=== PATIENT | male | born 1945 | race Caucasian/White ===

== ENCOUNTER → 2016-05-24 | Outpatient (CLI) | payer OTHER ==
[~2016-05-24] MED LIST: AMOX500C3 PO; APIX1TAB3 PO; CEPH500C2 PO; CHOL1CAP57 PO; CIPR-255 PO; CYAN500S5 PO; EPP3/2 IM; GLC500 PO; HYDC25 PO; INSDGI SC; LISI-725 PO; NXM/40 PO; PENI500T2 PO; SIMV20TA2 PO
[2016-05-24 12:58] LABS: BASO % 0.4 %; BASO ABS # 0.02 K/uL (0-0.2); COMPLETE YES; EOS % 6.1 %; HEMATOCRIT 43.8 % (42-52); IG% 0.2 %; LYMPH % 24.5 %; LYMPH ABS # 1.13 K/uL (1.2-3.4); MEAN CELL VOLUME 95.4 fL (80-100); MEAN CORPUSCULAR HEMOGLOBIN 32.5 pg (25-34); MEAN PLATELET VOLUME 11.2 fL (7.4-10.4); MONO % 11.7 %; NEUT % 57.1 %; PLATELET COUNT 153 K/uL (130-400); RED BLOOD COUNT 4.59 M/uL (4.7-6.1); WHITE BLOOD COUNT 4.61 K/uL (4.8-10.8)
[2016-05-24 13:02] LABS: URINE APPEARANCE CLEAR (CLEAR); URINE BILIRUBIN NEG (NEG); URINE COLOR YELLOW; URINE NITRITE NEG (NEG); URINE SPECIFIC GRAVITY 1.036 (1.000-1.030); UROBILINOGEN NEG (NEG); ZZUR CULT IF INDIC CLEAN CATCH NO
[2016-05-24 13:08] LABS: ALT/SGPT 23 U/L (12-78); BLOOD UREA NITROGEN 25 mg/dl (7-18); BUN/CREATININE RATIO 22.3 (10-20); CALCIUM 9.1 mg/dl (8.5-10.1); CARBON DIOXIDE 30 mmol/L (21-32); CHLORIDE 101 mmol/L (98-107); GLUCOSE 145 mg/dl (70-99); POTASSIUM 4.5 mmol/L (3.5-5.1); SODIUM 140 mmol/L (136-145)
[2016-05-24 13:09] LABS: MANUAL MICROSCOPIC REQUIRED? NO; REVIEW REQ? NO
[2016-05-24 13:18] LABS: ALKALINE PHOSPHATASE 95 U/L (45-117); AST/SGOT 15 U/L (15-37)
[2016-05-24 13:21] LABS: ESTIMATED AVERAGE GLUCOSE 212 mg/dl; HA1C FLAG Normal (Normal)
[2016-05-24 13:37] LABS: RATIO 10.8 mcg/mg (0-30.0)
== END | disposition home or self-care (01) ==
LOC: C.LABBFT 09:34
PROVIDERS: ATTEND Internal Medicine
DX: E11.9 Type 2 diabetes mellitus without complications (principal); I48.91 Unspecified atrial fibrillation

== ENCOUNTER → 2016-10-04 | Outpatient (CLI) | payer OTHER ==
[~2016-10-04] MED LIST changes: -AMOX500C3 PO; -CEPH500C2 PO; -CIPR-255 PO; -PENI500T2 PO
[2016-10-04 17:43] LABS: BASO % 0.3 %; BASO ABS # 0.02 K/uL (0-0.2); COMPLETE YES; EOS % 2.4 %; HEMATOCRIT 41.3 % (42-52); IG% 0.3 %; LYMPH % 13.5 %; LYMPH ABS # 0.96 K/uL (1.2-3.4); MEAN CELL VOLUME 93.7 fL (80-100); MEAN CORPUSCULAR HEMOGLOBIN 30.4 pg (25-34); MEAN CORPUSCULAR HGB CONC 32.4 g/dl (32-36); MEAN PLATELET VOLUME 10.3 fL (7.4-10.4); MONO % 12.6 %; NEUT % 70.9 %; PLATELET COUNT 199 K/uL (130-400); RED BLOOD COUNT 4.41 M/uL (4.7-6.1); WHITE BLOOD COUNT 7.09 K/uL (4.8-10.8)
[2016-10-04 18:30] LABS: ALB/GLOB RATIO 0.8 (0.9-2); ALKALINE PHOSPHATASE 83 U/L (45-117); ALT/SGPT 14 U/L (12-78); AST/SGOT 7 U/L (15-37); BLOOD UREA NITROGEN 22 mg/dl (7-18); BUN/CREATININE RATIO 21.6 (10-20); CALCIUM 9.6 mg/dl (8.5-10.1); CARBON DIOXIDE 28 mmol/L (21-32); CHLORIDE 96 mmol/L (98-107); CHOLESTEROL 111 mg/dl (0-200); GLUCOSE 162 mg/dl (70-99); HDL CHOLESTEROL 28 mg/dl; LDL CHOLESTEROL CALCULATED 58 mg/dl; SODIUM 134 mmol/L (136-145); TRIGLYCERIDES 124 mg/dl (0-150); VERY LOW DENSITY LIPOPROT CALC 25 mg/dl
[2016-10-05 06:17] LABS: ESTIMATED AVERAGE GLUCOSE 206 mg/dl; HA1C FLAG Normal (Normal)
== END | disposition home or self-care (01) ==
LOC: C.LABBFT 11:24
PROVIDERS: ATTEND Internal Medicine
DX: E78.5 Hyperlipidemia, unspecified (principal); E11.9 Type 2 diabetes mellitus without complications; I48.91 Unspecified atrial fibrillation

== ENCOUNTER → 2016-11-08 | Outpatient (CLI) | payer OTHER ==
[~2016-11-08] VITALS: Ht 185.4 cm; Wt 164.1 kg
[2016-11-08 11:05] VITALS: BP 122/59; PULSE 78; Ht 185.4 cm; Wt 164.1 kg
== END | disposition home or self-care (01) ==
LOC: C.NEUR 09:16
PROVIDERS: ATTEND Internal Medicine Pulmonary Disease
DX: G47.33 Obstructive sleep apnea (adult) (pediatric) (principal); E66.01 Morbid (severe) obesity due to excess calories; Z68.42 Body mass index [BMI] 45.0-49.9, adult

== ENCOUNTER → 2017-05-10 | Outpatient (CLI) | payer OTHER ==
[2017-05-10 12:36] LABS: BASO % 0.2 %; BASO ABS # 0.01 K/uL (0-0.2); EOS % 3.4 %; EOS ABS # 0.16 K/uL (0-0.5); HEMATOCRIT 41.7 % (42-52); HEMOGLOBIN 14.2 g/dL (14.0-18.0); IG# 0.01 K/uL (0.00-0.02); LYMPH % 28.3 %; LYMPH ABS # 1.35 K/uL (1.2-3.4); MEAN CELL VOLUME 98.3 fL (80-100); MEAN CORPUSCULAR HEMOGLOBIN 33.5 pg (25-34); MEAN CORPUSCULAR HGB CONC 34.1 g/dl (32-36); MEAN PLATELET VOLUME 10.3 fL (7.4-10.4); MONO % 11.7 %; MONO ABS # 0.56 K/uL (0.11-0.59); NEUT % 56.2 %; NEUT ABS # 2.68 K/uL (1.4-6.5); PLATELET COUNT 161 K/uL (130-400); RED CELL DISTRIBUTION WIDTH CV 13.8 % (11.5-14.5); WHITE BLOOD COUNT 4.77 K/uL (4.8-10.8)
[2017-05-10 12:57] LABS: HEMOGLOBIN A1C 8.9 % (4.5-5.6)
== END | disposition home or self-care (01) ==
LOC: C.LABBFT 09:35
PROVIDERS: ATTEND Podiatrist Foot & Ankle Surgery
DX: L03.032 Cellulitis of left toe (principal)

== ENCOUNTER → 2017-05-28 | Outpatient (CLI) | payer OTHER | END | disposition home or self-care (01) | LOC: C.LABSPEC 12:36 | PROVIDERS: ATTEND Physician Assistant Medical | DX: L03.119 Cellulitis of unspecified part of limb (principal) ==

== ENCOUNTER → 2017-06-19 | Day surgery (SDC) | payer OTHER ==
[2017-06-06 10:30] VITALS: Ht 185.4 cm; Wt 113.6 kg
[~2017-06-19] VITALS: Ht 185.4 cm; Wt 113.6 kg
[~2017-06-19] MED LIST changes: -CHOL1CAP57 PO; +CYAN10005 PO; -CYAN500S5 PO; +ERGO500011 PO; -GLC500 PO; -HYDC25 PO; +HYDR25TA4 PO; +INSU100I SC; +LIDOCAINE HCL 2% 2 ML VIAL (20MG/ML) ONE; +METF-384 PO; -NXM/40 PO; +PANT40TA PO; +PROPOFOL IV EMULSION 10 MG/ML 20 ML VIAL IV ONE; +SODIUM CHLORIDE 0.9% 500ML 500 ML IV ONE
--- NOTE | 2017-06-19 10:56 | Endo History and Physical ---
History & Physical Date of Service: Jun 19, 2017. Chief Complaint: SCREENING Referring Physician: DR CUAUHTEMOC ALLISON History of Present Illness 71 yo CM who presents for screening colonoscopy. Past Medical History Atrial Fibrillation, Diabetes, Arthritis, Reflux, High Cholesterol, Sleep Apnea , Heart Disease, Hypertension Past Surgical History Hx Cardiac Surgery: No Hx Internal Defibrillator: No Hx Pacemaker: No Hx Abdominal Surgery: Yes (COLON BIOPSY (BENIGN)) Hx of Implantable Prosthesis: No Hx Post-Op Nausea and Vomiting: No Hx Cancer Surgery: No Hx Thoracic Surgery: No Hx Orthopedic: Yes (LT/RT TKA, LT/RT CTR) Hx Urinary Tract Surgery: No Family History None Social History Smoking Status: Never Smoker Hx Substance Use: No Hx Alcohol Use: Yes (OCCASIONAL) Allergies Coded Allergies: BEE STING (Verified Allergy, Severe, ANAPHYLAXIS, 06/19/17) Sulfamethoxazole w/Trimethoprim (Verified Allergy, Unknown, HIVES, 06/19/17) Current Medications Reported Home Medications Medications Dose Route/Sig Max Daily Dose Days Date Category Dose Instructions Vitamin B-12 (Cyanocobalamin) 1,000 Mcg Tab 1,000 Mcg PO DAILY 06/06/17 Reported Protonix (Pantoprazole Sodium) 40 Mg Tab 40 Mg PO QAM 06/06/17 Reported Vitamin D 70616 Unit (Ergocalciferol) 50,000 Unit Cap 1 Tab PO WK 06/06/17 Reported Hctz (Hydrochlorothiazide) 25 Mg Tab 1 Tab PO QAM 06/06/17 Reported Hctz (Hydrochlorothiazide) 25 Mg Tab 0.5 Tab PO QPM 06/06/17 Reported Humalog (Insulin Lispro (Human)) 100 Unit/Ml Inj 1 Dose SC UD 06/06/17 Reported PER SLIDING SCALE Lantus (Insulin Glargine) 100 Unit/Ml Inj 50 Units SC HS 06/06/17 Reported Glucophage (Metformin Hcl) 1,000 Mg Tab 1,000 Mg PO BID 06/06/17 Reported Zestril (Lisinopril) 20 Mg Tab 20 Mg PO QAM 08/08/15 Reported Eliquis (Apixaban) 5 Mg Tab 5 Mg PO BID 09/20/14 Reported Zocor (Simvastatin) 20 Mg Tab 20 Mg PO QPM 06/26/14 Reported Epipen (Epinephrine) 0.3 Mg/0.3 Ml Inj 0.3 Mg IM UD 06/26/14 Reported Vital Signs Weight (Kilograms): 113.64 Height (Feet): 6 Height (Inches): 1 Date Time Temp Pulse Resp B/P (MAP) Pulse Ox O2 Delivery O2 Flow Rate FiO2 06/19/17 10:36 36.6 73 16 149/78 (101) 96 Room Air Physical Exam General Appearance: WD/WN, no apparent distress Respiratory/Chest: Auscultation: breath sounds normal Cardiovascular: Heart Auscultation: RRR Abdomen: Bowel Sounds: normal Inspection & Palpation: soft, non-distended, no tenderness, guarding & rebound Assessment and Plan Assessment: 71 yo CM who presents for screening colonoscopy. Plan: Proceed with colonoscopy.
--- NOTE | 2017-06-19 11:38 | Discharge Instructions ---
Endoscopy Patient Instructions Date / Procedure(s) Performed Jun 19, 2017. Colonoscopy Allergy Information Coded Allergies: BEE STING (Verified Allergy, Severe, ANAPHYLAXIS, 06/19/17) Sulfamethoxazole w/Trimethoprim (Verified Allergy, Unknown, HIVES, 06/19/17) Discharge Date / Findings Jun 19, 2017. Diverticulosis Internal hemorrhoids Medication Instructions Stopped Medication(s): METFORMIN, ELIQUIS LAST DOSE- 06-26-17 OK to resume all medications today as prescribed Reported Home Medications Medications Dose Route/Sig Max Daily Dose Days Date Category Dose Instructions Vitamin B-12 (Cyanocobalamin) 1,000 Mcg Tab 1,000 Mcg PO DAILY 06/06/17 Reported Protonix (Pantoprazole Sodium) 40 Mg Tab 40 Mg PO QAM 06/06/17 Reported Vitamin D 26051 Unit (Ergocalciferol) 50,000 Unit Cap 1 Tab PO WK 06/06/17 Reported Hctz (Hydrochlorothiazide) 25 Mg Tab 1 Tab PO QAM 06/06/17 Reported Hctz (Hydrochlorothiazide) 25 Mg Tab 0.5 Tab PO QPM 06/06/17 Reported Humalog (Insulin Lispro (Human)) 100 Unit/Ml Inj 1 Dose SC UD 06/06/17 Reported PER SLIDING SCALE Lantus (Insulin Glargine) 100 Unit/Ml Inj 50 Units SC HS 06/06/17 Reported Glucophage (Metformin Hcl) 1,000 Mg Tab 1,000 Mg PO BID 06/06/17 Reported Zestril (Lisinopril) 20 Mg Tab 20 Mg PO QAM 08/08/15 Reported Eliquis (Apixaban) 5 Mg Tab 5 Mg PO BID 09/20/14 Reported Zocor (Simvastatin) 20 Mg Tab 20 Mg PO QPM 06/26/14 Reported Epipen (Epinephrine) 0.3 Mg/0.3 Ml Inj 0.3 Mg IM UD 06/26/14 Reported Provider Instructions Activity Restrictions - No exercising or heavy lifting for 24 hours. - Do not drink alcohol the day of the procedure. - Do not drive a car or operate machinery until the day after the procedure. - Do not make any important decisions or sign important papers in 24 hours after the procedure. Following Day: - Return to full activity which may include returning to work/school. Diet Start your diet with liquids and light foods (jello, soup, juice, toast). Then eat your usual diet if not nauseated. Treatment For Common After Affects For mild abdominal pain, bloating, or excessive gas: - Rest - Eat lightly - Lie on right side Follow-Up Information Follow-up with DR JAIME, DR POSADAS as scheduled Anesthesia Information What You Should Know You have had a procedure that required some medicine to reduce anxiety and discomfort. This treatment is called moderate sedation. After receiving the treatment, you may be sleepy, but you will be able to breathe on your own. The effects of the treatment may last for several hours. Follow these instructions along with Activity/Diet recommendations noted above: * Do NOT do anything where dizziness or clumsiness would be dangerous. * Rest quietly at home today, then you can be up and about tomorrow. * Have a responsible person stay with you the rest of today. * You may have had an I.V. today. If so, you may take the dressing off later today. Recommendations Call your doctor if: * Trouble breathing * Continuous vomiting for more than 24 hours * Temperature above 101 degrees * Severe abdominal pain or bloating * Pain not relieved by pain medicine ordered * There is increased drainage or redness from any incision * A large amount of rectal bleeding greater than 2-3 tablespoons. (If you had a polyp/s removed or have hemorrhoids, a small amount of blood - from the rectum is to be expected.) * You have any unanswered questions or concerns. IN THE EVENT OF A SERIOUS EMERGENCY, GO TO THE NEAREST EMERGENCY ROOM Your discharge instructions were prepared by provider Javier Barber. Patient Instructions Signature Page Greg Lawler Patient (or Guardian) Signature/Date: I have read and understand the instructions given to me by my caregivers. Caregiver/RN/Doctor Signature/Date: The above-named patient and/or guardian has received patient instructions on this date. + Original Patient Signature Page (only) stays with chart. Please make copy for patient.
--- NOTE | 2017-06-19 11:49 | Anesthesiology Progress Note ---
Anesthesia Post Op Note Date & Time Jun 19, 2017 at 11:49 Vital Signs Pain Intensity: 0 Vital Signs Past 12 Hours Date Time Temp Pulse Resp B/P (MAP) Pulse Ox O2 Delivery O2 Flow Rate FiO2 06/19/17 11:40 64 18 126/75 (92) 98 Room Air 06/19/17 11:29 64 16 101/48 (65) 94 Room Air 06/19/17 10:36 36.6 73 16 149/78 (101) 96 Room Air Notes Mental Status: alert / awake / arousable, participated in evaluation Pt Amnestic to Procedure: Yes Nausea / Vomiting: adequately controlled Pain: adequately controlled Airway Patency, RR, SpO2: stable & adequate BP & HR: stable & adequate Hydration State: stable & adequate Anesthetic Complications: no major complications apparent
--- NOTE | 2017-06-19 11:49 | GI REPORT ---
Procedure Date: 06/19/2017 11:00 AM THIS REPORT HAS BEEN AMENDED Addendum Number: 1 Addendum Date: 06/19/2017 11:51:13 AM No specimens were collected during this procedure, and therefore, no pathology is pending. No repeat colonoscopy secondary to patient's age and lack of adenomas, as per current guidelines. Procedure: Colonoscopy Indications: Screening for colorectal malignant neoplasm Medicines: Monitored Anesthesia Care Complications: No immediate complications. Estimated Blood Loss: Estimated blood loss: none. Procedure: Pre-Anesthesia Assessment: - Prior to the procedure, a History and Physical was performed, and patient medications and allergies were reviewed. The patient's tolerance of previous anesthesia was also reviewed. The risks and benefits of the procedure and the sedation options and risks were discussed with the patient. All questions were answered, and informed consent was obtained. Prior Anticoagulants: The patient has taken Eliquis (apixaban), last dose was 3 days prior to procedure. ASA Grade Assessment: III - A patient with severe systemic disease. After reviewing the risks and benefits, the patient was deemed in satisfactory condition to undergo the procedure. After I obtained informed consent, the scope was passed under direct vision. Throughout the procedure, the patient's blood pressure, pulse, and oxygen saturations were monitored continuously. The scope was introduced through the anus and advanced to the cecum, identified by appendiceal orifice and ileocecal valve. The colonoscopy was performed without difficulty. The patient tolerated the procedure well. The quality of the bowel preparation was good. The ileocecal valve, appendiceal orifice, and rectum were photographed. Findings: The perianal and digital rectal examinations were normal. Multiple small-mouthed diverticula were found in the sigmoid colon. Non-bleeding internal hemorrhoids were found during retroflexion. The hemorrhoids were small. Impression: - Diverticulosis in the sigmoid colon. - Non-bleeding internal hemorrhoids. - No specimens collected. Recommendation: - Resume previous diet. - Continue present medications. - Repeat colonoscopy for surveillance based on pathology results. - Return to primary care physician as previously scheduled. Javier Barber DO 06/19/2017 11:49:24 AM This report has been signed electronically. Note Initiated On: 06/19/2017 11:00 AM I attest to the content of the Intraoperative Record and orders documented therein, exceptions below Javier Barber DO 06/19/2017 11:51:58 AM This report has been signed electronically.
[2017-06-19 11:55] VITALS: BP 142/74; PULSE 68; O2SAT 97
== END | disposition home or self-care (01) ==
LOC: C.GI 09:59
PROVIDERS: ATTEND Internal Medicine
DX: Z12.11 Encounter for screening for malignant neoplasm of colon (principal); K57.30 Diverticulosis of large intestine without perforation or abscess without bleeding; K64.8 Other hemorrhoids; I48.91 Unspecified atrial fibrillation; E11.9 Type 2 diabetes mellitus without complications; M19.90 Unspecified osteoarthritis, unspecified site; K21.9 Gastro-esophageal reflux disease without esophagitis; E78.5 Hyperlipidemia, unspecified; E78.00 Pure hypercholesterolemia, unspecified; G47.33 Obstructive sleep apnea (adult) (pediatric); I10 Essential (primary) hypertension; Z96.653 Presence of artificial knee joint, bilateral; Z98.41 Cataract extraction status, right eye; Z98.42 Cataract extraction status, left eye; Z88.2 Allergy status to sulfonamides; Z79.84 Long term (current) use of oral hypoglycemic drugs; Z79.4 Long term (current) use of insulin

== ENCOUNTER → 2017-07-08 | Outpatient (CLI) | payer OTHER ==
[~2017-07-08] MED LIST changes: +AMOX500C3 PO; -LIDOCAINE HCL 2% 2 ML VIAL (20MG/ML) ONE; -PROPOFOL IV EMULSION 10 MG/ML 20 ML VIAL IV ONE; -SODIUM CHLORIDE 0.9% 500ML 500 ML IV ONE
[2017-07-08 17:33] LABS: BASO % 0.5 %; BASO ABS # 0.04 K/uL (0-0.2); EOS % 3.8 %; EOS ABS # 0.33 K/uL (0-0.5); HEMATOCRIT 44.2 % (42-52); IG# 0.02 K/uL (0.00-0.02); LYMPH % 15.8 %; LYMPH ABS # 1.37 K/uL (1.2-3.4); MEAN CELL VOLUME 95.5 fL (80-100); MEAN CORPUSCULAR HEMOGLOBIN 32.4 pg (25-34); MEAN CORPUSCULAR HGB CONC 33.9 g/dl (32-36); MEAN PLATELET VOLUME 10.7 fL (7.4-10.4); MONO % 9.1 %; MONO ABS # 0.79 K/uL (0.11-0.59); NEUT % 70.6 %; PLATELET COUNT 180 K/uL (130-400); RED CELL DISTRIBUTION WIDTH CV 13.7 % (11.5-14.5); RED CELL DISTRIBUTION WIDTH SD 47.1 fL (36.4-46.3); WHITE BLOOD COUNT 8.65 K/uL (4.8-10.8)
[2017-07-08 17:57] LABS: ALBUMIN 4.2 gm/dl (3.4-5.0); ALT/SGPT 26 U/L (12-78); AST/SGOT 23 U/L (15-37); BLOOD UREA NITROGEN 28 mg/dl (7-18); CALCIUM 9.6 mg/dl (8.5-10.1); CARBON DIOXIDE 26 mmol/L (21-32); CREATININE 1.07 mg/dl (0.60-1.40); GLUCOSE 114 mg/dl (70-99); POTASSIUM 4.2 mmol/L (3.5-5.1); SODIUM 136 mmol/L (136-145)
[2017-07-08 17:59] LABS: ALKALINE PHOSPHATASE 88 U/L (45-117); TOTAL PROTEIN 8.2 gm/dl (6.4-8.2)
== END | disposition home or self-care (01) ==
LOC: C.LAB1850 16:53
PROVIDERS: ATTEND Internal Medicine
DX: L29.9 Pruritus, unspecified (principal)

== ENCOUNTER → 2017-11-01 | Outpatient (CLI) | payer OTHER ==
[~2017-11-01] MED LIST changes: -AMOX500C3 PO
[2017-11-01 12:38] LABS: HEMOGLOBIN A1C 9.3 % (4.5-5.6)
[2017-11-01 12:58] LABS: ALBUMIN 3.5 gm/dl (3.4-5.0); ALKALINE PHOSPHATASE 87 U/L (45-117); ALT/SGPT 22 U/L (12-78); AST/SGOT 14 U/L (15-37); BLOOD UREA NITROGEN 28 mg/dl (7-18); CALCIUM 9.4 mg/dl (8.5-10.1); CARBON DIOXIDE 28 mmol/L (21-32); CHOLESTEROL 94 mg/dl (0-200); CREATININE 0.94 mg/dl (0.60-1.40); GLUCOSE 130 mg/dl (70-99); LDL CHOLESTEROL CALCULATED 48 mg/dl; SODIUM 139 mmol/L (136-145); TOTAL PROTEIN 6.8 gm/dl (6.4-8.2)
== END | disposition home or self-care (01) ==
LOC: C.LABBFT 09:24
PROVIDERS: ATTEND Internal Medicine Endocrinology, Diabetes & Metabolism
DX: E55.9 Vitamin D deficiency, unspecified (principal); E11.65 Type 2 diabetes mellitus with hyperglycemia

== ENCOUNTER 2023-10-19 12:28 | Inpatient (IN) ==
[2023-10-19 14:17] LABS: Basophils # (auto) 0.03 K/uL (0.00-0.20); Basophils % (auto) 0.3 %; Eosinophils # (auto) 0.06 K/uL (0.00-0.50); Eosinophils % (auto) 0.6 %; Hematocrit (blood only) 38.3 % (42.0-52.0); Hemoglobin 12.4 g/dl (14.0-18.0); Immature Granulocytes # (auto) 0.03 K/uL (0.01-0.20); Immature Granulocytes % (auto) 0.3 %; Lymphocytes % (auto) 11.8 %; Mean Corpuscular Hemoglobin 31.1 pg (25.0-34.0); Mean Corpuscular Hgb Conc 32.4 g/dL (32.0-36.0); Mean Platelet Volume 10.7 fL (9.4-12.4); Monocytes # (auto) 0.76 K/uL (0.11-0.59); Monocytes % (auto) 8.2 %; Neutrophils # (auto) 7.34 K/uL (1.40-6.50); Neutrophils % (auto) 78.8 %; Platelet Count 187 K/uL (130-400); RDW Coefficient of Variation 14.6 % (11.5-14.5); RDW Standard Deviation 51.8 fL (36.4-46.3); Red Blood Count 3.99 M/uL (4.70-6.10); White Blood Count 9.32 K/ul (4.8-10.8)
[2023-10-19 14:31] LABS: Alanine Aminotransferase 14 U/L (7-52); Albumin Level 3.6 gm/dl (3.4-5.0); Alkaline Phosphatase 87 U/L (34-104); Anion Gap 8 (3-11); Aspartate Aminotransferase 16 U/L (13-39); Bilirubin Direct 0.2 mg/dl (0-0.2); Bilirubin,Total 0.7 mg/dl (0.2-1.0); Blood Urea Nitrogen 63 mg/dl (6-23); Calcium 8.5 mg/dl (8.6-10.3); Carbon Dioxide 27 mmol/L (21-32); Chloride 97 mmol/L (98-107); Est GFR (African American) 42.9 ml/min; Glucose 192 mg/dl (70-99(Fasting)); Lipase 18 U/L (11-82); Potassium 4.2 mmol/L (3.5-5.1); Sodium 132 mmol/L (136-145); Total Protein 7.4 gm/dl (6.0-8.3)
--- NOTE | 2023-10-19 14:54 | Emergency Department Note ---
Impression & Plan Acute osteomyelitis of toe, NED (acute kidney injury) ED Provider Note NAME: BERHANE KHALIL AGE: 78 SEX: M : 1945 ARRIVES VIA: Walk-In INFORMANT: Patient, ED PROVIDER(S): Scooby Bacon MD CHIEF COMPLAINT: Toe infection HPI: This is a 78-year-old male with history of diabetes, hypertension, neuropathy presenting for foot infection. Patient with his 2 daughters states that his third toes turning black. He has noted wounds to his feet previously however this new third toe became more painful and black. They were dressing his wounds and noticed this happened. Worsening swelling over the past 5 days. He reports chills and possible fevers at home. He does see wound care but has not had any recent debridement. He notes a foul odor to his foot as well. Currently not in antibiotics. ROS: See above HPI for pertinent positives & negatives. A total of 10 systems reviewed and were otherwise negative. PHYSICAL EXAMINATION: General: Chronically ill-appearing Head: Normocephalic and atraumatic Eyes: Normal inspection, extraocular muscles intact Ear, nose, throat: Normal external exam Neck: Normal range of motion Respiratory: lungs clear to auscultation bilaterally Cardiovascular: Regular rate/rhythm, no murmur GI: soft, nontender, no guarding or rebound Extremities: Chronic venous skin changes, left third toe shows swelling, purple discoloration, black eschar, other toes reveal chronic appearing wounds Neuro: The patient awake and alert, appropriately conversive, no focal deficits, symmetric faces Skin: Warm, dry, and intact MEDICAL DECISION MAKING: This is a 78-year-old male with history of diabetes, hypertension and neuropathy presenting for foot infection. Concern for third toe infection, osteomyelitis, low concern for gangrene. -X-ray as independently interpreted by me reveals reduced lucency of third great toe, concerning for osteomyelitis -Blood was reviewed showing no leukocytosis. Hemoglobin 12.4. Electrolytes show slight hyponatremia and hyperchloremia. Creatinine elevated 1.75. -Will start patient on Zosyn at this time for suspected osteomyelitis -Patient required mission at this time for further wound care osteomyelitis management -Discussed with VIANEY Moreno for hospitalist service for admission Differential diagnosis: See above ER treatment provided: See below Diagnostics interpreted by me: ECG: ECG independently interpreted by me with normal sinus rhythm, rate of 83, right bundle branch block, normal VT, normal QTc, no ST segment elevations consistent with STEMI criteria, occasional PVC Cardiac Monitoring: An order was placed for continuous cardiac monitoring. The monitor shows a rate of 76 with sinus rhythm. Laboratory studies: As stated above and show below. Imaging studies: See below. Past Med/Surg History Problem List (Updated 10/19/23 @ 19:28 by Scooby Bacon MD) NED (acute kidney injury) (Acute) Acute osteomyelitis of toe (Acute) Diabetic infection of left foot Encounter for pre-operative examination Fracture of proximal end of fibula Acute UTI (Acute) Fracture of left fibula (Acute) Fall (Acute) Foot ulcer, left Lower extremity edema Diabetes type 2, controlled Anemia Atrial flutter BMI 45.0-49.9, adult Loss of protective sensation of skin of foot Obstructive sleep apnea, adult Venous stasis Vitamin D deficiency BPH with obstruction/lower urinary tract symptoms Dyslipidemia GERD without esophagitis Diabetic peripheral neuropathy associated with type 2 diabetes mellitus Medical History On anticoagulant therapy History of COVID-19 2020- no hosp; resolved Lymphedema Arthritis Diabetes diabetic sensor Sleep apnea CPAP Afib asymptomatic; eliquis daily Personal history of diabetic foot ulcer NO CURRENT BPH with obstruction/lower urinary tract symptoms Dyslipidemia GERD without esophagitis Hypertension Osteoarthritis Diabetic peripheral neuropathy associated with type 2 diabetes mellitus Surgical History History of right cataract surgery History of colonoscopy H/O umbilical hernia repair (~10/2006) Hx of total knee arthroplasty right TKA 11/2001 Dr. Garcia, left TKA 2006; revision July, H/O carpal tunnel repair Family History Brother Prostate cancer Diabetes Coronary heart disease Abdominal aortic aneurysm Alzheimer disease Stroke Family history of colonic polyps Father Heart disease Myocardial infarction Family/Other Hypertension Denies family history of Rheumatoid arthritis Sudden SIDS (sudden syndrome) Ovarian cancer Deep vein thrombosis Osteoporosis Dyslipidemia Cerebral aneurysm Bipolar disorder Clotting disorder Crohn's disease Dementia Depression Kidney disease Osteoarthritis Breast cancer Schizophrenia Congenital kidney disease Gestational diabetes Lung cancer COPD (chronic obstructive pulmonary disease) Colorectal cancer Pulmonary embolism Lung disease Ulcerative colitis Colonic polyp Asthma Cystic kidney disease Social History (Updated 03/08/24 @ 13:32 by LENI Geller) Smoking Status: Never smoker Second Hand Exposure: No; Do You Dip or Chew Tobacco: No; Hx Alcohol Use: Yes Alcohol type: beer and hard liquor Alcohol Intake Frequency: 2-3 x/Week Hx Substance Use: No Preferred Language: Belarusian Communication Ability: Effective Visual Impairment: No Limitations Hearing Ability: Normal Project Structural Engineer Required: No Beliefs That Will Affect Care: None marital status: / Current Living Situation: Alone Current Living Situation Comment: DOG current occupational status: retired current occupation: he used to work at [employer] How many Children do You have: 2 Feels Safe at Home: Yes Childhood Exposure to Second-Hand Smoke: No Diet: regular caffeine: Yes during the past year weight has: remained stable Dental Care, Regularly: Yes Physical Activity Frequency: 3-4 Times per Week Seatbelt Use: sometimes Sunscreen Use: No Assistive Devices: Cane, CPAP and Glasses Allergies Allergies Allergy/AdvReac Type Severity Reaction Status Date / Time Sulfa (Sulfonamide Allergy Severe Hives Unverified 08/19/23 11:05 Antibiotics) Bactrim Allergy Unknown HIVES Verified 06/19/17 10:28 bee venom protein (honey bee) Allergy Unknown ANAPHYLAXIS Verified 08/19/23 11:05 fluconazole Allergy Unknown rash with Verified 08/19/23 11:05 itching sulfamethoxazole Allergy Unknown HIVES Verified 08/19/23 11:05 trimethoprim Allergy Unknown HIVES Verified 08/19/23 11:05 Home Meds Home Medications Medication Instructions Recorded Confirmed insulin syringe-needle U-100 1 mL #10 ea 09/16/18 08/19/23 31 gauge x 5/16" (BD Insulin Syringe Ultra-Fine) lancets (OneTouch UltraSoft #50 ea 09/16/18 08/19/23 Lancets) cholecalciferol (vitamin D3) 25 25 mcg PO QAM 10/21/20 10/19/23 mcg (1,000 unit) capsule epinephrine 0.3 mg/0.3 mL 0.3 mg IM UD PRN anaphylaxis 05/28/22 10/19/23 injection, auto-injector (EpiPen 2-Golden) metformin 1,000 mg tablet 500 mg PO BID 01/28/23 10/19/23 Balance Of Nature 1 tab PO QAM 04/11/23 10/19/23 tramadol 50 mg tablet 50 mg PO Q8 PRN Pain 10/19/23 10/19/23 Previous Rx's Medication Instructions Recorded CPAP Machine #1 ea 01/06/19 Contour Test Strips (blood sugar #400 ea 01/21/19 diagnostic) CPAP Supplies #1 ea 11/02/19 Walking Cane #1 ea 11/15/20 mecobalamin (vitamin B12) 5,000 5,000 mcg PO DAILY #30 tabs 05/07/22 mcg chewable tablet lisinopril 20 mg tablet 20 mg PO BID #180 tabs 12/04/22 sildenafil 100 mg tablet 100 mg PO DAILY #6 tabs 12/04/22 apixaban 5 mg tablet 5 mg PO BID #180 tabs 01/02/23 tamsulosin 0.4 mg capsule (Flomax) 0.4 mg PO DAILY #90 caps 02/05/23 insulin lispro 100 unit/mL See Rx Instructions subcut TIDM 03/20/23 subcutaneous pen (Humalog KwikPen #30 mL (U-100) Insulin) flash glucose sensor (FreeStyle #6 ea 05/20/23 Tamika 2 Sensor kit) hydrochlorothiazide 25 mg tablet 12.5 mg (1/2 x 25 mg) PO BID #60 07/12/23 tabs pantoprazole 40 mg tablet,delayed 40 mg PO QAM #90 tabs 07/12/23 release albuterol sulfate 90 mcg/actuation 1 inh inhalation Q6H PRN shortness 07/15/23 aerosol inhaler of breath or wheezing #8.5 grams simvastatin 20 mg tablet 20 mg PO QAM #90 tabs 08/06/23 furosemide 20 mg tablet 20 mg PO BID #180 tabs 09/20/23 insulin glargine 100 unit/mL (3 40 unit (0.4 mL) subcut .QHS #45 mL 10/03/23 mL) subcutaneous pen (Lantus Solostar U-100 Insulin) Results & Data (ED) Vital Signs Vital Signs - 24 hr 10/19/23 12:53 10/19/23 13:13 10/19/23 13:18 Temperature 36.5 C Temperature Source Temporal Artery Scan Pulse Rate 89 83 96 H Pulse Rate [Apical] Pulse Rate from SpO2 Sensor 90 Pulse Rhythm [Apical] Respiratory Rate 18 22 Respiratory Effort / Characteristics Non-Labored Respiratory Depth Normal Respiratory Pattern Regular Blood Pressure 111/69 Blood Pressure [Left Arm] Blood Pressure Mean 83 Blood Pressure Mean [Left Arm] Pulse Oximetry 95 97 Oxygen Delivery Method Room Air Sepsis Recent Fever Within 48 Hours No Sepsis New/Unexplained Change in Mental Status N/A Sepsis Action Taken by Nursing No Action Required 10/19/23 13:24 10/19/23 13:30 10/19/23 13:45 Temperature Temperature Source Pulse Rate 74 75 81 Pulse Rate [Apical] Pulse Rate from SpO2 Sensor 76 80 81 Pulse Rhythm [Apical] Respiratory Rate 26 H 17 22 Respiratory Effort / Characteristics Respiratory Depth Respiratory Pattern Blood Pressure Blood Pressure [Left Arm] Blood Pressure Mean Blood Pressure Mean [Left Arm] Pulse Oximetry 99 97 96 Oxygen Delivery Method Sepsis Recent Fever Within 48 Hours Sepsis New/Unexplained Change in Mental Status Sepsis Action Taken by Nursing 10/19/23 13:54 10/19/23 16:07 10/19/23 16:09 Temperature Temperature Source Pulse Rate Pulse Rate [Apical] 83 Pulse Rate from SpO2 Sensor 84 Pulse Rhythm [Apical] Respiratory Rate 19 20 Respiratory Effort / Characteristics Respiratory Depth Respiratory Pattern Blood Pressure 129/79 Blood Pressure [Left Arm] 130/87 129/79 Blood Pressure Mean 95 Blood Pressure Mean [Left Arm] 101 95 Pulse Oximetry 93 98 Oxygen Delivery Method Room Air Room Air Sepsis Recent Fever Within 48 Hours Sepsis New/Unexplained Change in Mental Status Sepsis Action Taken by Nursing 10/19/23 17:12 10/19/23 19:00 10/19/23 19:06 Temperature Temperature Source Pulse Rate 82 76 Pulse Rate [Apical] 76 Pulse Rate from SpO2 Sensor 79 Pulse Rhythm [Apical] Regular Respiratory Rate 18 20 Respiratory Effort / Characteristics Non-Labored Spontaneous Respiratory Depth Normal Respiratory Pattern Regular Blood Pressure 127/65 Blood Pressure [Left Arm] 107/77 Blood Pressure Mean 85 Blood Pressure Mean [Left Arm] 87 Pulse Oximetry 95 96 Oxygen Delivery Method Room Air Room Air Sepsis Recent Fever Within 48 Hours Sepsis New/Unexplained Change in Mental Status Sepsis Action Taken by Nursing Laboratory Data 10/19/23 13:11 10/19/23 13:11 Lab Results 10/19/23 10/19/23 Range/Units 13:11 14:14 WBC 9.32 (4.8-10.8) K/ul RBC 3.99 L (4.70-6.10) M/uL Hgb 12.4 L (14.0-18.0) g/dl Hct 38.3 L (42.0-52.0) % MCV 96.0 (80.0-100.0) fL MCH 31.1 (25.0-34.0) pg MCHC 32.4 (32.0-36.0) g/dL RDW Std Deviation 51.8 H (36.4-46.3) fL RDW Coeff of David 14.6 H (11.5-14.5) % Plt Count 187 (130-400) K/uL MPV 10.7 (9.4-12.4) fL Immature Gran % (Auto) 0.3 % Neut % (Auto) 78.8 % Lymph % (Auto) 11.8 % Robertson % (Auto) 8.2 % Eos % (Auto) 0.6 % Baso % (Auto) 0.3 % Neut # (Auto) 7.34 H (1.40-6.50) K/uL Lymph # (Auto) 1.10 L (1.20-3.40) K/uL Robertson # (Auto) 0.76 H (0.11-0.59) K/uL Eos # (Auto) 0.06 (0.00-0.50) K/uL Baso # (Auto) 0.03 (0.00-0.20) K/uL Immature Gran # (Auto) 0.03 (0.01-0.20) K/uL Sodium 132 L (136-145) mmol/L Potassium 4.2 (3.5-5.1) mmol/L Chloride 97 L (98-107) mmol/L Carbon Dioxide 27 (21-32) mmol/L Anion Gap 8 (3-11) BUN 63 H (6-23) mg/dl Creatinine 1.75 H (0.6-1.4) mg/dl Est Cr Clr Drug Dosing Not Reportable Est GFR ( Amer) 42.9 ml/min Est GFR (Non-Af Amer) 37.0 ml/min BUN/Creatinine Ratio 36.0 H (10-20) Glucose 192 H (70-99(Fasting)) mg/dl Lactate 1.0 (0.4-2.0) mmol/L Calcium 8.5 L (8.6-10.3) mg/dl Magnesium 1.7 (1.7-2.4) mg/dl Total Bilirubin 0.7 (0.2-1.0) mg/dl Direct Bilirubin 0.2 (0-0.2) mg/dl AST 16 (13-39) U/L ALT 14 (7-52) U/L Alkaline Phosphatase 87 (34-104) U/L Total Protein 7.4 (6.0-8.3) gm/dl Albumin 3.6 (3.4-5.0) gm/dl Lipase 18 (11-82) U/L Administered Medications Discontinued Medications Piperacillin Sod/Tazobactam Sod (Zosyn) 4.5 gm in 100 mls @ 200 mls/hr IV NOW ONE Stop: 10/19/23 16:25 Last Infusion: 10/19/23 18:40 Dose: Infused Documented By: Admin: 10/19/23 16:07 Dose: 200 mls/hr Documented By: FRANCISCO Daptomycin 575 mg/ Syringe 11.5 mls @ 5.75 mls/min IV ONE ONE; Protocol Stop: 10/19/23 18:25 Last Admin: 10/19/23 19:07 Dose: 5.75 mls/min Documented By: TEDDY Metoprolol Tartrate (Metoprolol Tartrate 25 Mg Tab) 12.5 mg PO NOW ONE Stop: 10/19/23 19:01 Last Admin: 10/19/23 19:03 Dose: 12.5 mg Documented By: TEDDY Miscellaneous (Patient's Height &/Or Weight Needed) 1 each N/A NOW STA Stop: 10/19/23 15:57 Last Admin: 10/19/23 16:07 Dose: 1 each Documented By: FRANCISCO Imaging Data Radiologist's Impression: Foot X-Ray 10/19/23 13:58 XR foot LT min 3V routine CLINICAL HISTORY: osteo, 3rd toe TECHNIQUE: 3 views of the left foot were obtained. Comparison: Comparison is made to MRI left foot 05/10/2020 FINDINGS: Prominent osteopenia is seen in the distal phalanx of the third digit. The joint spaces are well preserved. Soft tissue swelling is seen about the third digit. IMPRESSION: Soft tissue swelling about the third digit with underlying osteopenia compatible with osteomyelitis. ACT 112: Negative or not required by law. Electronically signed by: Glenn Rosenthal M.D. 10/19/2023 4:16 PM Discharge Plan Visit Data Chief Complaint: Wound Stated Complaint: WOUND LEFT TOE ED Provider: Scooby Bacon Discharge Problem: Acute osteomyelitis of toe, NED (acute kidney injury) Forms Stand Alone Forms: My [facility] Prescriptions Prescriptions: No Action (DME) CPAP Machine Misc See Dose Instructions .ROUTE .MEDSUPPLY Qty: 1 0RF Dose Instruction: As directed Rx Instructions: ADJUST BIPAP TO IPAP 16 EPAP 11-JACY'S (DME) Contour Test Strips strip See Dose Instructions .ROUTE .MEDSUPPLY Qty: 400 3RF Dose Instruction: As directed Rx Instructions: Test 4 times daily (DME) CPAP Supplies Misc See Rx Instructions .ROUTE .MEDSUPPLY Qty: 1 0RF Rx Instructions: CPAP MASK OF CHOICE. CPAP SUPPLIES. CARE PLUS O2 (DME) Walking Cane Misc See Rx Instructions .Route Qty: 1 0RF Rx Instructions: As directed mecobalamin (vitamin B12) 5,000 mcg tablet,chewable 5,000 mcg PO DAILY Qty: 30 5RF Patient Comments: 2 IN THE MORNING AND 2 AT NIGHT/5000 DAILY/PILLS TO SWALLOW apixaban 5 mg tablet 5 mg PO BID Qty: 180 3RF insulin lispro [Humalog KwikPen Insulin] 100 unit/mL insulin pen See Rx Instructions subcut TIDM MDD 30 uinits Qty: 30 3RF Rx Instructions: Inject subcutaneously three times daily with meal, according to sliding scale; (DME) FreeStyle Tamika 2 Sensor Kit See Rx Instructions .Route Qty: 6 3RF Rx Instructions: change Q14D hydrochlorothiazide 25 mg tablet 12.5 mg PO BID Qty: 60 2RF pantoprazole 40 mg tablet,delayed release (DR/EC) 40 mg PO QAM Qty: 90 3RF albuterol sulfate 90 mcg/actuation HFA aerosol inhaler 1 inh inhalation Q6H PRN (Reason: shortness of breath or wheezing) Qty: 8.5 3RF Patient Comments: HARDLY EVERY USE IT simvastatin 20 mg tablet 20 mg PO QAM Qty: 90 3RF furosemide 20 mg tablet 20 mg PO BID Qty: 180 1RF Rx Instructions: Take 20 mg by mouth twice daily. insulin glargine [Lantus Solostar U-100 Insulin] 100 unit/mL (3 mL) insulin pen 40 unit subcut .QHS Qty: 45 3RF (DME) insulin syringe-needle U-100 [BD Insulin Syringe Ultra-Fine] 1 mL 31 gauge x 5/16 syringe See Dose Instructions .ROUTE .MEDSUPPLY Qty: 10 Rx Instructions: USE FOR LANTUS AND HUMALOG UP TO 4 TIMES DAILY (DME) lancets [OneTouch UltraSoft Lancets] [facility] [place] See Dose Instructions .ROUTE .MEDSUPPLY Qty: 50 Rx Instructions: TEST 4 TIMES DAILY AND PRN lisinopril 20 mg tablet 20 mg PO BID Qty: 180 3RF sildenafil 100 mg tablet 100 mg PO DAILY Qty: 6 6RF tamsulosin [Flomax] 0.4 mg capsule 0.4 mg PO DAILY Qty: 90 3RF metformin 1,000 mg tablet 500 mg PO BID cholecalciferol (vitamin D3) 25 mcg (1,000 unit) capsule 25 mcg PO QAM epinephrine [EpiPen 2-Golden] 0.3 mg/0.3 mL auto-injector 0.3 mg IM UD PRN (Reason: anaphylaxis) Rx Instructions: 0.3 mg IM as directed PRN Balance Of Nature 1 tab PO QAM tramadol 50 mg tablet 50 mg PO Q8 PRN (Reason: Pain) Referrals Referrals: Tank Munoz MD [Primary Care Provider] -
[2023-10-19] MEDS: Patient's HEIGHT &/or WEIGHT Needed STA (16:07)
[2023-10-19] MEDS: PIPERACILLIN/TAZOBACTAM 4.5 GM/100 ML BAG IV ONE (16:07)
--- NOTE | 2023-10-19 16:18 | History & Physical Report ---
Date of Service October 19, 2023 Assessment & Plan (1) Lower extremity edema: (2) Diabetic infection of left foot: (3) Vitamin D deficiency: (4) Dyslipidemia: (5) BPH with obstruction/lower urinary tract symptoms: (6) GERD without esophagitis: (7) Diabetic peripheral neuropathy associated with type 2 diabetes mellitus: (8) Atrial flutter: (9) Diabetes type 2, controlled: Plan 78 yo M with PMHx of DM II c/b diabetic neuropathy, HTN, AFlutter, HLD, EVON, GERD, BPH, presents to the hospital for the evaluation of left foot infection. #Left diabetic foot ulcer - pt followed by [facility] - admit to inpt - left foot XR: soft tissue swelling about hte 3rd digit with underlying osteopenia compatible with OM - Lower arterial study (07/16/23): no evidence of significant lower extremity arterial occlusive disease b/l - s/p 1 dose of zosyn in the ED, cont Zosyn and add Vanc - check ESR / CRP - ID consult - Ortho consult - will likely need MRI, but will await ID / Ortho eval #DM II - HA1c: 7.9 (08/15/23) - hold Metformin - cont lantus - ordered correctional scale - diabetic diet #NED - baseline Cr: 1.1, on admission 1.75 - hold HCTZ, lasix, lisinopril - gentle hydration , monitor for volume overload #AFib - CHADS2 Vasc: 4 - on eliquis #HTN - hold lisinopril, HCTZ, Lasix #HLD - statin on hold given pt started on dapto #GERD - cont PPI #BPH - cont tamsulosin #Obesity #EVON - BMI: 35 - cont CPAP History of Present Illness Chief Complaint: Left toe wound Primary Care Provider: Tank Munoz MD 78 yo M with PMHx of DM II c/b diabetic neuropathy, HTN, AFlutter, HLD, EVON, GERD, BPH, presents to the hospital for the evaluation of left foot infection. Pt has been following with [facility] for his left heel wound. Per daughter, he was last seen by them about 2 weeks ago. He has weekly home health RN visits and last visit was on 10/15/23. Per pt, his legs were wrapped at that time with nylon socks over his foot covering his toes fully. At this time of evaluation, pt reports no wound was present. Yesterday, pt started complaining of toe pain prompting his daughters to remove the nylon stocking. At this time they noted foul odor, drainage, and foul appearing wound. This was cleansed by the daughter and this morning, the wound is not improving. Thus with persistence, they brought pt to the hospital. Daughter also noted that pt was complaining of chills and stiffness that improved with tylenol. Pt's daughter did note that pt is supposed to off-load but he is not fully complaint. Furthermore, he has not seen a jewelry bench worker for quite some time. He has no other complaints at this time. Allergies Allergy/AdvReac Type Severity Reaction Status Date / Time Sulfa (Sulfonamide Allergy Severe Hives Unverified 08/19/23 11:05 Antibiotics) Bactrim Allergy Unknown HIVES Verified 06/19/17 10:28 bee venom protein (honey bee) Allergy Unknown ANAPHYLAXIS Verified 08/19/23 11:05 fluconazole Allergy Unknown rash with Verified 08/19/23 11:05 itching sulfamethoxazole Allergy Unknown HIVES Verified 08/19/23 11:05 trimethoprim Allergy Unknown HIVES Verified 08/19/23 11:05 Home Medications Medication Instructions Recorded Confirmed Type insulin syringe-needle U-100 1 mL #10 ea 09/16/18 08/19/23 History 31 gauge x 5/16" (BD Insulin Syringe Ultra-Fine) lancets (OneTouch UltraSoft #50 ea 09/16/18 08/19/23 History Lancets) CPAP Machine #1 ea 01/06/19 10/19/23 Rx Contour Test Strips (blood sugar #400 ea 01/21/19 10/19/23 Rx diagnostic) CPAP Supplies #1 ea 11/02/19 10/19/23 Rx cholecalciferol (vitamin D3) 25 25 mcg PO QAM 10/21/20 10/19/23 History mcg (1,000 unit) capsule Walking Cane #1 ea 11/15/20 08/19/23 Rx mecobalamin (vitamin B12) 5,000 5,000 mcg PO DAILY #30 tabs 05/07/22 10/19/23 Rx mcg chewable tablet epinephrine 0.3 mg/0.3 mL 0.3 mg IM UD PRN anaphylaxis 05/28/22 10/19/23 History injection, auto-injector (EpiPen 2-Golden) lisinopril 20 mg tablet 20 mg PO BID #180 tabs 12/04/22 10/19/23 Rx sildenafil 100 mg tablet 100 mg PO DAILY #6 tabs 12/04/22 10/19/23 Rx apixaban 5 mg tablet 5 mg PO BID #180 tabs 01/02/23 10/19/23 Rx metformin 1,000 mg tablet 500 mg PO BID 01/28/23 10/19/23 History tamsulosin 0.4 mg capsule (Flomax) 0.4 mg PO DAILY #90 caps 02/05/23 10/19/23 Rx insulin lispro 100 unit/mL See Rx Instructions subcut TIDM 03/20/23 10/19/23 Rx subcutaneous pen (Humalog KwikPen #30 mL (U-100) Insulin) Balance Of Nature 1 tab PO QAM 04/11/23 10/19/23 History flash glucose sensor (FreeStyle #6 ea 05/20/23 10/19/23 Rx Tamika 2 Sensor kit) hydrochlorothiazide 25 mg tablet 12.5 mg (1/2 x 25 mg) PO BID #60 07/12/23 10/19/23 Rx tabs pantoprazole 40 mg tablet,delayed 40 mg PO QAM #90 tabs 07/12/23 10/19/23 Rx release albuterol sulfate 90 mcg/actuation 1 inh inhalation Q6H PRN shortness 07/15/23 10/19/23 Rx aerosol inhaler of breath or wheezing #8.5 grams simvastatin 20 mg tablet 20 mg PO QAM #90 tabs 08/06/23 10/19/23 Rx furosemide 20 mg tablet 20 mg PO BID #180 tabs 09/20/23 10/19/23 Rx insulin glargine 100 unit/mL (3 40 unit (0.4 mL) subcut .QHS #45 mL 10/03/23 10/19/23 Rx mL) subcutaneous pen (Lantus Solostar U-100 Insulin) tramadol 50 mg tablet 50 mg PO Q8 PRN Pain 10/19/23 10/19/23 History Past Med/Surg History Problem List (Updated 10/19/23 @ 18:42 by Chen Hoyos MD) Diabetic infection of left foot Encounter for pre-operative examination Fracture of proximal end of fibula Acute UTI (Acute) Fracture of left fibula (Acute) Fall (Acute) Foot ulcer, left Lower extremity edema Diabetes type 2, controlled Anemia Atrial flutter BMI 45.0-49.9, adult Loss of protective sensation of skin of foot Obstructive sleep apnea, adult Venous stasis Vitamin D deficiency BPH with obstruction/lower urinary tract symptoms Dyslipidemia GERD without esophagitis Diabetic peripheral neuropathy associated with type 2 diabetes mellitus Medical History On anticoagulant therapy History of COVID-19 2020- no hosp; resolved Lymphedema Arthritis Diabetes diabetic sensor Sleep apnea CPAP Afib asymptomatic; eliquis daily Personal history of diabetic foot ulcer NO CURRENT BPH with obstruction/lower urinary tract symptoms Dyslipidemia GERD without esophagitis Hypertension Osteoarthritis Diabetic peripheral neuropathy associated with type 2 diabetes mellitus Surgical History History of right cataract surgery History of colonoscopy H/O umbilical hernia repair (~10/2006) Hx of total knee arthroplasty right TKA 11/2001 Dr. Garcia, left TKA 2006; revision July, H/O carpal tunnel repair Family History Brother Prostate cancer Diabetes Coronary heart disease Abdominal aortic aneurysm Alzheimer disease Stroke Family history of colonic polyps Father Heart disease Myocardial infarction Family/Other Hypertension Denies family history of Rheumatoid arthritis Sudden SIDS (sudden infant syndrome) Ovarian cancer Deep vein thrombosis Osteoporosis Dyslipidemia Cerebral aneurysm Bipolar disorder Clotting disorder Crohn's disease Dementia Depression Kidney disease Osteoarthritis Breast cancer Schizophrenia Congenital kidney disease Gestational diabetes Lung cancer COPD (chronic obstructive pulmonary disease) Colorectal cancer Pulmonary embolism Lung disease Ulcerative colitis Colonic polyp Asthma Cystic kidney disease Social History (Updated 06/21/23 @ 13:32 by LENI Geller) Smoking Status: Never smoker Second Hand Exposure: No; Do You Dip or Chew Tobacco: No; Hx Alcohol Use: Yes Alcohol type: beer and hard liquor Alcohol Intake Frequency: 2-3 x/Week Hx Substance Use: No Preferred Language: [place] Communication Ability: Effective Visual Impairment: No Limitations Hearing Ability: Normal Vp Design Required: No Beliefs That Will Affect Care: None marital status: / Current Living Situation: Alone Current Living Situation Comment: DOG current occupational status: retired current occupation: he used to work at [employer] How many Children do You have: 2 Feels Safe at Home: Yes Childhood Exposure to Second-Hand Smoke: No Diet: regular caffeine: Yes during the past year weight has: remained stable Dental Care, Regularly: Yes Physical Activity Frequency: 3-4 Times per Week Seatbelt Use: sometimes Sunscreen Use: No Assistive Devices: Cane, CPAP and Glasses Review of Systems Review of Systems: comprehensive ROS completed Physical Exam Physical Exam: Gen: no acute distress, lying in bed comfortably, speaking in full sentences HEENT: normocephalic / atraumatic, anicteric, moist mucous membranes CVS: s1s2 nl, RRR, no M/R/G Lungs: CTAB Abd: + bowel sounds, soft, nontender, nondistended, no rigidity / guarding / rebound Ext: L > R edema, b/l (L>R) pretibial stasis discoloration, left heel wound without erythema / drainage, left 3rd digit edematous with drainage, degraded toenails, overgrown toenails Neuro: awake, alert, communicating appropriately Psych: non anxious Results & Data Results & Data Vital Signs (Past 12 Hours) Vital Signs Temp Pulse Pulse Resp BP BP Pulse Ox 10/19/23 16:07 83 19 129/79 93 10/19/23 13:54 130/87 10/19/23 13:45 81 22 96 10/19/23 13:30 75 17 97 10/19/23 13:24 74 26 H 99 10/19/23 13:18 96 H 22 97 10/19/23 13:13 83 10/19/23 12:53 36.5 C 89 18 111/69 95 O2 Del Method 10/19/23 16:07 Room Air 10/19/23 13:54 10/19/23 13:45 10/19/23 13:30 10/19/23 13:24 10/19/23 13:18 10/19/23 13:13 10/19/23 12:53 Room Air Laboratory Results Abnormal lab results 10/19/23 Range/Units 13:11 RBC 3.99 L (4.70-6.10) M/uL Hgb 12.4 L (14.0-18.0) g/dl Hct 38.3 L (42.0-52.0) % RDW Std Deviation 51.8 H (36.4-46.3) fL RDW Coeff of David 14.6 H (11.5-14.5) % Neut # (Auto) 7.34 H (1.40-6.50) K/uL Lymph # (Auto) 1.10 L (1.20-3.40) K/uL Dent # (Auto) 0.76 H (0.11-0.59) K/uL Sodium 132 L (136-145) mmol/L Chloride 97 L (98-107) mmol/L BUN 63 H (6-23) mg/dl Creatinine 1.75 H (0.6-1.4) mg/dl BUN/Creatinine Ratio 36.0 H (10-20) Glucose 192 H (70-99(Fasting)) mg/dl Calcium 8.5 L (8.6-10.3) mg/dl Diagnostic Findings Foot X-Ray 10/19/23 13:58 XR foot LT min 3V routine CLINICAL HISTORY: osteo, 3rd toe TECHNIQUE: 3 views of the left foot were obtained. Comparison: Comparison is made to MRI left foot 05/10/2020 FINDINGS: Prominent osteopenia is seen in the distal phalanx of the third digit. The joint spaces are well preserved. Soft tissue swelling is seen about the third digit. IMPRESSION: Soft tissue swelling about the third digit with underlying osteopenia compatible with osteomyelitis. ACT 112: Negative or not required by law. Electronically signed by: Glenn Rosenthal M.D. 10/19/2023 4:16 PM Code Status & VTE Plan Code Status Full code VTE Prophylaxis Plan VTE Prophylaxis will be ordered: Yes PG Care Time/CCT Total # of Minutes Spent Total Time Spent with Patient: Total time spent is greater than 50% in coordination of care (as documented) at patient's floor/unit and/or counseling patient: Coding Level of Care Code 64983 INT INP/OBS CARE 3/75MIN Diagnoses Lower extremity edema R60.0 Diabetic infection of left foot E11.628; L08.9 Vitamin D deficiency E55.9 Dyslipidemia E78.5 BPH with obstruction/lower urinary tract symptoms N40.1; N13.8 GERD without esophagitis K21.9 Diabetic peripheral neuropathy associated with type 2 diabetes mellitus E11.42 Typical atrial flutter I48.3 Atrial flutter type: typical Controlled type 2 diabetes mellitus with diabetic neuropathy, with long-term current use of insulin E11.40; Z79.4 Diabetes mellitus terminal block assembler insulin use: with terminal block assembler use Diabetes mellitus complication status: with neurologic complications Diabetes mellitus complication detail: with unspecified neuropathy (8) Atrial flutter Atrial flutter type: typical Qualified Code(s): I48.3 - Typical atrial flutter (9) Diabetes type 2, controlled Diabetes mellitus terminal block assembler insulin use: with mcfp use Diabetes mellitus complication status: with neurologic complications Diabetes mellitus complication detail: with unspecified neuropathy Qualified Code(s): E11.40 - Type 2 diabetes mellitus with diabetic neuropathy, unspecified; Z79.4 - jail (current) use of insulin
--- NOTE | 2023-10-19 16:26 | Electrocardiogram Report ---
Test Reason : Blood Pressure : / mmHG Vent. Rate : 083 BPM Atrial Rate : 083 BPM P-R Int : 186 ms QRS Dur : 128 ms QT Int : 394 ms P-R-T Axes : 000 031 -05 degrees QTc Int : 462 ms Sinus rhythm with occasional Premature ventricular complexes Right bundle branch block Possible Old Inferior infarct Abnormal ECG When compared with ECG of 19-MAY-2019 22:58, Premature ventricular complexes are now Present Right bundle branch block is now Present Confirmed by Jareth Zhao ([id number]) on 10/19/2023 4:26:16 PM Referred By: REFERRED SELF Confirmed By:Jareth Zhao
[2023-10-19] MEDS: METOPROLOL TARTRATE 25 MG TAB PO ONE (19:03)
[2023-10-19 19:06] LABS: Magnesium 1.7 mg/dl (1.7-2.4)
[2023-10-19] MEDS: DAPTOmycin 575 MG in SYRINGE 0 ML IV ONE (19:07)
[2023-10-19] MEDS: PLASMA-LYTE A 1,000 ML IV SCH (19:31)
--- NOTE | 2023-10-19 20:14 | Orthopedic Consultation ---
Date of Consultation October 19, 2023 Assessment & Plan (1) Acute osteomyelitis of toe: Radiographs of the foot are reviewed showing degenerative change and ossicles of the ankle. There is no fracture or dislocation. There are findings consistent with osteomyelitis of the distal phalanx of the left third toe. This is apparent clinically. He has good circulation. ARIK on the left was 0.86 earlier this year addressed by Dr. Cortez. Options are discussed including antibiotics wound care and surgery. His best option is surgery we discussed the risks benefits pros and cons. They agree to proceed. The plan would be for a third toe amputation possibly a ray resection and remotely a transmetatarsal re section. There is a possibility for things like wound vacs or antibiotic beads. His last dose of Eliquis was last evening. There would be a bleeding risk associated with this procedure. He is afebrile his white blood cell count is normal. I would recommend that we wait until Saturday morning to perform the surgical procedure if time is available. If not we may need to do on Saturday. Informed consent was obtained. Elevate the leg and diurese if necessary to minimize swelling. Hold Eliquis. (2) Diabetic infection of left foot: History of Present Illness Attending Physician: Chen Hoyos MD History of Present Illness Greg is 78. He reports about 2 days ago his left third toe began to swell turn red and get infected. He does note that about 2 weeks ago there was a dark spot on the toe when he was seen in the wound clinic in [place]. He has not had any fevers chills or sweats. There is been minimal pain. He doctors at the [place] wound clinic for his heel. He sees Dr. Cortez locally for cardiology. He has had a revision left total knee replacement done at [facility]. He reports redness swelling and drainage from the left third toe. His daughter is with him here today. Allergies Allergy/AdvReac Type Severity Reaction Status Date / Time Sulfa (Sulfonamide Allergy Severe Hives Unverified 08/19/23 11:05 Antibiotics) Bactrim Allergy Unknown HIVES Verified 06/19/17 10:28 bee venom protein (honey bee) Allergy Unknown ANAPHYLAXIS Verified 08/19/23 11:05 fluconazole Allergy Unknown rash with Verified 08/19/23 11:05 itching sulfamethoxazole Allergy Unknown HIVES Verified 08/19/23 11:05 trimethoprim Allergy Unknown HIVES Verified 08/19/23 11:05 Home Medications Medication Instructions Recorded Confirmed Type insulin syringe-needle U-100 1 mL #10 ea 09/16/18 08/19/23 History 31 gauge x 5/16" (BD Insulin Syringe Ultra-Fine) lancets (OneTouch UltraSoft #50 ea 09/16/18 08/19/23 History Lancets) CPAP Machine #1 ea 01/06/19 10/19/23 Rx Contour Test Strips (blood sugar #400 ea 01/21/19 10/19/23 Rx diagnostic) CPAP Supplies #1 ea 11/02/19 10/19/23 Rx cholecalciferol (vitamin D3) 25 25 mcg PO QAM 10/21/20 10/19/23 History mcg (1,000 unit) capsule Walking Cane #1 ea 11/15/20 08/19/23 Rx mecobalamin (vitamin B12) 5,000 5,000 mcg PO DAILY #30 tabs 05/07/22 10/19/23 Rx mcg chewable tablet epinephrine 0.3 mg/0.3 mL 0.3 mg IM UD PRN anaphylaxis 05/28/22 10/19/23 History injection, auto-injector (EpiPen 2-Golden) lisinopril 20 mg tablet 20 mg PO BID #180 tabs 12/04/22 10/19/23 Rx sildenafil 100 mg tablet 100 mg PO DAILY #6 tabs 12/04/22 10/19/23 Rx apixaban 5 mg tablet 5 mg PO BID #180 tabs 01/02/23 10/19/23 Rx metformin 1,000 mg tablet 500 mg PO BID 01/28/23 10/19/23 History tamsulosin 0.4 mg capsule (Flomax) 0.4 mg PO DAILY #90 caps 02/05/23 10/19/23 Rx insulin lispro 100 unit/mL See Rx Instructions subcut TIDM 03/20/23 10/19/23 Rx subcutaneous pen (Humalog KwikPen #30 mL (U-100) Insulin) Balance Of Nature 1 tab PO QAM 04/11/23 10/19/23 History flash glucose sensor (FreeStyle #6 ea 05/20/23 10/19/23 Rx Tamika 2 Sensor kit) hydrochlorothiazide 25 mg tablet 12.5 mg (1/2 x 25 mg) PO BID #60 07/12/23 10/19/23 Rx tabs pantoprazole 40 mg tablet,delayed 40 mg PO QAM #90 tabs 07/12/23 10/19/23 Rx release albuterol sulfate 90 mcg/actuation 1 inh inhalation Q6H PRN shortness 07/15/23 10/19/23 Rx aerosol inhaler of breath or wheezing #8.5 grams simvastatin 20 mg tablet 20 mg PO QAM #90 tabs 08/06/23 10/19/23 Rx furosemide 20 mg tablet 20 mg PO BID #180 tabs 09/20/23 10/19/23 Rx insulin glargine 100 unit/mL (3 40 unit (0.4 mL) subcut .QHS #45 mL 10/03/23 10/19/23 Rx mL) subcutaneous pen (Lantus Solostar U-100 Insulin) tramadol 50 mg tablet 50 mg PO Q8 PRN Pain 10/19/23 10/19/23 History Patient History Medical History On anticoagulant therapy History of COVID-19 2020- no hosp; resolved Lymphedema Arthritis Diabetes diabetic sensor Sleep apnea CPAP Afib asymptomatic; eliquis daily Personal history of diabetic foot ulcer NO CURRENT BPH with obstruction/lower urinary tract symptoms Dyslipidemia GERD without esophagitis Hypertension Osteoarthritis Diabetic peripheral neuropathy associated with type 2 diabetes mellitus Surgical History History of right cataract surgery History of colonoscopy H/O umbilical hernia repair (~10/2006) Hx of total knee arthroplasty right TKA 11/2001 Dr. Garcia, left TKA 2006; revision July, H/O carpal tunnel repair Family History Brother Prostate cancer Diabetes Coronary heart disease Abdominal aortic aneurysm Alzheimer disease Stroke Family history of colonic polyps Father Heart disease Myocardial infarction Family/Other Hypertension Denies family history of Rheumatoid arthritis Sudden SIDS (sudden infant syndrome) Ovarian cancer Deep vein thrombosis Osteoporosis Dyslipidemia Cerebral aneurysm Bipolar disorder Clotting disorder Crohn's disease Dementia Depression Kidney disease Osteoarthritis Breast cancer Schizophrenia Congenital kidney disease Gestational diabetes Lung cancer COPD (chronic obstructive pulmonary disease) Colorectal cancer Pulmonary embolism Lung disease Ulcerative colitis Colonic polyp Asthma Cystic kidney disease Social History (Updated 06/21/23 @ 13:32 by LENI Geller) Smoking Status: Never smoker Second Hand Exposure: No; Do You Dip or Chew Tobacco: No; Hx Alcohol Use: Yes Alcohol type: beer and hard liquor Alcohol Intake Frequency: 2-3 x/Week Hx Substance Use: No Preferred Language: Turkish Communication Ability: Effective Visual Impairment: No Limitations Hearing Ability: Normal 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 Beliefs That Will Affect Care: None marital status: / Current Living Situation: Alone Current Living Situation Comment: DOG current occupational status: retired current occupation: he used to work at [employer] How many Children do You have: 2 Feels Safe at Home: Yes Childhood Exposure to Second-Hand Smoke: No Diet: regular caffeine: Yes during the past year weight has: remained stable Dental Care, Regularly: Yes Physical Activity Frequency: 3-4 Times per Week Seatbelt Use: sometimes Sunscreen Use: No Assistive Devices: Cane, CPAP and Glasses Review of Systems Review of Systems: No diagnosed bleeding disorder or history of blood clots. He is not allergic to metals or nickel. He has not had staph or MRSA in the past. Physical Exam Physical Exam: There is 2-3+ edema of the left lower leg. He has a well-healed benign- appearing left total knee incision. There is a shallow 0.5 x 1.5 cm heel wound. He has been doctoring for this in [place]. It is benign in appearance without evidence of infection and has good granulating base. I do not palpate any abscess or fluid collection within the foot or toes. PT pulses not palpable. His DP pulses 1+. Multiple nail deformities. There is an open wound with draining purulence of the third toe. The skin is macerated and disrupted all the way back to the base of the toe. The toe is enlarged and red with purulent drainage. He can flex and extend the ankle and wiggle his toes. He reports that sensation is intact. There is erythema throughout the forefoot with 1+ edema. His capillary refill in the other toes is less than 2 seconds but the third toe is somewhat dusky with poor capillary refill and has venous engorgement. Results & Data Vital Signs (Past 12 Hours) Vital Signs Temp Pulse Pulse Resp BP BP Pulse Ox 10/19/23 20:00 72 20 150/76 H 96 10/19/23 19:30 82 20 144/84 H 95 10/19/23 19:06 76 20 127/65 96 10/19/23 19:00 76 18 107/77 95 10/19/23 18:50 36 L 10/19/23 17:12 82 10/19/23 16:09 20 129/79 98 10/19/23 16:07 83 19 129/79 93 10/19/23 13:54 130/87 10/19/23 13:45 81 22 96 10/19/23 13:30 75 17 97 10/19/23 13:24 74 26 H 99 10/19/23 13:18 96 H 22 97 10/19/23 13:13 83 10/19/23 12:53 36.5 C 89 18 111/69 95 O2 Del Method 10/19/23 20:00 Room Air 10/19/23 19:30 Room Air 10/19/23 19:06 Room Air 10/19/23 19:00 Room Air 10/19/23 18:50 10/19/23 17:12 10/19/23 16:09 Room Air 10/19/23 16:07 Room Air 10/19/23 13:54 10/19/23 13:45 10/19/23 13:30 10/19/23 13:24 10/19/23 13:18 10/19/23 13:13 10/19/23 12:53 Room Air Laboratory Results Laboratory Results WBC 9.32 K/ul (4.8-10.8) 10/19/23 13:11 RBC 3.99 M/uL (4.70-6.10) L 10/19/23 13:11 Hgb 12.4 g/dl (14.0-18.0) L 10/19/23 13:11 Hct 38.3 % (42.0-52.0) L 10/19/23 13:11 MCV 96.0 fL (80.0-100.0) 10/19/23 13:11 MCH 31.1 pg (25.0-34.0) 10/19/23 13:11 MCHC 32.4 g/dL (32.0-36.0) 10/19/23 13:11 RDW Std Deviation 51.8 fL (36.4-46.3) H 10/19/23 13:11 RDW Coeff of David 14.6 % (11.5-14.5) H 10/19/23 13:11 Plt Count 187 K/uL (130-400) 10/19/23 13:11 MPV 10.7 fL (9.4-12.4) 10/19/23 13:11 Immature Gran % (Auto) 0.3 % 10/19/23 13:11 Neut % (Auto) 78.8 % 10/19/23 13:11 Lymph % (Auto) 11.8 % 10/19/23 13:11 [place] % (Auto) 8.2 % 10/19/23 13:11 Eos % (Auto) 0.6 % 10/19/23 13:11 Baso % (Auto) 0.3 % 10/19/23 13:11 Neut # (Auto) 7.34 K/uL (1.40-6.50) H 10/19/23 13:11 Lymph # (Auto) 1.10 K/uL (1.20-3.40) L 10/19/23 13:11 [place] # (Auto) 0.76 K/uL (0.11-0.59) H 10/19/23 13:11 Eos # (Auto) 0.06 K/uL (0.00-0.50) 10/19/23 13:11 Baso # (Auto) 0.03 K/uL (0.00-0.20) 10/19/23 13:11 Immature Gran # (Auto) 0.03 K/uL (0.01-0.20) 10/19/23 13:11 Sodium 132 mmol/L (136-145) L 10/19/23 13:11 Potassium 4.2 mmol/L (3.5-5.1) 10/19/23 13:11 Chloride 97 mmol/L (98-107) L 10/19/23 13:11 Carbon Dioxide 27 mmol/L (21-32) 10/19/23 13:11 Anion Gap 8 (3-11) 10/19/23 13:11 BUN 63 mg/dl (6-23) H 10/19/23 13:11 Creatinine 1.75 mg/dl (0.6-1.4) H 10/19/23 13:11 Est Cr Clr Drug Dosing Not Reportable 10/19/23 13:11 Est GFR ( Amer) 42.9 ml/min 10/19/23 13:11 Est GFR (Non-Af Amer) 37.0 ml/min 10/19/23 13:11 BUN/Creatinine Ratio 36.0 (10-20) H 10/19/23 13:11 Glucose 192 mg/dl (70-99(Fasting)) H 10/19/23 13:11 Lactate 1.0 mmol/L (0.4-2.0) 10/19/23 14:14 Calcium 8.5 mg/dl (8.6-10.3) L 10/19/23 13:11 Magnesium 1.7 mg/dl (1.7-2.4) 10/19/23 13:11 Total Bilirubin 0.7 mg/dl (0.2-1.0) 10/19/23 13:11 Direct Bilirubin 0.2 mg/dl (0-0.2) 10/19/23 13:11 AST 16 U/L (13-39) 10/19/23 13:11 ALT 14 U/L (7-52) 10/19/23 13:11 Alkaline Phosphatase 87 U/L (34-104) 10/19/23 13:11 Total Protein 7.4 gm/dl (6.0-8.3) 10/19/23 13:11 Albumin 3.6 gm/dl (3.4-5.0) 10/19/23 13:11 Lipase 18 U/L (11-82) 10/19/23 13:11 Impressions Foot X-Ray 10/19/23 13:58 XR foot LT min 3V routine CLINICAL HISTORY: osteo, 3rd toe TECHNIQUE: 3 views of the left foot were obtained. Comparison: Comparison is made to MRI left foot 05/10/2020 FINDINGS: Prominent osteopenia is seen in the distal phalanx of the third digit. The joint spaces are well preserved. Soft tissue swelling is seen about the third digit. IMPRESSION: Soft tissue swelling about the third digit with underlying osteopenia compatible with osteomyelitis. ACT 112: Negative or not required by law. Electronically signed by: Glenn Rosenthal M.D. 10/19/2023 4:16 PM
[2023-10-19] MEDS ORDERED: ONDANSETRON INJ 2 MG/ML 2 ML VIAL IV PRN (21:08)
[2023-10-19] MEDS ORDERED: NON-FORMULARY MEDICATION (Cpap Supplies misc) SCH (21:08)
[2023-10-19] MEDS ORDERED: DEXTROSE 50% 50 ML SYRINGE IV PRN (21:08)
[2023-10-19] MEDS ORDERED: GLUCAGON FOR INJ 1 MG VIAL SQ PRN (21:08)
[2023-10-19] MEDS ORDERED: ACETAMINOPHEN 325 MG TAB PO PRN (21:08)
[2023-10-19] MEDS ORDERED: GLUCOSE 10 TAB/TUBE PO PRN (21:08)
[2023-10-19] MEDS ORDERED: CARBOHYDRATES FOR HYPOGLYCEMIA PO PRN (21:08)
[2023-10-19] MEDS ORDERED: traMADol HCL 50 MG TABLET PO PRN (21:08)
[2023-10-19] MEDS ORDERED: GLUCOSE 40% GEL 15 GM TUBE PO PRN (21:08)
[2023-10-19] MEDS ORDERED: ALBUTEROL HFA 8 GM INHALER INH PRN (21:08)
[2023-10-19] MEDS ORDERED: NON-FORMULARY MEDICATION (Cpap Machine misc) SCH (21:08)
[2023-10-19] MEDS: APIXABAN 5 MG TABLET PO SCH (21:21)
[2023-10-19] MEDS: LANTUS PER UNIT CHARGE SQ SCH (22:56)
[2023-10-19] MEDS: INSULIN ASPART PER UNIT CHARGE SC SCH (22:57)
[2023-10-19] MEDS: PIPERACILLIN/TAZOBACTAM 4.5 GM in DEXTROSE 5% MINI-B 100 ML IV SCH (23:13)
--- NOTE | 2023-10-20 07:02 | History & Physical Report ---
Date of Service October 19, 2023 History of Present Illness Primary Care Provider: Tank Munoz MD Allergies Allergy/AdvReac Type Severity Reaction Status Date / Time Sulfa (Sulfonamide Allergy Severe Hives Unverified 08/19/23 11:05 Antibiotics) Bactrim Allergy Unknown HIVES Verified 06/19/17 10:28 bee venom protein (honey bee) Allergy Unknown ANAPHYLAXIS Verified 08/19/23 11:05 fluconazole Allergy Unknown rash with Verified 08/19/23 11:05 itching sulfamethoxazole Allergy Unknown HIVES Verified 08/19/23 11:05 trimethoprim Allergy Unknown HIVES Verified 08/19/23 11:05 Home Medications Medication Instructions Recorded Confirmed Type insulin syringe-needle U-100 1 mL #10 ea 09/16/18 08/19/23 History 31 gauge x 5/16" (BD Insulin Syringe Ultra-Fine) lancets (OneTouch UltraSoft #50 ea 09/16/18 08/19/23 History Lancets) CPAP Machine #1 ea 01/06/19 10/19/23 Rx Contour Test Strips (blood sugar #400 ea 01/21/19 10/19/23 Rx diagnostic) CPAP Supplies #1 ea 11/02/19 10/19/23 Rx cholecalciferol (vitamin D3) 25 25 mcg PO QAM 10/21/20 10/19/23 History mcg (1,000 unit) capsule Walking Cane #1 ea 11/15/20 08/19/23 Rx mecobalamin (vitamin B12) 5,000 5,000 mcg PO DAILY #30 tabs 05/07/22 10/19/23 Rx mcg chewable tablet epinephrine 0.3 mg/0.3 mL 0.3 mg IM UD PRN anaphylaxis 05/28/22 10/19/23 History injection, auto-injector (EpiPen 2-Golden) lisinopril 20 mg tablet 20 mg PO BID #180 tabs 12/04/22 10/19/23 Rx sildenafil 100 mg tablet 100 mg PO DAILY #6 tabs 12/04/22 10/19/23 Rx apixaban 5 mg tablet 5 mg PO BID #180 tabs 01/02/23 10/19/23 Rx metformin 1,000 mg tablet 500 mg PO BID 01/28/23 10/19/23 History tamsulosin 0.4 mg capsule (Flomax) 0.4 mg PO DAILY #90 caps 02/05/23 10/19/23 Rx insulin lispro 100 unit/mL See Rx Instructions subcut TIDM 03/20/23 10/19/23 Rx subcutaneous pen (Humalog KwikPen #30 mL (U-100) Insulin) Balance Of Nature 1 tab PO QAM 04/11/23 10/19/23 History flash glucose sensor (FreeStyle #6 ea 05/20/23 10/19/23 Rx Tamika 2 Sensor kit) hydrochlorothiazide 25 mg tablet 12.5 mg (1/2 x 25 mg) PO BID #60 07/12/23 10/19/23 Rx tabs pantoprazole 40 mg tablet,delayed 40 mg PO QAM #90 tabs 07/12/23 10/19/23 Rx release albuterol sulfate 90 mcg/actuation 1 inh inhalation Q6H PRN shortness 07/15/23 10/19/23 Rx aerosol inhaler of breath or wheezing #8.5 grams simvastatin 20 mg tablet 20 mg PO QAM #90 tabs 08/06/23 10/19/23 Rx furosemide 20 mg tablet 20 mg PO BID #180 tabs 09/20/23 10/19/23 Rx insulin glargine 100 unit/mL (3 40 unit (0.4 mL) subcut .QHS #45 mL 10/03/23 10/19/23 Rx mL) subcutaneous pen (Lantus Solostar U-100 Insulin) tramadol 50 mg tablet 50 mg PO Q8 PRN Pain 10/19/23 10/19/23 History Past Med/Surg History Problem List (Updated 10/19/23 @ 19:28 by Scooby Bacon MD) NED (acute kidney injury) (Acute) Acute osteomyelitis of toe (Acute) Diabetic infection of left foot Encounter for pre-operative examination Fracture of proximal end of fibula Acute UTI (Acute) Fracture of left fibula (Acute) Fall (Acute) Foot ulcer, left Lower extremity edema Diabetes type 2, controlled Anemia Atrial flutter BMI 45.0-49.9, adult Loss of protective sensation of skin of foot Obstructive sleep apnea, adult Venous stasis Vitamin D deficiency BPH with obstruction/lower urinary tract symptoms Dyslipidemia GERD without esophagitis Diabetic peripheral neuropathy associated with type 2 diabetes mellitus Medical History On anticoagulant therapy History of COVID-19 2020- no hosp; resolved Lymphedema Arthritis Diabetes diabetic sensor Sleep apnea CPAP Afib asymptomatic; eliquis daily Personal history of diabetic foot ulcer NO CURRENT BPH with obstruction/lower urinary tract symptoms Dyslipidemia GERD without esophagitis Hypertension Osteoarthritis Diabetic peripheral neuropathy associated with type 2 diabetes mellitus Surgical History History of right cataract surgery History of colonoscopy H/O umbilical hernia repair (~10/2006) Hx of total knee arthroplasty right TKA 11/2001 Dr. Garcia, left TKA 2006; revision July, H/O carpal tunnel repair Family History Brother Prostate cancer Diabetes Coronary heart disease Abdominal aortic aneurysm Alzheimer disease Stroke Family history of colonic polyps Father Heart disease Myocardial infarction Family/Other Hypertension Denies family history of Rheumatoid arthritis Sudden SIDS (sudden infant syndrome) Ovarian cancer Deep vein thrombosis Osteoporosis Dyslipidemia Cerebral aneurysm Bipolar disorder Clotting disorder Crohn's disease Dementia Depression Kidney disease Osteoarthritis Breast cancer Schizophrenia Congenital kidney disease Gestational diabetes Lung cancer COPD (chronic obstructive pulmonary disease) Colorectal cancer Pulmonary embolism Lung disease Ulcerative colitis Colonic polyp Asthma Cystic kidney disease Social History (Updated 06/21/23 @ 13:32 by LENI Geller) Smoking Status: Never smoker Second Hand Exposure: No; Do You Dip or Chew Tobacco: No; Tobacco Cessation Education Requested by Patient: No Hx Alcohol Use: No Hx Substance Use: No Preferred Language: Serbian Communication Ability: Effective Visual Impairment: No Limitations Hearing Ability: Normal 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 And Heater Required: No Beliefs That Will Affect Care: None marital status: / Current Living Situation: Alone Current Living Situation Comment: DOG current occupational status: retired current occupation: he used to work at [employer] How many Children do You have: 2 Other Information That Helps Us Care for You: No Feels Safe at Home: Yes Safety Concerns: Feels Safe At This Time Childhood Exposure to Second-Hand Smoke: No Diet: regular caffeine: Yes during the past year weight has: remained stable Dental Care, Regularly: Yes Physical Activity Frequency: 3-4 Times per Week Seatbelt Use: sometimes Sunscreen Use: No Assistive Devices: Cane, Denture - Upper, Denture - Lower, Glasses and Walker Results & Data Results & Data Vital Signs (Past 12 Hours) Vital Signs Temp Pulse Resp BP BP Pulse Ox O2 Del Method 10/19/23 13:54 130/87 10/19/23 13:45 81 22 96 10/19/23 13:30 75 17 97 10/19/23 13:24 74 26 H 99 10/19/23 13:18 96 H 22 97 10/19/23 13:13 83 10/19/23 12:53 36.5 C 89 18 111/69 95 Room Air PG Care Time/CCT Total # of Minutes Spent Total Time Spent with Patient: Total time spent is greater than 50% in coordination of care (as documented) at patient's floor/unit and/or counseling patient: Coding
--- NOTE | 2023-10-20 07:41 | Hospitalist Progress Note ---
Date of Service October 20, 2023 Assessment & Plan (1) Lower extremity edema: (2) Diabetic infection of left foot: (3) Vitamin D deficiency: (4) Dyslipidemia: (5) BPH with obstruction/lower urinary tract symptoms: (6) GERD without esophagitis: (7) Diabetic peripheral neuropathy associated with type 2 diabetes mellitus: (8) Atrial flutter: (9) Diabetes type 2, controlled: Plan 78 yo M with PMHx of DM II c/b diabetic neuropathy, HTN, AFlutter, HLD, EVON, GERD, BPH, presents to the hospital for the evaluation of left foot infection. #Left diabetic foot ulcer - pt followed by [place] wound clinic - admit to inpt - left foot XR: soft tissue swelling about the 3rd digit with underlying osteopenia compatible with OM - Lower arterial study (07/16/23): no evidence of significant lower extremity arterial occlusive disease b/l - s/p 1 dose of zosyn in the ED, cont Zosyn and Dapto - ESR / CRP elevated - discussed with Ortho, plan for surgical resection on Saturday (last Eliquis dose was on evening of 10/17) - ID consulted #DM II - HA1c: 7.9 (08/15/23) - hold Metformin - cont lantus - ordered correctional scale - diabetic diet #pos blood culture - suspect contaminant - cont current abx #NED - baseline Cr: 1.1, on admission 1.75 - hold HCTZ, lasix, lisinopril - gentle hydration , monitor for volume overload #AFib - CHADS2 Vasc: 4 - on eliquis (currently on hold) #HTN - hold lisinopril, HCTZ, Lasix #HLD - statin on hold given pt started on dapto #GERD - cont PPI #BPH - cont tamsulosin #Obesity #EVON - BMI: 35 - cont CPAP Admission and Anticipated Discharge Date Admission Date: October 19, 2023 Review of Systems Review of Systems: comprehensive ROS completed Physical Exam Physical Exam: Gen: no acute distress, lying in bed comfortably, speaking in full sentences HEENT: normocephalic / atraumatic, anicteric, moist mucous membranes CVS: s1s2 nl, RRR, no M/R/G Lungs: CTAB Abd: + bowel sounds, soft, nontender, nondistended, no rigidity / guarding / rebound Ext: L > R edema, b/l (L>R) pretibial stasis discoloration, left heel wound without erythema / drainage, left 3rd digit edematous with drainage, degraded toenails, overgrown toenails Neuro: awake, alert, communicating appropriately Psych: non anxious Results & Data Results & Data Vital Signs (Past 12 Hours) Vital Signs Temp Pulse Pulse Pulse Resp BP BP 10/20/23 07:01 36.9 C 78 20 121/71 10/20/23 02:44 37.0 C 71 16 107/64 10/20/23 00:14 75 17 10/19/23 22:37 93 H 10/19/23 22:30 10/19/23 22:17 36.8 C 92 H 19 135/60 10/19/23 21:31 76 22 162/99 H 10/19/23 21:00 75 17 170/119 H 10/19/23 20:30 66 20 137/96 10/19/23 20:00 72 20 150/76 H Pulse Ox O2 Del Method FiO2 10/20/23 07:01 96 Room Air 10/20/23 02:44 95 Room Air 10/20/23 00:14 96 21 10/19/23 22:37 10/19/23 22:30 Room Air, CPAP 10/19/23 22:17 97 Room Air 10/19/23 21:31 98 Room Air 10/19/23 21:00 97 Room Air 10/19/23 20:30 99 Room Air 10/19/23 20:00 96 Room Air Laboratory Results Abnormal lab results 10/19/23 10/19/23 10/20/23 Range/Units 15:06 21:24 06:58 RBC (4.70-6.10) M/uL Hgb (14.0-18.0) g/dl Hct (42.0-52.0) % RDW Std Deviation (36.4-46.3) fL RDW Coeff of David (11.5-14.5) % Lymph # (Auto) (1.20-3.40) K/uL [place] # (Auto) (0.11-0.59) K/uL ESR (0-20) mm/hr Sodium (136-145) mmol/L BUN (6-23) mg/dl BUN/Creatinine Ratio (10-20) Glucose (70-99(Fasting)) mg/dl POC Glucose 175 H 186 H (70-99) mg/dl Calcium (8.6-10.3) mg/dl C-Reactive Protein (0-0.5) mg/dl Staphylococcus sp PCR DETECTED A (NotDetected) Staph aureus (PCR) DETECTED A (NotDetected) 10/20/23 10/20/23 10/20/23 Range/Units 07:02 11:19 16:21 RBC 3.56 L (4.70-6.10) M/uL Hgb 11.1 L (14.0-18.0) g/dl Hct 34.3 L (42.0-52.0) % RDW Std Deviation 51.9 H (36.4-46.3) fL RDW Coeff of David 14.6 H (11.5-14.5) % Lymph # (Auto) 0.78 L (1.20-3.40) K/uL [place] # (Auto) 0.61 H (0.11-0.59) K/uL ESR 67 H (0-20) mm/hr Sodium 134 L (136-145) mmol/L BUN 47 H (6-23) mg/dl BUN/Creatinine Ratio 36.7 H (10-20) Glucose 185 H (70-99(Fasting)) mg/dl POC Glucose 252 H 259 H (70-99) mg/dl Calcium 8.2 L (8.6-10.3) mg/dl C-Reactive Protein 24.40 H (0-0.5) mg/dl Staphylococcus sp PCR (NotDetected) Staph aureus (PCR) (NotDetected) PG Care Time/CCT Total # of Minutes Spent Total Time Spent with Patient: Total time spent is greater than 50% in coordination of care (as documented) at patient's floor/unit and/or counseling patient: Coding Level of Care Code 24965 SUB INP/OBS CARE 3/50MIN Diagnoses Lower extremity edema R60.0 Diabetic infection of left foot E11.628; L08.9 Vitamin D deficiency E55.9 Dyslipidemia E78.5 BPH with obstruction/lower urinary tract symptoms N40.1; N13.8 GERD without esophagitis K21.9 Diabetic peripheral neuropathy associated with type 2 diabetes mellitus E11.42 Typical atrial flutter I48.3 Atrial flutter type: typical Controlled type 2 diabetes mellitus with diabetic neuropathy, with long-term current use of insulin E11.40; Z79.4 Diabetes mellitus complication detail: with unspecified neuropathy Diabetes mellitus complication status: with neurologic complications Diabetes mellitus terminal gauger insulin use: with terminal gauger use (8) Atrial flutter Atrial flutter type: typical Qualified Code(s): I48.3 - Typical atrial flutter (9) Diabetes type 2, controlled Diabetes mellitus complication detail: with unspecified neuropathy Diabetes mellitus complication status: with neurologic complications Diabetes mellitus terminal gauger insulin use: with mcc use Qualified Code(s): E11.40 - Type 2 diabetes mellitus with diabetic neuropathy, unspecified; Z79.4 - prison (current) use of insulin
[2023-10-20] MEDS: CHOLECALCIFEROL 25 MCG (1000 UNITS) TAB PO SCH (07:46)
[2023-10-20] MEDS: TAMSULOSIN HCL 0.4 MG CAP PO SCH (07:47)
[2023-10-20] MEDS: PANTOprazole 40 MG TAB PO SCH (07:47)
[2023-10-20 07:56] LABS: Basophils # (auto) 0.03 K/uL (0.00-0.20); Basophils % (auto) 0.4 %; Eosinophils # (auto) 0.18 K/uL (0.00-0.50); Eosinophils % (auto) 2.5 %; Hematocrit (blood only) 34.3 % (42.0-52.0); Hemoglobin 11.1 g/dl (14.0-18.0); Immature Granulocytes # (auto) 0.03 K/uL (0.01-0.20); Immature Granulocytes % (auto) 0.4 %; Lymphocytes # (auto) 0.78 K/uL (1.20-3.40); Lymphocytes % (auto) 10.7 %; Mean Corpuscular Hemoglobin 31.2 pg (25.0-34.0); Mean Corpuscular Hgb Conc 32.4 g/dL (32.0-36.0); Mean Corpuscular Volume 96.3 fL (80.0-100.0); Monocytes # (auto) 0.61 K/uL (0.11-0.59); Monocytes % (auto) 8.4 %; Neutrophils # (auto) 5.64 K/uL (1.40-6.50); Neutrophils % (auto) 77.6 %; Platelet Count 170 K/uL (130-400); RDW Coefficient of Variation 14.6 % (11.5-14.5); RDW Standard Deviation 51.9 fL (36.4-46.3); Red Blood Count 3.56 M/uL (4.70-6.10); White Blood Count 7.27 K/ul (4.8-10.8)
[2023-10-20 08:12] LABS: BUN Creatinine Ratio 36.7 (10-20); C Reactive Protein 24.4 mg/dl (0-0.5); Calcium 8.2 mg/dl (8.6-10.3); Creatinine Clr Calc Pharmacy 67.7 ml/min; Est GFR (African American) 62.6 ml/min; Magnesium 1.8 mg/dl (1.7-2.4); Phosphorus 2.8 mg/dl (2.5-4.9); Potassium 4.1 mmol/L (3.5-5.1)
[2023-10-20 08:36] LABS: A calco-baum cmplx NotReported Not Detected (NotDetected); Bact fragilis Not Reported Not Detected (NotDetected); Blood Culture Id Panel See PCR Comment (NotDetected); C auris Not Reported Not Detected (NotDetected); Calbicans Not Reported Not Detected (NotDetected); Candida glabrata Not Reported Not Detected (NotDetected); Candida krusei Not Reported Not Detected (NotDetected); Cneoformans/gatti Not Reported Not Detected (NotDetected); Cparapsilosis Not Reported Not Detected (NotDetected); E cloacae compx Not Reported Not Detected (NotDetected); Efaecalis Not Reported Not Detected (NotDetected); Efaecium Not Reported Not Detected (NotDetected); Enterobacterales Not Reported Not Detected (NotDetected); Escherichia coli Not Reported Not Detected (NotDetected); H influenzae Not Reported Not Detected (NotDetected); K aerogenes Not Reported Not Detected (NotDetected); Koxytoca Not Reported Not Detected (NotDetected); Kpneumoniae grp Not Reported Not Detected (NotDetected); Lmonocyt Not Reported Not Detected (NotDetected); N meningitidis Not Reported Not Detected (NotDetected); P aeruginosa Not Reported Not Detected (NotDetected); Proteus spp Not Reported Not Detected (NotDetected); Salmonella spp Not Reported Not Detected (NotDetected); Staph lugdunensis Not Reported Not Detected (NotDetected); Staph spp. Not Reported DETECTED (NotDetected); Staphaureus Not Reported DETECTED (NotDetected); Staphepi Not Reported Not Detected (NotDetected); Staphylococcus spp. DETECTED (NotDetected); Stenmaltophilia Not Reported Not Detected (NotDetected); Strep agal(GrpB) Not Reported Not Detected (NotDetected); Strep pneum Not Reported Not Detected (NotDetected); Strep pyog (GrpA) Not Reported Not Detected (NotDetected); Strep spp Not Reported Not Detected (NotDetected); mecAC+MREJ Resistant Gene MRSA Not Detected (NotDetected)
[2023-10-20] MEDS: METOPROLOL TARTRATE 25 MG TAB PO SCH (09:44)
[2023-10-20] MEDS: MAGNESIUM OXIDE 400 MG TAB PO ONE (11:43)
--- NOTE | 2023-10-20 17:12 | Orthopedic Progress Note ---
Date of Service October 20, 2023 Assessment & Plan (1) Acute osteomyelitis of toe: Plan: White count normal. Gram-positive cocci in the blood. Plan for surgical intervention tomorrow depending on the OR availability. He is feeling well. There is less swelling in his leg. He still has erythema in the forefoot but no palpable abscess. There is purulent drainage from the proximal medial third toe. There is viable plantar skin. Continue IV antibiotics. (2) Diabetic infection of left foot: Admission and Anticipated Discharge Date Admission Date: October 19, 2023
[2023-10-20] MEDS: DAPTOmycin 575 MG in SYRINGE 0 ML IV SCH (18:00)
--- NOTE | 2023-10-21 08:53 | Anesthesiology Consultation ---
Date of Service October 21, 2023 Assessment & Plan Chart Review Chart Review: Acceptable Risk for Surgery and Patient NOT seen in Pre Admission Testing Consults Requested none ASA ASA4 Proposed Anesthesia Anesthesia Type: MAC History Surgery Operation Date: 10/21/23 07:05 Proposed Procedures p Left Foot 3rd Toe Amputation - Noah Merchant MD Height/Weight Height: 6 ft 1 in Weight: 125.2 kg Allergies Allergy/AdvReac Type Severity Reaction Status Date / Time Sulfa (Sulfonamide Allergy Severe Hives Unverified 08/19/23 11:05 Antibiotics) Bactrim Allergy Unknown HIVES Verified 06/19/17 10:28 bee venom protein (honey bee) Allergy Unknown ANAPHYLAXIS Verified 08/19/23 11:05 fluconazole Allergy Unknown rash with Verified 08/19/23 11:05 itching sulfamethoxazole Allergy Unknown HIVES Verified 08/19/23 11:05 trimethoprim Allergy Unknown HIVES Verified 08/19/23 11:05 Medications Home Medications Medication Instructions Recorded Confirmed Last Taken insulin syringe-needle U-100 1 mL #10 ea 09/16/18 08/19/23 Unknown 31 gauge x 5/16" (BD Insulin Syringe Ultra-Fine) lancets (OneTouch UltraSoft #50 ea 09/16/18 08/19/23 Unknown Lancets) CPAP Machine #1 ea 01/06/19 10/19/23 Unknown Contour Test Strips (blood sugar #400 ea 01/21/19 10/19/23 Unknown diagnostic) CPAP Supplies #1 ea 11/02/19 10/19/23 Unknown cholecalciferol (vitamin D3) 25 25 mcg PO QAM 10/21/20 10/19/23 04/21/23 mcg (1,000 unit) capsule Walking Cane #1 ea 11/15/20 08/19/23 05/29/22 mecobalamin (vitamin B12) 5,000 5,000 mcg PO DAILY #30 tabs 05/07/22 10/19/23 04/21/23 mcg chewable tablet epinephrine 0.3 mg/0.3 mL 0.3 mg IM UD PRN anaphylaxis 05/28/22 10/19/23 05/29/22 injection, auto-injector (EpiPen 2-Golden) lisinopril 20 mg tablet 20 mg PO BID #180 tabs 12/04/22 10/19/23 04/21/23 sildenafil 100 mg tablet 100 mg PO DAILY #6 tabs 12/04/22 10/19/23 04/21/23 apixaban 5 mg tablet 5 mg PO BID #180 tabs 01/02/23 10/19/23 04/19/23 metformin 1,000 mg tablet 500 mg PO BID 01/28/23 10/19/23 04/20/23 tamsulosin 0.4 mg capsule (Flomax) 0.4 mg PO DAILY #90 caps 02/05/23 10/19/23 04/21/23 insulin lispro 100 unit/mL See Rx Instructions subcut TIDM 03/20/23 10/19/23 04/21/23 subcutaneous pen (Humalog KwikPen #30 mL (U-100) Insulin) Balance Of Nature 1 tab PO QAM 04/11/23 10/19/23 04/21/23 flash glucose sensor (FreeStyle #6 ea 05/20/23 10/19/23 Unknown Tamika 2 Sensor kit) hydrochlorothiazide 25 mg tablet 12.5 mg (1/2 x 25 mg) PO BID #60 07/12/23 10/19/23 Unknown tabs pantoprazole 40 mg tablet,delayed 40 mg PO QAM #90 tabs 07/12/23 10/19/23 Unknown release albuterol sulfate 90 mcg/actuation 1 inh inhalation Q6H PRN shortness 07/15/23 10/19/23 Unknown aerosol inhaler of breath or wheezing #8.5 grams simvastatin 20 mg tablet 20 mg PO QAM #90 tabs 08/06/23 10/19/23 Unknown furosemide 20 mg tablet 20 mg PO BID #180 tabs 09/20/23 10/19/23 Unknown insulin glargine 100 unit/mL (3 40 unit (0.4 mL) subcut .QHS #45 mL 10/03/23 10/19/23 Unknown mL) subcutaneous pen (Lantus Solostar U-100 Insulin) tramadol 50 mg tablet 50 mg PO Q8 PRN Pain 10/19/23 10/19/23 Unknown Active Medications Generic Name Dose Route Start Last Admin Trade Name Freq PRN Reason Stop Dose Admin Apixaban 5 mg 10/19/23 21:08 10/19/23 21:21 Apixaban 5 Mg Tablet PO 11/18/23 21:07 Not Given BID MIRIAM Piperacillin Sod/Tazobactam 100 mls @ 25 mls/hr 10/19/23 22:00 10/21/23 05:33 Sod 4.5 gm/ Dextrose IV 11/30/23 21:59 25 mls/hr Q8H MIRIAM Administration Protocol Daptomycin 575 mg/ Syringe 11.5 mls @ 5.75 mls/min 10/20/23 19:00 10/20/23 18:00 IV 12/01/23 18:59 5.75 mls/min Q24H MIRIAM Administration Protocol Insulin Aspart 0 units 10/19/23 21:08 10/20/23 20:23 Insulin Aspart Per Unit Charge SC 11/18/23 21:07 4 units ACHS MIRIAM Administration Insulin Glargine 40 units 10/19/23 21:30 10/20/23 20:24 Lantus Per Unit Charge SQ 11/18/23 21:29 40 units HS MIRIAM Administration Metoprolol Tartrate 12.5 mg 10/20/23 09:00 10/20/23 20:23 Metoprolol Tartrate 25 Mg Tab PO 11/19/23 08:59 12.5 mg BID MIRIAM Administration Pantoprazole Sodium 40 mg 10/20/23 09:00 10/20/23 07:47 Pantoprazole 40 Mg Tab PO 11/19/23 08:59 40 mg QAM MIRIAM Administration Tamsulosin HCl 0.4 mg 10/20/23 09:00 10/20/23 07:47 Tamsulosin Hcl 0.4 Mg Cap PO 11/19/23 08:59 0.4 mg DAILY MIRIAM Administration Vitamin D 25 mcg 10/20/23 09:00 10/20/23 07:46 Cholecalciferol 25 Mcg (1000 Units) Tab PO 11/19/23 08:59 25 mcg QAM MIRIAM Administration Past Medical History Medical History On anticoagulant therapy History of COVID-19 2020- no hosp; resolved Lymphedema Arthritis Diabetes diabetic sensor Sleep apnea CPAP Afib asymptomatic; eliquis daily Personal history of diabetic foot ulcer NO CURRENT Hypertension Osteoarthritis obese Hx/o CHF HLD Diabetic PN PVD Borderline pulmonary HTN Exercise / Class Metabolic Activity III < 4 Walking/Shop/Light housework Past Family History Family History Brother Prostate cancer Diabetes Coronary heart disease Abdominal aortic aneurysm Alzheimer disease Stroke Family history of colonic polyps Father Heart disease Myocardial infarction Family/Other Hypertension Denies family history of Rheumatoid arthritis Sudden SIDS (sudden infant syndrome) Ovarian cancer Deep vein thrombosis Osteoporosis Dyslipidemia Cerebral aneurysm Bipolar disorder Clotting disorder Crohn's disease Dementia Depression Kidney disease Osteoarthritis Breast cancer Schizophrenia Congenital kidney disease Gestational diabetes Lung cancer COPD (chronic obstructive pulmonary disease) Colorectal cancer Pulmonary embolism Lung disease Ulcerative colitis Colonic polyp Asthma Cystic kidney disease Past Surgical History Surgical History History of right cataract surgery History of colonoscopy H/O umbilical hernia repair (~10/2006) Hx of total knee arthroplasty right TKA 11/2001 Dr. Garcia, left TKA 2006; revision July, H/O carpal tunnel repair Past Anesthesia History No Hx of Anesthesia Complications and No Family Hx of Anesthesia Complications History of PONV No Hx of PONV and No Hx of Motion Sickness Social History Smoking Status: Never smoker Do You Dip or Chew Tobacco: No Hx Alcohol Use: No Alcohol type: beer and hard liquor alcohol intake frequency: a few times a month Hx Substance Use: No substance use type: does not use Physical Exam Vital Signs Last Vital Signs Temp 36.7 C 10/21/23 08:07 Pulse 67 10/21/23 08:07 Resp 16 10/21/23 08:07 BP 131/70 10/21/23 08:07 Pulse Ox 96 10/21/23 08:07 O2 Del Method Room Air 10/21/23 08:07 FiO2 21 10/20/23 00:14 Testing Laboratory Results 10/20/23 07:02 10/20/23 07:02 10/19/23 15:06 Aerobic Blood Culture - Preliminary Blood No growth in Aerobic bottle after 24 hours. Anaerobic Blood Culture - Preliminary Gram positive cocci 10/19/23 14:14 Aerobic Blood Culture - Preliminary Blood No growth in Aerobic bottle after 24 hours. Anaerobic Blood Culture - Preliminary No growth in Anaerobic bottle after 24 hours. 10/21/23 08:14 POC Glucose 162 H Electrocardiogram Date: 10/19/23 Findings: + NSR @ (SR @ 85 w/ occasional PVC's;Poss. old infer. infarct,age ?) Echocardiogram Date: 07/31/23 EF: 50% LV Function: normal RWMA: + none Other Findings: + LVH (mild) Valvular Disease: + no significant valvular disease TR-mild PA sys [id number] Torr
[2023-10-21 09:02] LABS: Hematocrit (blood only) 33.2 % (42.0-52.0); Hemoglobin 10.9 g/dl (14.0-18.0); Mean Corpuscular Hemoglobin 31.6 pg (25.0-34.0); Mean Corpuscular Hgb Conc 32.8 g/dL (32.0-36.0); Mean Corpuscular Volume 96.2 fL (80.0-100.0); Mean Platelet Volume 10.1 fL (9.4-12.4); Platelet Count 165 K/uL (130-400); RDW Coefficient of Variation 14.6 % (11.5-14.5); RDW Standard Deviation 51.9 fL (36.4-46.3); Red Blood Count 3.45 M/uL (4.70-6.10); White Blood Count 5.88 K/ul (4.8-10.8)
[2023-10-21] MEDS ORDERED: ePHEDrine sulfate 50 MG/ML AMP IV PRN (09:06)
[2023-10-21] MEDS ORDERED: ATROPINE SULFATE 0.1 MG/ML 10ML SYR IV PRN (09:06)
[2023-10-21] MEDS ORDERED: ONDANSETRON INJ 2 MG/ML 2 ML VIAL IV PRN ×2 (09:06→11:55)
[2023-10-21] MEDS ORDERED: fentaNYL citrate PF 100 MCG/2 ML VIAL IV PRN (09:06)
[2023-10-21 09:21] LABS: BUN Creatinine Ratio 32.4 (10-20); C Reactive Protein 20.69 mg/dl (0-0.5); Calcium 8.1 mg/dl (8.6-10.3); Creatinine Clr Calc Pharmacy 78.5 ml/min; Est GFR (African American) 74.4 ml/min; Est GFR (Non-African American) 64.2 ml/min; Magnesium 1.8 mg/dl (1.7-2.4); Phosphorus 3.1 mg/dl (2.5-4.9)
--- NOTE | 2023-10-21 09:50 | History & Physical Bridge Note ---
Date of Service October 21, 2023 History & Physical Bridge Note I have examined the patient, reviewed the History & Physical and in the interval since the performance of the History & Physical I have noted the following changes of clinical significance: no changes noted
[2023-10-21] MEDS: LACTATED RINGER'S 1,000 ML IV SCH (10:00)
[2023-10-21] MEDS ORDERED: fentaNYL citrate PF 100 MCG/2 ML VIAL ONE (10:01)
[2023-10-21] MEDS ORDERED: ceFAZolin 330 MG/ML 1 GM VIAL ONE (10:22)
[2023-10-21] MEDS: ceFAZolin 3000MG 3,000 MG/72.5 ML BAG IV ONE (10:25)
--- NOTE | 2023-10-21 10:51 | Infectious Disease Consult ---
Date of Consultation October 21, 2023 Assessment & Plan (1) NED (acute kidney injury): (2) Acute osteomyelitis of toe: (3) Diabetic infection of left foot: (4) Foot ulcer, left: Plan This is a 78 yo male with PM of Dm2, diabetic neuropathy, a flutter, bph present for left foot infection . He developed increasing left foot pain in the last 5 days, with foul smelling drainage from a foot wound. His daughter noted that the 3rd toe was turning black. About 2 weeks ago , he noted a dark spot on the toe. He follows at wound care in [place] for left heel wound and has weekly RN visits. He endoresed associated chills. He had not received antibiotics prior to admission.. In the ED, he is afebrile and HDS. Labs with WBC 9.32, plts 187, BUN 63, cr 1.75, lactate 1.0, CRP 24.40? 20, Esr 67?85. Foot xray demonstrated soft tissue swelling about the 3rd digit with underlying osteomyelitis. Blood culture with Staph species ( BCID staph aureus )in bottles, He was started on Daptomycin and Zosyn. He was evaluated by orthopedics and taken to OR 10/20 for Left 3rd toe toe amputation and debridement of left heel. Per op report, no infection noted of left heel. Necrotic tissue noted in 3rd toe which was amputated through the level of the MTP joint. There was a pocket of purulence noted dorsal and slightly medial to the metatarsophalangeal joint. This was walled off. Debridement was performed throughout the wound bed to remove necrotic and mucinous tissue. The wound margins were cut back to healthy tissue. A wound vac was placed. ID consulted for foot infection/osteomyelitis. Micro: BC 10/18 -04/18 staph sp ( BCID staph aureus/MSSA) OR culture 10/20 pending Abx Zosyn 10/18-ongoing Dapto 10/18-ongoing #Left 3rd toe diabetic foot infection with osteomyelitis #Staph aureus bacteremia #B/L TKA #DM2 #NED Bacteremia is likely 2/2 Left foot infection with osteomyelitis. He is s/p BL TKA. . He is s/p Left 3rd digit 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/20. Intraop cx and path pending. Recommendations Continue Daptomycin and zosyn pending Intraoperative cultures and finalization of BC Follow up intraoperative cultures Follow up Staph aureus sensi in BC ( MSSA per BCID) Follow up repeat BC to ensure clearance ( ordered) Check TTE in setting of staph aureus bacteremia Follow up pathology/margins Check cpk on dapto He will need a minimum of 2 weeks of IV antibiotics in setting of staph aureus bacteremia. A longer course of antibiotics ( 6 weeks) will depend on if surgical cure was obtained with amputuation or if residual bone infection remains. Thank you for this consult. ID will continue to follow. Leo Bautista MD, MPH Infectious Disease [facility], [facility] Call [phone] with questions. Consultation Information This patient recommendation is based on a telemedicine consult request which was completed asynchronously through chart review and information provided by the primary physician. The patient was not seen or examined today. The evaluation is consultative in nature and all patient care and treatment decisions can either be accepted or rejected by the patient's primary hospital-based treating physician using their own independent medical judgment for their patient. [facility] Special[facility] contact information: Please call [facility] Call Center . (Phone Number For Physician Use Only) Time Spent Reviewing Chart: 31+ minutes History of Present Illness Reason for Consultation: Foot infection and osteomyelitis Requesting Physician: Chen Hoyos MD Attending Physician: Saad Gill MD History of Present Illness Patient in OR and not available when attempted to see him. An Econsult was completed This is a 78 yo male with PM of Dm2, diabetic neuropathy, a flutter, bph present for left foot infection . He developed increasing left foot pain in the last 5 days, with foul smelling drainage from a foot wound. His daughter noted that the 3rd toe was turning black. About 2 weeks ago , he noted a dark spot on the toe. He follows at wound care in [place] for left heel wound and has weekly RN visits. He endoresed associated chills. He had not received antibiotics prior to admission.. In the ED, he is afebrile and HDS. Labs with WBC 9.32, plts 187, BUN 63, cr 1.75, lactate 1.0, CRP 24.40? 20, Esr 67?85. Foot xray demonstrated soft tissue swelling about the 3rd digit with underlying osteomyelitis. Blood culture with Staph species ( BCID staph aureus )in bottles, He was started on Daptomycin and Zosyn. He was evaluated by orthopedics and taken to OR 10/20 for Left 3rd toe toe amputation and debridement of left heel. Per op report, no infection noted of left heel. Necrotic tissue noted in 3rd toe which was amputated through the level of the MTP joint. There was a pocket of purulence noted dorsal and slightly medial to the metatarsophalangeal joint. This was walled off. Debridement was performed throughout the wound bed to remove necrotic and mucinous tissue. The wound margins were cut back to healthy tissue. A wound vac was placed. ID consulted for foot infection/osteomyelitis. Allergies Allergy/AdvReac Type Severity Reaction Status Date / Time Sulfa (Sulfonamide Allergy Severe Hives Unverified 08/19/23 11:05 Antibiotics) Bactrim Allergy Unknown HIVES Verified 06/19/17 10:28 bee venom protein (honey bee) Allergy Unknown ANAPHYLAXIS Verified 08/19/23 11:05 fluconazole Allergy Unknown rash with Verified 08/19/23 11:05 itching sulfamethoxazole Allergy Unknown HIVES Verified 08/19/23 11:05 trimethoprim Allergy Unknown HIVES Verified 08/19/23 11:05 Home Medications Medication Instructions Recorded Confirmed Type insulin syringe-needle U-100 1 mL #10 ea 09/16/18 08/19/23 History 31 gauge x 5/16" (BD Insulin Syringe Ultra-Fine) lancets (OneTouch UltraSoft #50 ea 09/16/18 08/19/23 History Lancets) CPAP Machine #1 ea 01/06/19 10/19/23 Rx Contour Test Strips (blood sugar #400 ea 01/21/19 10/19/23 Rx diagnostic) CPAP Supplies #1 ea 11/02/19 10/19/23 Rx cholecalciferol (vitamin D3) 25 25 mcg PO QAM 10/21/20 10/19/23 History mcg (1,000 unit) capsule Walking Cane #1 ea 11/15/20 08/19/23 Rx mecobalamin (vitamin B12) 5,000 5,000 mcg PO DAILY #30 tabs 05/07/22 10/19/23 Rx mcg chewable tablet epinephrine 0.3 mg/0.3 mL 0.3 mg IM UD PRN anaphylaxis 05/28/22 10/19/23 History injection, auto-injector (EpiPen 2-Golden) lisinopril 20 mg tablet 20 mg PO BID #180 tabs 12/04/22 10/19/23 Rx sildenafil 100 mg tablet 100 mg PO DAILY #6 tabs 12/04/22 10/19/23 Rx apixaban 5 mg tablet 5 mg PO BID #180 tabs 01/02/23 10/19/23 Rx metformin 1,000 mg tablet 500 mg PO BID 01/28/23 10/19/23 History tamsulosin 0.4 mg capsule (Flomax) 0.4 mg PO DAILY #90 caps 02/05/23 10/19/23 Rx insulin lispro 100 unit/mL See Rx Instructions subcut TIDM 03/20/23 10/19/23 Rx subcutaneous pen (Humalog KwikPen #30 mL (U-100) Insulin) Balance Of Nature 1 tab PO QAM 04/11/23 10/19/23 History flash glucose sensor (FreeStyle #6 ea 05/20/23 10/19/23 Rx Tamika 2 Sensor kit) hydrochlorothiazide 25 mg tablet 12.5 mg (1/2 x 25 mg) PO BID #60 07/12/23 10/19/23 Rx tabs pantoprazole 40 mg tablet,delayed 40 mg PO QAM #90 tabs 07/12/23 10/19/23 Rx release albuterol sulfate 90 mcg/actuation 1 inh inhalation Q6H PRN shortness 07/15/23 10/19/23 Rx aerosol inhaler of breath or wheezing #8.5 grams simvastatin 20 mg tablet 20 mg PO QAM #90 tabs 08/06/23 10/19/23 Rx furosemide 20 mg tablet 20 mg PO BID #180 tabs 09/20/23 10/19/23 Rx insulin glargine 100 unit/mL (3 40 unit (0.4 mL) subcut .QHS #45 mL 10/03/23 10/19/23 Rx mL) subcutaneous pen (Lantus Solostar U-100 Insulin) tramadol 50 mg tablet 50 mg PO Q8 PRN Pain 10/19/23 10/19/23 History Patient History Medical History On anticoagulant therapy History of COVID-19 2020- no hosp; resolved Lymphedema Arthritis Diabetes diabetic sensor Sleep apnea CPAP Afib asymptomatic; eliquis daily Personal history of diabetic foot ulcer NO CURRENT Hypertension Osteoarthritis Surgical History History of right cataract surgery History of colonoscopy H/O umbilical hernia repair (~10/2006) Hx of total knee arthroplasty right TKA 11/2001 Dr. Garcia, left TKA 2006; revision July, H/O carpal tunnel repair Family History Brother Prostate cancer Diabetes Coronary heart disease Abdominal aortic aneurysm Alzheimer disease Stroke Family history of colonic polyps Father Heart disease Myocardial infarction Family/Other Hypertension Denies family history of Rheumatoid arthritis Sudden SIDS (sudden infant syndrome) Ovarian cancer Deep vein thrombosis Osteoporosis Dyslipidemia Cerebral aneurysm Bipolar disorder Clotting disorder Crohn's disease Dementia Depression Kidney disease Osteoarthritis Breast cancer Schizophrenia Congenital kidney disease Gestational diabetes Lung cancer COPD (chronic obstructive pulmonary disease) Colorectal cancer Pulmonary embolism Lung disease Ulcerative colitis Colonic polyp Asthma Cystic kidney disease Social History (Updated 06/21/23 @ 13:32 by LENI Geller) Smoking Status: Never smoker Second Hand Exposure: No; Do You Dip or Chew Tobacco: No; Tobacco Cessation Education Requested by Patient: No Hx Alcohol Use: No Hx Substance Use: No Preferred Language: Niuean Communication Ability: Effective Visual Impairment: No Limitations Hearing Ability: Normal Stocking Inspector Required: No Beliefs That Will Affect Care: None marital status: / Current Living Situation: Alone Current Living Situation Comment: LONG current occupational status: retired current occupation: he used to work at [employer] How many Children do You have: 2 Other Information That Helps Us Care for You: No Feels Safe at Home: Yes Safety Concerns: Feels Safe At This Time Childhood Exposure to Second-Hand Smoke: No Diet: regular caffeine: Yes during the past year weight has: remained stable Dental Care, Regularly: Yes Physical Activity Frequency: 3-4 Times per Week Seatbelt Use: sometimes Sunscreen Use: No Assistive Devices: Cane, CPAP and Walker Results & Data Vital Signs (Past 12 Hours) Vital Signs Temp Pulse Pulse Resp BP BP Pulse Ox 10/21/23 09:40 36.9 C 79 18 155/84 H 95 10/21/23 08:07 36.7 C 67 16 131/70 96 07/08/24 07:27 69 10/21/23 04:00 37.0 C 76 18 131/68 94 10/20/23 23:41 81 O2 Del Method 10/21/23 09:40 Room Air 10/21/23 08:07 Room Air 10/21/23 07:27 10/21/23 04:00 Room Air 10/20/23 23:41 Laboratory Results Laboratory Results - last 48 hr 10/19/23 10/19/23 10/19/23 13:11 14:14 15:06 WBC 9.32 RBC 3.99 L Hgb 12.4 L Hct 38.3 L MCV 96.0 MCH 31.1 MCHC 32.4 RDW Std Deviation 51.8 H RDW Coeff of David 14.6 H Plt Count 187 MPV 10.7 Immature Gran % (Auto) 0.3 Neut % (Auto) 78.8 Lymph % (Auto) 11.8 [place] % (Auto) 8.2 Eos % (Auto) 0.6 Baso % (Auto) 0.3 Neut # (Auto) 7.34 H Lymph # (Auto) 1.10 L [place] # (Auto) 0.76 H Eos # (Auto) 0.06 Baso # (Auto) 0.03 Immature Gran # (Auto) 0.03 ESR Sodium 132 L Potassium 4.2 Chloride 97 L Carbon Dioxide 27 Anion Gap 8 BUN 63 H Creatinine 1.75 H Est Cr Clr Drug Dosing Not Reportable Est GFR ( Amer) 42.9 Est GFR (Non-Af Amer) 37.0 BUN/Creatinine Ratio 36.0 H Glucose 192 H POC Glucose Lactate 1.0 Calcium 8.5 L Phosphorus Magnesium 1.7 Total Bilirubin 0.7 Direct Bilirubin 0.2 AST 16 ALT 14 Alkaline Phosphatase 87 C-Reactive Protein Total Protein 7.4 Albumin 3.6 Lipase 18 Nasal Screen MRSA (PCR) Staphylococcus sp PCR DETECTED A Staph aureus (PCR) DETECTED A mecA/C & MREJ Resist Gene MRSA Not Detected Bld Cult ID Panel PCR See PCR Comment 10/19/23 10/19/23 10/20/23 21:24 23:53 06:58 WBC RBC Hgb Hct MCV MCH MCHC RDW Std Deviation RDW Coeff of David Plt Count MPV Immature Gran % (Auto) Neut % (Auto) Lymph % (Auto) [place] % (Auto) Eos % (Auto) Baso % (Auto) Neut # (Auto) Lymph # (Auto) [place] # (Auto) Eos # (Auto) Baso # (Auto) Immature Gran # (Auto) ESR Sodium Potassium Chloride Carbon Dioxide Anion Gap BUN Creatinine Est Cr Clr Drug Dosing Est GFR ( Amer) Est GFR (Non-Af Amer) BUN/Creatinine Ratio Glucose POC Glucose 175 H 186 H Lactate Calcium Phosphorus Magnesium Total Bilirubin Direct Bilirubin AST ALT Alkaline Phosphatase C-Reactive Protein Total Protein Albumin Lipase Nasal Screen MRSA (PCR) Negative Staphylococcus sp PCR Staph aureus (PCR) mecA/C & MREJ Resist Gene Bld Cult ID Panel PCR 10/20/23 10/20/23 10/20/23 07:02 11:19 16:21 WBC 7.27 RBC 3.56 L Hgb 11.1 L Hct 34.3 L MCV 96.3 MCH 31.2 MCHC 32.4 RDW Std Deviation 51.9 H RDW Coeff of David 14.6 H Plt Count 170 MPV 10.0 Immature Gran % (Auto) 0.4 Neut % (Auto) 77.6 Lymph % (Auto) 10.7 [place] % (Auto) 8.4 Eos % (Auto) 2.5 Baso % (Auto) 0.4 Neut # (Auto) 5.64 Lymph # (Auto) 0.78 L [place] # (Auto) 0.61 H Eos # (Auto) 0.18 Baso # (Auto) 0.03 Immature Gran # (Auto) 0.03 ESR 67 H Sodium 134 L Potassium 4.1 Chloride 100 Carbon Dioxide 28 Anion Gap 6 BUN 47 H Creatinine 1.28 D Est Cr Clr Drug Dosing 67.7 Est GFR ( Amer) 62.6 Est GFR (Non-Af Amer) 54.0 BUN/Creatinine Ratio 36.7 H Glucose 185 H POC Glucose 252 H 259 H Lactate Calcium 8.2 L Phosphorus 2.8 Magnesium 1.8 Total Bilirubin Direct Bilirubin AST ALT Alkaline Phosphatase C-Reactive Protein 24.40 H Total Protein Albumin Lipase Nasal Screen MRSA (PCR) Staphylococcus sp PCR Staph aureus (PCR) mecA/C & MREJ Resist Gene Bld Cult ID Panel PCR 10/20/23 10/21/23 10/21/23 20:08 08:14 08:25 WBC 5.88 RBC 3.45 L Hgb 10.9 L Hct 33.2 L MCV 96.2 MCH 31.6 MCHC 32.8 RDW Std Deviation 51.9 H RDW Coeff of David 14.6 H Plt Count 165 MPV 10.1 Immature Gran % (Auto) Neut % (Auto) Lymph % (Auto) [place] % (Auto) Eos % (Auto) Baso % (Auto) Neut # (Auto) Lymph # (Auto) [place] # (Auto) Eos # (Auto) Baso # (Auto) Immature Gran # (Auto) ESR 85 H Sodium 136 Potassium 4.0 Chloride 103 Carbon Dioxide 28 Anion Gap 5 BUN 36 H Creatinine 1.11 Est Cr Clr Drug Dosing 78.5 Est GFR ( Amer) 74.4 Est GFR (Non-Af Amer) 64.2 BUN/Creatinine Ratio 32.4 H Glucose 159 H POC Glucose 227 H 162 H Lactate Calcium 8.1 L Phosphorus 3.1 Magnesium 1.8 Total Bilirubin Direct Bilirubin AST ALT Alkaline Phosphatase C-Reactive Protein 20.69 H Total Protein Albumin Lipase Nasal Screen MRSA (PCR) Staphylococcus sp PCR Staph aureus (PCR) mecA/C & MREJ Resist Gene Bld Cult ID Panel PCR 10/21/23 09:38 WBC RBC Hgb Hct MCV MCH MCHC RDW Std Deviation RDW Coeff of David Plt Count MPV Immature Gran % (Auto) Neut % (Auto) Lymph % (Auto) [place] % (Auto) Eos % (Auto) Baso % (Auto) Neut # (Auto) Lymph # (Auto) [place] # (Auto) Eos # (Auto) Baso # (Auto) Immature Gran # (Auto) ESR Sodium Potassium Chloride Carbon Dioxide Anion Gap BUN Creatinine Est Cr Clr Drug Dosing Est GFR ( Amer) Est GFR (Non-Af Amer) BUN/Creatinine Ratio Glucose POC Glucose 189 H Lactate Calcium Phosphorus Magnesium Total Bilirubin Direct Bilirubin AST ALT Alkaline Phosphatase C-Reactive Protein Total Protein Albumin Lipase Nasal Screen MRSA (PCR) Staphylococcus sp PCR Staph aureus (PCR) mecA/C & MREJ Resist Gene Bld Cult ID Panel PCR Diagnostic Findings Microbiology 10/19/23 15:06 Blood Aerobic Blood Culture - Preliminary No growth in Aerobic bottle after 24 hours. 10/19/23 15:06 Blood Anaerobic Blood Culture - Preliminary Staphylococcus species 10/19/23 14:14 Blood Aerobic Blood Culture - Preliminary No growth in Aerobic bottle after 24 hours. 10/19/23 14:14 Blood Anaerobic Blood Culture - Preliminary No growth in Anaerobic bottle after 24 hours. Foot X-Ray 10/19/23 13:58 XR foot LT min 3V routine CLINICAL HISTORY: osteo, 3rd toe TECHNIQUE: 3 views of the left foot were obtained. Comparison: Comparison is made to MRI left foot 05/10/2020 FINDINGS: Prominent osteopenia is seen in the distal phalanx of the third digit. The joint spaces are well preserved. Soft tissue swelling is seen about the third digit. IMPRESSION: Soft tissue swelling about the third digit with underlying osteopenia compatible with osteomyelitis. ACT 112: Negative or not required by law. Electronically signed by: Glenn Rosenthal M.D. 10/19/2023 4:16 PM Medications Administered Home Medications Medication Instructions Recorded Confirmed Last Taken insulin syringe-needle U-100 1 mL #10 ea 09/16/18 08/19/23 Unknown 31 gauge x 5/16" (BD Insulin Syringe Ultra-Fine) lancets (OneTouch UltraSoft #50 ea 09/16/18 08/19/23 Unknown Lancets) CPAP Machine #1 ea 01/06/19 10/19/23 Unknown Contour Test Strips (blood sugar #400 ea 01/21/19 10/19/23 Unknown diagnostic) CPAP Supplies #1 ea 11/02/19 10/19/23 Unknown cholecalciferol (vitamin D3) 25 25 mcg PO QAM 10/21/20 10/19/23 04/21/23 mcg (1,000 unit) capsule Walking Cane #1 ea 11/15/20 08/19/23 05/29/22 mecobalamin (vitamin B12) 5,000 5,000 mcg PO DAILY #30 tabs 05/07/22 10/19/23 04/21/23 mcg chewable tablet epinephrine 0.3 mg/0.3 mL 0.3 mg IM UD PRN anaphylaxis 05/28/22 10/19/23 05/29/22 injection, auto-injector (EpiPen 2-Golden) lisinopril 20 mg tablet 20 mg PO BID #180 tabs 12/04/22 10/19/23 04/21/23 sildenafil 100 mg tablet 100 mg PO DAILY #6 tabs 12/04/22 10/19/23 04/21/23 apixaban 5 mg tablet 5 mg PO BID #180 tabs 01/02/23 10/19/23 04/19/23 metformin 1,000 mg tablet 500 mg PO BID 01/28/23 10/19/23 04/20/23 tamsulosin 0.4 mg capsule (Flomax) 0.4 mg PO DAILY #90 caps 02/05/23 10/19/23 04/21/23 insulin lispro 100 unit/mL See Rx Instructions subcut TIDM 03/20/23 10/19/23 04/21/23 subcutaneous pen (Humalog KwikPen #30 mL (U-100) Insulin) Balance Of Nature 1 tab PO QAM 04/11/23 10/19/23 04/21/23 flash glucose sensor (FreeStyle #6 ea 05/20/23 10/19/23 Unknown Tamika 2 Sensor kit) hydrochlorothiazide 25 mg tablet 12.5 mg (1/2 x 25 mg) PO BID #60 07/12/23 10/19/23 Unknown tabs pantoprazole 40 mg tablet,delayed 40 mg PO QAM #90 tabs 07/12/23 10/19/23 Unknown release albuterol sulfate 90 mcg/actuation 1 inh inhalation Q6H PRN shortness 07/15/23 10/19/23 Unknown aerosol inhaler of breath or wheezing #8.5 grams simvastatin 20 mg tablet 20 mg PO QAM #90 tabs 08/06/23 10/19/23 Unknown furosemide 20 mg tablet 20 mg PO BID #180 tabs 09/20/23 10/19/23 Unknown insulin glargine 100 unit/mL (3 40 unit (0.4 mL) subcut .QHS #45 mL 10/03/23 10/19/23 Unknown mL) subcutaneous pen (Lantus Solostar U-100 Insulin) tramadol 50 mg tablet 50 mg PO Q8 PRN Pain 10/19/23 10/19/23 Unknown Active Medications Generic Name Dose Route Start Last Admin Trade Name Freq PRN Reason Stop Dose Admin Apixaban 5 mg 10/19/23 21:08 10/19/23 21:21 Apixaban 5 Mg Tablet PO 11/18/23 21:07 Not Given BID MIRIAM Piperacillin Sod/Tazobactam 100 mls @ 25 mls/hr 10/19/23 22:00 10/21/23 09:36 Sod 4.5 gm/ Dextrose IV 11/30/23 21:59 Infused Q8H MIRIAM Infusion Protocol Daptomycin 575 mg/ Syringe 11.5 mls @ 5.75 mls/min 10/20/23 19:00 10/20/23 18:00 IV 12/01/23 18:59 5.75 mls/min Q24H MIRIAM Administration Protocol Lactated Ringer's 1,000 mls @ 15 mls/hr 10/21/23 10:00 10/21/23 10:05 Lr IV 11/20/23 09:59 15 mls/hr .Q24H MIRIAM Infusion Insulin Aspart 0 units 10/19/23 21:08 10/21/23 08:55 Insulin Aspart Per Unit Charge SC 11/18/23 21:07 1 units ACHS MIRIAM Administration Insulin Glargine 40 units 10/19/23 21:30 10/20/23 20:24 Lantus Per Unit Charge SQ 11/18/23 21:29 40 units HS MIRIAM Administration Metoprolol Tartrate 12.5 mg 10/20/23 09:00 10/21/23 08:56 Metoprolol Tartrate 25 Mg Tab PO 11/19/23 08:59 12.5 mg BID MIRIAM Administration Pantoprazole Sodium 40 mg 10/20/23 09:00 10/21/23 08:58 Pantoprazole 40 Mg Tab PO 11/19/23 08:59 40 mg QAM MIRIAM Administration Tamsulosin HCl 0.4 mg 10/20/23 09:00 10/21/23 08:57 Tamsulosin Hcl 0.4 Mg Cap PO 11/19/23 08:59 0.4 mg DAILY MIRIAM Administration Vitamin D 25 mcg 10/20/23 09:00 10/21/23 08:57 Cholecalciferol 25 Mcg (1000 Units) Tab PO 11/19/23 08:59 25 mcg QAM MIRIAM Administration (4) Foot ulcer, left Non-pressure ulcer stage: with fat layer exposed Qualified Code(s): L97.522 - Non-pressure chronic ulcer of other part of left foot with fat layer exposed
[2023-10-21] MEDS ORDERED: PROPOFOL IV EMULSION 10 MG/ML 20 ML VIAL IV ONE (11:34)
[2023-10-21] MEDS ORDERED: METOCLOPRAMIDE HCL INJ 5 MG/ML 2 ML VIAL ONE (11:34)
[2023-10-21] MEDS ORDERED: ONDANSETRON INJ 2 MG/ML 2 ML VIAL ONE (11:34)
[2023-10-21] MEDS ORDERED: LIDOCAINE 2% 2 ML VIAL/AMP(20MG/ML) INFIL ONE (11:34)
[2023-10-21] MEDS: BUPIVACAINE 0.5 % 5 MG/1 ML MPF 30ML VIAL ONE (11:46)
--- NOTE | 2023-10-21 11:46 | Fluoroscopy Report ---
INTRAOPERATIVE RADIOGRAPH CLINICAL HISTORY: Third toe amputation. Fluoro time: 2 seconds Ka,r: 0.05 mGy FINDINGS: A single spot fluoroscopic view of the left forefoot is correlated with radiographs dated . There has been amputation of the third toe through the distal shaft of the metatarsal. Overl jodie soft tissue edema is observed with foci of soft tissue gas. IMPRESSION: Intraoperative image from a left third toe amputation procedure as above. Electronically signed by: Erick Tenorio M.D. 10/21/2023 11:45 AM
[2023-10-21] MEDS: LIDOCAINE 1% LOCAL 20 ML VIAL ONE (11:47)
[2023-10-21] MEDS: VANCOMYCIN HCL 1000MG/20ML VIAL ONE (11:47)
[2023-10-21] MEDS: GENTAMICIN SULFATE 40 MG/ML 2 ML VIAL ONE (11:47)
[2023-10-21] MEDS ORDERED: NALOXONE HCL 0.4 MG/1 ML VIAL/CARP IV PRN (11:55)
[2023-10-21] MEDS ORDERED: diphenhydrAMINE 50 MG/ML VIAL IV PRN (11:55)
[2023-10-21] MEDS ORDERED: traMADol HCL 50 MG TABLET PO PRN (11:55)
[2023-10-21] MEDS ORDERED: bisacodyL 10 MG SUPP PR PRN (11:55)
[2023-10-21] MEDS ORDERED: oxyCODONE HCL IR 5 MG TAB (IMMEDIATE RELEASE) PO PRN (11:55)
[2023-10-21] MEDS ORDERED: METOCLOPRAMIDE HCL INJ 5 MG/ML 2 ML VIAL IV PRN (11:55)
[2023-10-21] MEDS ORDERED: HYDROmorphone INJ 0.5 MG/0.5 ML SYR IV PRN (11:55)
[2023-10-21] MEDS ORDERED: MAGNESIUM HYDROXIDE SUSP 30 ML UDC PO PRN (11:55)
--- NOTE | 2023-10-21 11:55 | Operative Report ---
Post Operative Report Pre & Post Diagnosis Operation Date: 10/21/23 07:05 Pre-Op Diagnosis: Left foot 3rd toe osteomyelitis Post-Op Diagnosis: Left foot 3rd toe osteomyelitis I identified the patient and participated in the time-out.: Yes Procedure Operation Date: 10/21/23 07:05 Actual Procedures p Left Foot 3rd Toe Amputation, Debridement of Left Great Toe nail, Debridement of Left Heel(Left) - Noah Merchant MD Surgeon Noah Merchant MD Brush Head Maker Aracelis Prakash PATalya Estimated Blood Loss 5 Findings Consistent with Post-Op Diagnosis Specimens left 3rd toe soft tissue and bone Description of Procedure I was present during the entire case assisting with positioning, prepping, draping, wound retraction, wound closure and dressing application. No fellow present. Please see Dr. Merchant procedure note for specifics of the case. I attest to the content of the Intraoperative Record and any orders documented therein. Any exceptions are noted below.
--- NOTE | 2023-10-21 11:55 | Operative Report ---
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 I identified the patient and participated in the time-out.: Yes Procedure Operation Date: 10/21/23 07:05 Actual Procedures p Left Foot 3rd Toe Amputation, Debridement of Left Great Toe nail, Debridement of Left Heel(Left) - Noah Merchant MD Surgeon Noah Merchant MD [facility] Technician MARTA Prakash. No resident or fellow available. Estimated Blood Loss 5 Findings Consistent with Post-Op Diagnosis Specimens Culture of the left foot third toe for routine analysis, specimen 1 is the left foot third toe for gross pathology and the third specimen is the left foot third metatarsal head for gross pathology. Anesthesia Type General Regional Complications none Disposition Accompanied Patient To Recovery: No Disposition: Recovery Room Indications Greg is 78. He has diabetes and developed a left foot third toe infection with osteomyelitis of the distal phalanx. He is on Eliquis. We held his Eliquis for 48 hours. Also did diurese this elevation and IV antibiotics to reduce infection, inflammation and severe limb swelling. He is taken to the OR for debridement and amputation as indicated. Description of Procedure Patient identified. He identified the operative site. I marked my initials. Preop surgical timeout performed. Informed consent obtained. Preop dose of IV antibiotics given. Taken to the OR positioned supine. Tourniquet on the left calf below the peroneal nerve. Bump under the left hip. The leg was scrubbed with Betadine and painted with Betadine paint in the usual sterile fashion. Routine drape. Bony prominences were inspected and padded. DVT prophylaxis with mechanical devices intraoperatively. There was an overgrown first toenail. This was pared off of the tip of the toe and then elevated and cut transversely at the distal end of the lateral eponychial folds with a biting rongeur. The patient had a chronic heel wound. It was 1 cm wide by 2 cm long. Some hyperkeratotic tissue around the margin was debrided. I debrided the wound itself by scraping it with curette. Superficial debridement. Healthy appearing tissue without evidence of infection. It was 2 to 3 mm deep. Attention was turned to the third toe. The limb was exsanguinated with the Esmarch and tourniquet inflated 275 mmHg. The exsanguination began at the midfoot and Progress proximally. There was a open wound at the medial base of the third toe with necrotic tissue. This was about 1-1/2 cm in diameter. Culture was obtained here. Dried skin was removed from the remainder of the toe and the nail came off. I fashioned a flap which would be based plantar and lateral. I made a longitudinal incision down the shaft of the third metatarsal ellipsed out all of the unhealthy tissue and preserved a lateral and plantar flap out to the tip of the toe. I then shelled out the entire toe including the distal middle and proximal phalanx and amputated through the level of the MTP joint. There was a pocket of purulence noted dorsal and slightly medial to the metatarsophalangeal joint. This was walled off it did not extend further proximally distally or medially or laterally or plantarly. Milking plantarly dorsally etc. because no further further purulence to be encountered. The flexor and extensor tendons were pulled into the wound as far as possible and cut and allowed to retract. Debridement with a rongeur was performed throughout the wound bed to remove necrotic and mucinous tissue. The wound margins were cut back to healthy tissue. At this point, the wound could not be closed primarily due to the abscess infection. Essentially we were operating in the abscess cavity. I thought the best course of action was to prepare for application of a wound VAC. To that end I trimmed back the redundant lateral and plantar tissue. I then resected the metatarsal with a cutting rongeur. A business center representative image was obtained. This was done at the junction of the middle and distal third of the shaft. The distal metatarsal was then removed and sent for specimen. This appeared normal. Irrigation was performed with 3 L of sterile saline bulb syringe. The tourniquet was let down and meticulous hemostasis was performed.There was some bleeding but not robust. His pedal pulses were palpable. I then placed several stitches proximally over the proximal portion of the incision. The distal portion was left open. There was no exposed bone. I then packed with iodoform quarter-inch packing. Fluffs were placed between the toes. Local anesthetic was administered around the wound margins. Nonadherent dressings were placed on the heel and on the big toe. Some of the debridement of the big toe went down to the level of the dermis. There was no wound underneath the curled over nail. A saw sterile dressing was then applied with soft wrap and Jose wrap. Patient wake from anesthesia without difficulty taken to recovery in stable condition. Specimens mentioned above. No complications. Counts correct. Blood loss 5 cc. Will hold on restarting his Eliquis. Perhaps Lovenox or heparin. Will coordinate care with the wound care nurse to get a wound VAC applied. He should be nonweightbearing on the affected limb. I attest to the content of the Intraoperative Record and any orders documented therein. Any exceptions are noted below.
[2023-10-21] MEDS ORDERED: NON-FORMULARY MEDICATION (Insulin Lispro [Humalog Kwikpen Insulin] 100 unit/mL insulin pen SQ SCH (12:00)
[2023-10-21] MEDS ORDERED: NON-FORMULARY MEDICATION (Flash Glucose Sensor [Freestyle Libre 2 Sensor] kit) ONE (12:02)
[2023-10-21] MEDS ORDERED: EPINEPHrine INJ 1 MG/ML AMP IM PRN (12:10)
[2023-10-21] MEDS ORDERED: Continuous Glucose Monitor SCH (12:15)
--- NOTE | 2023-10-21 12:38 | Anesthesiology Progress Note ---
Date of Service October 21, 2023 Anesthesia Post Procedure Vital Signs Vital Signs: Temp Pulse Pulse Pulse Resp BP BP 10/21/23 12:25 69 17 162/80 H 10/21/23 12:15 71 19 153/90 H 10/21/23 12:05 78 15 130/95 10/21/23 11:56 96.8 F L 76 18 136/88 10/21/23 09:40 98.4 F 79 18 155/84 H 10/21/23 08:07 98.1 F 67 16 131/70 10/21/23 07:27 69 10/21/23 04:00 98.6 F 76 18 131/68 10/20/23 23:41 81 10/20/23 22:42 75 10/20/23 22:41 98.8 F 70 18 123/74 10/20/23 21:00 98.4 F 74 18 118/69 10/20/23 19:28 98.2 F 75 18 117/71 10/20/23 15:22 98.8 F 73 20 120/71 Pulse Ox O2 Del Method O2 Flow Rate 10/21/23 12:25 94 Room Air 10/21/23 12:15 93 Room Air 10/21/23 12:05 96 Oxymask 10 10/21/23 11:56 96 Oxymask 10 10/21/23 09:40 95 Room Air 10/21/23 08:07 96 Room Air 10/21/23 07:27 10/21/23 04:00 94 Room Air 10/20/23 23:41 10/20/23 22:42 10/20/23 22:41 94 CPAP 10/20/23 21:00 94 Room Air 10/20/23 19:28 97 Room Air 10/20/23 15:22 95 Room Air Transfer of Care Handoff Completed per policy Notes Mental Status: alert / awake / arousable and participated in evaluation Patient Amnestic to Procedure: Yes Nausea / Vomiting: adequately controlled Pain: adequately controlled Airway Patency, RR, SpO2: stable & adequate BP & HR: stable & adequate Hydration State: stable & adequate Anesthetic Complications: no major complications apparent and Pt Satisfied with anesthetic care
[2023-10-21] MEDS: ACETAMINOPHEN 500 MG TAB PO SCH (13:18)
[2023-10-21] MEDS: SODIUM CHLORIDE 0.9% 1,000 ML IV SCH (13:19)
--- NOTE | 2023-10-21 15:35 | Hospitalist Progress Note ---
Date of Service October 21, 2023 Assessment & Plan (1) Lower extremity edema: (2) Diabetic infection of left foot: (3) Vitamin D deficiency: (4) Dyslipidemia: (5) BPH with obstruction/lower urinary tract symptoms: (6) GERD without esophagitis: (7) Diabetic peripheral neuropathy associated with type 2 diabetes mellitus: (8) Atrial flutter: (9) Diabetes type 2, controlled: Plan 78 yo M with PMHx of DM II c/b diabetic neuropathy, HTN, AFlutter, HLD, EVON, GERD, BPH, presents to the hospital for the evaluation of left foot infection. #Left diabetic foot ulcer - pt followed by [facility] - left foot XR: soft tissue swelling about the 3rd digit with underlying osteop enia compatible with OM - Lower arterial study (07/16/23): no evidence of significant lower extremity arterial occlusive disease b/l -He is now status post left foot third toe amputation and debridement of left great toe nail and also debridement of left heel. -Plan is for wound VAC. -Per orthopedics, will use Lovenox for DVT prophylaxis. -Hold home Eliquis - ID consulted #DM II - HA1c: 7.9 (08/15/23) - hold Metformin - cont lantus - ordered correctional scale - diabetic diet #pos blood culture - suspect contaminant - cont current abx #NED - baseline Cr: 1.1, on admission 1.75 - hold HCTZ, lasix, lisinopril - gentle hydration , monitor for volume overload #AFib - CHADS2 Vasc: 4 - on eliquis (currently on hold) #HTN - hold lisinopril, HCTZ, Lasix #HLD - statin on hold given pt started on dapto #GERD - cont PPI #BPH - cont tamsulosin #Obesity #EVON - BMI: 35 - cont CPAP Admission and Anticipated Discharge Date Admission Date: October 19, 2023 Subjective Patient seen and examined, he is stable postsurgery, a little bit drowsy but states pain is under good control. Review of Systems Review of Systems: All systems reviewed are negative, apart from the ones contained in the history. Physical Exam Physical Exam: The patient is awake, alert and oriented 3, well developed and well nourished, normocephalic and atraumatic, lying in bed and in no acute distress. HEENT--PERRL, EOMI, mucous membranes and oropharynx mildly dry Neck--supple. No JVD. No bruits. Thyroid normal, trachea midline, no adenopathy. Heart--normal S1 and S2. No murmurs, rubs or gallops. Lungs--clear bilaterally, no respiratory distress, no accessory muscle use. Abdomen--normal bowel sounds and soft. Extremities--Left foot in bandage Dermatologic--normal skin turgor, normal color, no abnormal lymph nodes, no rash. Neurologic--cranial nerves II through XII grossly intact. Rheumatologic--normal range of motion. Psychiatric--normal affect. Results & Data Results & Data Vital Signs (Past 12 Hours) Vital Signs Temp Pulse Pulse Pulse Resp BP BP 10/21/23 15:22 97.5 F L 65 15 108/66 10/21/23 15:22 72 10/21/23 13:25 97.5 F L 78 16 136/72 10/21/23 12:45 97.3 F L 72 22 143/80 H 10/21/23 12:35 78 19 146/71 H 10/21/23 12:25 97.5 F L 77 16 137/77 10/21/23 12:25 69 17 162/80 H 10/21/23 12:15 71 19 153/90 H 10/21/23 12:05 78 15 130/95 10/21/23 11:56 96.8 F L 76 18 136/88 10/21/23 09:40 98.4 F 79 18 155/84 H 10/21/23 08:07 98.1 F 67 16 131/70 10/21/23 07:27 69 10/21/23 04:00 98.6 F 76 18 131/68 Pulse Ox O2 Del Method O2 Flow Rate 10/21/23 15:22 93 Room Air 10/21/23 15:22 10/21/23 13:25 96 Room Air 10/21/23 12:45 96 Room Air 10/21/23 12:35 94 Room Air 10/21/23 12:25 94 Room Air 10/21/23 12:25 94 Room Air 10/21/23 12:15 93 Room Air 10/21/23 12:05 96 Oxymask 10 10/21/23 11:56 96 Oxymask 10 10/21/23 09:40 95 Room Air 10/21/23 08:07 96 Room Air 10/21/23 07:27 10/21/23 04:00 94 Room Air PG Care Time/CCT Total # of Minutes Spent Total Time Spent with Patient: Total time spent is greater than 50% in coordination of care (as documented) at patient's floor/unit and/or counseling patient: Coding Level of Care Code 04205 SUB INP/OBS CARE 2/35MIN Diagnoses Lower extremity edema R60.0 Diabetic infection of left foot E11.628; L08.9 Vitamin D deficiency E55.9 Dyslipidemia E78.5 BPH with obstruction/lower urinary tract symptoms N40.1; N13.8 GERD without esophagitis K21.9 Diabetic peripheral neuropathy associated with type 2 diabetes mellitus E11.42 Typical atrial flutter I48.3 Atrial flutter type: typical Controlled type 2 diabetes mellitus with diabetic neuropathy, with long-term current use of insulin E11.40; Z79.4 Diabetes mellitus tank terminal gauger insulin use: with long-term use Diabetes mellitus complication status: with neurologic complications Diabetes mellitus complication detail: with unspecified neuropathy Time Spent (min) 35 (8) Atrial flutter Atrial flutter type: typical Qualified Code(s): I48.3 - Typical atrial flutter (9) Diabetes type 2, controlled Diabetes mellitus long-term insulin use: with tank terminal gauger use Diabetes mellitus complication status: with neurologic complications Diabetes mellitus complication detail: with unspecified neuropathy Qualified Code(s): E11.40 - Type 2 diabetes mellitus with diabetic neuropathy, unspecified; Z79.4 - MCFP (current) use of insulin
[2023-10-21] MEDS ORDERED: ceFAZolin 2000MG 2,000 MG/15 ML SYR IV SCH (18:00)
[2023-10-21] MEDS: FUROSEMIDE 20 MG TAB PO SCH (18:04)
[2023-10-21] MEDS: metFORMIN HCL 500 MG TAB PO SCH (20:05)
[2023-10-21] MEDS: SENNA 8.6 MG TAB PO SCH (20:05)
[2023-10-21] MEDS: lisinopril 20 MG TAB PO SCH (20:05)
[2023-10-21] MEDS: DOCUSATE SODIUM 100 MG CAP PO SCH (20:06)
[2023-10-21] MEDS: hydroCHLOROthiazide 25 MG TAB PO SCH (20:06)
[2023-10-21] MEDS: ENOXAPARIN INJ 40 MG/0.4 ML SYR SQ SCH (20:10)
[2023-10-21] MEDS ORDERED: Nursing to Pharmacy Communication SCH (22:00)
[2023-10-22 07:54] LABS: Hematocrit (blood only) 32.1 % (42.0-52.0); Hemoglobin 10.3 g/dl (14.0-18.0); Mean Corpuscular Hemoglobin 31.3 pg (25.0-34.0); Mean Corpuscular Hgb Conc 32.1 g/dL (32.0-36.0); Mean Corpuscular Volume 97.6 fL (80.0-100.0); Mean Platelet Volume 10.1 fL (9.4-12.4); Platelet Count 179 K/uL (130-400); RDW Coefficient of Variation 14.8 % (11.5-14.5); Red Blood Count 3.29 M/uL (4.70-6.10); White Blood Count 6.25 K/ul (4.8-10.8)
[2023-10-22 08:08] LABS: BUN Creatinine Ratio 31.7 (10-20); Calcium 7.8 mg/dl (8.6-10.3); Creatinine Clr Calc Pharmacy 71.6 ml/min; Est GFR (African American) 65.7 ml/min; Est GFR (Non-African American) 56.7 ml/min; Magnesium 1.8 mg/dl (1.7-2.4)
[2023-10-22] MEDS ORDERED: BALANCE OF NATURE PO SCH (09:00)
[2023-10-22] MEDS: SIMVASTATIN 20 MG TAB PO SCH (09:11)
[2023-10-22] MEDS: CYANOCOBALAMIN (B-12) 2,500 MCG TABLET PO SCH (09:12)
[2023-10-22] MEDS: MULTIVITAMIN TAB PO SCH (09:12)
[2023-10-22] MEDS: POLYETHYLENE (MIRALAX) 17 GM PACK PO SCH (10:04)
--- NOTE | 2023-10-22 10:43 | Electrocardiogram Report ---
Test Reason : Blood Pressure : / mmHG Vent. Rate : 071 BPM Atrial Rate : 071 BPM P-R Int : 212 ms QRS Dur : 134 ms QT Int : 448 ms P-R-T Axes : 066 011 -13 degrees QTc Int : 486 ms Sinus rhythm with marked sinus arrhythmia with 1st degree A-V block with occasional Premature ventric ular complexes Right bundle branch block T wave abnormality, consider inferior ischemia Abnormal ECG When compared with ECG of 19-OCT-2023 14:12, No significant change was found Confirmed by Tank [place] ([id number]) on 10/22/2023 10:43:03 AM Referred By: REFERRED SELF Confirmed By:Ramses Canada
--- NOTE | 2023-10-22 14:42 | Hospitalist Progress Note ---
Date of Service October 22, 2023 Assessment & Plan (1) Lower extremity edema: (2) Diabetic infection of left foot: (3) Vitamin D deficiency: (4) Dyslipidemia: (5) BPH with obstruction/lower urinary tract symptoms: (6) GERD without esophagitis: (7) Diabetic peripheral neuropathy associated with type 2 diabetes mellitus: (8) Atrial flutter: (9) Diabetes type 2, controlled: Plan 78 yo M with PMHx of DM II c/b diabetic neuropathy, HTN, AFlutter, HLD, EVON, GERD, BPH, presents to the hospital for the evaluation of left foot infection. #Left diabetic foot ulcer - pt followed by [facility] [facility] [facility] - left foot XR: soft tissue swelling about the 3rd digit with underlying osteop enia compatible with OM - Lower arterial study (07/16/23): no evidence of significant lower extremity arterial occlusive disease b/l -He is now day 2 status post left foot third toe amputation and debridement of left great toe nail and also debridement of left heel. -Plan is for wound VAC. -Per orthopedics, will use Lovenox for DVT prophylaxis. -Hold home Eliquis, use lovenox for DVT -Continue IV Zosyn and daptomycin -Appreciate ID #DM II - HA1c: 7.9 (08/15/23) - hold Metformin - cont lantus - ordered correctional scale - diabetic diet #pos blood culture - suspect contaminant - cont current abx #NED - baseline Cr: 1.1, on admission 1.75 - hold HCTZ, lasix, lisinopril - gentle hydration , monitor for volume overload #AFib - CHADS2 Vasc: 4 - on eliquis (currently on hold) #HTN - hold lisinopril, HCTZ, Lasix #HLD - statin on hold given pt started on dapto #GERD - cont PPI #BPH - cont tamsulosin #Obesity #EVON - BMI: 35 - cont CPAP Admission and Anticipated Discharge Date Admission Date: October 19, 2023 Subjective Patient seen and examined, he is stable postsurgery, a little bit drowsy but states pain is under good control. Review of Systems Review of Systems: All systems reviewed are negative, apart from the ones contained in the history. Physical Exam Physical Exam: The patient is awake, alert and oriented 3, well developed and well nourished, normocephalic and atraumatic, lying in bed and in no acute distress. HEENT--PERRL, EOMI, mucous membranes and oropharynx mildly dry Neck--supple. No JVD. No bruits. Thyroid normal, trachea midline, no adenopathy. Heart--normal S1 and S2. No murmurs, rubs or gallops. Lungs--clear bilaterally, no respiratory distress, no accessory muscle use. Abdomen--normal bowel sounds and soft. Extremities--Left foot in bandage Dermatologic--normal skin turgor, normal color, no abnormal lymph nodes, no rash. Neurologic--cranial nerves II through XII grossly intact. Rheumatologic--normal range of motion. Psychiatric--normal affect. Results & Data Results & Data Vital Signs (Past 12 Hours) Vital Signs Temp Pulse Resp BP BP Pulse Ox O2 Del Method 10/22/23 11:53 98.2 F 70 18 134/61 94 Room Air 10/22/23 07:16 97.7 F 61 18 110/57 L 94 Room Air 10/22/23 02:59 97.5 F L 66 18 122/78 96 Room Air PG Care Time/CCT Total # of Minutes Spent Total Time Spent with Patient: Total time spent is greater than 50% in coordination of care (as documented) at patient's floor/unit and/or counseling patient: Coding Level of Care Code 78088 SUB INP/OBS CARE 2/35MIN Diagnoses Lower extremity edema R60.0 Diabetic infection of left foot E11.628; L08.9 Vitamin D deficiency E55.9 Dyslipidemia E78.5 BPH with obstruction/lower urinary tract symptoms N40.1; N13.8 GERD without esophagitis K21.9 Diabetic peripheral neuropathy associated with type 2 diabetes mellitus E11.42 Typical atrial flutter I48.3 Atrial flutter type: typical Controlled type 2 diabetes mellitus with diabetic neuropathy, with long-term current use of insulin E11.40; Z79.4 Diabetes mellitus usp insulin use: with usp use Diabetes mellitus complication status: with neurologic complications Diabetes mellitus complication detail: with unspecified neuropathy Time Spent (min) 35 (8) Atrial flutter Atrial flutter type: typical Qualified Code(s): I48.3 - Typical atrial flutter (9) Diabetes type 2, controlled Diabetes mellitus continuous churn buttermaker insulin use: with usp use Diabetes mellitus complication status: with neurologic complications Diabetes mellitus complication detail: with unspecified neuropathy Qualified Code(s): E11.40 - Type 2 diabetes mellitus with diabetic neuropathy, unspecified; Z79.4 - snf (current) use of insulin
--- NOTE | 2023-10-22 15:57 | Infectious Disease Progress Nt ---
Date of Service October 22, 2023 Assessment & Plan (1) NED (acute kidney injury): (2) Acute osteomyelitis of toe: (3) Diabetic infection of left foot: (4) Foot ulcer, left: Plan This is a 78 yo male with PM of Dm2, diabetic neuropathy, a flutter, bph present for left foot infection . He developed increasing left foot pain in the last 5 days, with foul smelling drainage from a foot wound. His daughter noted that the 3rd toe was turning black. About 2 weeks ago , he noted a dark spot on the toe. He follows at wound care in [place] for left heel wound and has weekly RN visits. He endoresed associated chills. He had not received antibiotics prior to admission.. In the ED, he is afebrile and HDS. Labs with WBC 9.32, plts 187, BUN 63, cr 1.75, lactate 1.0, CRP 24.40? 20, Esr 67?85. Foot xray demonstrated soft tissue swelling about the 3rd digit with underlying osteomyelitis. Blood culture with Staph species ( BCID staph aureus )in bottles, He was started on Daptomycin and Zosyn. He was evaluated by orthopedics and taken to OR 10/20 for Left 3rd toe toe amputation and debridement of left heel. Per op report, no infection noted of left heel. Necrotic tissue noted in 3rd toe which was amputated through the level of the MTP joint. There was a pocket of purulence noted dorsal and slightly medial to the metatarsophalangeal joint. This was walled off. Debridement was performed throughout the wound bed to remove necrotic and mucinous tissue. The wound margins were cut back to healthy tissue. A wound vac was placed. ID consulted for foot infection/osteomyelitis. Micro: BC 10/18 -04/18 MSSA OR culture 10/20 staph species BC 10/20 NGTD Abx Zosyn 10/18-ongoing Dapto 10/18-ongoing #Left 3rd toe diabetic foot infection with osteomyelitis #Staph aureus bacteremia #B/L TKA #DM2 #NED Bacteremia is likely 2/2 Left foot infection with osteomyelitis. He is s/p BL TKA. . He is s/p Left 3rd digit 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/20. Intraop cx and path pending. Recommendations Continue Daptomycin and zosyn pending Intraoperative cultures and finalization of BC, If only MSSA, will deescalated to Ancef 2 g iv q8h Follow up intraoperative cultures Follow up Staph aureus sensi in BC ( MSSA per BCID) Follow up repeat BC to ensure clearance (10/20) obtain transthoracic echo in setting of staph aureus bacteremia Follow up pathology/margins He will need a minimum of 2 weeks of IV antibiotics in setting of staph aureus bacteremia. A longer course of antibiotics ( 6 weeks) will depend on if surgical cure was obtained with amputuation or if residual bone infection remains. ID will continue to follow. Leo Bautista MD, MPH Infectious Disease [facility], [facility] Call [phone] with questions. Admission and Anticipated Discharge Date Admission Date: October 19, 2023 Subjective Subsequent visit was provided via telemedicine using two-way real-time interactive telecommunication between the patient and the telemedicine provider. For the duration of the visit, the provider was performing the assessment from a different facility than the patient. This includesuse of bluetooth stethoscope forauscultationperformed by the telepresenter that the telemedicine provider can hear if described in the physical exam. Order Clerk contact information: Please call [facility] Call Center [phone]. (Phone Number For Physician Use Only) After establishing a telemedicine visit, patient was: Patient was verified with two unique identifiers Time Spent with Patient: Subsequent => 35 min Physical Exam Physical Exam: Gen- NAD Heent- Anicteric sclera Neck- supple Abd- soft Ext- Left foot dressed, no strike through No knee effusions, Neuro-AAO*3 Psych- Normal mood Results & Data Vital Signs (Past 12 Hours) Vital Signs Temp Pulse Pulse Resp BP Pulse Ox O2 Del Method 10/22/23 15:48 59 L 10/22/23 15:08 36.5 C 96 H 20 112/66 96 Room Air 10/22/23 11:53 36.8 C 70 18 134/61 94 Room Air 10/22/23 08:00 61 10/22/23 07:16 36.5 C 61 18 110/57 L 94 Room Air Laboratory Results 10/21/23 Unknown Gram Stain - Final Toe,Left Third Aerobic and Anaerobic Culture - Preliminary Staphylococcus species 10/19/23 15:06 Aerobic Blood Culture - Preliminary Blood No growth in Aerobic bottle after 48 hours. Anaerobic Blood Culture - Preliminary Staphylococcus aureus 10/21/23 19:05 Aerobic Blood Culture - Pending Blood Anaerobic Blood Culture - Pending 10/21/23 17:20 Aerobic Blood Culture - Pending Blood Anaerobic Blood Culture - Pending 10/19/23 14:14 Aerobic Blood Culture - Preliminary Blood No growth in Aerobic bottle after 48 hours. Anaerobic Blood Culture - Preliminary No growth in Anaerobic bottle after 48 hours. 10/22/23 10/22/23 10/22/23 12:02 08:00 06:59 WBC 6.25 RBC 3.29 L Hgb 10.3 L Hct 32.1 L MCV 97.6 MCH 31.3 MCHC 32.1 RDW Std Deviation 54.0 H RDW Coeff of David 14.8 H Plt Count 179 MPV 10.1 Sodium 136 Potassium 4.0 Chloride 104 Carbon Dioxide 24 Anion Gap 8 BUN 39 H Creatinine 1.23 Est Cr Clr Drug Dosing 71.6 Est GFR ( Amer) 65.7 Est GFR (Non-Af Amer) 56.7 BUN/Creatinine Ratio 31.7 H Glucose 137 H POC Glucose 275 H 174 H Calcium 7.8 L Magnesium 1.8 Troponin I High Sens 10/21/23 10/21/23 10/21/23 20:40 18:04 17:20 WBC RBC Hgb Hct MCV MCH MCHC RDW Std Deviation RDW Coeff of David Plt Count MPV Sodium Potassium Chloride Carbon Dioxide Anion Gap BUN Creatinine Est Cr Clr Drug Dosing Est GFR ( Amer) Est GFR (Non-Af Amer) BUN/Creatinine Ratio Glucose POC Glucose 210 H 215 H Calcium Magnesium Troponin I High Sens 14.5 Diagnostic Findings Foot X-Ray 10/19/23 13:58 XR foot LT min 3V routine CLINICAL HISTORY: osteo, 3rd toe TECHNIQUE: 3 views of the left foot were obtained. Comparison: Comparison is made to MRI left foot 05/10/2020 FINDINGS: Prominent osteopenia is seen in the distal phalanx of the third digit. The joint spaces are well preserved. Soft tissue swelling is seen about the third digit. IMPRESSION: Soft tissue swelling about the third digit with underlying osteopenia compatible with osteomyelitis. ACT 112: Negative or not required by law. Electronically signed by: Glenn Rosenthal M.D. 10/19/2023 4:16 PM Foot X-Ray 10/21/23 00:00 INTRAOPERATIVE RADIOGRAPH CLINICAL HISTORY: Third toe amputation. Fluoro time: 2 seconds Ka,r: 0.05 mGy FINDINGS: A single spot fluoroscopic view of the left forefoot is correlated with radiographs dated 10/19/2023. There has been amputation of the third toe through the distal shaft of the metatarsal. Overlying soft tissue edema is observed with foci of soft tissue gas. IMPRESSION: Intraoperative image from a left third toe amputation procedure as above. Electronically signed by: Erick Tenorio M.D. 10/21/2023 11:45 AM Medications Administered Home Medications Medication Instructions Recorded Confirmed Last Taken insulin syringe-needle U-100 1 mL #10 ea 09/16/18 08/19/23 Unknown 31 gauge x 5/16" (BD Insulin Syringe Ultra-Fine) lancets (OneTouch UltraSoft #50 ea 09/16/18 08/19/23 Unknown Lancets) CPAP Machine #1 ea 01/06/19 10/19/23 Unknown Contour Test Strips (blood sugar #400 ea 01/21/19 10/19/23 Unknown diagnostic) CPAP Supplies #1 ea 11/02/19 10/19/23 Unknown cholecalciferol (vitamin D3) 25 25 mcg PO QAM 10/21/20 10/19/23 04/21/23 mcg (1,000 unit) capsule Walking Cane #1 ea 11/15/20 08/19/23 05/29/22 mecobalamin (vitamin B12) 5,000 5,000 mcg PO DAILY #30 tabs 05/07/22 10/19/23 04/21/23 mcg chewable tablet epinephrine 0.3 mg/0.3 mL 0.3 mg IM UD PRN anaphylaxis 05/28/22 10/19/23 05/29/22 injection, auto-injector (EpiPen 2-Golden) lisinopril 20 mg tablet 20 mg PO BID #180 tabs 12/04/22 10/19/23 04/21/23 sildenafil 100 mg tablet 100 mg PO DAILY #6 tabs 12/04/22 10/19/23 04/21/23 apixaban 5 mg tablet 5 mg PO BID #180 tabs 01/02/23 10/19/23 04/19/23 metformin 1,000 mg tablet 500 mg PO BID 01/28/23 10/19/23 04/20/23 tamsulosin 0.4 mg capsule (Flomax) 0.4 mg PO DAILY #90 caps 02/05/23 10/19/23 04/21/23 insulin lispro 100 unit/mL See Rx Instructions subcut TIDM 03/20/23 10/19/23 04/21/23 subcutaneous pen (Humalog KwikPen #30 mL (U-100) Insulin) Balance Of Nature 1 tab PO QAM 04/11/23 10/19/23 04/21/23 flash glucose sensor (FreeStyle #6 ea 05/20/23 10/19/23 Unknown Tamika 2 Sensor kit) hydrochlorothiazide 25 mg tablet 12.5 mg (1/2 x 25 mg) PO BID #60 07/12/23 10/19/23 Unknown tabs pantoprazole 40 mg tablet,delayed 40 mg PO QAM #90 tabs 07/12/23 10/19/23 Unknown release albuterol sulfate 90 mcg/actuation 1 inh inhalation Q6H PRN shortness 07/15/23 10/19/23 Unknown aerosol inhaler of breath or wheezing #8.5 grams simvastatin 20 mg tablet 20 mg PO QAM #90 tabs 08/06/23 10/19/23 Unknown furosemide 20 mg tablet 20 mg PO BID #180 tabs 09/20/23 10/19/23 Unknown insulin glargine 100 unit/mL (3 40 unit (0.4 mL) subcut .QHS #45 mL 10/03/23 10/19/23 Unknown mL) subcutaneous pen (Lantus Solostar U-100 Insulin) tramadol 50 mg tablet 50 mg PO Q8 PRN Pain 10/19/23 10/19/23 Unknown Active Medications Generic Name Dose Route Start Last Admin Trade Name Freq PRN Reason Stop Dose Admin Acetaminophen 1,000 mg 10/21/23 14:00 10/22/23 05:34 Acetaminophen 500 Mg Tab PO 11/20/23 13:59 1,000 mg Q8 MIRIAM Administration Cyanocobalamin 5,000 mcg 10/22/23 09:00 10/22/23 09:12 Cyanocobalamin (B-12) 2,500 Mcg Tablet PO 11/21/23 08:59 5,000 mcg DAILY MIRIAM Administration Docusate Sodium 100 mg 10/21/23 21:00 10/22/23 09:11 Docusate Sodium 100 Mg Cap PO 11/20/23 20:59 100 mg BID MIRIAM Administration Enoxaparin Sodium 40 mg 10/21/23 18:00 10/22/23 05:33 Enoxaparin Inj 40 Mg/0.4 Ml Syr SQ 11/20/23 17:59 40 mg Q12H MIRIAM Administration Furosemide 20 mg 10/21/23 17:00 10/22/23 09:12 Furosemide 20 Mg Tab PO 11/20/23 16:59 20 mg BID17 MIRIAM Administration Hydrochlorothiazide 12.5 mg 10/21/23 21:00 10/22/23 09:15 Hydrochlorothiazide 25 Mg Tab PO 11/20/23 20:59 12.5 mg BID MIRIAM Administration Piperacillin Sod/Tazobactam 100 mls @ 25 mls/hr 10/19/23 22:00 10/22/23 10:04 Sod 4.5 gm/ Dextrose IV 11/30/23 21:59 Infused Q8H MIRIAM Infusion Protocol Daptomycin 575 mg/ Syringe 11.5 mls @ 5.75 mls/min 10/20/23 19:00 10/21/23 18:03 IV 12/01/23 18:59 5.75 mls/min Q24H MIRIAM Administration Protocol Lactated Ringer's 1,000 mls @ 15 mls/hr 10/21/23 10:00 10/22/23 09:53 Lr IV 11/20/23 09:59 15 mls/hr .Q24H MIRIAM Administration Insulin Aspart 0 units 10/19/23 21:08 10/22/23 13:33 Insulin Aspart Per Unit Charge SC 11/18/23 21:07 10 units ACHS MIRIAM Administration Insulin Glargine 40 units 10/19/23 21:30 10/21/23 21:46 Lantus Per Unit Charge SQ 11/18/23 21:29 40 units HS MIRIAM Administration Lisinopril 20 mg 10/21/23 21:00 10/22/23 09:11 Lisinopril 20 Mg Tab PO 11/20/23 20:59 20 mg BID MIRIAM Administration Metformin HCl 500 mg 10/21/23 21:00 10/22/23 09:10 Metformin Hcl 500 Mg Tab PO 11/20/23 20:59 500 mg BIDM MIRIAM Administration Metoprolol Tartrate 12.5 mg 10/20/23 09:00 10/22/23 09:11 Metoprolol Tartrate 25 Mg Tab PO 11/19/23 08:59 12.5 mg BID MIRIAM Administration Multivitamins 1 tab 10/22/23 09:00 10/22/23 09:12 Multivitamin Tab PO 11/21/23 08:59 1 tab QAM MIRIAM Administration Pantoprazole Sodium 40 mg 10/20/23 09:00 10/22/23 09:11 Pantoprazole 40 Mg Tab PO 11/19/23 08:59 40 mg QAM MIRIAM Administration Polyethylene Glycol 17 gm 10/22/23 10:00 10/22/23 10:04 Polyethylene (Miralax) 17 Gm Pack PO 11/21/23 09:59 17 gm DAILY MIRIAM Administration Sennosides 17.2 mg 10/21/23 21:00 10/21/23 20:05 Senna 8.6 Mg Tab PO 11/20/23 20:59 17.2 mg HS MIRIAM Administration Simvastatin 20 mg 10/22/23 09:00 10/22/23 09:11 Simvastatin 20 Mg Tab PO 11/21/23 08:59 20 mg QAM MIRIAM Administration Tamsulosin HCl 0.4 mg 10/20/23 09:00 10/22/23 09:11 Tamsulosin Hcl 0.4 Mg Cap PO 11/19/23 08:59 0.4 mg DAILY MIRIAM Administration Vitamin D 25 mcg 10/20/23 09:00 10/22/23 09:12 Cholecalciferol 25 Mcg (1000 Units) Tab PO 11/19/23 08:59 25 mcg QAM MIRIAM Administration (4) Foot ulcer, left Non-pressure ulcer stage: with fat layer exposed Qualified Code(s): L97.522 - Non-pressure chronic ulcer of other part of left foot with fat layer exposed
--- NOTE | 2023-10-22 16:26 | Orthopedic Progress Note ---
Date of Service October 22, 2023 Assessment & Plan (1) Acute osteomyelitis of toe: Plan: Wound VAC applied. Dressing intact. White count normal. Leg swelling much improved. I am confident that all of the infected bone has been removed. Continue wound VAC and IV antibiotics. Will recheck wound on Saturday. If healing well at that time then could likely switch to Eliquis. Will know more at that time whether or not further surgery is necessary. (2) Diabetic infection of left foot: Admission and Anticipated Discharge Date Admission Date: October 19, 2023
[2023-10-23] MEDS: Nursing to Pharmacy Communication SCH (00:22)
[2023-10-23 06:09] LABS: Hematocrit (blood only) 33.3 % (42.0-52.0); Hemoglobin 10.6 g/dl (14.0-18.0); Mean Corpuscular Hgb Conc 31.8 g/dL (32.0-36.0); Mean Corpuscular Volume 97.4 fL (80.0-100.0); Mean Platelet Volume 9.9 fL (9.4-12.4); Platelet Count 187 K/uL (130-400); RDW Coefficient of Variation 14.6 % (11.5-14.5); RDW Standard Deviation 52.5 fL (36.4-46.3); Red Blood Count 3.42 M/uL (4.70-6.10); White Blood Count 5.11 K/ul (4.8-10.8)
[2023-10-23 06:20] LABS: BUN Creatinine Ratio 28.3 (10-20); Calcium 7.9 mg/dl (8.6-10.3); Creatinine Clr Calc Pharmacy 72.6 ml/min; Est GFR (African American) 67.7 ml/min; Est GFR (Non-African American) 58.4 ml/min; Magnesium 1.7 mg/dl (1.7-2.4); Potassium 3.7 mmol/L (3.5-5.1)
--- NOTE | 2023-10-23 11:50 | Hospitalist Progress Note ---
Date of Service October 23, 2023 Assessment & Plan (1) Lower extremity edema: (2) Diabetic infection of left foot: (3) Vitamin D deficiency: (4) Dyslipidemia: (5) BPH with obstruction/lower urinary tract symptoms: (6) GERD without esophagitis: (7) Diabetic peripheral neuropathy associated with type 2 diabetes mellitus: (8) Atrial flutter: (9) Diabetes type 2, controlled: (10) Bacteremia: Plan 78 yo M with PMHx of DM II c/b diabetic neuropathy, HTN, AFlutter, HLD, EVON, GERD, BPH, presents to the hospital for the evaluation of left foot infection. #Left diabetic foot ulcer - pt followed by [facility] - left foot XR: soft tissue swelling about the 3rd digit with underlying osteopenia compatible with OM - Lower arterial study (07/16/23): no evidence of significant lower extremity arterial occlusive disease b/l -He is now day 3 status post left foot third toe amputation and debridement of left great toe nail and also debridement of left heel. -Wound VAC is currently in place -Wound cultures also growing MSSA bacteria -Per orthopedics, will use Lovenox for DVT prophylaxis. -Hold home Eliquis, use lovenox for DVT -Continue IV Zosyn and daptomycin -Appreciate ID # Bacteremia MSSA bacteremia Patient will need at least 2 weeks of IV antibiotics per infectious diseases Currently on daptomycin and Zosyn Will likely de-escalate however will Defer to ID #DM II - HA1c: 7.9 (08/15/23) - hold Metformin - cont lantus - ordered correctional scale - diabetic diet #pos blood culture - suspect contaminant - cont current abx #NED - baseline Cr: 1.1, on admission 1.75 - hold HCTZ, lasix, lisinopril - gentle hydration , monitor for volume overload #AFib - CHADS2 Vasc: 4 - on eliquis (currently on hold) #HTN - hold lisinopril, HCTZ, Lasix #HLD - statin on hold given pt started on dapto #GERD - cont PPI #BPH - cont tamsulosin #Morbid Obesity BMI 40 #EVON - BMI: 35 - cont CPAP Admission and Anticipated Discharge Date Admission Date: October 19, 2023 Subjective Patient seen and examined, Denies any new complaints, pain is under good control. Denies fevers or chills Review of Systems Review of Systems: All systems reviewed are negative, apart from the ones contained in the history. Physical Exam Physical Exam: The patient is awake, alert and oriented 3, well developed and well nourished, normocephalic and atraumatic, lying in bed and in no acute distress. HEENT--PERRL, EOMI, mucous membranes and oropharynx mildly dry Neck--supple. No JVD. No bruits. Thyroid normal, trachea midline, no adenopathy. Heart--normal S1 and S2. No murmurs, rubs or gallops. Lungs--clear bilaterally, no respiratory distress, no accessory muscle use. Abdomen--normal bowel sounds and soft. Extremities--Left foot in bandage Dermatologic--normal skin turgor, normal color, no abnormal lymph nodes, no rash. Neurologic--cranial nerves II through XII grossly intact. Rheumatologic--normal range of motion. Psychiatric--normal affect. Results & Data Results & Data Vital Signs (Past 12 Hours) Vital Signs Temp Pulse Pulse Resp BP BP Pulse Ox 10/23/23 10:22 50 L 10/23/23 07:55 97.7 F 54 L 16 117/58 L 94 10/23/23 02:57 97.9 F 60 18 10/23/23 02:36 135/71 97 10/23/23 00:04 98.1 F 56 L 18 92/56 L 95 O2 Del Method 10/23/23 10:22 10/23/23 07:55 Room Air 10/23/23 02:57 10/23/23 02:36 CPAP 10/23/23 00:04 Room Air, CPAP PG Care Time/CCT Total # of Minutes Spent Total Time Spent with Patient: Total time spent is greater than 50% in coordination of care (as documented) at patient's floor/unit and/or counseling patient: Coding Level of Care Code 34281 SUB INP/OBS CARE 2/35MIN Diagnoses Lower extremity edema R60.0 Diabetic infection of left foot E11.628; L08.9 Vitamin D deficiency E55.9 Dyslipidemia E78.5 BPH with obstruction/lower urinary tract symptoms N40.1; N13.8 GERD without esophagitis K21.9 Diabetic peripheral neuropathy associated with type 2 diabetes mellitus E11.42 Typical atrial flutter I48.3 Atrial flutter type: typical Controlled type 2 diabetes mellitus with diabetic neuropathy, with long-term current use of insulin E11.40; Z79.4 Diabetes mellitus [employer] or [employer] insulin use: with mcfp use Diabetes mellitus complication status: with neurologic complications Diabetes mellitus complication detail: with unspecified neuropathy Bacteremia R78.81 Time Spent (min) 35 (8) Atrial flutter Atrial flutter type: typical Qualified Code(s): I48.3 - Typical atrial flutter (9) Diabetes type 2, controlled Diabetes mellitus mcfp insulin use: with mcfp use Diabetes mellitus complication status: with neurologic complications Diabetes mellitus compli cation detail: with unspecified neuropathy Qualified Code(s): E11.40 - Type 2 diabetes mellitus with diabetic neuropathy, unspecified; Z79.4 - prison (current) use of insulin
--- NOTE | 2023-10-23 13:06 | Infectious Disease Progress Nt ---
Date of Service October 23, 2023 Assessment & Plan (1) NED (acute kidney injury): (2) Acute osteomyelitis of toe: (3) Diabetic infection of left foot: (4) Foot ulcer, left: Plan This is a 78 yo male with PM of Dm2, diabetic neuropathy, a flutter, bph who present for left foot infection . He developed increasing left foot pain in the last 5 days, with foul smelling drainage from a foot wound. His daughter noted that the 3rd toe was turning black. About 2 weeks ago , he noted a dark spot on the toe. He follows at wound care in [place] for left heel wound and has weekly RN visits. He endorsed associated chills. He had not received antibiotics prior to admission.. In the ED, he was afebrile and HDS. Labs with WBC 9.32, plts 187, BUN 63, cr 1.75, lactate 1.0, CRP 24.40--> 20, Esr 67-->85. Foot xray demonstrated soft tissue swelling about the 3rd digit with underlying osteomyelitis. Blood culture with Staph species ( BCID staph aureus, no Resistance )in bottles, He was started on Daptomycin and Zosyn. He was evaluated by orthopedics and taken to OR 10/20 for Left 3rd toe toe amputation and debridement of left heel. Per op report, no infection noted of left heel. Necrotic tissue noted in 3rd toe which was amputated through the level of the MTP joint. There was a pocket of purulence noted dorsal and slightly medial to the metatarsophalangeal joint. This was walled off. Debridement was performed throughout the wound bed to remove necrotic and mucinous tissue. The wound margins were cut back to healthy tissue. A wound vac was placed. ID consulted for foot infection/osteomyelitis. Micro: BC 10/18 -04/18 MSSA OR culture 10/20 MSSA ( prelim) BC 10/20 NGTD \\Abx Zosyn 10/18-10/22 Dapto 10/18-10/22 #Left 3rd toe diabetic foot infection with osteomyelitis, cx + MSSA so far #MSSA bacteremia #B/L TKA #DM2 #NED Bacteremia is likely 2/2 Left foot infection with osteomyelitis. He is s/p BL TKA but no effusions of evidence of infection at sites clinically. He is s/p Left 3rd digit 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/20. Intraop cx growing MSSA to date . Unclear if path sent but Per Ortho, he feels "confident that all of the infected bone has been removed". Plan is to reevaluate the wound on Saturday and determine if further intervention is needed. Recommendations Discontinued zosyn/ dapto Started Ancef 2 g iv q8h as BC and OR cx so far only growing MSSA. Follow up intraoperative cultures to finalization to ensure no other pathogens Follow up repeat BC (10/20) to ensure clearance, if clear for 72 hours , can place PICC line OBTAIN Transthoracic echo in setting of MSSA bacteremia Follow up pathology/margins if sent. Per ortho , they feel that all infected bone removed He will need a minimum of 2 weeks of IV antibiotics ( ANCEF) in setting of MSSA bacteremia from sterile BC( EOT 11/03) , followed by 7 days of Cefadroxil 500 mg po Q12h (EOT 11/10). A longer course of antibiotics ( 6 weeks) will depend on if surgical cure was obtained with amputation or if residual bone infection remains. So far, ortho feels that all infected bone removed, however they plan to reevaluate the wound on Saturday to make a final decision on need to RTOR. ID will sign off. Please call IF repeat BC 10/20 positive, new pathogen growth ( other than MSSA )in current - 10/20 OR culture, TTE is positive for vegatations or evidence of infection, or if he returns to the OR. Plan discussed with hospitalist. Leo Bautista MD, MPH Infectious Disease [facility], ID Division Call [phone] with questions. Admission and Anticipated Discharge Date Admission Date: October 19, 2023 Subjective This patient recommendation is based on a telemedicine consult request which was completed asynchronously through chart review and information provided by the primary physician. The patient was not seen or examined today. The evaluation is consultative in nature and all patient care and treatment decisions can either be accepted or rejected by the patient's primary hospital-based treating physician using their own independent medical judgment for their patient. Time Spent Reviewing Chart: 11 - 20 minutes Results & Data Vital Signs (Past 12 Hours) Vital Signs Temp Pulse Pulse Resp BP BP Pulse Ox 10/23/23 12:25 36.7 C 61 18 130/71 96 10/23/23 10:22 50 L 10/23/23 07:55 36.5 C 54 L 16 117/58 L 94 10/23/23 02:57 36.6 C 60 18 10/23/23 02:36 135/71 97 O2 Del Method 10/23/23 12:25 Room Air 10/23/23 10:22 10/23/23 07:55 Room Air 10/23/23 02:57 10/23/23 02:36 CPAP Laboratory Results Short CBC 10/23/23 Range/Units 05:40 WBC 5.11 (4.8-10.8) K/ul Hgb 10.6 L (14.0-18.0) g/dl Hct 33.3 L (42.0-52.0) % Plt Count 187 (130-400) K/uL BMP 10/23/23 05:40 Sodium 138 Potassium 3.7 Chloride 105 Carbon Dioxide 27 BUN 34 H Creatinine 1.20 Glucose 106 H Calcium 7.9 L Microbiology 10/21/23 Unknown Toe,Left Third Gram Stain - Final 10/21/23 Unknown Toe,Left Third Aerobic and Anaerobic Culture - Preliminary Staphylococcus aureus 10/21/23 19:05 Blood Aerobic Blood Culture - Preliminary No growth in Aerobic bottle after 24 hours. 10/21/23 19:05 Blood Anaerobic Blood Culture - Preliminary No growth in Anaerobic bottle after 24 hours. 10/21/23 17:20 Blood Aerobic Blood Culture - Preliminary No growth in Aerobic bottle after 24 hours. 10/21/23 17:20 Blood Anaerobic Blood Culture - Preliminary No growth in Anaerobic bottle after 24 hours. 10/19/23 15:06 Blood Aerobic Blood Culture - Preliminary No growth in Aerobic bottle after 48 hours. 10/19/23 15:06 Blood Anaerobic Blood Culture - Preliminary Staphylococcus aureus 10/19/23 14:14 Blood Aerobic Blood Culture - Preliminary No growth in Aerobic bottle after 48 hours. 10/19/23 14:14 Blood Anaerobic Blood Culture - Preliminary No growth in Anaerobic bottle after 48 hours. Diagnostic Findings Foot X-Ray 10/21/23 00:00 INTRAOPERATIVE RADIOGRAPH CLINICAL HISTORY: Third toe amputation. Fluoro time: 2 seconds Ka,r: 0.05 mGy FINDINGS: A single spot fluoroscopic view of the left forefoot is correlated with radiographs dated 10/19/2023. There has been amputation of the third toe through the distal shaft of the metatarsal. Overlying soft tissue edema is observed with foci of soft tissue gas. IMPRESSION: Intraoperative image from a left third toe amputation procedure as above. Electronically signed by: Erick Tenorio M.D. 10/21/2023 11:45 AM Medications Administered Home Medications Medication Instructions Recorded Confirmed Last Taken insulin syringe-needle U-100 1 mL #10 ea 09/16/18 08/19/23 Unknown 31 gauge x 5/16" (BD Insulin Syringe Ultra-Fine) lancets (OneTouch UltraSoft #50 ea 09/16/18 08/19/23 Unknown Lancets) CPAP Machine #1 ea 01/06/19 10/19/23 Unknown Contour Test Strips (blood sugar #400 ea 01/21/19 10/19/23 Unknown diagnostic) CPAP Supplies #1 ea 11/02/19 10/19/23 Unknown cholecalciferol (vitamin D3) 25 25 mcg PO QAM 10/21/20 10/19/23 04/21/23 mcg (1,000 unit) capsule Walking Cane #1 ea 11/15/20 08/19/23 05/29/22 mecobalamin (vitamin B12) 5,000 5,000 mcg PO DAILY #30 tabs 05/07/22 10/19/23 04/21/23 mcg chewable tablet epinephrine 0.3 mg/0.3 mL 0.3 mg IM UD PRN anaphylaxis 05/28/22 10/19/23 05/29/22 injection, auto-injector (EpiPen 2-Golden) lisinopril 20 mg tablet 20 mg PO BID #180 tabs 12/04/22 10/19/23 04/21/23 sildenafil 100 mg tablet 100 mg PO DAILY #6 tabs 12/04/22 10/19/23 04/21/23 apixaban 5 mg tablet 5 mg PO BID #180 tabs 01/02/23 10/19/23 04/19/23 metformin 1,000 mg tablet 500 mg PO BID 01/28/23 10/19/23 04/20/23 tamsulosin 0.4 mg capsule (Flomax) 0.4 mg PO DAILY #90 caps 02/05/23 10/19/23 04/21/23 insulin lispro 100 unit/mL See Rx Instructions subcut TIDM 03/20/23 10/19/23 04/21/23 subcutaneous pen (Humalog KwikPen #30 mL (U-100) Insulin) Balance Of Nature 1 tab PO QAM 04/11/23 10/19/23 04/21/23 flash glucose sensor (FreeStyle #6 ea 05/20/23 10/19/23 Unknown Tamika 2 Sensor kit) hydrochlorothiazide 25 mg tablet 12.5 mg (1/2 x 25 mg) PO BID #60 07/12/23 10/19/23 Unknown tabs pantoprazole 40 mg tablet,delayed 40 mg PO QAM #90 tabs 07/12/23 10/19/23 Unknown release albuterol sulfate 90 mcg/actuation 1 inh inhalation Q6H PRN shortness 07/15/23 10/19/23 Unknown aerosol inhaler of breath or wheezing #8.5 grams simvastatin 20 mg tablet 20 mg PO QAM #90 tabs 08/06/23 10/19/23 Unknown furosemide 20 mg tablet 20 mg PO BID #180 tabs 09/20/23 10/19/23 Unknown insulin glargine 100 unit/mL (3 40 unit (0.4 mL) subcut .QHS #45 mL 10/03/23 10/19/23 Unknown mL) subcutaneous pen (Lantus Solostar U-100 Insulin) tramadol 50 mg tablet 50 mg PO Q8 PRN Pain 10/19/23 10/19/23 Unknown Active Medications Generic Name Dose Route Start Last Admin Trade Name Freq PRN Reason Stop Dose Admin Acetaminophen 1,000 mg 10/21/23 14:00 10/23/23 05:27 Acetaminophen 500 Mg Tab PO 11/20/23 13:59 1,000 mg Q8 MIRIAM Administration Cyanocobalamin 5,000 mcg 10/22/23 09:00 10/23/23 08:36 Cyanocobalamin (B-12) 2,500 Mcg Tablet PO 11/21/23 08:59 5,000 mcg DAILY MIRIAM Administration Docusate Sodium 100 mg 10/21/23 21:00 10/23/23 08:31 Docusate Sodium 100 Mg Cap PO 11/20/23 20:59 Not Given BID MIRIAM Enoxaparin Sodium 40 mg 10/21/23 18:00 10/23/23 06:31 Enoxaparin Inj 40 Mg/0.4 Ml Syr SQ 11/20/23 17:59 40 mg Q12H MIRIAM Administration Furosemide 20 mg 10/21/23 17:00 10/23/23 08:34 Furosemide 20 Mg Tab PO 11/20/23 16:59 20 mg BID17 MIRIAM Administration Hydrochlorothiazide 12.5 mg 10/21/23 21:00 10/23/23 08:35 Hydrochlorothiazide 25 Mg Tab PO 11/20/23 20:59 12.5 mg BID MIRIAM Administration Piperacillin Sod/Tazobactam 100 mls @ 25 mls/hr 10/19/23 22:00 10/23/23 12:38 Sod 4.5 gm/ Dextrose IV 11/30/23 21:59 Infused Q8H MIRIAM Infusion Protocol Daptomycin 575 mg/ Syringe 11.5 mls @ 5.75 mls/min 10/20/23 19:00 10/22/23 18:59 IV 12/01/23 18:59 5.75 mls/min Q24H MIRIAM Administration Protocol Insulin Aspart 0 units 10/19/23 21:08 10/23/23 09:34 Insulin Aspart Per Unit Charge SC 11/18/23 21:07 7 units ACHS MIRIAM Administration Insulin Glargine 40 units 10/19/23 21:30 10/22/23 21:25 Lantus Per Unit Charge SQ 11/18/23 21:29 40 units HS MIRIAM Administration Lisinopril 20 mg 10/21/23 21:00 10/23/23 08:36 Lisinopril 20 Mg Tab PO 11/20/23 20:59 20 mg BID MIRIAM Administration Metformin HCl 500 mg 10/21/23 21:00 10/23/23 08:31 Metformin Hcl 500 Mg Tab PO 11/20/23 20:59 500 mg BIDM MIRIAM Administration Metoprolol Tartrate 12.5 mg 10/20/23 09:00 10/23/23 08:35 Metoprolol Tartrate 25 Mg Tab PO 11/19/23 08:59 Not Given BID MIRIAM Multivitamins 1 tab 10/22/23 09:00 10/23/23 08:34 Multivitamin Tab PO 11/21/23 08:59 1 tab QAM MIRIAM Administration Pantoprazole Sodium 40 mg 10/20/23 09:00 10/23/23 08:34 Pantoprazole 40 Mg Tab PO 11/19/23 08:59 40 mg QAM MIRIAM Administration Polyethylene Glycol 17 gm 10/22/23 10:00 10/23/23 08:36 Polyethylene (Miralax) 17 Gm Pack PO 11/21/23 09:59 Not Given DAILY MIRIAM Sennosides 17.2 mg 10/21/23 21:00 10/22/23 21:27 Senna 8.6 Mg Tab PO 11/20/23 20:59 Not Given HS MIRIAM Simvastatin 20 mg 10/22/23 09:00 10/23/23 08:34 Simvastatin 20 Mg Tab PO 11/21/23 08:59 20 mg QAM MIRIAM Administration Tamsulosin HCl 0.4 mg 10/20/23 09:00 10/23/23 08:36 Tamsulosin Hcl 0.4 Mg Cap PO 11/19/23 08:59 0.4 mg DAILY MIRIAM Administration Vitamin D 25 mcg 10/20/23 09:00 10/23/23 08:36 Cholecalciferol 25 Mcg (1000 Units) Tab PO 11/19/23 08:59 25 mcg QAM MIRIAM Administration (4) Foot ulcer, left Non-pressure ulcer stage: with fat layer exposed Qualified Code(s): L97.522 - Non-pressure chronic ulcer of other part of left foot with fat layer exposed
[2023-10-23] MEDS: ceFAZolin 2000MG 2,000 MG/15 ML SYR IV SCH (15:02)
[2023-10-23] MEDS: BISMUTH SUBSALICYLATE 262 MG CHEW PO PRN (21:39)
[2023-10-24 07:21] LABS: Hematocrit (blood only) 34.1 % (42.0-52.0); Hemoglobin 10.9 g/dl (14.0-18.0); Mean Corpuscular Hemoglobin 31.2 pg (25.0-34.0); Mean Corpuscular Volume 97.7 fL (80.0-100.0); Mean Platelet Volume 9.8 fL (9.4-12.4); Platelet Count 226 K/uL (130-400); RDW Coefficient of Variation 14.5 % (11.5-14.5); RDW Standard Deviation 51.9 fL (36.4-46.3); Red Blood Count 3.49 M/uL (4.70-6.10); White Blood Count 4.48 K/ul (4.8-10.8)
[2023-10-24] MEDS: DIPHENOXYLATE/ATROPINE 2.5/0.025MG TAB PO ONE (11:25)
--- NOTE | 2023-10-24 12:07 | Hospitalist Progress Note ---
Date of Service October 24, 2023 Assessment & Plan (1) Lower extremity edema: (2) Diabetic infection of left foot: (3) Vitamin D deficiency: (4) Dyslipidemia: (5) BPH with obstruction/lower urinary tract symptoms: (6) GERD without esophagitis: (7) Diabetic peripheral neuropathy associated with type 2 diabetes mellitus: (8) Atrial flutter: (9) Diabetes type 2, controlled: (10) Bacteremia: Plan 78 yo M with PMHx of DM II c/b diabetic neuropathy, HTN, AFlutter, HLD, EVON, GERD, BPH, presents to the hospital for the evaluation of left foot infection. #Left diabetic foot ulcer - pt followed by [facility] - left foot XR: soft tissue swelling about the 3rd digit with underlying osteopenia compatible with OM - Lower arterial study (07/16/23): no evidence of significant lower extremity arterial occlusive disease b/l -He is now day 3 status post left foot third toe amputation and debridement of left great toe nail and also debridement of left heel. -Wound VAC is currently in place -Wound cultures also growing MSSA bacteria -Per orthopedics, will use Lovenox for DVT prophylaxis. -Hold home Eliquis, use lovenox for DVT -Continue IV Zosyn and daptomycin -Appreciate ID # Bacteremia MSSA bacteremia Antibiotics changed to IV Ancef Pain infectious disease will need a minimum of 2 weeks of IV antibiotics and subsequently 7 days of cefadroxil 500 mg every 12 hours till November 11, 2023 #DM II - HA1c: 7.9 (08/15/23) - hold Metformin - cont lantus - ordered correctional scale - diabetic diet #pos blood culture - suspect contaminant - cont current abx #NED - baseline Cr: 1.1, on admission 1.75 - hold HCTZ, lasix, lisinopril - gentle hydration , monitor for volume overload #AFib - CHADS2 Vasc: 4 - on eliquis (currently on hold) #HTN - hold lisinopril, HCTZ, Lasix #HLD - statin on hold given pt started on dapto #GERD - cont PPI #BPH - cont tamsulosin #Morbid Obesity BMI 40 #EVON - BMI: 35 - cont CPAP #Diarrhea: Most likely due to antibiotics C. difficile negative Lomotil as needed Admission and Anticipated Discharge Date Admission Date: October 19, 2023 Subjective Patient seen and examined, Complains of loose bowel movements Review of Systems Review of Systems: All systems reviewed are negative, apart from the ones contained in the history. Physical Exam Physical Exam: The patient is awake, alert and oriented 3, well developed and well nourished, normocephalic and atraumatic, lying in bed and in no acute distress. HEENT--PERRL, EOMI, mucous membranes and oropharynx mildly dry Neck--supple. No JVD. No bruits. Thyroid normal, trachea midline, no adenopathy. Heart--normal S1 and S2. No murmurs, rubs or gallops. Lungs--clear bilaterally, no respiratory distress, no accessory muscle use. Abdomen--normal bowel sounds and soft. Extremities--Left foot in bandage Dermatologic--normal skin turgor, normal color, no abnormal lymph nodes, no rash. Neurologic--cranial nerves II through XII grossly intact. Rheumatologic--normal range of motion. Psychiatric--normal affect. Results & Data Results & Data Vital Signs (Past 12 Hours) Vital Signs Temp Pulse Pulse Pulse Resp BP BP 10/24/23 10:35 10/24/23 10:28 97.9 F 65 18 126/69 10/24/23 07:47 97.5 F L 69 18 145/79 H 10/24/23 07:18 62 10/24/23 03:06 97.5 F L 72 20 132/69 Pulse Ox O2 Del Method 10/24/23 10:35 Room Air 10/24/23 10:28 94 Room Air 10/24/23 07:47 95 Room Air 10/24/23 07:18 10/24/23 03:06 93 Room Air PG Care Time/CCT Total # of Minutes Spent Total Time Spent with Patient: Total time spent is greater than 50% in coordination of care (as documented) at patient's floor/unit and/or counseling patient: Coding Level of Care Code 84076 SUB INP/OBS CARE 2MIN Diagnoses Lower extremity edema R60.0 Diabetic infection of left foot E11.628; L08.9 Vitamin D deficiency E55.9 Dyslipidemia E78.5 BPH with obstruction/lower urinary tract symptoms N40.1; N13.8 GERD without esophagitis K21.9 Diabetic peripheral neuropathy associated with type 2 diabetes mellitus E11.42 Typical atrial flutter I48.3 Atrial flutter type: typical Controlled type 2 diabetes mellitus with diabetic neuropathy, with long-term current use of insulin E11.40; Z79.4 Diabetes mellitus termite technician insulin use: with termite technician use Diabetes mellitus complication status: with neurologic complications Diabetes mellitus complication detail: with unspecified neuropathy Bacteremia R78.81 Time Spent (min) 35 (8) Atrial flutter Atrial flutter type: typical Qualified Code(s): I48.3 - Typical atrial flutter (9) Diabetes type 2, controlled Diabetes mellitus termite technician insulin use: with termite technician use Diabetes mellitus complication status: with neurologic complications Diabetes mellitus complication detail: with unspecified neuropathy Qualified Code(s): E11.40 - Type 2 diabetes mellitus with diabetic neuropathy, unspecified; Z79.4 - [facility] (current) use of insulin
[2023-10-24 12:37] LABS: Calcium 8.1 mg/dl (8.6-10.3); Magnesium 1.6 mg/dl (1.7-2.4); Potassium 3.9 mmol/L (3.5-5.1)
[2023-10-24 12:43] LABS: BUN Creatinine Ratio 27.7 (10-20); Creatinine Clr Calc Pharmacy 77.6 ml/min; Est GFR (African American) 73.6 ml/min; Est GFR (Non-African American) 63.5 ml/min
--- NOTE | 2023-10-24 13:49 | Electrocardiogram Report ---
Test Reason : Blood Pressure : / mmHG Vent. Rate : 062 BPM Atrial Rate : 062 BPM P-R Int : 216 ms QRS Dur : 138 ms QT Int : 456 ms P-R-T Axes : 095 014 -13 degrees QTc Int : 462 ms Sinus rhythm with sinus arrhythmia with 1st degree A-V block Right bundle branch block Abnormal ECG When compared with ECG of 21-OCT-2023 17:38, Premature ventricular complexes are no longer Present T wave inversion now evident in Anterior leads Confirmed by Tank Canada ([id number]) on 10/24/2023 1:49:07 PM Referred By: REFERRED SELF Confirmed By:Ramses Canada
--- NOTE | 2023-10-24 19:34 | XCELERA ---
[id number] \\[email or web address]\[id number]
--- NOTE | 2023-10-25 06:39 | Orthopedic Progress Note ---
Date of Service October 25, 2023 Assessment & Plan (1) Acute osteomyelitis of toe: Plan: Wound VAC removed. Patient reports being up with physical therapy. He is growing out methicillin sensitive staph. The heel wound is benign. Shallow and granulating. The end of the big toe is healing nicely without evidence of complication. The wound VAC is removed. The third toe area shows granulating bed of tissue without recurrence of significant purulence. There is some minor marginal skin necrosis. No exposed bone and no evidence of abscess or significant necrotic tissue. Swelling in the forefoot is improved. The erythema is dissipated. Recommend to continue the wound VAC. Continue nonweightbearing on the left lower extremity. Will likely need placement. Continue IV antibiotics per infectious disease recommendations. I do not see a need for further surgery at this time. He could resume his oral anticoagulant and discontinue the Lovenox. When discharged, will need follow-up at [facility] orthopedics 1 to 2 weeks later. Thank you (2) Diabetic infection of left foot: Admission and Anticipated Discharge Date Admission Date: October 19, 2023
[2023-10-25 07:47] LABS: Hematocrit (blood only) 35.7 % (42.0-52.0); Hemoglobin 11.5 g/dl (14.0-18.0); Mean Corpuscular Hemoglobin 31.3 pg (25.0-34.0); Mean Corpuscular Hgb Conc 32.2 g/dL (32.0-36.0); Mean Corpuscular Volume 97.3 fL (80.0-100.0); Mean Platelet Volume 9.3 fL (9.4-12.4); Platelet Count 226 K/uL (130-400); RDW Coefficient of Variation 14.5 % (11.5-14.5); Red Blood Count 3.67 M/uL (4.70-6.10); White Blood Count 4.29 K/ul (4.8-10.8)
[2023-10-25 08:19] LABS: BUN Creatinine Ratio 28.4 (10-20); Calcium 8.4 mg/dl (8.6-10.3); Creatinine Clr Calc Pharmacy 91.2 ml/min; Est GFR (African American) 89.8 ml/min; Est GFR (Non-African American) 77.4 ml/min; Potassium 4.1 mmol/L (3.5-5.1)
[2023-10-25] MEDS: APIXABAN 5 MG TABLET PO SCH (09:03)
--- NOTE | 2023-10-25 11:51 | Hospitalist Progress Note ---
Date of Service October 25, 2023 Assessment & Plan (1) Lower extremity edema: (2) Diabetic infection of left foot: (3) Vitamin D deficiency: (4) Dyslipidemia: (5) BPH with obstruction/lower urinary tract symptoms: (6) GERD without esophagitis: (7) Diabetic peripheral neuropathy associated with type 2 diabetes mellitus: (8) Atrial flutter: (9) Diabetes type 2, controlled: (10) Bacteremia: Plan 78 yo M with PMHx of DM II c/b diabetic neuropathy, HTN, AFlutter, HLD, EVON, GERD, BPH, presents to the hospital for the evaluation of left foot infection. #Left diabetic foot ulcer - pt followed by [place] [facility] - left foot XR: soft tissue swelling about the 3rd digit with underlying osteopenia compatible with OM - Lower arterial study (07/16/23): no evidence of significant lower extremity arterial occlusive disease b/l -He is now day 3 status post left foot third toe amputation and debridement of left great toe nail and also debridement of left heel. -Wound VAC is currently in place -Wound cultures also growing MSSA bacteria -Per orthopedics, will use Lovenox for DVT prophylaxis. -Hold home Eliquis, use lovenox for DVT -Continue IV Cefazolin -Per infectious disease upon discharge patient will still need about 7 days of cefadroxil 500 mg twice daily till November 11, 2023 -Appreciate ID # Bacteremia MSSA bacteremia Antibiotics changed to IV Ancef Pain infectious disease will need a minimum of 2 weeks of IV antibiotics and subsequently 7 days of cefadroxil 500 mg every 12 hours till November 11, 2023 #DM II - HA1c: 7.9 (08/15/23) - hold Metformin - cont lantus - ordered correctional scale - diabetic diet #pos blood culture - suspect contaminant - cont current abx #NED - Much improved - hold HCTZ, lasix, lisinopril - gentle hydration , monitor for volume overload #AFib - CHADS2 Vasc: 4 - on eliquis -Overnight, patient became bradycardic and was transferred to telemetry. However EKG done this morning showed rate now on the back to good control, 60s -Continue metoprolol #HTN - hold lisinopril, HCTZ, Lasix #HLD - statin on hold given pt started on dapto #GERD - cont PPI #BPH - cont tamsulosin #Morbid Obesity BMI 40 #EVON - BMI: 35 - cont CPAP #Diarrhea: Most likely due to antibiotics C. difficile negative Lomotil as needed Admission and Anticipated Discharge Date Admission Date: October 19, 2023 Subjective Patient seen and examined, Complains of loose bowel movements, Was transferred to telemetry overnight on account of bradycardia Review of Systems Review of Systems: All systems reviewed are negative, apart from the ones contained in the history. Physical Exam Physical Exam: The patient is awake, alert and oriented 3, well developed and well nourished, normocephalic and atraumatic, lying in bed and in no acute distress. HEENT--PERRL, EOMI, mucous membranes and oropharynx mildly dry Neck--supple. No JVD. No bruits. Thyroid normal, trachea midline, no adenopathy. Heart--normal S1 and S2. No murmurs, rubs or gallops. Lungs--clear bilaterally, no respiratory distress, no accessory muscle use. Abdomen--normal bowel sounds and soft. Extremities--Left foot in bandage Dermatologic--normal skin turgor, normal color, no abnormal lymph nodes, no rash. Neurologic--cranial nerves II through XII grossly intact. Rheumatologic--normal range of motion. Psychiatric--normal affect. Results & Data Results & Data Vital Signs (Past 12 Hours) Vital Signs Temp Pulse Pulse Resp BP BP Pulse Ox 10/25/23 11:17 97.9 F 72 20 161/78 H 95 10/25/23 07:50 53 L 10/25/23 07:13 98.2 F 60 20 130/68 97 10/25/23 06:00 97.3 F L 64 20 158/76 H 96 10/25/23 02:46 97.2 F L 51 L 18 115/67 95 O2 Del Method 10/25/23 11:17 Room Air 10/25/23 07:50 10/25/23 07:13 Room Air 10/25/23 06:00 Room Air 10/25/23 02:46 Room Air, CPAP PG Care Time/CCT Total # of Minutes Spent Total Time Spent with Patient: Total time spent is greater than 50% in coordination of care (as documented) at patient's floor/unit and/or counseling patient: Coding Level of Care Code 41065 SUB INP/OBS CARE 2/35MIN Diagnoses Lower extremity edema R60.0 Diabetic infection of left foot E11.628; L08.9 Vitamin D deficiency E55.9 Dyslipidemia E78.5 BPH with obstruction/lower urinary tract symptoms N40.1; N13.8 GERD without esophagitis K21.9 Diabetic peripheral neuropathy associated with type 2 diabetes mellitus E11.42 Typical atrial flutter I48.3 Atrial flutter type: typical Controlled type 2 diabetes mellitus with diabetic neuropathy, with long-term current use of insulin E11.40; Z79.4 Diabetes mellitus retirement insulin use: with retirement use Diabetes mellitus complication status: with neurologic complications Diabetes mellitus complication detail: with unspecified neuropathy Bacteremia R78.81 Time Spent (min) 35 (8) Atrial flutter Atrial flutter type: typical Qualified Code(s): I48.3 - Typical atrial flutter (9) Diabetes type 2, controlled Diabetes mellitus human resources generalist insulin use: with retirement use Diabetes mellitus complication status: with neurologic complications Diabetes mellitus complication detail: with unspecified neuropathy Qualified Code(s): E11.40 - Type 2 diabetes mellitus with diabetic neuropathy, unspecified; Z79.4 - [facility] (current) use of insulin
[2023-10-25] MEDS: DIPHENOXYLATE/ATROPINE 2.5/0.025MG TAB PO ONE (12:18)
[2023-10-25] MEDS: MELATONIN 3 MG TAB PO PRN (20:59)
--- NOTE | 2023-10-26 11:32 | Hospitalist Progress Note ---
Date of Service October 26, 2023 Assessment & Plan (1) Lower extremity edema: (2) Diabetic infection of left foot: (3) Vitamin D deficiency: (4) Dyslipidemia: (5) BPH with obstruction/lower urinary tract symptoms: (6) GERD without esophagitis: (7) Diabetic peripheral neuropathy associated with type 2 diabetes mellitus: (8) Atrial flutter: (9) Diabetes type 2, controlled: (10) Bacteremia: Plan 78 yo M with PMHx of DM II c/b diabetic neuropathy, HTN, AFlutter, HLD, EVON, GERD, BPH, presents to the hospital for the evaluation of left foot infection. #Left diabetic foot ulcer - pt followed by [place] [facility] - left foot XR: soft tissue swelling about the 3rd digit with underlying osteopenia compatible with OM - Lower arterial study (07/16/23): no evidence of significant lower extremity arterial occlusive disease b/l -He is now day 3 status post left foot third toe amputation and debridement of left great toe nail and also debridement of left heel. -Wound VAC is currently in place -Wound cultures also growing MSSA bacteria -Continue IV Cefazolin, end date 11/03 -Per infectious disease upon discharge patient will still need about 7 days of cefadroxil 500 mg twice daily till November 11, 2023 -Appreciate ID -Apixaban for prophylaxis # Bacteremia MSSA bacteremia Antibiotics changed to IV Ancef Pain infectious disease will need a minimum of 2 weeks of IV antibiotics (end date 11/03) and subsequently 7 days of cefadroxil 500 mg every 12 hours till November 11, 2023 #DM II - HA1c: 7.9 (08/15/23) - hold Metformin - cont lantus - ordered correctional scale - diabetic diet #pos blood culture - suspect contaminant - cont current abx #NED - Much improved - hold HCTZ, lasix, lisinopril - gentle hydration , monitor for volume overload #AFib - CHADS2 Vasc: 4 - on eliquis -patient became bradycardic and was transferred to telemetry. -However repeat EKG done showed rate now on the back to good control, 60s -Continue metoprolol #HTN - hold lisinopril, HCTZ, Lasix #HLD - statin on hold given pt started on dapto #GERD - cont PPI #BPH - cont tamsulosin #Morbid Obesity BMI 40 #EVON - BMI: 35 - cont CPAP #Diarrhea: Most likely due to antibiotics C. difficile negative Lomotil as needed Patient will need rehab, referrals have been placed by social media coordinator Admission and Anticipated Discharge Date Admission Date: October 19, 2023 Subjective Patient seen and examined, Complains of loose bowel movements, Denies chest pain or shortness of breath Review of Systems Review of Systems: All systems reviewed are negative, apart from the ones contained in the history. Physical Exam 2 Physical Exam: The patient is awake, alert and oriented 3, well developed and well nourished, normocephalic and atraumatic, lying in bed and in no acute distress. HEENT--PERRL, EOMI, mucous membranes and oropharynx mildly dry Neck--supple. No JVD. No bruits. Thyroid normal, trachea midline, no adenopathy. Heart--normal S1 and S2. No murmurs, rubs or gallops. Lungs--clear bilaterally, no respiratory distress, no accessory muscle use. Abdomen--normal bowel sounds and soft. Extremities--Left foot in bandage Dermatologic--normal skin turgor, normal color, no abnormal lymph nodes, no rash. Neurologic--cranial nerves II through XII grossly intact. Rheumatologic--normal range of motion. Psychiatric--normal affect. Results & Data Results & Data Vital Signs (Past 12 Hours) Vital Signs Temp Pulse Pulse Resp BP Pulse Ox O2 Del Method 10/26/23 11:08 97.5 F L 58 L 19 129/69 95 Room Air 10/26/23 07:09 97.5 F L 60 19 123/57 L 94 Room Air 10/26/23 05:50 54 L 10/26/23 03:30 97.9 F 61 20 107/72 97 CPAP 10/26/23 03:13 28 L PG Care Time/CCT Total # of Minutes Spent Total Time Spent with Patient: Total time spent is greater than 50% in coordination of care (as documented) at patient's floor/unit and/or counseling patient: Coding Level of Care Code 69602 SUB INP/OBS CARE 2/35MIN Diagnoses Lower extremity edema R60.0 Diabetic infection of left foot E11.628; L08.9 Vitamin D deficiency E55.9 Dyslipidemia E78.5 BPH with obstruction/lower urinary tract symptoms N40.1; N13.8 GERD without esophagitis K21.9 Diabetic peripheral neuropathy associated with type 2 diabetes mellitus E11.42 Typical atrial flutter I48.3 Atrial flutter type: typical Controlled type 2 diabetes mellitus with diabetic neuropathy, with long-term current use of insulin E11.40; Z79.4 Diabetes mellitus buttermaker insulin use: with buttermaker use Diabetes mellitus complication status: with neurologic complications Diabetes mellitus complication detail: with unspecified neuropathy Bacteremia R78.81 Time Spent (min) 35 (8) Atrial flutter Atrial flutter type: typical Qualified Code(s): I48.3 - Typical atrial flutter (9) Diabetes type 2, controlled Diabetes mellitus penitentiary insulin use: with buttermaker use Diabetes mellitus complication status: with neurologic complications Diabetes mellitus complication detail: with unspecified neuropathy Qualified Code(s): E11.40 - Type 2 diabetes mellitus with diabetic neuropathy, unspecified; Z79.4 - FPC (current) use of insulin
[2023-10-26] MEDS: DIPHENOXYLATE/ATROPINE 2.5/0.025MG TAB PO ONE (12:33)
[2023-10-27 07:23] LABS: Hematocrit (blood only) 36.3 % (42.0-52.0); Hemoglobin 11.8 g/dl (14.0-18.0); Mean Corpuscular Hemoglobin 31.6 pg (25.0-34.0); Mean Corpuscular Hgb Conc 32.5 g/dL (32.0-36.0); Mean Corpuscular Volume 97.1 fL (80.0-100.0); Mean Platelet Volume 9.6 fL (9.4-12.4); Platelet Count 254 K/uL (130-400); RDW Coefficient of Variation 14.6 % (11.5-14.5); RDW Standard Deviation 52.3 fL (36.4-46.3); Red Blood Count 3.74 M/uL (4.70-6.10); White Blood Count 5.22 K/ul (4.8-10.8)
[2023-10-27 07:39] LABS: BUN Creatinine Ratio 28.6 (10-20); Calcium 8.5 mg/dl (8.6-10.3); Est GFR (African American) 86.5 ml/min; Est GFR (Non-African American) 74.6 ml/min; Potassium 4.3 mmol/L (3.5-5.1)
--- NOTE | 2023-10-27 11:48 | Hospitalist Progress Note ---
Date of Service October 27, 2023 Assessment & Plan (1) Lower extremity edema: (2) Diabetic infection of left foot: (3) Vitamin D deficiency: (4) Dyslipidemia: (5) BPH with obstruction/lower urinary tract symptoms: (6) GERD without esophagitis: (7) Diabetic peripheral neuropathy associated with type 2 diabetes mellitus: (8) Atrial flutter: (9) Diabetes type 2, controlled: (10) Bacteremia: Plan 78 yo M with PMHx of DM II c/b diabetic neuropathy, HTN, AFlutter, HLD, EVON, GERD, BPH, presents to the hospital for the evaluation of left foot infection. #Left diabetic foot ulcer - pt followed by [place] [facility] - left foot XR: soft tissue swelling about the 3rd digit with underlying osteopenia compatible with OM - Lower arterial study (07/16/23): no evidence of significant lower extremity arterial occlusive disease b/l -He is now day 4 status post left foot third toe amputation and debridement of left great toe nail and also debridement of left heel. -Wound VAC is currently in place -Wound cultures also growing MSSA bacteria -Continue IV Cefazolin, end date 11/03 -Per infectious disease upon discharge patient will still need about 7 days of cefadroxil 500 mg twice daily till November 11, 2023 -Appreciate ID -Apixaban for prophylaxis # Bacteremia MSSA bacteremia Antibiotics changed to IV Ancef Pain infectious disease will need a minimum of 2 weeks of IV antibiotics (end date 11/03) and subsequently 7 days of cefadroxil 500 mg every 12 hours till November 11, 2023 #DM II - HA1c: 7.9 (08/15/23) - hold Metformin - cont lantus - ordered correctional scale - diabetic diet #pos blood culture - suspect contaminant - cont current abx #NED - Much improved - hold HCTZ, lasix, lisinopril - gentle hydration , monitor for volume overload #AFib - CHADS2 Vasc: 4 - on eliquis -patient became bradycardic and was transferred to telemetry. -However repeat EKG done showed rate now on the back to good control, 60s -Continue metoprolol #HTN - hold lisinopril, HCTZ, Lasix #HLD - Resume statin #GERD - cont PPI #BPH - cont tamsulosin #Morbid Obesity BMI 40 #EVNO - BMI: 35 - cont CPAP #Diarrhea: Most likely due to antibiotics C. difficile negative Lomotil as needed Diarrhea has improved Patient will need rehab, referrals have been placed by director social Admission and Anticipated Discharge Date Admission Date: October 19, 2023 Subjective Patient seen and examined, Says the diarrhea has eased off, just 1 episode of fairly formed stool today Review of Systems Review of Systems: All systems reviewed are negative, apart from the ones contained in the history. Physical Exam Physical Exam: The patient is awake, alert and oriented 3, well developed and well nourished, normocephalic and atraumatic, lying in bed and in no acute distress. HEENT--PERRL, EOMI, mucous membranes and oropharynx mildly dry Neck--supple. No JVD. No bruits. Thyroid normal, trachea midline, no adenopathy. Heart--normal S1 and S2. No murmurs, rubs or gallops. Lungs--clear bilaterally, no respiratory distress, no accessory muscle use. Abdomen--normal bowel sounds and soft. Extremities--Left foot in bandage Dermatologic--normal skin turgor, normal color, no abnormal lymph nodes, no rash. Neurologic--cranial nerves II through XII grossly intact. Rheumatologic--normal range of motion. Psychiatric--normal affect. Results & Data Results & Data Vital Signs (Past 12 Hours) Vital Signs Temp Pulse Pulse Resp BP Pulse Ox O2 Del Method 10/27/23 11:04 97.7 F 58 L 18 146/72 H 95 Room Air 10/27/23 08:00 Room Air, CPAP 10/27/23 08:00 41 L 10/27/23 07:14 97.7 F 61 18 140/85 95 Room Air 10/27/23 03:23 98.1 F 49 L 18 131/80 93 Room Air PG Care Time/CCT Total # of Minutes Spent Total Time Spent with Patient: Total time spent is greater than 50% in coordination of care (as documented) at patient's floor/unit and/or counseling patient: Coding Level of Care Code 11320 SUB INP/OBS CARE 2/35MIN Diagnoses Lower extremity edema R60.0 Diabetic infection of left foot E11.628; L08.9 Vitamin D deficiency E55.9 Dyslipidemia E78.5 BPH with obstruction/lower urinary tract symptoms N40.1; N13.8 GERD without esophagitis K21.9 Diabetic peripheral neuropathy associated with type 2 diabetes mellitus E11.42 Typical atrial flutter I48.3 Atrial flutter type: typical Controlled type 2 diabetes mellitus with diabetic neuropathy, with long-term current use of insulin E11.40; Z79.4 Diabetes mellitus long-term insulin use: with terminal computer operator use Diabetes mellitus complication status: with neurologic complications Diabetes mellitus complication detail: with unspecified neuropathy Bacteremia R78.81 Time Spent (min) 35 (8) Atrial flutter Atrial flutter type: typical Qualified Code(s): I48.3 - Typical atrial flutter (9) Diabetes type 2, controlled Diabetes mellitus terminal computer operator insulin use: with terminal computer operator use Diabetes mellitus complication status: with neurologic complications Diabetes mellitus complication detail: with unspecified neuropathy Qualified Code(s): E11.40 - Type 2 diabetes mellitus with diabetic neuropathy, unspecified; Z79.4 - technician terminal and repeater (current) use of insulin
[2023-10-27] MEDS: ADVANCED PROBIOTIC 625 MG CAPSULE PO SCH (14:46)
[2023-10-27 16:31] LABS: Magnesium 1.7 mg/dl (1.7-2.4)
[2023-10-28 07:21] LABS: Hematocrit (blood only) 37.2 % (42.0-52.0); Hemoglobin 11.9 g/dl (14.0-18.0); Mean Corpuscular Hemoglobin 31.1 pg (25.0-34.0); Mean Corpuscular Volume 97.1 fL (80.0-100.0); Mean Platelet Volume 9.4 fL (9.4-12.4); Platelet Count 261 K/uL (130-400); RDW Coefficient of Variation 14.6 % (11.5-14.5); RDW Standard Deviation 51.6 fL (36.4-46.3); Red Blood Count 3.83 M/uL (4.70-6.10); White Blood Count 6.59 K/ul (4.8-10.8)
[2023-10-28 07:37] LABS: BUN Creatinine Ratio 24.5 (10-20); Calcium 9.3 mg/dl (8.6-10.3); Creatinine Clr Calc Pharmacy 78.5 ml/min; Est GFR (African American) 75.2 ml/min; Est GFR (Non-African American) 64.9 ml/min; Potassium 4.6 mmol/L (3.5-5.1)
--- NOTE | 2023-10-28 08:37 | Orthopedic Progress Note ---
Date of Service October 28, 2023 Assessment & Plan (1) Diabetic infection of left foot: Plan: The patient was educated regarding today's findings. Conservative care measures were discussed. Importance of staying off of the foot is much as possible was discussed at length. He is scheduled to have the wound VAC changed later today. I will make Dr. Merchant aware. He will likely want to be present for wound inspection. Continue his Ancef and Eliquis. He will need placement upon discharge from the hospital before returning home. Discharge plans pending at this point. Admission and Anticipated Discharge Date Admission Date: October 19, 2023 Subjective This 78-year-old male is seen today in his room. He is 7 days status post left foot third toe amputation for osteomyelitis. He states he is doing well today. He has some minor pain at his toes. No pain in his heel. He denies any chest pain, shortness of breath, nausea, or vomiting. He states his wound VAC is to be changed later today. No additional complaints. Physical Exam Physical Exam: General: Well-developed, well-nourished, large elderly male, in no acute distress. Laying in bed. Alert and oriented. He has just finished breakfast. Skin: Warm and dry with good turgor. No rashes. Venous stasis changes are present on his left lower leg. Postsurgical dressing is in place on the foot. There is a superficial ulceration present on the plantar surface of his heel. No significant drainage. No purulence. Area is nontender to touch. Evaluation of his toes reveals a small ulceration on the great toe with Xeroform in place. Wound VAC dressing is present in the third toe space. Wound VAC is functioning. There is minimal drainage in the container. Musculoskeletal: The patient has intact motor function of his toes as well as his ankle for flexion and extension. Neurologic: Gross sensation is intact across the lower leg. Decreased sensation across the foot consistent with baseline. Results & Data Vital Signs (Past 12 Hours) Vital Signs Temp Pulse Pulse Resp BP BP Pulse Ox 10/28/23 07:45 60 10/28/23 07:27 36.5 C 47 L 18 149/78 H 94 10/28/23 07:00 10/28/23 02:59 36.7 C 51 L 18 144/78 H 95 10/27/23 23:41 36.6 C 46 L 18 142/85 H 98 10/27/23 22:37 53 L O2 Del Method 10/28/23 07:45 10/28/23 07:27 Room Air 10/28/23 07:00 Room Air 10/28/23 02:59 Room Air 10/27/23 23:41 CPAP 10/27/23 22:37 Laboratory Results CBC obtained today shows a white count of 6.59. H&H of 11.9 and 37.2. Platelets 261,000. Renal panel shows sodium 137, potassium 4.6, CO2 33. This is trending up. BUN of 27 with creatinine 1.1. BUN is elevated but stable. Glucose today is 121.
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
--- NOTE | 2023-10-28 13:11 | Electrocardiogram Report ---
Test Reason : Blood Pressure : / mmHG Vent. Rate : 054 BPM Atrial Rate : 054 BPM P-R Int : 256 ms QRS Dur : 136 ms QT Int : 464 ms P-R-T Axes : 034 005 -08 degrees QTc Int : 440 ms Sinus bradycardia with sinus arrhythmia with 1st degree A-V block with occasional Premature ventricul ar complexes Right bundle branch block Abnormal ECG When compared with ECG of 24-OCT-2023 11:43, Premature ventricular complexes are now Present T wave inversion no longer evident in Anterior leads Confirmed by Blayne Toney ([id number]) on 10/28/2023 1:11:03 PM Referred By: REFERRED SELF Confirmed By:Blayne Toney
--- NOTE | 2023-10-28 13:17 | Electrocardiogram Report ---
Test Reason : Blood Pressure : / mmHG Vent. Rate : 057 BPM Atrial Rate : 035 BPM P-R Int : 000 ms QRS Dur : 160 ms QT Int : 488 ms P-R-T Axes : 000 082 -72 degrees QTc Int : 474 ms Sinus bradycardia Premature ventricular complexes Fusion complex Blocked PAC Right bundle branch block Abnormal ECG When compared with ECG of 27-OCT-2023 15:33, (unconfirmed) No significant change Confirmed by Blayne Toney ([id number]) on 10/28/2023 1:17:16 PM Referred By: REFERRED SELF Confirmed By:Blayne Toney
--- NOTE | 2023-10-28 15:10 | Cardiology Consultation ---
Date of Consultation October 28, 2023 Assessment & Plan (1) Bradycardia: -Sinus bradycardia likely secondary to the addition of metoprolol tartrate at the time of hospital admission. -The patient has not been on beta-blockade previously. -Would simply discontinue metoprolol to tartrate. -Observe on telemetry for another 24 hours. (2) Atrial flutter: -No recent episodes. -Stable on long-term anticoagulation. -Does not require rate controlling medications. History of Present Illness Attending Physician: Saad Gill MD History of Present Illness Mr. Lawler 78-year-old male admitted on October 18 with a diabetic foot ulcer that required surgery. Yesterday, patient was noted to be bradycardic, therefore, this consultation was ordered. Of note, the patient typically follows with Dr. Cortze in the outpatient setting. Review of the patient's record noted that he was started on metoprolol tartrate 12.5 mg at the time of hospital admission, apparently due to his history of paroxysmal atrial flutter. He has never been on metoprolol tartrate previously. Review of his vital signs reveals numerous episodes of documented bradycardia. An EKG obtained here yesterday noted sinus bradycardia with first-degree AV block, PVCs, fusion complexes, blocked PACs, and a complete right bundle branch block. At no time has the patient experienced syncope or presyncope during this hospitalization. Currently, patient is resting comfortably in bed and without complaints. Past medical and surgical history 1. Hypertension 2. Hypercholesterolemia 3. Paroxysmal atrial flutterMarch 2014 4. Diabetes mellitus 5. Left foot diabetic ulcer 6. GERD 7. Obesity 8. Obstructive sleep apnea 9. BPH 10. DJD 11. Right [id number] 12. Left [id number] 13. Carpal tunnel release 14. Intraocular lens implant 15. Umbilical hernia repair Social history , lives alone Retired from [employer] No tobacco Occasional alcohol Family history Noncontributory Review of systems A 10 point review of system was undertaken and negative except documented above. Allergies Allergy/AdvReac Type Severity Reaction Status Date / Time Sulfa (Sulfonamide Allergy Severe Hives Unverified 08/19/23 11:05 Antibiotics) Bactrim Allergy Unknown HIVES Verified 06/19/17 10:28 bee venom protein (honey bee) Allergy Unknown ANAPHYLAXIS Verified 08/19/23 11:05 fluconazole Allergy Unknown rash with Verified 08/19/23 11:05 itching sulfamethoxazole Allergy Unknown HIVES Verified 08/19/23 11:05 trimethoprim Allergy Unknown HIVES Verified 08/19/23 11:05 Home Medications Medication Instructions Recorded Confirmed Type insulin syringe-needle U-100 1 mL #10 ea 09/16/18 08/19/23 History 31 gauge x 5/16" (BD Insulin Syringe Ultra-Fine) lancets (OneTouch UltraSoft #50 ea 09/16/18 08/19/23 History Lancets) CPAP Machine #1 ea 01/06/19 10/19/23 Rx Contour Test Strips (blood sugar #400 ea 01/21/19 10/19/23 Rx diagnostic) CPAP Supplies #1 ea 11/02/19 10/19/23 Rx cholecalciferol (vitamin D3) 25 25 mcg PO QAM 10/21/20 10/19/23 History mcg (1,000 unit) capsule Walking Cane #1 ea 11/15/20 08/19/23 Rx mecobalamin (vitamin B12) 5,000 5,000 mcg PO DAILY #30 tabs 05/07/22 10/19/23 Rx mcg chewable tablet epinephrine 0.3 mg/0.3 mL 0.3 mg IM UD PRN anaphylaxis 05/28/22 10/19/23 History injection, auto-injector (EpiPen 2-Golden) lisinopril 20 mg tablet 20 mg PO BID #180 tabs 12/04/22 10/19/23 Rx sildenafil 100 mg tablet 100 mg PO DAILY #6 tabs 12/04/22 10/19/23 Rx apixaban 5 mg tablet 5 mg PO BID #180 tabs 01/02/23 10/19/23 Rx metformin 1,000 mg tablet 500 mg PO BID 01/28/23 10/19/23 History tamsulosin 0.4 mg capsule (Flomax) 0.4 mg PO DAILY #90 caps 02/05/23 10/19/23 Rx insulin lispro 100 unit/mL See Rx Instructions subcut TIDM 03/20/23 10/19/23 Rx subcutaneous pen (Humalog KwikPen #30 mL (U-100) Insulin) Balance Of Nature 1 tab PO QAM 04/11/23 10/19/23 History flash glucose sensor (FreeStyle #6 ea 05/20/23 10/19/23 Rx Tamika 2 Sensor kit) hydrochlorothiazide 25 mg tablet 12.5 mg (1/2 x 25 mg) PO BID #60 07/12/23 10/19/23 Rx tabs pantoprazole 40 mg tablet,delayed 40 mg PO QAM #90 tabs 07/12/23 10/19/23 Rx release albuterol sulfate 90 mcg/actuation 1 inh inhalation Q6H PRN shortness 07/15/23 10/19/23 Rx aerosol inhaler of breath or wheezing #8.5 grams simvastatin 20 mg tablet 20 mg PO QAM #90 tabs 08/06/23 10/19/23 Rx furosemide 20 mg tablet 20 mg PO BID #180 tabs 09/20/23 10/19/23 Rx insulin glargine 100 unit/mL (3 40 unit (0.4 mL) subcut .QHS #45 mL 10/03/23 10/19/23 Rx mL) subcutaneous pen (Lantus Solostar U-100 Insulin) tramadol 50 mg tablet 50 mg PO Q8 PRN Pain 10/19/23 10/19/23 History Patient History Medical History On anticoagulant therapy History of COVID-19 2020- no hosp; resolved Lymphedema Arthritis Diabetes diabetic sensor Sleep apnea CPAP Afib asymptomatic; eliquis daily Personal history of diabetic foot ulcer NO CURRENT Hypertension Osteoarthritis Surgical History History of right cataract surgery History of colonoscopy H/O umbilical hernia repair (~10/2006) Hx of total knee arthroplasty right TKA 11/2001 Dr. Garcia, left TKA 2006; revision July, H/O carpal tunnel repair Family History Brother Prostate cancer Diabetes Coronary heart disease Abdominal aortic aneurysm Alzheimer disease Stroke Family history of colonic polyps Father Heart disease Myocardial infarction Family/Other Hypertension Denies family history of Rheumatoid arthritis Sudden SIDS (sudden infant syndrome) Ovarian cancer Deep vein thrombosis Osteoporosis Dyslipidemia Cerebral aneurysm Bipolar disorder Clotting disorder Crohn's disease Dementia Depression Kidney disease Osteoarthritis Breast cancer Schizophrenia Congenital kidney disease Gestational diabetes Lung cancer COPD (chronic obstructive pulmonary disease) Colorectal cancer Pulmonary embolism Lung disease Ulcerative colitis Colonic polyp Asthma Cystic kidney disease Social History (Updated 06/21/23 @ 13:32 by LENI Geller) Smoking Status: Never smoker Second Hand Exposure: No; Do You Dip or Chew Tobacco: No; Tobacco Cessation Education Requested by Patient: No Hx Alcohol Use: No Hx Substance Use: No Preferred Language: Divehi Communication Ability: Effective Visual Impairment: No Limitations Hearing Ability: Normal Waiter/Waitress Bar Required: No Beliefs That Will Affect Care: None marital status: / Current Living Situation: Alone Current Living Situation Comment: LONG current occupational status: retired current occupation: he used to work at [employer] How many Children do You have: 2 Other Information That Helps Us Care for You: No Feels Safe at Home: Yes Safety Concerns: Feels Safe At This Time Childhood Exposure to Second-Hand Smoke: No Diet: regular caffeine: Yes during the past year weight has: remained stable Dental Care, Regularly: Yes Physical Activity Frequency: 3-4 Times per Week Seatbelt Use: sometimes Sunscreen Use: No Assistive Devices: Cane, CPAP and Walker Physical Exam Physical Exam: In general this is a an obese male seated in the bedside chair without complaints. HEENT exam is negative. Neck is supple with full carotid upstrokes. There are no carotid bruits. Jugular is pressure is flat at 90 degrees. Cardiovascular exam reveals regular rhythm with distant heart sounds. No obvious murmurs. Lungs are clear without rales, rhonchi, wheezes. Abdomen is obese without bruits. Extremities reveal intact radial artery pulses bilaterally. Left lower extremity is wrapped. Results & Data Vital Signs (Past 12 Hours) Vital Signs Temp Pulse Pulse Resp BP Pulse Ox O2 Del Method 10/28/23 14:45 36.4 C L 54 L 18 135/76 96 Room Air 10/28/23 11:33 36.5 C 58 L 18 146/82 H 96 Room Air 10/28/23 07:45 60 10/28/23 07:27 36.5 C 47 L 18 149/78 H 94 Room Air 10/28/23 07:00 Room Air Diagnostic Findings Initial EKG obtained on October 18 noted sinus rhythm at 83 bpm. There were frequent PVCs and incomplete right bundle branch block. EKG obtained on October 23 noted sinus rhythm at 62 bpm. There is first-degree AV block and incomplete right bundle branch block. Tracing obtained on October 26 at 1533 noted sinus bradycardia with first-degree AV block, PVCs, and a blocked PAC. Tracing obtained at 1534 on October 26 noted sinus bradycardia at 57 bpm. There were PVCs, a blocked PAC, effusion, PACs, incomplete right bundle branch block. air sampling and monitoring notes sinus bradycardia, PVCs, PACs, and blocked PACs. PG Care Time/CCT Total # of Minutes Spent Total Time Spent with Patient: Total time spent is greater than 50% in coordination of care (as documented) at patient's floor/unit and/or counseling patient: Coding Level of Care Code 61645 INT INP/OBS CARE 3/75MIN Diagnoses Bradycardia R00.1 Typical atrial flutter I48.3 Atrial flutter type: typical (2) Atrial flutter Atrial flutter type: typical Qualified Code(s): I48.3 - Typical atrial flutter
--- NOTE | 2023-10-29 12:29 | Hospitalist Progress Note ---
Date of Service October 29, 2023 Assessment & Plan (1) Lower extremity edema: (2) Diabetic infection of left foot: (3) Vitamin D deficiency: (4) Dyslipidemia: (5) BPH with obstruction/lower urinary tract symptoms: (6) GERD without esophagitis: (7) Diabetic peripheral neuropathy associated with type 2 diabetes mellitus: (8) Atrial flutter: (9) Diabetes type 2, controlled: (10) Bacteremia: Plan 78 yo M with PMHx of DM II c/b diabetic neuropathy, HTN, AFlutter, HLD, EVON, GERD, BPH, presents to the hospital for the evaluation of left foot infection. #Left diabetic foot ulcer - pt followed by [place] [facility] - left foot XR: soft tissue swelling about the 3rd digit with underlying osteopenia compatible with OM - Lower arterial study (07/16/23): no evidence of significant lower extremity arterial occlusive disease b/l -He is now day 7 status post left foot third toe amputation and debridement of left great toe nail and also debridement of left heel. -Wound VAC is currently in place, to be changed today, 10/27 -Wound cultures also growing MSSA bacteria -Continue IV Cefazolin, end date 11/03 -Per infectious disease upon discharge patient will still need about 7 days of cefadroxil 500 mg twice daily till November 11, 2023 -Appreciate ID -Apixaban for prophylaxis # Bacteremia MSSA bacteremia Antibiotics changed to IV Ancef Pain infectious disease will need a minimum of 2 weeks of IV antibiotics (end date 11/03) and subsequently 7 days of cefadroxil 500 mg every 12 hours till November 11, 2023 #DM II - HA1c: 7.9 (08/15/23) - hold Metformin - cont lantus - ordered correctional scale - diabetic diet #NED - Much improved - hold HCTZ, lasix, lisinopril - gentle hydration , monitor for volume overload #AFib - CHADS2 Vasc: 4 - on eliquis -patient became bradycardic and was transferred to telemetry. -However repeat EKG Showed evidence of first-degree heart block and right bundle branch block -Continue metoprolol #HTN - hold lisinopril, HCTZ, Lasix #HLD - Resume statin #GERD - cont PPI #BPH - cont tamsulosin #Morbid Obesity BMI 40 #EVON - BMI: 35 - cont CPAP #Diarrhea: Most likely due to antibiotics C. difficile negative Lomotil as needed Diarrhea has improved Insurance denied acute rehab, request has been placed for SNF Admission and Anticipated Discharge Date Admission Date: October 19, 2023 Subjective Patient seen and examined, lying quietly in bed, denies chest pain or shortness of breath. Review of Systems Review of Systems: All systems reviewed are negative, apart from the ones contained in the history. Physical Exam Physical Exam: The patient is awake, alert and oriented 3, well developed and well nourished, normocephalic and atraumatic, lying in bed and in no acute distress. HEENT--PERRL, EOMI, mucous membranes and oropharynx mildly dry Neck--supple. No JVD. No bruits. Thyroid normal, trachea midline, no adenopathy. Heart--normal S1 and S2. No murmurs, rubs or gallops. Lungs--clear bilaterally, no respiratory distress, no accessory muscle use. Abdomen--normal bowel sounds and soft. Extremities--Left foot in bandage Dermatologic--normal skin turgor, normal color, no abnormal lymph nodes, no rash. Neurologic--cranial nerves II through XII grossly intact. Rheumatologic--normal range of motion. Psychiatric--normal affect. Results & Data Results & Data Vital Signs (Past 12 Hours) Vital Signs Temp Pulse Pulse Resp BP BP Pulse Ox 10/29/23 10:51 97.5 F L 56 L 18 144/72 H 95 10/29/23 07:16 97.9 F 45 L 18 134/53 L 96 10/29/23 02:32 97.5 F L 55 L 18 146/71 H 96 10/29/23 01:05 48 L O2 Del Method 10/29/23 10:51 Room Air 10/29/23 07:16 Room Air 10/29/23 02:32 Room Air 10/29/23 01:05 PG Care Time/CCT Total # of Minutes Spent Total Time Spent with Patient: Total time spent is greater than 50% in coordination of care (as documented) at patient's floor/unit and/or counseling patient: Coding Level of Care Code 03268 SUB INP/OBS CARE 2/35MIN Diagnoses Lower extremity edema R60.0 Diabetic infection of left foot E11.628; L08.9 Vitamin D deficiency E55.9 Dyslipidemia E78.5 BPH with obstruction/lower urinary tract symptoms N40.1; N13.8 GERD without esophagitis K21.9 Diabetic peripheral neuropathy associated with type 2 diabetes mellitus E11.42 Typical atrial flutter I48.3 Atrial flutter type: typical Controlled type 2 diabetes mellitus with diabetic neuropathy, with long-term current use of insulin E11.40; Z79.4 Diabetes mellitus prison insulin use: with prison use Diabetes mellitus complication status: with neurologic complications Diabetes mellitus complication detail: with unspecified neuropathy Bacteremia R78.81 Time Spent (min) 35 (8) Atrial flutter Atrial flutter type: typical Qualified Code(s): I48.3 - Typical atrial flutter (9) Diabetes type 2, controlled Diabetes mellitus ferry terminal agent insulin use: with prison use Diabetes mellitus complication status: with neurologic complications Diabetes mellitus complication detail: with unspecified neuropathy Qualified Code(s): E11.40 - Type 2 diabetes mellitus with diabetic neuropathy, unspecified; Z79.4 - group home (current) use of insulin
--- NOTE | 2023-10-29 12:54 | Orthopedic Progress Note ---
Date of Service October 29, 2023 Assessment & Plan (1) Amputated toe of left foot: Plan: Nonweightbearing on left lower extremity PT/OT Pain control with p.o. medication Wound VAC dressing changes every other day DVT prophylaxis with Jordi and MAR leung Patient was met with case management to discuss discharge to either residential or in-patient rehab facility. He currently states that authorization is pending Patient will need to follow-up with [facility] orth[facility]ics in 2 weeks. If he has questions or concerns should arise he will was recommended to call our clinic at [phone] Admission and Anticipated Discharge Date Admission Date: October 19, 2023 Subjective This 78-year-old male is 7 days status post left third toe amputation. Wound VAC is currently in place and was changed yesterday. I did not remove it today. Patient states he is doing very well. He denies any pain presently. He also denies chest pain, shortness of breath, fever, chills, sweats or numbness or tingling in the left lower extremity. Review of Systems Review of Systems: All systems reviewed & are unremarkable except as noted in Subjective Physical Exam Physical Exam: Left foot: Dressing and wound VAC were both clean dry and intact and left in place. Patient is able to detect light sensation to touch over the pads of all digits. He is able to move his digits. He is able to perform active straight leg raise test. He is able to actively dorsi and plantarflex foot without issue. Results & Data Vital Signs (Past 12 Hours) Vital Signs Temp Pulse Pulse Resp BP BP Pulse Ox 10/29/23 10:51 36.4 C L 56 L 18 144/72 H 95 10/29/23 08:00 43 L 10/29/23 07:16 36.6 C 45 L 18 134/53 L 96 10/29/23 02:32 36.4 C L 55 L 18 146/71 H 96 10/29/23 01:05 48 L O2 Del Method 10/29/23 10:51 Room Air 10/29/23 08:00 10/29/23 07:16 Room Air 10/29/23 02:32 Room Air 10/29/23 01:05 Diagnostic Findings Laboratory Results WBC 6.59 K/ul (4.8-10.8) 10/28/23 06:56 RBC 3.83 M/uL (4.70-6.10) L 10/28/23 06:56 Hgb 11.9 g/dl (14.0-18.0) L 10/28/23 06:56 Hct 37.2 % (42.0-52.0) L 10/28/23 06:56 MCV 97.1 fL (80.0-100.0) 10/28/23 06:56 MCH 31.1 pg (25.0-34.0) 10/28/23 06:56 MCHC 32.0 g/dL (32.0-36.0) 10/28/23 06:56 RDW Std Deviation 51.6 fL (36.4-46.3) H 10/28/23 06:56 RDW Coeff of David 14.6 % (11.5-14.5) H 10/28/23 06:56 Plt Count 261 K/uL (130-400) 10/28/23 06:56 MPV 9.4 fL (9.4-12.4) 10/28/23 06:56 Immature Gran % (Auto) 0.4 % 10/20/23 07:02 Neut % (Auto) 77.6 % 10/20/23 07:02 Lymph % (Auto) 10.7 % 10/20/23 07:02 Beckham % (Auto) 8.4 % 10/20/23 07:02 Eos % (Auto) 2.5 % 10/20/23 07:02 Baso % (Auto) 0.4 % 10/20/23 07:02 Neut # (Auto) 5.64 K/uL (1.40-6.50) 10/20/23 07:02 Lymph # (Auto) 0.78 K/uL (1.20-3.40) L 10/20/23 07:02 Beckham # (Auto) 0.61 K/uL (0.11-0.59) H 10/20/23 07:02 Eos # (Auto) 0.18 K/uL (0.00-0.50) 10/20/23 07:02 Baso # (Auto) 0.03 K/uL (0.00-0.20) 10/20/23 07:02 Immature Gran # (Auto) 0.03 K/uL (0.01-0.20) 10/20/23 07:02 ESR 85 mm/hr (0-20) H 10/21/23 08:25 Sodium 137 mmol/L (136-145) 10/28/23 06:56 Potassium 4.6 mmol/L (3.5-5.1) 10/28/23 06:56 Chloride 101 mmol/L (98-107) 10/28/23 06:56 Carbon Dioxide 33 mmol/L (21-32) H 10/28/23 06:56 Anion Gap 3 (3-11) 10/28/23 06:56 BUN 27 mg/dl (6-23) H 10/28/23 06:56 Creatinine 1.10 mg/dl (0.6-1.4) 10/28/23 06:56 Est Cr Clr Drug Dosing 78.5 ml/min 10/28/23 06:56 Est GFR ( Amer) 75.2 ml/min 10/28/23 06:56 Est GFR (Non-Af Amer) 64.9 ml/min 10/28/23 06:56 BUN/Creatinine Ratio 24.5 (10-20) H 10/28/23 06:56 Glucose 121 mg/dl (70-99(Fasting)) H 10/28/23 06:56 POC Glucose 110 mg/dl (70-99) H 10/29/23 10:59 Lactate 1.0 mmol/L (0.4-2.0) 10/19/23 14:14 Calcium 9.3 mg/dl (8.6-10.3) 10/28/23 06:56 Phosphorus 3.1 mg/dl (2.5-4.9) 10/21/23 08:25 Magnesium 1.7 mg/dl (1.7-2.4) 10/27/23 06:30 Total Bilirubin 0.7 mg/dl (0.2-1.0) 10/19/23 13:11 Direct Bilirubin 0.2 mg/dl (0-0.2) 10/19/23 13:11 AST 16 U/L (13-39) 10/19/23 13:11 ALT 14 U/L (7-52) 10/19/23 13:11 Alkaline Phosphatase 87 U/L (34-104) 10/19/23 13:11 Troponin I High Sens 14.5 pg/ml (0-20) 10/21/23 18:04 C-Reactive Protein 20.69 mg/dl (0-0.5) H 10/21/23 08:25 Total Protein 7.4 gm/dl (6.0-8.3) 10/19/23 13:11 Albumin 3.6 gm/dl (3.4-5.0) 10/19/23 13:11 Lipase 18 U/L (11-82) 10/19/23 13:11 Nasal Screen MRSA (PCR) Negative (Negative) 10/19/23 23:53 Stl C. diff Tox B Gene Negative Cdiff Gene (Neg) 10/23/23 19:20 Staphylococcus sp PCR DETECTED (NotDetected) A 10/19/23 15:06 Staph aureus (PCR) DETECTED (NotDetected) A 10/19/23 15:06 mecA/C & MREJ Resist Gene MRSA Not Detected (NotDetected) 10/19/23 15:06 Bld Cult ID Panel PCR See PCR Comment (NotDetected) 10/19/23 15:06 Impressions Foot X-Ray 10/21/23 00:00 INTRAOPERATIVE RADIOGRAPH CLINICAL HISTORY: Third toe amputation. Fluoro time: 2 seconds Ka,r: 0.05 mGy FINDINGS: A single spot fluoroscopic view of the left forefoot is correlated with radiographs dated 10/19/2023. There has been amputation of the third toe through the distal shaft of the metatarsal. Overlying soft tissue edema is observed with foci of soft tissue gas. IMPRESSION: Intraoperative image from a left third toe amputation procedure as above. Electronically signed by: Erick Tenorio M.D. 10/21/2023 11:45 AM
[2023-10-30 08:37] LABS: Hematocrit (blood only) 38.9 % (42.0-52.0); Hemoglobin 12.5 g/dl (14.0-18.0); Mean Corpuscular Hemoglobin 31.3 pg (25.0-34.0); Mean Corpuscular Hgb Conc 32.1 g/dL (32.0-36.0); Mean Corpuscular Volume 97.3 fL (80.0-100.0); Mean Platelet Volume 9.7 fL (9.4-12.4); Platelet Count 299 K/uL (130-400); RDW Coefficient of Variation 14.7 % (11.5-14.5); RDW Standard Deviation 52.1 fL (36.4-46.3); White Blood Count 5.67 K/ul (4.8-10.8)
[2023-10-30 08:56] LABS: BUN Creatinine Ratio 33.6 (10-20); Calcium 9.4 mg/dl (8.6-10.3); Est GFR (African American) 60.9 ml/min; Est GFR (Non-African American) 52.5 ml/min; Potassium 4.5 mmol/L (3.5-5.1)
--- NOTE | 2023-10-30 10:24 | Hospitalist Progress Note ---
Date of Service October 30, 2023 Assessment & Plan (1) Lower extremity edema: (2) Diabetic infection of left foot: (3) Vitamin D deficiency: (4) Dyslipidemia: (5) BPH with obstruction/lower urinary tract symptoms: (6) GERD without esophagitis: (7) Diabetic peripheral neuropathy associated with type 2 diabetes mellitus: (8) Atrial flutter: (9) Diabetes type 2, controlled: (10) Bacteremia: Plan 78 yo M with PMHx of DM II c/b diabetic neuropathy, HTN, AFlutter, HLD, EVON, GERD, BPH, presents to the hospital for the evaluation of left foot infection. #Left diabetic foot ulcer - pt followed by [facility] - left foot XR: soft tissue swelling about the 3rd digit with underlying osteopenia compatible with OM - Lower arterial study (07/16/23): no evidence of significant lower extremity arterial occlusive disease b/l -He is now day 9 status post left foot third toe amputation and debridement of left great toe nail and also debridement of left heel. -Wound VAC Was removed today, -Wound cultures also growing MSSA bacteria -Continue IV Cefazolin, end date 11/03 -Per infectious disease upon discharge patient will still need about 7 days of cefadroxil 500 mg twice daily till November 11, 2023 -Appreciate ID -Apixaban for prophylaxis # Bacteremia MSSA bacteremia Antibiotics changed to IV Ancef Pain infectious disease will need a minimum of 2 weeks of IV antibiotics (end date 11/03) and subsequently 7 days of cefadroxil 500 mg every 12 hours till November 11, 2023 #DM II - HA1c: 7.9 (08/15/23) - hold Metformin - cont lantus - ordered correctional scale - diabetic diet #NED - Much improved - hold HCTZ, lasix, lisinopril - gentle hydration , monitor for volume overload #AFib - CHADS2 Vasc: 4 - on eliquis -patient became bradycardic and was transferred to telemetry. -However repeat EKG Showed evidence of first-degree heart block and right bundle branch block -Continue metoprolol #HTN - hold lisinopril, HCTZ, Lasix #HLD - Resume statin #GERD - cont PPI #BPH - cont tamsulosin #Morbid Obesity BMI 40 #EVON - BMI: 35 - cont CPAP #Diarrhea: Most likely due to antibiotics C. difficile negative Lomotil as needed Diarrhea has improved Has been accepted at SNF, likely discharge today Admission and Anticipated Discharge Date Admission Date: October 19, 2023 Subjective Patient seen and examined, wound VAC was removed this morning Review of Systems Review of Systems: All systems reviewed are negative, apart from the ones contained in the history. Physical Exam Physical Exam: The patient is awake, alert and oriented 3, well developed and well nourished, normocephalic and atraumatic, lying in bed and in no acute distress. HEENT--PERRL, EOMI, mucous membranes and oropharynx mildly dry Neck--supple. No JVD. No bruits. Thyroid normal, trachea midline, no adenopathy. Heart--normal S1 and S2. No murmurs, rubs or gallops. Lungs--clear bilaterally, no respiratory distress, no accessory muscle use. Abdomen--normal bowel sounds and soft. Extremities--Left foot in bandage Dermatologic--normal skin turgor, normal color, no abnormal lymph nodes, no rash. Neurologic--cranial nerves II through XII grossly intact. Rheumatologic--normal range of motion. Psychiatric--normal affect. Results & Data Results & Data Vital Signs (Past 12 Hours) Vital Signs Temp Pulse Pulse Resp BP BP Pulse Ox 10/30/23 07:00 98.2 F 52 L 20 128/69 97 10/30/23 02:57 97.9 F 42 L 18 109/57 L 96 10/30/23 01:00 38 L 10/29/23 23:27 97.7 F 51 L 18 123/67 94 O2 Del Method 10/30/23 07:00 CPAP 10/30/23 02:57 CPAP 10/30/23 01:00 10/29/23 23:27 Room Air PG Care Time/CCT Total # of Minutes Spent Total Time Spent with Patient: Total time spent is greater than 50% in coordination of care (as documented) at patient's floor/unit and/or counseling patient: Coding Level of Care Code 55060 SUB INP/OBS CARE 2/35MIN Diagnoses Lower extremity edema R60.0 Diabetic infection of left foot E11.628; L08.9 Vitamin D deficiency E55.9 Dyslipidemia E78.5 BPH with obstruction/lower urinary tract symptoms N40.1; N13.8 GERD without esophagitis K21.9 Diabetic peripheral neuropathy associated with type 2 diabetes mellitus E11.42 Typical atrial flutter I48.3 Atrial flutter type: typical Controlled type 2 diabetes mellitus with diabetic neuropathy, with long-term current use of insulin E11.40; Z79.4 Diabetes mellitus complication detail: with unspecified neuropathy Diabetes mellitus complication status: with neurologic complications Diabetes mellitus keno terminal operator insulin use: with longterm use Bacteremia R78.81 Time Spent (min) 35 (8) Atrial flutter Atrial flutter type: typical Qualified Code(s): I48.3 - Typical atrial flutter (9) Diabetes type 2, controlled Diabetes mellitus complication detail: with unspecified neuropathy Diabetes mellitus complication status: with neurologic complications Diabetes mellitus keno terminal operator insulin use: with longterm use Qualified Code(s): E11.40 - Type 2 diabetes mellitus with diabetic neuropathy, unspecified; Z79.4 - retirement (current) use of insulin
--- NOTE | 2023-10-30 11:53 | Discharge Summary ---
Date of Service October 30, 2023 Admission HPI Per Admitting Provider 78 yo M with PMHx of DM II c/b diabetic neuropathy, HTN, AFlutter, HLD, EVON, GERD, BPH, presents to the hospital for the evaluation of left foot infection. Pt has been following with [facility] for his left heel wound. Per daughter, he was last seen by them about 2 weeks ago. He has weekly home health RN visits and last visit was on 10/15/23. Per pt, his legs were wrapped at that time with nylon socks over his foot covering his toes fully. At this time of evaluation, pt reports no wound was present. Yesterday, pt started complaining of toe pain prompting his daughters to remove the nylon stocking. At this time they noted foul odor, drainage, and foul appearing wound. This was cleansed by the daughter and this morning, the wound is not improving. Thus with persistence, they brought pt to the hospital. Daughter also noted that pt was complaining of chills and stiffness that improved with tylenol. Pt's daughter did note that pt is supposed to off-load but he is not fully complaint. Furthermore, he has not seen a advanced registered nurse for quite some time. He has no other complaints at this time. Principal Diagnosis Bacteremia, foot infection Discharge Exam The patient is awake, alert and oriented 3, well developed and well nourished, normocephalic and atraumatic, lying in bed and in no acute distress. HEENT--PERRL, EOMI, mucous membranes and oropharynx mildly dry Neck--supple. No JVD. No bruits. Thyroid normal, trachea midline, no adenopathy. Heart--normal S1 and S2. No murmurs, rubs or gallops. Lungs--clear bilaterally, no respiratory distress, no accessory muscle use. Abdomen--normal bowel sounds and soft. Extremities--Left foot in bandage Dermatologic--normal skin turgor, normal color, no abnormal lymph nodes, no rash. Neurologic--cranial nerves II through XII grossly intact. Rheumatologic--normal range of motion. Psychiatric--normal affect. Discharge Data Allergies Allergy/AdvReac Type Severity Reaction Status Date / Time Sulfa (Sulfonamide Allergy Severe Hives Unverified 08/19/23 11:05 Antibiotics) Bactrim Allergy Unknown HIVES Verified 06/19/17 10:28 bee venom protein (honey bee) Allergy Unknown ANAPHYLAXIS Verified 08/19/23 11:05 fluconazole Allergy Unknown rash with Verified 08/19/23 11:05 itching sulfamethoxazole Allergy Unknown HIVES Verified 08/19/23 11:05 trimethoprim Allergy Unknown HIVES Verified 08/19/23 11:05 Consultations 10/19/23 16:00 ED Decision to Admit Stat 10/19/23 18:04 Consult Infectious Diseases Routine Consult Orthopedic Surgery Routine 10/27/23 16:10 Consult Cardiology Routine Procedures Performed Operation Date: 10/21/23 07:05 Actual Procedures p Left Foot 3rd Toe Amputation, (Left) - Noah Merchant MD s Debridement of Left Great Toe nail, Debridement of Left Heel(Left) - Noah Merchant MD Ordered Studies 10/21/23 FL foot LT 2V Routine Hospital Course (1) Lower extremity edema: (2) Diabetic infection of left foot: (3) Vitamin D deficiency: (4) Dyslipidemia: (5) BPH with obstruction/lower urinary tract symptoms: (6) GERD without esophagitis: (7) Diabetic peripheral neuropathy associated with type 2 diabetes mellitus: (8) Atrial flutter: (9) Diabetes type 2, controlled: (10) Bacteremia: Plan 78 yo M with PMHx of DM II c/b diabetic neuropathy, HTN, AFlutter, HLD, EVON, GERD, BPH, presents to the hospital for the evaluation of left foot infection. #Left diabetic foot ulcer - pt followed by [facility] - left foot XR: soft tissue swelling about the 3rd digit with underlying osteopenia compatible with OM - Lower arterial study (07/16/23): no evidence of significant lower extremity arterial occlusive disease b/l -He is now day 9 status post left foot third toe amputation and debridement of left great toe nail and also debridement of left heel. -Wound VAC Was removed today, -Wound cultures also growing MSSA bacteria -Continue IV Cefazolin, end date 11/03 -Per infectious disease upon discharge patient will still need about 7 days of cefadroxil 500 mg twice daily till November 11, 2023 -Appreciate ID -Apixaban for prophylaxis # Bacteremia MSSA bacteremia Antibiotics changed to IV Ancef Pain infectious disease will need a minimum of 2 weeks of IV antibiotics (end date 11/03) and subsequently 7 days of cefadroxil 500 mg every 12 hours till November 11, 2023 #DM II - HA1c: 7.9 (08/15/23) - Will discontinue home metformin, patient says it gives him diarrhea -Will initiate 2 mg glimepiride daily - cont lantus - ordered correctional scale - diabetic diet #NED - Much improved - hold HCTZ, lasix, lisinopril - gentle hydration , monitor for volume overload #AFib - CHADS2 Vasc: 4 - on eliquis -patient became bradycardic and was transferred to telemetry. -However repeat EKG Showed evidence of first-degree heart block and right bundle branch block -Continue metoprolol #HTN - hold lisinopril, HCTZ, Lasix #HLD - Resume statin #GERD - cont PPI #BPH - cont tamsulosin #Morbid Obesity BMI 40 #EVON - BMI: 35 - cont CPAP #Diarrhea: Most likely due to antibiotics C. difficile negative Lomotil as needed Diarrhea has improved Has been accepted at SNF, likely discharge today Total Time Total Time Spent Total Time Spent (In Minutes): 35 Discharge Plan Discharge Items Patient Disposition: Transfer [facility] Reason For Visit: LEFT TOE INFECTION, FREQUENT PVCS Discharge Diagnosis: Bacteremia, toe infection Activity: Resume your previous activity Non-emergency contact: Primary Care Provider Call non-emergency contact if: you have any medication questions Follow-up/Referrals: Tank Munoz MD [Primary Care Provider] - Rafael Thorpe PA-C [Physician Critical Care Rn] - 11/06/23 2:00 pm Diet: Regular Addtl Attending Provider Instructions: follow up with orthopedics Addtl Marketing Finance Specialist Provider Instructions: Follow up with Rafael Thorpe 11/06/23 @ 2:00 Nonweightbearing on left lower extremity Per ID will need US guided IV placement. Will receive Ancef 2 grams IV q8 hrs until 11/03. Will also be discharged on oral Cefadroxil 500 mg BID until 11/10. PT/OT Pain control with p.o. medication Wound VAC dressing changes every other day DVT prophylaxis with Eliquis and MAR stockings Patient was met with case management to discuss discharge to either [facility] or in-patient rehab facility. He currently states that authorization is pending Patient will need to follow-up with [facility] orthopedics in 2 weeks. If he has questions or concerns should arise he will was recommended to call our clinic at [phone] DIABETES RECOMMENDATIONS: 1.) Do not hold Lantus dose if blood sugar level is below 120. Lantus dose should be adjusted overtime based on fasting blood sugar levels. If blood sugar level is below 120, recommend eat a small bedtime snack to help increase/s tabalize blood sugar levels overnight. 2.) Humalog is taken to cover both meal and blood sugar levels. Always take 6 units to cover normal meal (8 units to cover large/heavy meal) + extra for blood sugar levels above target. Hold Humalog dose when you skip a meal only. 3.) May benefit from switching Metformin to extended release version to help minimize an stomach upset/loose stools. 4.) Per Endocrinology recommendation, check into cost/coverage of GLP-1 medications: Trulicity, Ozempic, Mounjaro, Victoza. 5.) Aim to maintain blood sugar levels below 180 (ideally blood sugar levels below 150 before meals) to support healing. 6.) Notify provider of blood sugar levels frequently above/below target. 7.) Regular/balanced meals thru day; increase protein intake to support healing. Pending Studies at Discharge: No Stand-Alone Forms: My [facility] Skilled Items Patient informed of condition?: Yes DNR: No Discharge Level of Care: Skilled Communicable Disease: No Discharge Prognosis: Stable Lines: Peripheral IV Urinary Catheter: Yes Medications and DC Order Prescriptions: New glimepiride 2 mg tablet 2 mg PO DAILY Qty: 30 0RF cefazolin 2 gram recon soln 1 g IM Q8H 6 Days Qty: 25 0RF cefadroxil 500 mg capsule 500 mg PO BID 7 Days Qty: 14 0RF Rx Instructions: start on the 11/04 and end 11/10 Continued (DME) CPAP Machine Misc See Dose Instructions .ROUTE .MEDSUPPLY Qty: 1 0RF Dose Instruction: As directed Rx Instructions: ADJUST BIPAP TO IPAP 16 EPAP 11-JACY'S (DME) Contour Test Strips strip See Dose Instructions .ROUTE .MEDSUPPLY Qty: 400 3RF Dose Instruction: As directed Rx Instructions: Test 4 times daily (DME) CPAP Supplies Misc See Rx Instructions .ROUTE .MEDSUPPLY Qty: 1 0RF Rx Instructions: CPAP MASK OF CHOICE. CPAP SUPPLIES. CARE PLUS O2 (DME) Walking Cane [facility] See Rx Instructions .Route Qty: 1 0RF Rx Instructions: As directed mecobalamin (vitamin B12) 5,000 mcg tablet,chewable 5,000 mcg PO DAILY Qty: 30 5RF Patient Comments: 2 IN THE MORNING AND 2 AT NIGHT/5000 DAILY/PILLS TO SWALLOW apixaban 5 mg tablet 5 mg PO BID Qty: 180 3RF insulin lispro [Humalog KwikPen Insulin] 100 unit/mL insulin pen See Rx Instructions subcut TIDM MDD 30 uinits Qty: 30 3RF Rx Instructions: Inject subcutaneously three times daily with meal, according to sliding scale; (DME) FreeStyle Tamika 2 Sensor Kit See Rx Instructions .Route Qty: 6 3RF Rx Instructions: change Q14D hydrochlorothiazide 25 mg tablet 12.5 mg PO BID Qty: 60 2RF pantoprazole 40 mg tablet,delayed release (DR/EC) 40 mg PO QAM Qty: 90 3RF albuterol sulfate 90 mcg/actuation HFA aerosol inhaler 1 inh inhalation Q6H PRN (Reason: shortness of breath or wheezing) Qty: 8.5 3RF Patient Comments: HARDLY EVERY USE IT simvastatin 20 mg tablet 20 mg PO QAM Qty: 90 3RF furosemide 20 mg tablet 20 mg PO BID Qty: 180 1RF Rx Instructions: Take 20 mg by mouth twice daily. insulin glargine [Lantus Solostar U-100 Insulin] 100 unit/mL (3 mL) insulin pen 40 unit subcut .QHS Qty: 45 3RF (DME) insulin syringe-needle U-100 [BD Insulin Syringe Ultra-Fine] 1 mL 31 gauge x 5/16 syringe See Dose Instructions .ROUTE .MEDSUPPLY Qty: 10 Rx Instructions: USE FOR LANTUS AND HUMALOG UP TO 4 TIMES DAILY (DME) lancets [OneTouch UltraSoft Lancets] [facility] See Dose Instructions .ROUTE .MEDSUPPLY Qty: 50 Rx Instructions: TEST 4 TIMES DAILY AND PRN lisinopril 20 mg tablet 20 mg PO BID Qty: 180 3RF sildenafil 100 mg tablet 100 mg PO DAILY Qty: 6 6RF tamsulosin [Flomax] 0.4 mg capsule 0.4 mg PO DAILY Qty: 90 3RF cholecalciferol (vitamin D3) 25 mcg (1,000 unit) capsule 25 mcg PO QAM epinephrine [EpiPen 2-Golden] 0.3 mg/0.3 mL auto-injector 0.3 mg IM UD PRN (Reason: anaphylaxis) Rx Instructions: 0.3 mg IM as directed PRN Balance Of Nature 1 tab PO QAM tramadol 50 mg tablet 50 mg PO Q8 PRN (Reason: Pain) Discontinued metformin 1,000 mg tablet 500 mg PO BID Discharge Orders: Discharge Order (Routine); Ordered 10/30/23 Ordered By: Saad Gill Admission Data Admit Date/Time: 10/19/23 20:53 Attending Provider: Saad Gill Admit Provider: Hernán Barreto Primary Care Provider: Tank Munoz Other Providers: [facility],Home Healthcare; [facility]; Chen Hoyos; Noah Merchant; Blayne Toney; [place],[facility] Coding Level of Care Code 30344 INP/OBS DISCH >30 MIN Diagnoses Lower extremity edema R60.0 Diabetic infection of left foot E11.628; L08.9 Vitamin D deficiency E55.9 Dyslipidemia E78.5 BPH with obstruction/lower urinary tract symptoms N40.1; N13.8 GERD without esophagitis K21.9 Diabetic peripheral neuropathy associated with type 2 diabetes mellitus E11.42 Typical atrial flutter I48.3 Atrial flutter type: typical Controlled type 2 diabetes mellitus with diabetic neuropathy, with long-term current use of insulin E11.40; Z79.4 Diabetes mellitus buttermaker insulin use: with buttermaker use Diabetes mellitus complication status: with neurologic complications Diabetes mellitus complication detail: with unspecified neuropathy Bacteremia R78.81 Time Spent (min) 35
--- NOTE | 2023-10-30 15:18 | Orthopedic Progress Note ---
Date of Service October 30, 2023 Assessment & Plan (1) Amputated toe of left foot: Plan: Wound VAC removed. Earlier this morning. Erythema is absent. There is no purulence or drainage. The big toe looks fine. Swelling is much improved. Recommend continuation of the wound VAC. He will need to follow-up in the wound care clinic for such. I can see him back in the office 2-3-week status post surgery for wound check and possible suture removal. Patient should be seen in the diabetic foot clinic. May need offloading footwear if he does not already have this. At this time because of his heel wound I would recommend continued nonweightbearing and elevation. IV antibiotics per medicine/infectious diseases. Admission and Anticipated Discharge Date Admission Date: October 19, 2023
== END 2023-10-30 16:19 | DRG 617 ==
LOC: SUATTDRO → ED 12:28 → SUATTDRO 20:53 → EDINP 20:53 → 2S 21:57 → 2N 10-20 21:03 → 2S 10-25 06:06

== ENCOUNTER 2023-12-10 20:44 | Inpatient (IN) ==
--- NOTE | 2023-12-10 20:59 | Emergency Department Note ---
Impression & Plan Infection of left foot, Sepsis, Acute hypoxemic respiratory failure, Acute dehydration ED Provider Note NAME: BERHANE KHALIL AGE: 78 SEX: M : 1945 ARRIVES VIA: Ambulance INFORMANT: Patient, ED PROVIDER(S): Bartolo Mcgee MD CHIEF COMPLAINT: Confusion, vomiting MEDICAL DECISION MAKING: Patient presents due to concern for feet confusion vomiting and oxygen requirement. May be a potential concern for aspiration. Patient does have a prior history of MSSA bacteremia and a left foot infection. IV was established and blood work was obtained along with IV fluids and the patient was ordered empiric antibiotics daptomycin and Zosyn IV. Chest x-ray by my read shows concern for possible right upper lobe pneumonia. Patient's initial blood work with a normal white count hemoglobin 11.9 with a normal platelet count. The patient's kidney function with prerenal azotemia. Troponin 27.8 Pro-Melvin of 2.6. Urinalysis negative for blood or infection. Initial lactate of 1.8. BioFire is negative. Patient did appear to clinically improve status post treatment. I did speak with the on-call hospitalist service Dr. Marie and the patient was admitted to the medicine service. Critical Care: I have personally spent 45 minutes of critical care time in direct management of this patient. This includes bedside care, interpretation of diagnostic studies, and testing, discussion with consultants, patient, and family members, and other require inpatient management activities. This 45 minutes is in excess of all separately billable procedures. Discussion w/ other healthcare providers: None Prior /Outside records reviewed: I reviewed a discharge summary from Dr. Singer ago. Known history of type 2 diabetes diabetic neuropathy hypertension atrial flutter HLD EVON GERD BPH who presented for left foot infection. Patient was admitted that time due to concern for bacteremia and foot infection. Patient did have a left diabetic foot ulcer noted. No evidence of significant arterial occlusive disease bilaterally. Lower arterial Dopplers. Patient was on IV Ancef. Patient did have diagnosis of MSSA bacteremia. NED A-fib on Eliquis. Differential diagnosis: Viral syndrome, otitis, pharyngitis, pneumonia, influenza, meningitis, urinary tract infection, sepsis, bacteremia, as well as other pathologies. Diagnostics, as interpreted by me: ECG: Normal sinus rhythm, rate of 90, wide QRS, right bundle branch block pattern, left axis deviation no obvious ST elevations T wave flattening inferiorly with associated Q waves. Cardiac monitoring: An order was placed for continuous cardiac monitoring. The monitor shows a rate of 92 with sinus rhythm. Patient was placed on pulse oximetry Medical decision rules: None Imaging studies: I informally interpreted the patient's chest x-ray with possible right upper lobe pneumonia with formal report to follow. HPI: Patient presents from his care facility due to concern for vomiting and altered mental status. No reported falls but was noted to be febrile. They did give antiemetics and route. Patient is arousable to voice oriented only to person at this time he does follow basic commands. Patient denies any chest back or abdominal pain. Patient is requiring supplemental oxygen via nasal cannula but does not appear to be in respiratory distress. History is limited secondary to clinical condition and acuity. PAST MEDICAL HISTORY: See Below PAST SURGICAL HISTORY: See Below SOCIAL HISTORY: See Below HOME MEDICATIONS: See Below ALLERGIES: See Below VITALS: See Below PHYSICAL EXAMINATION: GENERAL: Ill in appearance, nasal cannula in place. EYE EXAM: Normal conjunctiva. PERRL, no anisocoria and EOM's grossly intact w/o pain. OROPHARYNX: Dry mucus membranes, grossly normal dentition. NECK: Trachea midline, no stridor. LUNGS: Clear to auscultation. Normal chest wall mechanics. HEART: NSR, no MRG. ABDOMEN: Abdomen soft, non-tender, no masses, no rebound or guarding. BACK: No CVA TTP. SKIN: No rashes and no bruising. UPPER EXTREMITIES: Upper extremities are grossly normal. LOWER EXTREMITIES: Left foot with associated erythema missing the third phalanx with open wound not overtly purulent no crepitus. Warmth noted to the left foot. NEURO EXAM: GCS 14 opens eyes to voice, follows basic commands, oriented to person cranial nerves II-XII grossly intact, normal speech, moves all 4 extremities. Past Med/Surg History Problem List (Updated 12/11/23 @ 17:01 by Bartolo Mcgee MD) Acute dehydration (Acute) Acute hypoxemic respiratory failure (Acute) Sepsis (Acute) Infection of left foot (Acute) BPH (benign prostatic hyperplasia) Hyperlipidemia Amputated toe of left foot Bradycardia Bacteremia NED (acute kidney injury) (Acute) Acute osteomyelitis of toe (Acute) Diabetic infection of left foot Encounter for pre-operative examination Fracture of proximal end of fibula Acute UTI (Acute) Fracture of left fibula (Acute) Fall (Acute) Foot ulcer, left Lower extremity edema Diabetes type 2, controlled Anemia Atrial flutter BMI 45.0-49.9, adult Loss of protective sensation of skin of foot Obstructive sleep apnea, adult Venous stasis Vitamin D deficiency BPH with obstruction/lower urinary tract symptoms Dyslipidemia GERD without esophagitis Diabetic peripheral neuropathy associated with type 2 diabetes mellitus Medical History On anticoagulant therapy History of COVID-19 2020- no hosp; resolved Lymphedema Arthritis Diabetes diabetic sensor Sleep apnea CPAP Afib asymptomatic; eliquis daily Personal history of diabetic foot ulcer NO CURRENT Hypertension Osteoarthritis Surgical History History of right cataract surgery History of colonoscopy H/O umbilical hernia repair (~10/2006) Hx of total knee arthroplasty right TKA 11/2001 Dr. Garcia, left TKA 2006; revision July, H/O carpal tunnel repair Family History Brother Prostate cancer Diabetes Coronary heart disease Abdominal aortic aneurysm Alzheimer disease Stroke Family history of colonic polyps Father Heart disease Myocardial infarction Family/Other Hypertension Denies family history of Rheumatoid arthritis Sudden SIDS (sudden infant syndrome) Ovarian cancer Deep vein thrombosis Osteoporosis Dyslipidemia Cerebral aneurysm Bipolar disorder Clotting disorder Crohn's disease Dementia Depression Kidney disease Osteoarthritis Breast cancer Schizophrenia Congenital kidney disease Gestational diabetes Lung cancer COPD (chronic obstructive pulmonary disease) Colorectal cancer Pulmonary embolism Lung disease Ulcerative colitis Colonic polyp Asthma Cystic kidney disease Social History Smoking Status: Never smoker Second Hand Exposure: No; Do You Dip or Chew Tobacco: No; Hx Alcohol Use: No Hx Substance Use: No Preferred Language: Wolof Communication Ability: Effective Visual Impairment: No Limitations Hearing Ability: Normal Lens Polisher Required: No Beliefs That Will Affect Care: None marital status: / Current Living Situation: Alone Current Living Situation Comment: [facility] current occupational status: retired current occupation: he used to work at [employer] How many Children do You have: 2 Feels Safe at Home: Yes Childhood Exposure to Second-Hand Smoke: No Diet: regular caffeine: Yes during the past year weight has: remained stable Dental Care, Regularly: Yes Physical Activity Frequency: 3-4 Times per Week Seatbelt Use: sometimes Sunscreen Use: No Assistive Devices: Oxygen - Continuous Allergies Allergies Allergy/AdvReac Type Severity Reaction Status Date / Time Sulfa (Sulfonamide Allergy Severe Hives Unverified 12/11/23 03:06 Antibiotics) Bactrim Allergy Unknown HIVES Verified 06/19/17 10:28 bee venom protein (honey bee) Allergy Unknown ANAPHYLAXIS Verified 12/11/23 03:06 fluconazole Allergy Unknown rash with Verified 12/11/23 03:06 itching sulfamethoxazole Allergy Unknown HIVES Verified 12/11/23 03:06 trimethoprim Allergy Unknown HIVES Verified 12/11/23 03:06 Home Meds Home Medications Medication Instructions Recorded Confirmed Vitamin B-12 5000 Mcg Chewable 10,000 mcg PO [facility] 12/11/23 12/11/23 acetaminophen 325 mg tablet 650 mg PO Q6 PRN Fever Or Pain 12/11/23 12/11/23 (Tylenol) albuterol sulfate 90 mcg/actuation 1 inh inhalation Q6 PRN Shortness 12/11/23 12/11/23 aerosol inhaler Of Breath Or Wheezing apixaban 5 mg tablet (Eliquis) 5 mg PO [facility] 12/11/23 12/11/23 cholecalciferol (vitamin D3) 25 25 mcg PO DAILY 12/11/23 12/11/23 mcg (1,000 unit) tablet (Vitamin D3) epinephrine 0.3 mg/0.3 mL 0.3 mg IM DIRECTED PRN 12/11/23 12/11/23 injection, auto-injector Anaphylaxis furosemide 20 mg tablet 20 mg PO BID 12/11/23 12/11/23 glimepiride 2 mg tablet 2 mg PO QAM 12/11/23 12/11/23 hydrochlorothiazide 25 mg tablet 12.5 mg PO [facility] 12/11/23 12/11/23 insulin glargine 100 unit/mL (3 40 unit subcut HS 12/11/23 12/11/23 mL) subcutaneous pen (Lantus Solostar U-100 Insulin) insulin lispro 100 unit/mL 0 unit subcut ACHS 12/11/23 12/11/23 subcutaneous pen (Humalog KwikPen (U-100) Insulin) lisinopril 20 mg tablet 20 mg PO [facility] 12/11/23 12/11/23 multivitamin 1 tab PO DAILY 12/11/23 12/11/23 pantoprazole 40 mg tablet,delayed 40 mg PO DAILY 12/11/23 12/11/23 release promethazine 25 mg/mL injection 12.5 mg IM Q6H PRN Nausea 12/11/23 12/11/23 solution (Phenergan) simvastatin 20 mg tablet 20 mg PO HS 12/11/23 12/11/23 tamsulosin 0.4 mg capsule 0.4 mg PO QPM 12/11/23 12/11/23 tramadol 50 mg tablet 50 mg PO Q8 PRN .Pain 5-10 12/11/23 12/11/23 Results & Data (ED) Vital Signs Vital Signs - 24 hr 12/10/23 20:52 12/10/23 20:56 12/10/23 21:09 Temperature 39.6 C H Temperature Source Oral Pulse Rate Pulse Rate [Apical] 102 H Pulse Rate from SpO2 Sensor Respiratory Rate 36 H Blood Pressure Blood Pressure [Right Arm] 114/89 Blood Pressure Mean Blood Pressure Mean [Right Arm] 97 Pulse Oximetry 93 94 Oxygen Delivery Method Nasal Cannula Room Air Oxygen Flow Rate 2 Sepsis Recent Fever Within 48 Hours Yes Sepsis New/Unexplained Change in Mental Status Yes Sepsis Action Taken by Nursing No Action Required 12/10/23 21:31 12/10/23 21:33 12/10/23 21:57 Temperature Temperature Source Pulse Rate 102 H 104 H 100 H Pulse Rate [Apical] Pulse Rate from SpO2 Sensor 104 H Respiratory Rate 38 H 25 H Blood Pressure 130/66 Blood Pressure [Right Arm] Blood Pressure Mean 87 Blood Pressure Mean [Right Arm] Pulse Oximetry 94 94 Oxygen Delivery Method Nasal Cannula Nasal Cannula Oxygen Flow Rate 2 2 Sepsis Recent Fever Within 48 Hours Sepsis New/Unexplained Change in Mental Status Sepsis Action Taken by Nursing 12/10/23 22:00 12/10/23 22:30 12/10/23 22:33 Temperature 37.9 C H Temperature Source Oral Pulse Rate 101 H 94 H Pulse Rate [Apical] Pulse Rate from SpO2 Sensor 104 H 95 H Respiratory Rate 25 H 23 Blood Pressure Blood Pressure [Right Arm] Blood Pressure Mean Blood Pressure Mean [Right Arm] Pulse Oximetry 91 96 Oxygen Delivery Method Nasal Cannula Nasal Cannula Oxygen Flow Rate 2 3 Sepsis Recent Fever Within 48 Hours Sepsis New/Unexplained Change in Mental Status Sepsis Action Taken by Nursing 12/10/23 23:00 Temperature Temperature Source Pulse Rate 90 Pulse Rate [Apical] Pulse Rate from SpO2 Sensor 91 H Respiratory Rate 25 H Blood Pressure 115/50 L Blood Pressure [Right Arm] Blood Pressure Mean 71 Blood Pressure Mean [Right Arm] Pulse Oximetry 95 Oxygen Delivery Method Nasal Cannula Oxygen Flow Rate 3 Sepsis Recent Fever Within 48 Hours Sepsis New/Unexplained Change in Mental Status Sepsis Action Taken by Alf Medications Current Medication List: was personally reviewed by me Laboratory Data Attestation: I reviewed the patient's lab results. 12/10/23 21:03 12/11/23 05:45 Lab Results 12/10/23 12/10/23 12/10/23 Range/Units 21:03 21:14 21:43 WBC 7.53 (4.8-10.8) K/ul RBC 3.75 L (4.70-6.10) M/uL Hgb 11.9 L (14.0-18.0) g/dl POC Hgb 11.9 L (14.0-18.0) g/dl Hct 35.6 L (42.0-52.0) % POC Hct 35 L (42-52) % MCV 94.9 (80.0-100.0) fL MCH 31.7 (25.0-34.0) pg MCHC 33.4 (32.0-36.0) g/dL RDW Std Deviation 52.5 H (36.4-46.3) fL RDW Coeff of David 15.1 H (11.5-14.5) % Plt Count 158 (130-400) K/uL MPV 10.5 (9.4-12.4) fL Immature Gran % (Auto) 0.4 % Neut % (Auto) 92.0 % Lymph % (Auto) 3.3 % Worth % (Auto) 3.9 % Eos % (Auto) 0.3 % Baso % (Auto) 0.1 % Neut # (Auto) 6.93 H (1.40-6.50) K/uL Lymph # (Auto) 0.25 L (1.20-3.40) K/uL Worth # (Auto) 0.29 (0.11-0.59) K/uL Eos # (Auto) 0.02 (0.00-0.50) K/uL Baso # (Auto) 0.01 (0.00-0.20) K/uL Immature Gran # (Auto) 0.03 (0.01-0.20) K/uL POC Sodium 138 (135-144) mmol/L Sodium 137 (136-145) mmol/L POC Potassium 4.0 (3.3-5.0) mmol/L Potassium 3.6 (3.5-5.1) mmol/L POC Chloride 98 L (101-112) mmol/L Chloride 101 (98-107) mmol/L Carbon Dioxide 27 (21-32) mmol/L POC Total CO2 26 (24-31) mmol/L Anion Gap 9 (3-11) POC Anion Gap 19.0 (16-25) mmol/L POC BUN 41 H (7-18) mg/dl BUN 38 H (6-23) mg/dl Creatinine 1.20 (0.6-1.4) mg/dl POC Creatinine 1.2 (0.6-1.3) mg/dl Est Cr Clr Drug Dosing 84.7 ml/min Est GFR ( Amer) 67.7 ml/min Est GFR (Non-Af Amer) 58.4 ml/min BUN/Creatinine Ratio 31.7 H (10-20) Glucose 213 H (70-99(Fasting)) mg/dl POC Glucose (other) 210 H (70-99) mg/dl Lactate 1.8 (0.4-2.0) mmol/L Calcium 8.7 (8.6-10.3) mg/dl POC Ioniz Calcium Willis 1.09 L (1.12-1.32) mmol/l Magnesium 1.1 L (1.7-2.4) mg/dl Total Bilirubin 0.5 (0.2-1.0) mg/dl Direct Bilirubin 0.1 (0-0.2) mg/dl AST 16 (13-39) U/L ALT 14 (7-52) U/L Alkaline Phosphatase 85 (34-104) U/L Troponin I High Sens 27.8 H (0-20) pg/ml Total Protein 6.8 (6.0-8.3) gm/dl Albumin 3.7 (3.4-5.0) gm/dl Globulin 3.1 (2.5-4.0) gm/dl Albumin/Globulin Ratio 1.2 (0.9-2) Procalcitonin 2.60 H (0-0.5) ng/ml Urine Color Yellow Urine Appearance Clear (Clear) Urine pH 5.0 (4.5-7.5) Ur Specific Boaz 1.015 (1.000-1.030) Urine Protein Negative (Negative) Urine Glucose (UA) Negative (Negative) Urine Ketones Negative (Negative) Urine Blood Negative (Negative) Urine Nitrite Negative (Negative) Urine Bilirubin Negative (Negative) Urine Urobilinogen Negative (Negative) Ur Leukocyte Esterase Negative (Negative) Adenovirus (PCR) (NotDetected) B. pertussis DNA (PCR) (NotDetected) B.parapertussis DNA PCR (NotDetected) C. pneumoniae DNA (PCR) (NotDetected) Coronavirus OC43 (PCR) (NotDetected) Coronavirus HKU1 (PCR) (NotDetected) Coronavirus 229E (PCR) (NotDetected) SARS-CoV-2 (PCR) (NotDetected) Coronavirus NL63 (PCR) (NotDetected) Human Metapneumovir PCR (NotDetected) Influenza Type A (PCR) (NotDetected) Influenza Type B (PCR) (NotDetected) M. pneumoniae (PCR) (NotDetected) Parainfluenza 1 (PCR) (NotDetected) Parainfluenza 2 (PCR) (NotDetected) Parainfluenza 3 (PCR) (NotDetected) Parainfluenza 4 (PCR) (NotDetected) RSV (PCR) (NotDetected) Entero/Rhino (PCR) (NotDetected) Streptococcus sp PCR DETECTED A (NotDetected) Bld Cult ID Panel PCR See PCR Comment (NotDetected) 12/10/23 12/10/23 Range/Units 22:17 22:58 WBC (4.8-10.8) K/ul RBC (4.70-6.10) M/uL Hgb (14.0-18.0) g/dl POC Hgb (14.0-18.0) g/dl Hct (42.0-52.0) % POC Hct (42-52) % MCV (80.0-100.0) fL MCH (25.0-34.0) pg MCHC (32.0-36.0) g/dL RDW Std Deviation (36.4-46.3) fL RDW Coeff of David (11.5-14.5) % Plt Count (130-400) K/uL MPV (9.4-12.4) fL Immature Gran % (Auto) % Neut % (Auto) % Lymph % (Auto) % Worth % (Auto) % Eos % (Auto) % Baso % (Auto) % Neut # (Auto) (1.40-6.50) K/uL Lymph # (Auto) (1.20-3.40) K/uL Worth # (Auto) (0.11-0.59) K/uL Eos # (Auto) (0.00-0.50) K/uL Baso # (Auto) (0.00-0.20) K/uL Immature Gran # (Auto) (0.01-0.20) K/uL POC Sodium (135-144) mmol/L Sodium (136-145) mmol/L POC Potassium (3.3-5.0) mmol/L Potassium (3.5-5.1) mmol/L POC Chloride (101-112) mmol/L Chloride (98-107) mmol/L Carbon Dioxide (21-32) mmol/L POC Total CO2 (24-31) mmol/L Anion Gap (3-11) POC Anion Gap (16-25) mmol/L POC BUN (7-18) mg/dl BUN (6-23) mg/dl Creatinine (0.6-1.4) mg/dl POC Creatinine (0.6-1.3) mg/dl Est Cr Clr Drug Dosing ml/min Est GFR ( Amer) ml/min Est GFR (Non-Af Amer) ml/min BUN/Creatinine Ratio (10-20) Glucose (70-99(Fasting)) mg/dl POC Glucose (other) (70-99) mg/dl Lactate 2.3 H* (0.4-2.0) mmol/L Calcium (8.6-10.3) mg/dl POC Ioniz Calcium Willis (1.12-1.32) mmol/l Magnesium (1.7-2.4) mg/dl Total Bilirubin (0.2-1.0) mg/dl Direct Bilirubin (0-0.2) mg/dl AST (13-39) U/L ALT (7-52) U/L Alkaline Phosphatase (34-104) U/L Troponin I High Sens 49.6 H D (0-20) pg/ml Total Protein (6.0-8.3) gm/dl Albumin (3.4-5.0) gm/dl Globulin (2.5-4.0) gm/dl Albumin/Globulin Ratio (0.9-2) Procalcitonin (0-0.5) ng/ml Urine Color Urine Appearance (Clear) Urine pH (4.5-7.5) Ur Specific Boaz (1.000-1.030) Urine Protein (Negative) Urine Glucose (UA) (Negative) Urine Ketones (Negative) Urine Blood (Negative) Urine Nitrite (Negative) Urine Bilirubin (Negative) Urine Urobilinogen (Negative) Ur Leukocyte Esterase (Negative) Adenovirus (PCR) Not Detected (NotDetected) B. pertussis DNA (PCR) Not Detected (NotDetected) B.parapertussis DNA PCR Not Detected (NotDetected) C. pneumoniae DNA (PCR) Not Detected (NotDetected) Coronavirus OC43 (PCR) Not Detected (NotDetected) Coronavirus HKU1 (PCR) Not Detected (NotDetected) Coronavirus 229E (PCR) Not Detected (NotDetected) SARS-CoV-2 (PCR) Not Detected (NotDetected) Coronavirus NL63 (PCR) Not Detected (NotDetected) Human Metapneumovir PCR Not Detected (NotDetected) Influenza Type A (PCR) Not Detected (NotDetected) Influenza Type B (PCR) Not Detected (NotDetected) M. pneumoniae (PCR) Not Detected (NotDetected) Parainfluenza 1 (PCR) Not Detected (NotDetected) Parainfluenza 2 (PCR) Not Detected (NotDetected) Parainfluenza 3 (PCR) Not Detected (NotDetected) Parainfluenza 4 (PCR) Not Detected (NotDetected) RSV (PCR) Not Detected (NotDetected) Entero/Rhino (PCR) Not Detected (NotDetected) Streptococcus sp PCR (NotDetected) Bld Cult ID Panel PCR (NotDetected) Administered Medications Acetaminophen (Acetaminophen 325 Mg Tab) 650 mg PO Q4H PRN PRN Reason: Pain or Fever Stop: 01/09/24 23:15 Last Admin: 12/11/23 11:02 Dose: 650 mg Documented By: BLANCO Apixaban (Apixaban 5 Mg Tablet) 5 mg PO Q12H [facility] Stop: 01/10/24 09:59 Last Admin: 12/11/23 10:39 Dose: 5 mg Documented By: BLANCO Furosemide (Furosemide 20 Mg Tab) 20 mg PO BID17 [facility] Stop: 01/10/24 09:59 Last Admin: 12/11/23 10:39 Dose: 20 mg Documented By: BLANCO Hydrochlorothiazide (Hydrochlorothiazide 25 Mg Tab) 12.5 mg PO BID [facility] Stop: 01/10/24 09:59 Last Admin: 12/11/23 10:38 Dose: 12.5 mg Documented By: BLANCO Daptomycin 675 mg/ Syringe 13.5 mls @ 6.75 mls/min IV Q24H [facility]; Protocol Stop: 12/12/23 21:14 Last Admin: 12/10/23 22:04 Dose: 6.75 mls/min Documented By: JOHN Insulin Aspart (Insulin Aspart Per Unit Charge) 0 units SC Q6 [facility] Stop: 01/10/24 00:00 Last Admin: 12/11/23 13:44 Dose: Not Given Documented By: Admin: 12/11/23 06:16 Dose: Not Given Documented By: Admin: 12/11/23 00:39 Dose: Not Given Documented By: JOHN Lisinopril (Lisinopril 20 Mg Tab) 20 mg PO BID [facility] Stop: 01/10/24 09:59 Last Admin: 12/11/23 10:39 Dose: 20 mg Documented By: BLANCO Pantoprazole Sodium (Pantoprazole 40 Mg Tab) 40 mg PO [facility] Stop: 01/10/24 10:14 Last Admin: 12/11/23 10:39 Dose: 40 mg Documented By: BLANCO Simvastatin (Sim[facility]atin 20 Mg Tab) [facility] Stop: 01/10/24 10:14 Last Admin: 12/11/23 10:39 Dose: 20 mg Documented By: BLANCO Tamsulosin HCl (Tamsulosin Hcl 0.4 Mg Cap) 0.4 mg PO DAILY [facility] Stop: 01/10/24 10:14 Last Admin: 12/11/23 10:39 Dose: 0.4 mg Documented By: BLANCO Vitamin D (Cholecalciferol 25 Mcg (1000 Units) Tab) 25 mcg PO QAM [facility] Stop: 01/10/24 09:59 Last Admin: 12/11/23 10:39 Dose: 25 mcg Documented By: BLANCO Discontinued Medications Sodium Chloride (Nss) 1,000 mls @ 999 mls/hr IV .Q1H1M [facility] Stop: 12/10/23 22:15 Last Infusion: 12/10/23 23:01 Dose: Infused Documented By: Admin: 12/10/23 21:31 Dose: 999 mls/hr Documented By: JOHN Acetaminophen (Ofirmev) 1,000 mg in 100 mls @ 400 mls/hr IV NOW STA Stop: 12/10/23 21:25 Last Infusion: 12/10/23 21:50 Dose: Infused Documented By: Admin: 12/10/23 21:32 Dose: 400 mls/hr Documented By: JOHN Piperacillin Sod/Tazobactam Sod (Zosyn) 4.5 gm in 100 mls @ 200 mls/hr IV NOW ONE Stop: 12/10/23 21:43 Last Infusion: 12/10/23 22:39 Dose: Infused Documented By: Admin: 12/10/23 21:55 Dose: 200 mls/hr Documented By: JOHN Magnesium Sulfate/Dextrose (Magnesium Sulfate / D5w) 1 gm in 100 mls @ 50 mls/hr IV Q2H [facility] Stop: 12/11/23 02:59 Last Infusion: 12/11/23 03:44 Dose: Infused Documented By: Admin: 12/11/23 01:46 Dose: 50 mls/hr Documented By: Infusion: 12/11/23 01:46 Dose: Infused Documented By: Admin: 12/11/23 00:24 Dose: 50 mls/hr Documented By: JOHN Lactated Ringer's (Lr) 1,000 mls @ 125 mls/hr IV .Q8H [facility] Stop: 12/11/23 07:58 Last Infusion: 12/11/23 08:22 Dose: Infused Documented By: Admin: 12/11/23 00:21 Dose: 125 mls/hr Documented By: [facility] Imaging Data Radiologist's Impression: Chest X-Ray 12/10/23 21:11 XR chest 1V portable CLINICAL HISTORY: Sepsis. COMPARISON STUDY: Chest radiograph January 16, 2023. FINDINGS: Thoracic spine scoliosis is again noted. Cardiomegaly is unchanged. Pulmonary vascular congestion is similar to prior exam. There is no consolidation to suggest pneumonia. There is no pneumothorax or pleural effusion. The appearance of the chest is unchanged. IMPRESSION: No significant change in appearance of the chest. Cardiomegaly with pulmonary vascular congestion. ACT 112: Negative or not required by law. Electronically signed by: Jalil Lombardi M.D. 12/11/2023 7:04 AM Foot X-Ray 12/10/23 23:11 XR foot LT 2V CLINICAL HISTORY: Left diabetic foot ulcer. COMPARISON: Left foot radiographs October 19, 2023. MRI of the left foot April 30, 2020. FINDINGS: Left third digit transmetatarsal amputation is noted. Expected postoperative findings are present. No bony erosion within the left foot is identified to suggest osteomyelitis. There are no acute fracture. There is moderate mid foot osteophytosis. Moderate osteoarthritis within the interphalangeal joint of the great toe is also present. Posterior and plantar spurring is noted. Left foot soft tissue swelling. IMPRESSION: 1. No radiographic evidence for acute osteomyelitis within the left foot. 2. Expected findings following left third digit transmetatarsal amputation. 3. Left foot soft tissue swelling. ACT 112: Negative or not required by law. Electronically signed by: Jalil Lombardi M.D. 12/11/2023 6:53 AM Discharge Plan Visit Data Chief Complaint: Altered Mental Status Stated Complaint: SOB, VOMITTING ED Provider: Bartolo Mcgee Discharge Problem: Infection of left foot, Sepsis, Acute hypoxemic respiratory failure, Acute dehydration Patient Disposition: Admitted As Inpatient Discharge Instructions Interventions: ED Discharge Assessment Last Done: 12/11/23 07:00 Discharge Problem: Sepsis Qualifiers: Sepsis type: sepsis due to unspecified organism Sepsis acute organ dysfunction status: with acute organ dysfunction Severe sepsis acute organ dysfunction type: acute respiratory failure
[2023-12-10 21:30] LABS: iSTAT Creatinine 1.2 mg/dl (0.6-1.3); iSTAT Hemoglobin 11.9 g/dl (14.0-18.0); iSTAT Ionized Calcium 1.09 mmol/l (1.12-1.32)
[2023-12-10] MEDS: SODIUM CHLORIDE 0.9% 1,000 ML IV SCH (21:31)
[2023-12-10] MEDS: ACETAMINOPHEN 1,000 MG/100 ML VIAL IV STA (21:32)
[2023-12-10 21:51] LABS: Hematocrit (blood only) 35.6 % (42.0-52.0); Hemoglobin 11.9 g/dl (14.0-18.0); Mean Corpuscular Hemoglobin 31.7 pg (25.0-34.0); Mean Corpuscular Hgb Conc 33.4 g/dL (32.0-36.0); Mean Corpuscular Volume 94.9 fL (80.0-100.0); Mean Platelet Volume 10.5 fL (9.4-12.4); Platelet Count 158 K/uL (130-400); RDW Coefficient of Variation 15.1 % (11.5-14.5); RDW Standard Deviation 52.5 fL (36.4-46.3); Red Blood Count 3.75 M/uL (4.70-6.10); White Blood Count 7.53 K/ul (4.8-10.8)
[2023-12-10] MEDS: PIPERACILLIN/TAZOBACTAM 4.5 GM/100 ML BAG IV ONE (21:55)
[2023-12-10] MEDS: DAPTOmycin 675 MG in SYRINGE 0 ML IV SCH (22:04)
[2023-12-10 22:09] LABS: Albumin Globulin Ratio 1.2 (0.9-2); Albumin Level 3.7 gm/dl (3.4-5.0); BUN Creatinine Ratio 31.7 (10-20); Bilirubin Direct 0.1 mg/dl (0-0.2); Bilirubin,Total 0.5 mg/dl (0.2-1.0); Calcium 8.7 mg/dl (8.6-10.3); Creatinine Clr Calc Pharmacy 84.7 ml/min; Est GFR (African American) 67.7 ml/min; Est GFR (Non-African American) 58.4 ml/min; Globulin 3.1 gm/dl (2.5-4.0); Magnesium 1.1 mg/dl (1.7-2.4); Potassium 3.6 mmol/L (3.5-5.1); Total Protein 6.8 gm/dl (6.0-8.3)
[2023-12-10 22:11] LABS: Appearance Urine Clear (Clear); Bilirubin Urine Negative (Negative); Blood Urine Negative (Negative); Color Urine Yellow; Glucose Urine UA Negative (Negative); Ketones Urine Negative (Negative); Leukocyte Esterase Urine Negative (Negative); Nitrite Urine Negative (Negative); Protein Urine Negative (Negative); Specific Gravity Urine 1.015 (1.000-1.030); Urobilinogen Urine Negative (Negative)
[2023-12-10 22:14] LABS: Troponin I High Sensitivity 27.8 pg/ml (0-20)
[2023-12-10 22:16] LABS: Basophils # (auto) 0.01 K/uL (0.00-0.20); Basophils % (auto) 0.1 %; Eosinophils # (auto) 0.02 K/uL (0.00-0.50); Eosinophils % (auto) 0.3 %; Immature Granulocytes # (auto) 0.03 K/uL (0.01-0.20); Immature Granulocytes % (auto) 0.4 %; Lymphocytes # (auto) 0.25 K/uL (1.20-3.40); Lymphocytes % (auto) 3.3 %; Monocytes # (auto) 0.29 K/uL (0.11-0.59); Monocytes % (auto) 3.9 %; Neutrophils # (auto) 6.93 K/uL (1.40-6.50)
[2023-12-10 23:13] LABS: Adenovirus PCR Not Detected (NotDetected); Bordetella parapertussis PCR Not Detected (NotDetected); Bordetella pertussis PCR Not Detected (NotDetected); Chlamydia pneumoniae PCR Not Detected (NotDetected); Coronavirus 229E PCR Not Detected (NotDetected); Coronavirus CoV-2 (COVID19)PCR Not Detected (NotDetected); Coronavirus HKU1 PCR Not Detected (NotDetected); Coronavirus NL63 PCR Not Detected (NotDetected); Coronavirus OC43PCR Not Detected (NotDetected); Human Metapneumovirus PCR Not Detected (NotDetected); Influenza A PCR Not Detected (NotDetected); Influenza B PCR Not Detected (NotDetected); Mycoplasma pneumoniae PCR Not Detected (NotDetected); Parainfluenza Virus 1 PCR Not Detected (NotDetected); Parainfluenza Virus 2 PCR Not Detected (NotDetected); Parainfluenza Virus 3 PCR Not Detected (NotDetected); Parainfluenza Virus 4 PCR Not Detected (NotDetected); Respiratory Syncytial VirusPCR Not Detected (NotDetected); Rhinovirus/Enterovirus PCR Not Detected (NotDetected)
[2023-12-10] MEDS ORDERED: GLUCAGON FOR INJ 1 MG VIAL SQ PRN (23:16)
[2023-12-10] MEDS ORDERED: DEXTROSE 50% 50 ML SYRINGE IV PRN (23:16)
[2023-12-10] MEDS ORDERED: GLUCOSE 40% GEL 15 GM TUBE PO PRN (23:16)
[2023-12-10] MEDS ORDERED: GLUCOSE 10 TAB/TUBE PO PRN (23:16)
[2023-12-10] MEDS ORDERED: ONDANSETRON INJ 2 MG/ML 2 ML VIAL IV PRN (23:16)
[2023-12-10] MEDS ORDERED: CARBOHYDRATES FOR HYPOGLYCEMIA PO PRN (23:16)
--- NOTE | 2023-12-10 23:25 | History & Physical Report ---
Date of Service December 10, 2023 Assessment & Plan (1) Amputated toe of left foot: (2) Foot ulcer, left: (3) Diabetes type 2, controlled: (4) Atrial flutter: (5) Obstructive sleep apnea, adult: (6) Dyslipidemia: (7) GERD without esophagitis: (8) Hypertension: (9) Hyperlipidemia: (10) BPH (benign prostatic hyperplasia): Plan 78 yo M with PMHx of DM II c/b diabetic neuropathy, HTN, AFlutter, HLD, EVON, GERD, BPH, presents to the hospital due to altered mental status found with SIRS+ SIRS+ Altered Mental Status - In the setting of recent bacteremia MSSA and CXR finding of pneumonia - Patient was recently teated for left foot ulcer infected - No leukocytosis, + fever, +tachycardia, + tachypnea, lactate 2.3, Procal 2.60 - Low concern of foot being the source of infection - Patient did have a episode of vomit with concern of aspiration - S/P NSS bolus - MRSA nares ordered. - Blood cultures pending - Continue Daptomycin, Iv Zosyn Pneumonia - No leukocytosis, SIRS+ - Concern of aspiration pneumonia - CXR: patchy infiltrates in Right upper and middle lobe - Continue IV Zosyn - NPO for now due to altered mental status Left heal ulcer s/p left third amputation - Low concern of being infected - XRAY foot ordered - Wound culture ordered Hypomagnesemia: Ma.1 Replaced 2 gm IV Follow Mag AM Elevated troponin - 27.8 - Repeat pending - No chest pain DM2 - HA1c: 7.9 (08/15/23) - Home 2 mg glimepiride daily hold - cont lantus 40 sq - ordered correctional scale AFib - CHADS2 Vasc: 4 - on Eliquis - Does not required rate control medication as per Cardiology note HTN - Continue lisinopril, HCTZ, Lasix HLD - Continue statin GERD - cont PPI BPH - cont tamsulosin Morbid Obesity BMI 40 EVON - BMI: 35 - cont CPAP DVT prophylaxis: Continue Eliquis Dipo: PCU NPO until mentation improve History of Present Illness Primary Care Provider: Tank Munoz MD Greg is a 78 old male with PMH of PMHx of DM II c/b diabetic neuropathy, HTN, AFlutter, HLD, EVON, GERD, BPH, presents to the hospital for the evaluation of left foot infection. He was recently admitted due to infected left foot ulcer requiring amputation found with bacteremia ASHVIN. He was discharge to rehab with IV Ancef (end date: 11/03) and subsequently 7 days of cefadroxil, (end date ). Last day of rehab was tomorrow. As per family in the room, patient had been receiving wound care and he did finish his abx course. Today in the afternoon patient was found very confused, feeling weak. He did had an episode of vomit and small choke event. On evaluation patient was found in NAD, awake, alert, oriented only to placed and person not time. Family at bedside. He denied any chest pain, SOB, palpitation, cough, abdominal pain, nausea or diarrhea. No sick contacts. ED Course: Patient found with tachycardia, fever and increase RR. Lab remarkable for WBC of 6.6, Hgb 11.9, lactate 2.4, Procal 2.60, Mag 1.1. IV Daptomycin, IV Zosyn started on ED. IV Bolus NSS. Troponin 27.8 Allergies Allergy/AdvReac Type Severity Reaction Status Date / Time Sulfa (Sulfonamide Allergy Severe Hives Unverified 12/11/23 03:06 Antibiotics) Bactrim Allergy Unknown HIVES Verified 06/19/17 10:28 bee venom protein (honey bee) Allergy Unknown ANAPHYLAXIS Verified 12/11/23 03:06 fluconazole Allergy Unknown rash with Verified 12/11/23 03:06 itching sulfamethoxazole Allergy Unknown HIVES Verified 12/11/23 03:06 trimethoprim Allergy Unknown HIVES Verified 12/11/23 03:06 Home Medications Medication Instructions Recorded Confirmed Type Vitamin B-12 5000 Mcg Chewable 10,000 mcg PO AMHS 12/11/23 12/11/23 History acetaminophen 325 mg tablet 650 mg PO Q6 PRN Fever Or Pain 12/11/23 12/11/23 History (Tylenol) albuterol sulfate 90 mcg/actuation 1 inh inhalation Q6 PRN Shortness 12/11/23 12/11/23 History aerosol inhaler Of Breath Or Wheezing apixaban 5 mg tablet (Eliquis) 5 mg PO AMHS 12/11/23 12/11/23 History cholecalciferol (vitamin D3) 25 25 mcg PO DAILY 12/11/23 12/11/23 History mcg (1,000 unit) tablet (Vitamin D3) epinephrine 0.3 mg/0.3 mL 0.3 mg IM DIRECTED PRN 12/11/23 12/11/23 History injection, auto-injector Anaphylaxis furosemide 20 mg tablet 20 mg PO BID 12/11/23 12/11/23 History glimepiride 2 mg tablet 2 mg PO QAM 12/11/23 12/11/23 History hydrochlorothiazide 25 mg tablet 12.5 mg PO AMHS 12/11/23 12/11/23 History insulin glargine 100 unit/mL (3 40 unit subcut HS 12/11/23 12/11/23 History mL) subcutaneous pen (Lantus Solostar U-100 Insulin) insulin lispro 100 unit/mL 0 unit subcut [facility] 12/11/23 12/11/23 History subcutaneous pen (Humalog KwikPen (U-100) Insulin) lisinopril 20 mg tablet 20 mg PO [facility] 12/11/23 12/11/23 History multivitamin 1 tab PO DAILY 12/11/23 12/11/23 History pantoprazole 40 mg tablet,delayed 40 mg PO DAILY 12/11/23 12/11/23 History release promethazine 25 mg/mL injection 12.5 mg IM Q6H PRN Nausea 12/11/23 12/11/23 History solution (Phenergan) simvastatin 20 mg tablet 20 mg PO HS 12/11/23 12/11/23 History tamsulosin 0.4 mg capsule 0.4 mg PO QPM 12/11/23 12/11/23 History tramadol 50 mg tablet 50 mg PO Q8 PRN .Pain 5-10 12/11/23 12/11/23 History Past Med/Surg History Problem List BPH (benign prostatic hyperplasia) Hyperlipidemia Amputated toe of left foot Bradycardia Bacteremia NED (acute kidney injury) (Acute) Acute osteomyelitis of toe (Acute) Diabetic infection of left foot Encounter for pre-operative examination Fracture of proximal end of fibula Acute UTI (Acute) Fracture of left fibula (Acute) Fall (Acute) Foot ulcer, left Lower extremity edema Diabetes type 2, controlled Anemia Atrial flutter BMI 45.0-49.9, adult Loss of protective sensation of skin of foot Obstructive sleep apnea, adult Venous stasis Vitamin D deficiency BPH with obstruction/lower urinary tract symptoms Dyslipidemia GERD without esophagitis Diabetic peripheral neuropathy associated with type 2 diabetes mellitus Medical History On anticoagulant therapy History of COVID-19 2020- no hosp; resolved Lymphedema Arthritis Diabetes diabetic sensor Sleep apnea CPAP Afib asymptomatic; eliquis daily Personal history of diabetic foot ulcer NO CURRENT Hypertension Osteoarthritis Surgical History History of right cataract surgery History of colonoscopy H/O umbilical hernia repair (~10/2006) Hx of total knee arthroplasty right TKA 11/2001 Dr. Garcia, left TKA 2006; revision July, H/O carpal tunnel repair Family History Brother Prostate cancer Diabetes Coronary heart disease Abdominal aortic aneurysm Alzheimer disease Stroke Family history of colonic polyps Father Heart disease Myocardial infarction Family/Other Hypertension Denies family history of Rheumatoid arthritis Sudden SIDS (sudden infant syndrome) Ovarian cancer Deep vein thrombosis Osteoporosis Dyslipidemia Cerebral aneurysm Bipolar disorder Clotting disorder Crohn's disease Dementia Depression Kidney disease Osteoarthritis Breast cancer Schizophrenia Congenital kidney disease Gestational diabetes Lung cancer COPD (chronic obstructive pulmonary disease) Colorectal cancer Pulmonary embolism Lung disease Ulcerative colitis Colonic polyp Asthma Cystic kidney disease Social History Smoking Status: Never smoker Second Hand Exposure: No; Do You Dip or Chew Tobacco: No; Hx Alcohol Use: No Hx Substance Use: No Preferred Language: Swedish Communication Ability: Effective Visual Impairment: No Limitations Hearing Ability: Normal [employer] Driver Required: No Beliefs That Will Affect Care: None marital status: / Current Living Situation: Rehab Current Living Situation Comment: [facility] current occupational status: retired current occupation: he used to work at [employer] How many Children do You have: 2 Other Information That Helps Us Care for You: No Feels Safe at Home: Yes Safety Concerns: Feels Safe At This Time Childhood Exposure to Second-Hand Smoke: No Diet: regular caffeine: Yes during the past year weight has: remained stable Dental Care, Regularly: Yes Physical Activity Frequency: 3-4 Times per Week Seatbelt Use: sometimes Sunscreen Use: No Assistive Devices: Glasses and Wheelchair Review of Systems Review of Systems: as per hpi Physical Exam Constitutional: well developed, + obese and + altered mental status; no acute distress Eyes: PERRL, conjunctivae normal, anicteric sclerae Respiratory: normal respiratory effort; no respiratory distress and does not use accessory muscles Auscultation: + rhonchi (upper left lobe ) Cardiovascular: RRR, no murmur, no edema Skin: Granulation tissue in left heal. No erythema, post surgical changes at side of third finger amputation Results & Data Results & Data Vital Signs (Past 12 Hours) Vital Signs Temp Pulse Pulse Resp BP BP Pulse Ox 12/10/23 22:33 94 H 23 96 12/10/23 22:30 37.9 C H 12/10/23 22:00 101 H 25 H 91 12/10/23 21:57 100 H 25 H 94 12/10/23 21:33 104 H 38 H 130/66 94 12/10/23 21:31 102 H 12/10/23 21:09 94 12/10/23 20:52 39.6 C H 102 H 36 H 114/89 93 O2 Del Method O2 Flow Rate 12/10/23 22:33 Nasal Cannula 3 12/10/23 22:30 12/10/23 22:00 Nasal Cannula 2 12/10/23 21:57 Nasal Cannula 2 12/10/23 21:33 Nasal Cannula 2 12/10/23 21:31 12/10/23 21:09 Room Air 12/10/23 20:52 Nasal Cannula 2 Laboratory Results Laboratory Results WBC 7.53 K/ul (4.8-10.8) 12/10/23 21:03 RBC 3.75 M/uL (4.70-6.10) L 12/10/23 21:03 Hgb 11.9 g/dl (14.0-18.0) L 12/10/23 21:03 POC Hgb 11.9 g/dl (14.0-18.0) L 12/10/23 21:14 Hct 35.6 % (42.0-52.0) L 12/10/23 21:03 POC Hct 35 % (42-52) L 12/10/23 21:14 MCV 94.9 fL (80.0-100.0) 12/10/23 21:03 MCH 31.7 pg (25.0-34.0) 12/10/23 21:03 MCHC 33.4 g/dL (32.0-36.0) 12/10/23 21:03 RDW Std Deviation 52.5 fL (36.4-46.3) H 12/10/23 21:03 RDW Coeff of David 15.1 % (11.5-14.5) H 12/10/23 21:03 Plt Count 158 K/uL (130-400) 12/10/23 21:03 MPV 10.5 fL (9.4-12.4) 12/10/23 21:03 Immature Gran % (Auto) 0.4 % 12/10/23 21:03 Neut % (Auto) 92.0 % 12/10/23 21:03 Lymph % (Auto) 3.3 % 12/10/23 21:03 [place] % (Auto) 3.9 % 12/10/23 21:03 Eos % (Auto) 0.3 % 12/10/23 21:03 Baso % (Auto) 0.1 % 12/10/23 21:03 Neut # (Auto) 6.93 K/uL (1.40-6.50) H 12/10/23 21:03 Lymph # (Auto) 0.25 K/uL (1.20-3.40) L 12/10/23 21:03 [place] # (Auto) 0.29 K/uL (0.11-0.59) 12/10/23 21:03 Eos # (Auto) 0.02 K/uL (0.00-0.50) 12/10/23 21:03 Baso # (Auto) 0.01 K/uL (0.00-0.20) 12/10/23 21:03 Immature Gran # (Auto) 0.03 K/uL (0.01-0.20) 12/10/23 21:03 POC Sodium 138 mmol/L (135-144) 12/10/23 21:14 Sodium 137 mmol/L (136-145) 12/10/23 21:03 POC Potassium 4.0 mmol/L (3.3-5.0) 12/10/23 21:14 Potassium 3.6 mmol/L (3.5-5.1) 12/10/23 21:03 POC Chloride 98 mmol/L (101-112) L 12/10/23 21:14 Chloride 101 mmol/L (98-107) 12/10/23 21:03 Carbon Dioxide 27 mmol/L (21-32) 12/10/23 21:03 POC Total CO2 26 mmol/L (24-31) 12/10/23 21:14 Anion Gap 9 (3-11) 12/10/23 21:03 POC Anion Gap 19.0 mmol/L (16-25) 12/10/23 21:14 POC BUN 41 mg/dl (7-18) H 12/10/23 21:14 BUN 38 mg/dl (6-23) H 12/10/23 21:03 Creatinine 1.20 mg/dl (0.6-1.4) 12/10/23 21:03 POC Creatinine 1.2 mg/dl (0.6-1.3) 12/10/23 21:14 Est Cr Clr Drug Dosing 84.7 ml/min 12/10/23 21:03 Est GFR ( Amer) 67.7 ml/min 12/10/23 21:03 Est GFR (Non-Af Amer) 58.4 ml/min 12/10/23 21:03 BUN/Creatinine Ratio 31.7 (10-20) H 12/10/23 21:03 Glucose 213 mg/dl (70-99(Fasting)) H 12/10/23 21:03 POC Glucose 116 mg/dl (70-99) H 12/11/23 00:34 POC Glucose (other) 210 mg/dl (70-99) H 12/10/23 21:14 Lactate 2.3 mmol/L (0.4-2.0) H* 12/11/23 01:06 Calcium 8.7 mg/dl (8.6-10.3) 12/10/23 21:03 POC Ioniz Calcium Willis 1.09 mmol/l (1.12-1.32) L 12/10/23 21:14 Magnesium 1.1 mg/dl (1.7-2.4) L 12/10/23 21:03 Total Bilirubin 0.5 mg/dl (0.2-1.0) 12/10/23 21:03 Direct Bilirubin 0.1 mg/dl (0-0.2) 12/10/23 21:03 AST 16 U/L (13-39) 12/10/23 21:03 ALT 14 U/L (7-52) 12/10/23 21:03 Alkaline Phosphatase 85 U/L (34-104) 12/10/23 21:03 Troponin I High Sens 49.6 pg/ml (0-20) H D 12/10/23 22:58 Total Protein 6.8 gm/dl (6.0-8.3) 12/10/23 21:03 Albumin 3.7 gm/dl (3.4-5.0) 12/10/23 21:03 Globulin 3.1 gm/dl (2.5-4.0) 12/10/23 21:03 Albumin/Globulin Ratio 1.2 (0.9-2) 12/10/23 21:03 Procalcitonin 2.60 ng/ml (0-0.5) H 12/10/23 21:03 Urine Color Yellow 12/10/23 21:43 Urine Appearance Clear (Clear) 12/10/23 21:43 Urine pH 5.0 (4.5-7.5) 12/10/23 21:43 Ur Specific Mccrory 1.015 (1.000-1.030) 12/10/23 21:43 Urine Protein Negative (Negative) 12/10/23 21:43 Urine Glucose (UA) Negative (Negative) 12/10/23 21:43 Urine Ketones Negative (Negative) 12/10/23 21:43 Urine Blood Negative (Negative) 12/10/23 21:43 Urine Nitrite Negative (Negative) 12/10/23 21:43 Urine Bilirubin Negative (Negative) 12/10/23 21:43 Urine Urobilinogen Negative (Negative) 12/10/23 21:43 Ur Leukocyte Esterase Negative (Negative) 12/10/23 21:43 Adenovirus (PCR) Not Detected (NotDetected) 12/10/23 22:17 B. pertussis DNA (PCR) Not Detected (NotDetected) 12/10/23 22:17 B.parapertussis DNA PCR Not Detected (NotDetected) 12/10/23 22:17 C. pneumoniae DNA (PCR) Not Detected (NotDetected) 12/10/23 22:17 Coronavirus OC43 (PCR) Not Detected (NotDetected) 12/10/23 22:17 Coronavirus HKU1 (PCR) Not Detected (NotDetected) 12/10/23 22:17 Coronavirus 229E (PCR) Not Detected (NotDetected) 12/10/23 22:17 SARS-CoV-2 (PCR) Not Detected (NotDetected) 12/10/23 22:17 Coronavirus NL63 (PCR) Not Detected (NotDetected) 12/10/23 22:17 Human Metapneumovir PCR Not Detected (NotDetected) 12/10/23 22:17 Influenza Type A (PCR) Not Detected (NotDetected) 12/10/23 22:17 Influenza Type B (PCR) Not Detected (NotDetected) 12/10/23 22:17 M. pneumoniae (PCR) Not Detected (NotDetected) 12/10/23 22:17 Parainfluenza 1 (PCR) Not Detected (NotDetected) 12/10/23 22:17 Parainfluenza 2 (PCR) Not Detected (NotDetected) 12/10/23 22:17 Parainfluenza 3 (PCR) Not Detected (NotDetected) 12/10/23 22:17 Parainfluenza 4 (PCR) Not Detected (NotDetected) 12/10/23 22:17 RSV (PCR) Not Detected (NotDetected) 12/10/23 22:17 Entero/Rhino (PCR) Not Detected (NotDetected) 12/10/23 22:17 Code Status & VTE Plan VTE Prophylaxis Plan VTE Prophylaxis will be ordered: Yes Supervising Physician Co-Signing Physician Notes Patient seen and examined, chart reviewed, case discussed with Dr. Suzanna Beebe and I agree with the assessment and plan as above Resident Activity Tracking Resident Involvement: Resident Care Provided Care Provided: Adult Hospital Medicine (2) Foot ulcer, left Non-pressure ulcer stage: with fat layer exposed Qualified Code(s): L97.522 - Non-pressure chronic ulcer of other part of left foot with fat layer exposed (3) Diabetes type 2, controlled Diabetes mellitus complication detail: with unspecified neuropathy Diabetes mellitus complication status: with neurologic complications Diabetes mellitus rodent exterminator insulin use: with rodent exterminator use Qualified Code(s): E11.40 - Type 2 diabetes mellitus with diabetic neuropathy, unspecified; Z79.4 - halfway (current) use of insulin (4) Atrial flutter Atrial flutter type: typical Qualified Code(s): I48.3 - Typical atrial flu tter (8) Hypertension Hypertension type: primary hypertension Qualified Code(s): I10 - Essential (primary) hypertension
[2023-12-11] MEDS: LACTATED RINGER'S 1,000 ML IV SCH (00:21)
[2023-12-11] MEDS: MAGNESIUM SULFATE / D5W 1 GM/100 ML BAG IV SCH (00:24)
[2023-12-11] MEDS: INSULIN ASPART PER UNIT CHARGE SC SCH (00:39)
--- NOTE | 2023-12-11 05:33 | Billing Data ---
Date of Service December 10, 2023 Coding Level of Care Code 29685 INT INP/OBS CARE
--- NOTE | 2023-12-11 06:55 | XRay Report ---
XR foot LT 2V CLINICAL HISTORY: Left diabetic foot ulcer. COMPARISON: Left foot radiographs October 19, 2023. MRI of the left foot April 30, 2020. FINDINGS: Left third digit transmetatarsal amputation is noted. Expected postoperative findings are present. No bony erosion within the left foot is identified to suggest osteomyelitis. There are no ac table mountain fracture. There is moderate mid foot osteophytosis. Moderate osteoarthritis within the interphala ngeal joint of the great toe is also present. Posterior and plantar spurring is noted. Left foot soft tissue swelling. IMPRESSION: 1. No radiographic evidence for acute osteomyelitis within the left foot. 2. Expected findings following left third digit transmetatarsal amputation. 3. Left foot soft tissue swelling. ACT 112: Negative or not required by law. Electronically signed by: Jalil Lombardi M.D. 12/11/2023 6:53 AM
--- NOTE | 2023-12-11 07:05 | XRay Report ---
XR chest 1V portable CLINICAL HISTORY: Sepsis. COMPARISON STUDY: Chest radiograph January 16, 2023. FINDINGS: Thoracic spine scoliosis is again noted. Cardiomegaly is unchanged. Pulmonary vascular carlitos estion is similar to prior exam. There is no consolidation to suggest pneumonia. There is no pneumoth orax or pleural effusion. The appearance of the chest is unchanged. IMPRESSION: No significant change in appearance of the chest. Cardiomegaly with pulmonary vascular co ngestion. ACT 112: Negative or not required by law. Electronically signed by: Jlail Lombardi M.D. 12/11/2023 7:04 AM
[2023-12-11 07:10] LABS: Estimated Average Glucose 174 mg/dl; Hemoglobin A1C 7.7 % (4.5-5.6)
[2023-12-11 07:11] LABS: BUN Creatinine Ratio 28.2 (10-20); Calcium 8.5 mg/dl (8.6-10.3); Creatinine Clr Calc Pharmacy 68.2 ml/min; Est GFR (African American) 52.1 ml/min; Est GFR (Non-African American) 44.9 ml/min; Magnesium 1.5 mg/dl (1.7-2.4); Potassium 3.8 mmol/L (3.5-5.1)
[2023-12-11 08:26] LABS: A calco-baum cmplx NotReported Not Detected (NotDetected); Bact fragilis Not Reported Not Detected (NotDetected); Blood Culture Id Panel See PCR Comment (NotDetected); C auris Not Reported Not Detected (NotDetected); Calbicans Not Reported Not Detected (NotDetected); Candida glabrata Not Reported Not Detected (NotDetected); Candida krusei Not Reported Not Detected (NotDetected); Cneoformans/gatti Not Reported Not Detected (NotDetected); Cparapsilosis Not Reported Not Detected (NotDetected); E cloacae compx Not Reported Not Detected (NotDetected); Efaecalis Not Reported Not Detected (NotDetected); Efaecium Not Reported Not Detected (NotDetected); Enterobacterales Not Reported Not Detected (NotDetected); Escherichia coli Not Reported Not Detected (NotDetected); H influenzae Not Reported Not Detected (NotDetected); K aerogenes Not Reported Not Detected (NotDetected); Koxytoca Not Reported Not Detected (NotDetected); Kpneumoniae grp Not Reported Not Detected (NotDetected); Lmonocyt Not Reported Not Detected (NotDetected); N meningitidis Not Reported Not Detected (NotDetected); P aeruginosa Not Reported Not Detected (NotDetected); Proteus spp Not Reported Not Detected (NotDetected); Salmonella spp Not Reported Not Detected (NotDetected); Staph lugdunensis Not Reported Not Detected (NotDetected); Staph spp. Not Reported Not Detected (NotDetected); Staphaureus Not Reported Not Detected (NotDetected); Staphepi Not Reported Not Detected (NotDetected); Stenmaltophilia Not Reported Not Detected (NotDetected); Strep agal(GrpB) Not Reported Not Detected (NotDetected); Strep pneum Not Reported Not Detected (NotDetected); Strep pyog (GrpA) Not Reported Not Detected (NotDetected); Strep spp Not Reported DETECTED (NotDetected)
--- NOTE | 2023-12-11 08:43 | Hospitalist Progress Note ---
Date of Service December 11, 2023 Assessment & Plan (1) SIRS (systemic inflammatory response syndrome): Plan: SIRS+ presented from office with chills, possible rigors and nausea Metabolic encephalopathy poa - In the setting of recent bacteremia MSSA concern for pneumonia, - CXR: patchy infiltrates in Right upper and middle lobe also recently teated for left foot ulcer infected, currently Low concern of foot being the source of infection - Daptomycin and Zosyn, blood culture shows gram positive wound possible strep, keep zosyn given hardware and skin changes Left heal ulcer poa 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 - XRAY foot without osteo on plain films - Wound culture ordered CT foot for osteo doppler leg for dvt (2) Diabetes type 2, controlled: Plan: HA1c: 7.9 (08/15/23) - Home 2 mg glimepiride daily hold - cont lantus 40 sq - ordered correctional scale (3) Atrial flutter: Plan: CHADS2 Vasc: 4 - on Eliquis - Does not required rate control medication as per Cardiology note elevated troponin likley demand ischemia from illness typically takes lasix, lisinopril/ hctz (4) BPH (benign prostatic hyperplasia): Plan: continue tamsulosin no LUTS (5) Obstructive sleep apnea, adult: Plan GERD - cont PPI Morbid Obesity BMI 40 EVON - BMI: 35 - cont CPAP DVT prophylaxis: Continue Eliquis Admission and Anticipated Discharge Date Admission Date: December 10, 2023 Subjective pt is pleasantly confused, some drainage from his left 3rd toe space open wound redness and swelling to left leg skin redness most consistent with stasis dermatitis Physical Exam Physical Exam: pt is alert and oriented x2 cardiac is regular lungs clear left leg swelling, redness and drainage to previous toe space Results & Data Results & Data Vital Signs (Past 12 Hours) Vital Signs Temp Pulse Pulse Resp BP BP Pulse Ox 12/11/23 08:06 92 H 20 97 12/11/23 08:02 118/67 12/11/23 08:02 118/67 12/11/23 08:00 83 16 97 12/11/23 07:57 90 15 97 12/11/23 07:22 87 12/11/23 07:00 84 20 100 12/11/23 06:12 89 21 97 12/11/23 05:24 83 26 H 97 12/11/23 05:00 111/59 L 12/11/23 04:54 79 34 H 97 12/11/23 04:00 92/55 L 12/11/23 04:00 92/55 L 12/11/23 04:00 92/55 L 12/11/23 04:00 89 28 H 95 12/11/23 03:00 100/52 L 12/11/23 03:00 90 25 H 85 L 12/11/23 02:35 12/11/23 02:15 83 21 96 12/11/23 02:10 98/54 L 12/11/23 02:10 98/54 L 12/11/23 02:03 84 28 H 96 12/11/23 02:00 98.5 F 12/11/23 02:00 84 22 96 12/11/23 02:00 92/49 L 12/11/23 02:00 92/49 L 12/11/23 01:03 84 23 96 12/11/23 01:00 92/55 L 12/11/23 00:54 85 22 95 12/10/23 23:00 90 25 H 115/50 L 95 12/10/23 22:33 94 H 23 96 12/10/23 22:30 100.3 F H 12/10/23 22:00 101 H 25 H 91 12/10/23 21:57 100 H 25 H 94 12/10/23 21:33 104 H 38 H 130/66 94 12/10/23 21:31 102 H 12/10/23 21:09 94 12/10/23 20:52 103.3 F H 102 H 36 H 114/89 93 O2 Del Method O2 Flow Rate 12/11/23 08:06 2 12/11/23 08:02 12/11/23 08:02 12/11/23 08:00 Nasal Cannula 2 12/11/23 07:57 12/11/23 07:22 12/11/23 07:00 2 12/11/23 06:12 12/11/23 05:24 12/11/23 05:00 12/11/23 04:54 12/11/23 04:00 12/11/23 04:00 12/11/23 04:00 12/11/23 04:00 12/11/23 03:00 12/11/23 03:00 12/11/23 02:35 Nasal Cannula 3 12/11/23 02:15 12/11/23 02:10 12/11/23 02:10 12/11/23 02:03 12/11/23 02:00 12/11/23 02:00 12/11/23 02:00 12/11/23 02:00 12/11/23 01:03 12/11/23 01:00 12/11/23 00:54 12/10/23 23:00 Nasal Cannula 3 12/10/23 22:33 Nasal Cannula 3 12/10/23 22:30 12/10/23 22:00 Nasal Cannula 2 12/10/23 21:57 Nasal Cannula 2 12/10/23 21:33 Nasal Cannula 2 12/10/23 21:31 12/10/23 21:09 Room Air 12/10/23 20:52 Nasal Cannula 2 Laboratory Results review cbc review chemistry ordered CT foot us left leg PG Care Time/CCT Total # of Minutes Spent Total Time Spent with Patient: Total time spent is greater than 50% in coordination of care (as documented) at patient's floor/unit and/or counseling patient: Coding Level of Care Code 31862 SUB INP/OBS CARE 3/50MIN Diagnoses SIRS (systemic inflammatory response syndrome) R65.10 Controlled type 2 diabetes mellitus with diabetic neuropathy, with long-term current use of insulin E11.40; Z79.4 Diabetes mellitus complication detail: with unspecified neuropathy Diabetes mellitus complication status: with neurologic complications Diabetes mellitus mcfp insulin use: with mcfp use Typical atrial flutter I48.3 Atrial flutter type: typical BPH (benign prostatic hyperplasia) N40.0 Obstructive sleep apnea, adult G47.33 (2) Diabetes type 2, controlled Diabetes mellitus complication detail: with unspecified neuropathy Diabetes mellitus complication status: with neurologic complications 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
[2023-12-11 08:50] LABS: Streptococcus spp DETECTED (NotDetected)
[2023-12-11] MEDS: hydroCHLOROthiazide 25 MG TAB PO SCH (10:38)
[2023-12-11] MEDS: FUROSEMIDE 20 MG TAB PO SCH (10:39)
[2023-12-11] MEDS: PANTOprazole 40 MG TAB PO SCH (10:39)
[2023-12-11] MEDS: lisinopril 20 MG TAB PO SCH (10:39)
[2023-12-11] MEDS: TAMSULOSIN HCL 0.4 MG CAP PO SCH (10:39)
[2023-12-11] MEDS: CHOLECALCIFEROL 25 MCG (1000 UNITS) TAB PO SCH (10:39)
[2023-12-11] MEDS: APIXABAN 5 MG TABLET PO SCH (10:39)
[2023-12-11] MEDS: SIMVASTATIN 20 MG TAB PO SCH (10:39)
[2023-12-11] MEDS: ACETAMINOPHEN 325 MG TAB PO PRN (11:02)
[2023-12-11] MEDS: PIPERACILLIN/TAZOBACTAM 4.5 GM/100 ML BAG IV ONE (20:08)
[2023-12-11] MEDS: OPTIRAY 320 125ml IV ONE (20:32)
[2023-12-11] MEDS: LANTUS PER UNIT CHARGE SQ SCH (20:59)
--- NOTE | 2023-12-11 22:15 | CT Scan Report ---
Exam(s): CTA EXTREMITY LEFT LOWER W/WO Contrast IV Amt: 117 ml optiray 120 EXAM: CT of the Left Lower Extremity Without and With Intravenous Contrast CLINICAL HISTORY: Reason for exam: eval osteo 3rd MT. TECHNIQUE: Axial computed tomographic images of the left ankle and foot without and with intravenous contrast. CTDI is 75 mGy and DLP is 583 mGy-cm. Automated exposure control was utilized for the study. A dose lowering technique was utilized adhering to the principles of ALARA. CONTRAST: Patient received 117 ml optiray 120 of IV contrast COMPARISON: No relevant prior studies available. FINDINGS: No evidence of soft tissue abscess. No soft tissue air. Bones/joints: Severe degenerative arthritic changes seen at the left ankle. There is evidence of amputation of the third toe and distal third of the third metatarsal. No acute fracture. No dislocation. IMPRESSION: 1. No definite evidence of osteomyelitis 2. Status post amputation of the third toe and distal one third of the third metatarsal Electronically signed by: Stan López MD 12/11/23 22:14 PM
--- NOTE | 2023-12-11 23:21 | Ultrasound Report ---
ULTRASOUND LEFT LOWER EXTREMITY VENOUS CLINICAL HISTORY: Left leg infection. Pain and swelling. COMPARISON STUDY: Bilateral lower extremity venous ultrasound dated 06/26/2014. TECHNIQUE: Real-time, grayscale, and color Doppler sonography of the deep veins of the left lower ext remity was performed from the inguinal crease to the calf. Compression and augmentation were utilized . FINDINGS: There is no sonographic evidence of deep venous thrombosis identified in the left lower ext remity. The common femoral, superficial femoral, and popliteal veins are patent and normally compress ible. The greater saphenous vein and the profunda femoris vein at the junction with the common femora l vein are clear. The visualized calf veins are patent. Enlarged left inguinal lymph nodes are likely reactive. The largest measures up to 5.6 cm. Soft tissue edema is seen in the left calf. IMPRESSION: 1. There is no sonographic evidence of deep venous thrombosis identified in the left lower extremity. 2. Enlarged left inguinal lymph nodes are nonspecific and likely reactive. Correlate clinically. ACT 112: Negative or not required by law. Electronically signed by: Erick Tenorio M.D. 12/11/2023 11:19 PM
[2023-12-12] MEDS: PIPERACILLIN/TAZOBACTAM 4.5 GM/100 ML BAG IV SCH (01:10)
[2023-12-12] MEDS: LACTATED RINGER'S 500 ML IV ONE ×2 (01:29→03:26)
[2023-12-12] MEDS: LACTATED RINGER'S 1,000 ML IV SCH (03:54)
[2023-12-12] MEDS: ALBUMIN 5% 250 ML IV ONE (03:55)
[2023-12-12 07:02] LABS: Mean Corpuscular Hemoglobin 31.5 pg (25.0-34.0); Mean Corpuscular Hgb Conc 32.4 g/dL (32.0-36.0); Mean Corpuscular Volume 97.4 fL (80.0-100.0); Mean Platelet Volume 10.4 fL (9.4-12.4); Platelet Count 130 K/uL (130-400); RDW Coefficient of Variation 16.3 % (11.5-14.5); RDW Standard Deviation 58.4 fL (36.4-46.3); Red Blood Count 3.49 M/uL (4.70-6.10); White Blood Count 7.93 K/ul (4.8-10.8)
[2023-12-12 07:22] LABS: BUN Creatinine Ratio 25.4 (10-20); C Reactive Protein 28.69 mg/dl (0-0.5); Calcium 8.1 mg/dl (8.6-10.3); Creatinine Clr Calc Pharmacy 56.2 ml/min; Est GFR (African American) 41.2 ml/min; Est GFR (Non-African American) 35.5 ml/min; Potassium 3.4 mmol/L (3.5-5.1)
[2023-12-12] MEDS: POTASSIUM CHLORIDE CRTAB 20 MEQ TABCR PO SCH (10:25)
--- NOTE | 2023-12-12 17:35 | Hospitalist Progress Note ---
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 - XRAY foot without osteo on plain films - Wound culture ordered CT foot for osteo doppler leg for dvt (2) Diabetes type 2, controlled: Plan: HA1c: 7.9 (08/15/23) - Home 2 mg glimepiride daily hold - cont lantus 40 sq - ordered correctional scale (3) Atrial flutter: Plan: CHADS2 Vasc: 4 - on Eliquis - Does not required rate control medication as per Cardiology note elevated troponin likley demand ischemia from illness typically takes lasix, lisinopril/ hctz , on hold with lower blood pressure on admission (4) BPH (benign prostatic hyperplasia): Plan: continue tamsulosin no LUTS (5) Obstructive sleep apnea, adult: Plan GERD - cont PPI Morbid Obesity BMI 40 EVON - BMI: 35 - cont CPAP DVT prophylaxis: Continue Eliquis Admission and Anticipated Discharge Date Admission Date: December 10, 2023 Subjective improving confusion , some drainage from his left 3rd toe space open wound redness and swelling to left leg skin seems to have some reduction Physical Exam Physical Exam: pt is alert and oriented x2 cardiac is regular lungs clear left leg swelling, redness and drainage to previous toe space Results & Data Results & Data Vital Signs (Past 12 Hours) Vital Signs Temp Pulse Resp BP Pulse Ox O2 Del Method 12/12/23 15:15 98.1 F 74 18 102/66 94 Room Air 12/12/23 11:59 98.2 F 84 18 119/65 94 Room Air 12/12/23 08:38 97.9 F 82 18 105/56 L 96 Room Air 12/12/23 05:55 104/60 Laboratory Results review cbc review chemistry PG Care Time/CCT Total # of Minutes Spent Total Time Spent with Patient: Total time spent is greater than 50% in coordination of care (as documented) at patient's floor/unit and/or counseling patient: Coding Level of Care Code 55351 SUB INP/OBS CARE 50MIN Diagnoses SIRS (systemic inflammatory response syndrome) R65.10 Controlled type 2 diabetes mellitus with diabetic neuropathy, with long-term current use of insulin E11.40; Z79.4 Diabetes mellitus senior living insulin use: with senior living use Diabetes mellitus complication status: with neurologic complications Diabetes mellitus complication detail: with unspecified neuropathy Typical atrial flutter I48.3 Atrial flutter type: typical BPH (benign prostatic hyperplasia) N40.0 Obstructive sleep apnea, adult G47.33 (2) Diabetes type 2, controlled Diabetes mellitus senior living insulin use: with senior living use Diabetes mellitus complication status: with neurologic complications Diabetes mellitus co mplication detail: with unspecified neuropathy Qualified Code(s): E11.40 - Type 2 diabetes mellitus with diabetic neuropathy, unspecified; Z79.4 - 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
--- NOTE | 2023-12-12 17:54 | XCELERA ---
[id number] \\[id number]
[2023-12-12] MEDS: ceFAZolin 2000MG 2,000 MG/15 ML SYR IV SCH (18:26)
[2023-12-12] MEDS: INSULIN ASPART PER UNIT CHARGE SC SCH (20:11)
[2023-12-13 06:20] LABS: Hematocrit (blood only) 33.3 % (42.0-52.0); Mean Corpuscular Hemoglobin 31.4 pg (25.0-34.0); Mean Corpuscular Volume 95.1 fL (80.0-100.0); Mean Platelet Volume 10.4 fL (9.4-12.4); Platelet Count 112 K/uL (130-400); RDW Coefficient of Variation 15.9 % (11.5-14.5); RDW Standard Deviation 55.1 fL (36.4-46.3); White Blood Count 5.43 K/ul (4.8-10.8)
[2023-12-13 06:48] LABS: BUN Creatinine Ratio 29.1 (10-20); Calcium 7.9 mg/dl (8.6-10.3); Creatinine Clr Calc Pharmacy 80.2 ml/min; Est GFR (African American) 63.2 ml/min; Est GFR (Non-African American) 54.5 ml/min; Potassium 3.6 mmol/L (3.5-5.1)
--- NOTE | 2023-12-13 07:57 | Hospitalist Progress Note ---
Date of Service December 13, 2023 Assessment & Plan (1) SIRS (systemic inflammatory response syndrome): (2) Diabetes type 2, controlled: (3) Atrial flutter: (4) BPH (benign prostatic hyperplasia): (5) Obstructive sleep apnea, adult: Plan #SIRS (systemic inflammatory response syndrome): Metabolic encephalopathy poa SIRS+ presented from office with chills, possible rigors and nausea - In the setting of recent bacteremia MSSA concern for pneumonia, - CXR: on admission without pneumonia left foot ulcer infected,wound culture group G strep, first blood culture group G strep, subsequent blood cx negative changed antibiotics to Cefazolin with pharmacy oversight leg without DVT , no osteo on CT #Left heal ulcer poa 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 - XRAY foot without osteo on plain films - Wound culture ordered no osteo on CT foot doppler leg for dvt Diabetes type 2, controlled: - HA1c: 7.9 (08/15/23) - Home 2 mg glimepiride daily hold - cont lantus 40 sq - ordered correctional scale #Atrial flutter: CHADS2 Vasc: 4 - on Eliquis - Does not required rate control medication as per Cardiology note elevated troponin likley demand ischemia from illness typically takes lasix, lisinopril/ hctz , on hold with lower blood pressure on admission #BPH (benign prostatic hyperplasia): continue tamsulosin no LUTS #Obstructive sleep apnea, adult: #GERD - cont PPI #Morbid Obesity BMI 40 #EVON - BMI: 35 - cont CPAP DVT prophylaxis: Continue Eliquis Admission and Anticipated Discharge Date Admission Date: December 10, 2023 Results & Data Results & Data Vital Signs (Past 12 Hours) Vital Signs Temp Pulse Pulse Resp BP Pulse Ox O2 Del Method 12/13/23 02:16 36.6 C 84 16 117/70 96 CPAP 12/12/23 22:58 36.5 C 80 21 119/73 95 Room Air 12/12/23 21:35 79 PG Care Time/CCT Total # of Minutes Spent Total Time Spent with Patient: Total time spent is greater than 50% in coordination of care (as documented) at patient's floor/unit and/or counseling patient: Coding Diagnoses SIRS (systemic inflammatory response syndrome) R65.10 Controlled type 2 diabetes mellitus with diabetic neuropathy, with long-term current use of insulin E11.40; Z79.4 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: with usp use Diabetes mellitus complication status: with neurologic complications Diabetes mellitus complication detail: with unspecified neuropathy Typical atrial flutter I48.3 Atrial flutter type: typical BPH (benign prostatic hyperplasia) N40.0 Obstructive sleep apnea, adult G47.33 (2) Diabetes type 2, controlled 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
--- NOTE | 2023-12-13 17:19 | Infectious Disease Consult ---
Date of Consultation December 13, 2023 Assessment & Plan (1) Diabetic infection of left foot: (2) Amputated toe of left foot: (3) Bacteremia: Plan Problems: #L foot cellulitis #Group G Strep bacteremia #L third toe osteomyelitis c/b MSSA bacteremia s/p amputation through distal metatarsal (10/21/23) #DM2 Micro: 12/10 BCx x1: NGTD 12/09 L third toe wound cx: GBS 12/12 BCx x1: GBS in 2/2 vials (S penicillin) Abx: Cefazolin 12/11 - present Dapto 12/09 - 12/10 Zosyn 12/09 - 12/11 Impression: 78 yo male with DM2, diabetic neuropathy, a flutter, BPH, bilateral TKA, recent hospitalization in October 2023 for L third toe osteomyelitis c/b MSSA bacteremia s/p amputation through distal metatarsal (10/21/23) treated with IV cefazolin x 2 weeks followed by cefadroxil x 1 week (EOT 11/11/23) who presented on 12/10/23 with fever, AMS, vomiting, found to have GBS bacteremia and LLE cellulitis. Per chart review, during his October admission, orthopedics felt confident that all infected bone was removed. OR culture grew MSSA. Blood cultures cleared quickly. TTE commented on thickening and calcification of L coronary cusp, vegetation cannot be excluded although appearance seems identical to that seen on a TTE from 07/31/2023. Path of the amputated portion of the L 3rd toe showed acute osteomyelitis. Path of the L third metatarsal head showed bone and cartilage with mild reactive changes. He subsequently followed up in orthopedics clinic and he was continued on a wound vac as of last visit on 11/18/23, at which time it was felt that his third ray resection was healing well. On presentation 12/09, pt was febrile to 39.6, HR 102, RR 36, 93% on 2 L NC. Labs showed WBC 5.24, Cr 1.18, ESR 24, CRP 2.57, lactate 1.8 --> 2.3, procalcitonin 2.6. RVP negative. BCx collected. CXR with no consolidation. He was noted to have L foot erythema and warmth, with open wound over third phalanx that was not overtly purulent. L foot XR with no radiographic evidence for acute osteomyelitis in L foot, expected postoperative findings from L third digit transmetatarsal amputation, L foot soft tissue swelling. He was started on dapto, zosyn. Initially, there was lower concern for L foot infection, and primarily concern for aspiration in the setting of vomiting. CTA L ankle/foot showed no definite evidence of osteomyelitis, s/p amputation of third toe and distal one third of third metatarsal. LLE venous duplex US showed no DVT. Blood culture grew Group G Strep. A wound culture of drainage from the L third toe amputation site also grew Group G Strep. His antibiotics were changed to cefazolin. See picture of L third toe amputation site from 12/12/23. TTE on 12/11 showed no vegetation. Pt's last fever was on 12/10. He has remained without leukocytosis. ID was consulted 12/12 because erythema spread from his knee up to his thigh overnight. Recommendations: - Primary team and RN report the erythema of the LLE has spread extensively up his L thigh. Seems unusual as the cefazolin should cover the Group G Strep that grew in his blood and wound cultures. However, given clinical worsening after narrowing from broad spectrum antibiotics to cefazolin, will broaden antibiotics to daptomycin and ceftriaxone - If pt improves on this regimen, could consider discharging on linezolid 600 mg PO BID plus amox/clav 875 mg PO BID through 12/23 to complete a total 14 day course of antibiotics (for bacteremia plus cellulitis) from cleared blood cultures on 12/11/23. Will continue to follow if pt remains in the hospital. Please note that ID does not round or write notes over the weekend. If questions or concerns arise, please contact the Infectious Disease Call Center and ask to speak with the covering ID physician. Dr. Leo Bautista will take over on Saturday after the holiday weekend. Consultation Information This patient recommendation is based on a telemedicine consult request which was completed asynchronously through chart review and information provided by the primary physician. The patient was not seen or examined today. The evaluation is consultative in nature and all patient care and treatment decisions can either be accepted or rejected by the patient's primary hospital-based treating physician using their own independent medical judgment for their patient. [facility] contact information: Please call [facility] Call Center . (Phone Number For Physician Use Only) Time Spent Reviewing Chart: 31+ minutes History of Present Illness Reason for Consultation: Cellulitis Attending Physician: Chen Hoyos MD History of Present Illness 78 yo male with DM2, diabetic neuropathy, a flutter, BPH, bilateral TKA, recent hospitalization in October 2023 for L third toe osteomyelitis c/b MSSA bacteremia s/p amputation through distal metatarsal (10/21/23) treated with IV cefazolin x 2 weeks followed by cefadroxil x 1 week (EOT 11/11/23) who presented on 12/10/23 with fever, AMS, vomiting. Per chart review, during his October admission, orthopedics felt confident that all infected bone was removed. OR culture grew MSSA. Blood cultures cleared quickly. TTE commented on thickening and calcification of L coronary cusp, vegetation cannot be excluded although appearance seems identical to that seen on a TTE from 07/31/2023. Path of the amputated portion of the L 3rd toe showed acute osteomyelitis. Path of the L third metatarsal head showed bone and cartilage wit h mild reactive changes. He subsequently followed up in orthopedics clinic and he was continued on a wound vac as of last visit on 11/18/23, at which time it was felt that his third ray resection was healing well. On presentation 12/09, pt was febrile to 39.6, HR 102, normotensive, RR 36, 93% on 2 L NC. Labs showed WBC 5.24, Cr 1.18, ESR 24, CRP 2.57, lactate 1.8 --> 2.3, procalcitonin 2.6. RVP negative. BCx collected. CXR with no consolidation. He was noted to have L foot erythema and warmth, with open wound over third phalanx that was not overtly purulent. L foot XR with no radiographic evidence for acute osteomyelitis in L foot, expected postoperative findings from L third digit transmetatarsal amputation, L foot soft tissue swelling. He was started on dapto, zosyn. Initially, there was lower concern for L foot infection, and primarily concern for aspiration in the setting of vomiting. CTA LLE showed no definite evidence of osteomyelitis, s/p amputation of third toe and distal one third of third metatarsal. LLE venous duplex US showed no DVT. Blood culture grew GBS. A wound culture of drainage from the L third toe amputation site also grew GBS. His antibiotics were changed to cefazolin. See picture of L third toe amputation site from 12/12/23. TTE on 12/11 showed no vegetation. Pt's last fever was on 12/10. He has remained without leukocytosis. ID was consulted 12/12 because erythema went from his knee up to his thigh overnight. Has been demarcated, and has been stable since this morning. Allergies Allergy/AdvReac Type Severity Reaction Status Date / Time Sulfa (Sulfonamide Allergy Severe Hives Unverified 12/11/23 03:06 Antibiotics) Bactrim Allergy Unknown HIVES Verified 06/19/17 10:28 bee venom protein (honey bee) Allergy Unknown ANAPHYLAXIS Verified 12/11/23 03:06 fluconazole Allergy Unknown rash with Verified 12/11/23 03:06 itching sulfamethoxazole Allergy Unknown HIVES Verified 12/11/23 03:06 trimethoprim Allergy Unknown HIVES Verified 12/11/23 03:06 Home Medications Medication Instructions Recorded Confirmed Type Vitamin B-12 5000 Mcg Chewable 10,000 mcg PO AMHS 12/11/23 12/11/23 History acetaminophen 325 mg tablet 650 mg PO Q6 PRN Fever Or Pain 12/11/23 12/11/23 History (Tylenol) albuterol sulfate 90 mcg/actuation 1 inh inhalation Q6 PRN Shortness 12/11/23 12/11/23 History aerosol inhaler Of Breath Or Wheezing apixaban 5 mg tablet (Eliquis) 5 mg PO AMHS 12/11/23 12/11/23 History cholecalciferol (vitamin D3) 25 25 mcg PO DAILY 12/11/23 12/11/23 History mcg (1,000 unit) tablet (Vitamin D3) epinephrine 0.3 mg/0.3 mL 0.3 mg IM DIRECTED PRN 12/11/23 12/11/23 History injection, auto-injector Anaphylaxis furosemide 20 mg tablet 20 mg PO BID 12/11/23 12/11/23 History glimepiride 2 mg tablet 2 mg PO QAM 12/11/23 12/11/23 History hydrochlorothiazide 25 mg tablet 12.5 mg PO AMHS 12/11/23 12/11/23 History insulin glargine 100 unit/mL (3 40 unit subcut HS 12/11/23 12/11/23 History mL) subcutaneous pen (Lantus Solostar U-100 Insulin) insulin lispro 100 unit/mL 0 unit subcut ACHS 12/11/23 12/11/23 History subcutaneous pen (Humalog KwikPen (U-100) Insulin) lisinopril 20 mg tablet 20 mg PO AMHS 12/11/23 12/11/23 History multivitamin 1 tab PO DAILY 12/11/23 12/11/23 History pantoprazole 40 mg tablet,delayed 40 mg PO DAILY 12/11/23 12/11/23 History release promethazine 25 mg/mL injection 12.5 mg IM Q6H PRN Nausea 12/11/23 12/11/23 History solution (Phenergan) simvastatin 20 mg tablet 20 mg PO HS 12/11/23 12/11/23 History tamsulosin 0.4 mg capsule 0.4 mg PO QPM 12/11/23 12/11/23 History tramadol 50 mg tablet 50 mg PO Q8 PRN .Pain 5-10 12/11/23 12/11/23 History Patient History Medical History On anticoagulant therapy History of COVID-19 2020- no hosp; resolved Lymphedema Arthritis Diabetes diabetic sensor Sleep apnea CPAP Afib asymptomatic; eliquis daily Personal history of diabetic foot ulcer NO CURRENT Hypertension Osteoarthritis Surgical History History of right cataract surgery History of colonoscopy H/O umbilical hernia repair (~10/2006) Hx of total knee arthroplasty right TKA 11/2001 Dr. Garcia, left TKA 2006; revision July, H/O carpal tunnel repair Family History Brother Prostate cancer Diabetes Coronary heart disease Abdominal aortic aneurysm Alzheimer disease Stroke Family history of colonic polyps Father Heart disease Myocardial infarction Family/Other Hypertension Denies family history of Rheumatoid arthritis Sudden SIDS (sudden infant syndrome) Ovarian cancer Deep vein thrombosis Osteoporosis Dyslipidemia Cerebral aneurysm Bipolar disorder Clotting disorder Crohn's disease Dementia Depression Kidney disease Osteoarthritis Breast cancer Schizophrenia Congenital kidney disease Gestational diabetes Lung cancer COPD (chronic obstructive pulmonary disease) Colorectal cancer Pulmonary embolism Lung disease Ulcerative colitis Colonic polyp Asthma Cystic kidney disease Social History Smoking Status: Never smoker Second Hand Exposure: No; Do You Dip or Chew Tobacco: No; Hx Alcohol Use: No Hx Substance Use: No Preferred Language: Chadian Communication Ability: Effective Visual Impairment: No Limitations Hearing Ability: Normal Device Engineer Required: No Beliefs That Will Affect Care: None marital status: / Current Living Situation: Alone Current Living Situation Comment: [facility] current occupational status: retired current occupation: he used to work at [employer] How many Children do You have: 2 Feels Safe at Home: Yes Childhood Exposure to Second-Hand Smoke: No Diet: regular caffeine: Yes during the past year weight has: remained stable Dental Care, Regularly: Yes Physical Activity Frequency: 3-4 Times per Week Seatbelt Use: sometimes Sunscreen Use: No Assistive Devices: Oxygen - Continuous Review of System Pt was not seen Physical Exam Physical Exam: Pt was not seen Results & Data Vital Signs (Past 12 Hours) Vital Signs Temp Pulse Resp BP Pulse Ox O2 Del Method 12/13/23 15:57 36.8 C 91 H 18 113/58 L 97 Room Air 12/13/23 08:00 Room Air 12/13/23 07:43 36.9 C 80 17 122/70 96 Room Air Laboratory Results Short CBC 12/13/23 Range/Units 05:33 WBC 5.43 (4.8-10.8) K/ul Hgb 11.0 L (14.0-18.0) g/dl Hct 33.3 L (42.0-52.0) % Plt Count 112 L (130-400) K/uL BMP 12/13/23 05:33 Sodium 134 L Potassium 3.6 Chloride 99 Carbon Dioxide 28 BUN 37 H Creatinine 1.27 D Glucose 81 Calcium 7.9 L Diagnostic Findings Chest X-Ray 12/10/23 21:11 XR chest 1V portable CLINICAL HISTORY: Sepsis. COMPARISON STUDY: Chest radiograph January 16, 2023. FINDINGS: Thoracic spine scoliosis is again noted. Cardiomegaly is unchanged. Pulmonary vascular congestion is similar to prior exam. There is no consolidation to suggest pneumonia. There is no pneumothorax or pleural effusion. The appearance of the chest is unchanged. IMPRESSION: No significant change in appearance of the chest. Cardiomegaly with pulmonary vascular congestion. ACT 112: Negative or not required by law. Electronically signed by: Jalil Lombardi M.D. 12/11/2023 7:04 AM Foot X-Ray 12/10/23 23:11 XR foot LT 2V CLINICAL HISTORY: Left diabetic foot ulcer. COMPARISON: Left foot radiographs October 19, 2023. MRI of the left foot April 30, 2020. FINDINGS: Left third digit transmetatarsal amputation is noted. Expected postoperative findings are present. No bony erosion within the left foot is identified to suggest osteomyelitis. There are no acute fracture. There is moderate mid foot osteophytosis. Moderate osteoarthritis within the interphalangeal joint of the great toe is also present. Posterior and plantar spurring is noted. Left foot soft tissue swelling. IMPRESSION: 1. No radiographic evidence for acute osteomyelitis within the left foot. 2. Expected findings following left third digit transmetatarsal amputation. 3. Left foot soft tissue swelling. ACT 112: Negative or not required by law. Electronically signed by: Jalil Lombardi M.D. 12/11/2023 6:53 AM Lower Extremity CTA 12/11/23 18:48 Exam(s): CTA EXTREMITY LEFT LOWER W/WO Contrast IV Amt: 117 ml optiray 120 EXAM: CT of the Left Lower Extremity Without and With Intravenous Contrast CLINICAL HISTORY: Reason for exam: eval osteo 3rd MT. TECHNIQUE: Axial computed tomographic images of the left ankle and foot without and with intravenous contrast. CTDI is 75 mGy and DLP is 583 mGy-cm. Automated exposure control was utilized for the study. A dose lowering technique was utilized adhering to the principles of ALARA. CONTRAST: Patient received 117 ml optiray 120 of IV contrast COMPARISON: No relevant prior studies available. FINDINGS: No evidence of soft tissue abscess. No soft tissue air. Bones/joints: Severe degenerative arthritic changes seen at the left ankle. There is evidence of amputation of the third toe and distal third of the third metatarsal. No acute fracture. No dislocation. IMPRESSION: 1. No definite evidence of osteomyelitis 2. Status post amputation of the third toe and distal one third of the third metatarsal Electronically signed by: Stan López MD 12/11/23 22:14 PM Venous Doppler Study 12/11/23 18:54 ULTRASOUND LEFT LOWER EXTREMITY VENOUS CLINICAL HISTORY: Left leg infection. Pain and swelling. COMPARISON STUDY: Bilateral lower extremity venous ultrasound dated 06/26/2014. TECHNIQUE: Real-time, grayscale, and color Doppler sonography of the deep veins of the left lower extremity was performed from the inguinal crease to the calf. Compression and augmentation were utilized. FINDINGS: There is no sonographic evidence of deep venous thrombosis identified in the left lower extremity. The common femoral, superficial femoral, and popliteal veins are patent and normally compressible. The greater saphenous vein and the profunda femoris vein at the junction with the common femoral vein are clear. The visualized calf veins are patent. Enlarged left inguinal lymph nodes are likely reactive. The largest measures up to 5.6 cm. Soft tissue edema is seen in the left calf. IMPRESSION: 1. There is no sonographic evidence of deep venous thrombosis identified in the left lower extremity. 2. Enlarged left inguinal lymph nodes are nonspecific and likely reactive. Correlate clinically. ACT 112: Negative or not required by law. Electronically signed by: Erick Tenorio M.D. 12/11/2023 11:19 PM Medications Administered Current Inpatient Medications Acetaminophen (Acetaminophen 325 Mg Tab) 650 mg PO Q4H PRN PRN Reason: Pain or Fever Stop: 01/09/24 23:15 Last Admin: 12/13/23 13:05 Dose: 650 mg Apixaban (Apixaban 5 Mg Tablet) 5 mg PO Q12H MIRIAM Stop: 01/10/24 09:59 Last Admin: 12/13/23 08:39 Dose: 5 mg Dextrose (Dextrose 50% 50 Ml Syringe) 25 - 50 ml IV UD PRN; Protocol PRN Reason: Hypoglycemia Protocol Stop: 01/09/24 23:15 Furosemide (Furosemide 20 Mg Tab) 20 mg PO [id number] MIRIAM Stop: 01/10/24 09:59 Last Admin: 12/11/23 18:18 Dose: 20 mg Glucagon (Glucagon For Inj 1 Mg Vial) 1 mg SQ UD PRN; Protocol PRN Reason: Hypoglycemia Protocol Stop: 01/09/24 23:15 Glucose (Glucose 40% Gel 15 Gm Tube) 15 - 30 gm PO UD PRN; Protocol PRN Reason: Hypoglycemia Protocol Stop: 01/09/24 23:15 Glucose (Glucose 10 Tab/Tube) 4 - 8 tab PO UD PRN; Protocol PRN Reason: Hypoglycemia Treatment Stop: 01/09/24 23:15 Hydrochlorothiazide (Hydrochlorothiazide 25 Mg Tab) 12.5 mg PO BID MIRIAM Stop: 01/10/24 09:59 Last Admin: 12/11/23 21:03 Dose: 12.5 mg Cefazolin Sodium (Ancef 2000mg) 2,000 mg in 15 mls @ 3.75 mls/min IV Q8H MIRIAM Stop: 12/26/23 18:29 Last Admin: 12/13/23 13:02 Dose: 3.75 mls/min Insulin Aspart (Insulin Aspart Per Unit Charge) 0 units SC ACHS MIRIAM Stop: 01/11/24 19:29 Last Admin: 12/13/23 13:04 Dose: 5 units Insulin Glargine (Lantus Per Unit Charge) 40 units SQ HS MIRIAM Stop: 01/10/24 20:59 Last Admin: 12/12/23 21:00 Dose: 40 units Lisinopril (Lisinopril 20 Mg Tab) 20 mg PO BID MIRIAM Stop: 01/10/24 09:59 Last Admin: 12/11/23 21:02 Dose: 20 mg Miscellaneous (Carbohydrates For Hypoglycemia ) 15 - 30 gm PO UD PRN PRN Reason: Hypoglycemia Protocol Stop: 01/09/24 23:15 Ondansetron HCl (Ondansetron Inj 2 Mg/Ml 2 Ml Vial) 4 mg IV Q6H PRN PRN Reason: Nausea Stop: 01/09/24 23:15 Pantoprazole Sodium (Pantoprazole 40 Mg Tab) 40 mg PO QAM [facility] Stop: 01/10/24 10:14 Last Admin: 12/13/23 08:36 Dose: 40 mg Simvastatin (Simvastatin 20 Mg Tab) [facility] [place] [facility] [place] Stop: 01/10/24 10:14 Last Admin: 12/13/23 08:38 Dose: 20 mg Tamsulosin HCl (Tamsulosin Hcl 0.4 Mg Cap) 0.4 mg PO DAILY MIRAIM Stop: 01/10/24 10:14 Last Admin: 12/13/23 08:38 Dose: 0.4 mg Vitamin D (Cholecalciferol 25 Mcg (1000 Units) Tab) 25 mcg PO QAM [facility] Stop: 01/10/24 09:59 Last Admin: 12/13/23 08:35 Dose: 25 mcg
--- NOTE | 2023-12-13 18:13 | Hospitalist Progress Note ---
Date of Service December 13, 2023 Assessment & Plan (1) SIRS (systemic inflammatory response syndrome): (2) Diabetes type 2, controlled: (3) Atrial flutter: (4) BPH (benign prostatic hyperplasia): (5) Obstructive sleep apnea, adult: Plan #SIRS (systemic inflammatory response syndrome): #Metabolic encephalopathy #SIRS+ presented from office with chills, possible rigors and nausea - In the setting of recent bacteremia MSSA concern for pneumonia, - CXR: on admission without pneumonia - left foot ulcer infected,wound culture group G strep, first blood culture group G strep, subsequent blood cx negative - abx was changed to cefazolin and since then his cellulitis spread up the thigh - case discussed with ID, abx broadened again - leg without DVT , no osteo on CT Left heal ulcer 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 - XRAY foot without osteo on plain films - Wound culture ordered CT foot for osteo doppler leg for dvt Diabetes type 2, controlled: HA1c: 7.9 (08/15/23) - Home 2 mg glimepiride daily hold - cont lantus 40 sq - ordered correctional scale #Atrial flutter: CHADS2 Vasc: 4 - on Eliquis - Does not required rate control medication as per Cardiology note elevated troponin likley demand ischemia from illness typically takes lasix, lisinopril/ hctz , on hold with lower blood pressure on admission #BPH (benign prostatic hyperplasia): continue tamsulosin no LUTS #Obstructive sleep apnea, adult: #GERD - cont PPI #Morbid Obesity BMI 40 #EVON - BMI: 35 - cont CPAP #DVT prophylaxis: Continue Eliquis Admission and Anticipated Discharge Date Admission Date: December 10, 2023 Subjective Overnight pt's cellulitis worsened Currently no new complaints Review of Systems Review of Systems: Comprehensive ROS completed Physical Exam Physical Exam: Gen: no acute distress HEENT: NC/AT, MMM CVS: s1s2 nl, RRR Lungs: CTAB Abd: nl BS, soft, nontender Ext: left leg wound dressing in place, impressive cellulitis that has extended up the left thigh Psych: pleasant, cooperative Results & Data Results & Data Vital Signs (Past 12 Hours) Vital Signs Temp Pulse Resp BP Pulse Ox O2 Del Method 12/13/23 15:57 36.8 C 91 H 18 113/58 L 97 Room Air 12/13/23 08:00 Room Air 12/13/23 07:43 36.9 C 80 17 122/70 96 Room Air PG Care Time/CCT Total # of Minutes Spent Total Time Spent with Patient: Total time spent is greater than 50% in coordination of care (as documented) at patient's floor/unit and/or counseling patient: Coding Level of Care Code 02739 SUB INP/OBS CARE 2/35MIN Diagnoses SIRS (systemic inflammatory response syndrome) R65.10 Controlled type 2 diabetes mellitus with diabetic neuropathy, with long-term current use of insulin E11.40; Z79.4 Diabetes 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 Diabetes mellitus complication status: with neurologic complications Diabetes mellitus complication detail: with unspecified neuropathy Typical atrial flutter I48.3 Atrial flutter type: typical BPH (benign prostatic hyperplasia) N40.0 Obstructive sleep apnea, adult G47.33 (2) Diabetes type 2, controlled Diabetes mellitus mcc insulin use: with mcc use Diabetes mellitus complication status: with neurologic complications Diabetes mellitus complication detail: with unspecified neuropathy Qualified Code(s): E11.40 - Type 2 diabetes mellitus with diabetic neuropathy, unspecified; Z79.4 - group home (current) use of insulin (3) Atrial flutter Atrial flutter type: typical Qualified Code(s): I48.3 - Typical atrial flutter
[2023-12-13] MEDS: cefTRIAXone SODIUM 2,000 MG/50 ML BAG IV SCH (18:20)
[2023-12-13] MEDS: DAPTOmycin 675 MG in SYRINGE 0 ML IV SCH (18:31)
--- NOTE | 2023-12-13 21:36 | Electrocardiogram Report ---
Test Reason : Blood Pressure : */* mmHG Vent. Rate : 106 BPM Atrial Rate : 106 BPM P-R Int : 192 ms QRS Dur : 128 ms QT Int : 320 ms P-R-T Axes : * -41 18 degrees QTcB Int : 425 ms Sinus tachycardia Left axis deviation Right bundle branch block Abnormal ECG Confirmed by Harjit Yoder ([id number]) on 12/13/2023 9:36:38 PM Referred By: REFERRED SELF Confirmed By: Harjit Yoder
--- NOTE | 2023-12-13 21:40 | Electrocardiogram Report ---
Test Reason : Blood Pressure : */* mmHG Vent. Rate : 86 BPM Atrial Rate : 86 BPM P-R Int : 202 ms QRS Dur : 140 ms QT Int : 378 ms P-R-T Axes : 118 -33 17 degrees QTcB Int : 452 ms Normal sinus rhythm Left axis deviation Right bundle branch block Abnormal ECG When compared with ECG of 10-Dec-2023 20:53, No significant change Confirmed by Harjit Yoder ([id number]) on 12/13/2023 9:39:46 PM Referred By: REFERRED SELF Confirmed By: Harjit Yoder
--- NOTE | 2023-12-13 21:43 | Electrocardiogram Report ---
Test Reason : Blood Pressure : */* mmHG Vent. Rate : 90 BPM Atrial Rate : 90 BPM P-R Int : 200 ms QRS Dur : 138 ms QT Int : 376 ms P-R-T Axes : 26 -32 2 degrees QTcB Int : 459 ms Normal sinus rhythm Left axis deviation Right bundle branch block Possible Lateral infarct , age undetermined Inferior infarct , age undetermined Abnormal ECG When compared with ECG of 11-Dec-2023 00:49, Borderline criteria for Lateral infarct are now Present Nonspecific T wave abnormality now evident in Anterior leads Confirmed by Harjit Yoder ([id number]) on 12/13/2023 9:43:28 PM Referred By: REFERRED SELF Confirmed By: Harjit Yoder
[2023-12-14 07:46] LABS: Hematocrit (blood only) 33.1 % (42.0-52.0); Mean Corpuscular Hemoglobin 31.1 pg (25.0-34.0); Mean Corpuscular Hgb Conc 33.2 g/dL (32.0-36.0); Mean Corpuscular Volume 93.5 fL (80.0-100.0); Mean Platelet Volume 10.5 fL (9.4-12.4); Platelet Count 103 K/uL (130-400); RDW Coefficient of Variation 15.6 % (11.5-14.5); RDW Standard Deviation 54.1 fL (36.4-46.3); Red Blood Count 3.54 M/uL (4.70-6.10); White Blood Count 6.15 K/ul (4.8-10.8)
[2023-12-14 08:17] LABS: BUN Creatinine Ratio 27.1 (10-20); Calcium 7.9 mg/dl (8.6-10.3); Creatinine Clr Calc Pharmacy 105.1 ml/min; Est GFR (African American) 88.6 ml/min; Est GFR (Non-African American) 76.5 ml/min; Magnesium 1.6 mg/dl (1.7-2.4); Phosphorus 2.1 mg/dl (2.5-4.9); Potassium 3.8 mmol/L (3.5-5.1)
[2023-12-14] MEDS ORDERED: POTASSIUM PHOS 3 MMOL/1 ML INFUSION IV STA (10:06)
--- NOTE | 2023-12-14 10:09 | Hospitalist Progress Note ---
Date of Service December 14, 2023 Assessment & Plan (1) SIRS (systemic inflammatory response syndrome): (2) Diabetes type 2, controlled: (3) Atrial flutter: (4) BPH (benign prostatic hyperplasia): (5) Obstructive sleep apnea, adult: (6) Hypophosphatemia: (7) Hypomagnesemia: Plan #SIRS (systemic inflammatory response syndrome): #Metabolic encephalopathy #SIRS+ presented from office with chills, possible rigors and nausea - In the setting of recent bacteremia MSSA concern for pneumonia, - CXR: on admission without pneumonia - left foot ulcer infected,wound culture group G strep, first blood culture group G strep, subsequent blood cx negative - abx was changed to cefazolin and since then his cellulitis spread up the thigh - case discussed with ID, abx broadened back to CTX / Dapto - leg without DVT , no osteo on CT Left heal ulcer 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 - XRAY foot without osteo on plain films - Wound culture ordered - CT foot neg for osteo - doppler leg for dvt Diabetes type 2, controlled: HA1c: 7.9 (08/15/23) - Home 2 mg glimepiride daily hold - cont lantus 40 sq - ordered correctional scale #Atrial flutter: CHADS2 Vasc: 4 - on Eliquis - Does not required rate control medication as per Cardiology note - elevated troponin likley demand ischemia from illness - typically takes lasix, lisinopril/ hctz , on hold with lower blood pressure on admission #Electrolytes - hypokalemia: replete and monitor - hypomagnesemia: replete and monitor - hypophosphatemia: replete and monitor #BPH (benign prostatic hyperplasia): continue tamsulosin no LUTS #Obstructive sleep apnea, adult: #GERD - cont PPI #Morbid Obesity BMI 40 #EVON - BMI: 35 - cont CPAP #DVT prophylaxis: Continue Eliquis Admission and Anticipated Discharge Date Admission Date: December 10, 2023 Subjective No acute events overnight Currently no new complaints Review of Systems Review of Systems: Comprehensive ROS completed Physical Exam Physical Exam: Gen: no acute distress HEENT: NC/AT, MMM CVS: s1s2 nl, RRR Lungs: CTAB Abd: nl BS, soft, nontender Ext: left leg wound dressing in place, impressive cellulitis that has extended up the left thigh (same as yesterday) Psych: pleasant, cooperative Results & Data Results & Data Vital Signs (Past 12 Hours) Vital Signs Temp Pulse Pulse Resp BP Pulse Ox O2 Del Method 12/14/23 07:53 36.6 C 77 20 120/59 L 96 Room Air 12/14/23 04:41 36.6 C 87 18 108/54 L 95 Room Air 12/14/23 00:30 37.2 C 84 16 112/60 96 Room Air 12/13/23 22:30 85 PG Care Time/CCT Total # of Minutes Spent Total Time Spent with Patient: Total time spent is greater than 50% in coordination of care (as documented) at patient's floor/unit and/or counseling patient: Coding Level of Care Code 00192 SUB INP/OBS CARE 2/35MIN Diagnoses SIRS (systemic inflammatory response syndrome) R65.10 Controlled type 2 diabetes mellitus with diabetic neuropathy, with long-term current use of insulin E11.40; Z79.4 Diabetes mellitus complication detail: with unspecified neuropathy Diabetes mellitus complication status: with neurologic complications Diabetes mellitus keno terminal operator insulin use: with correction use Typical atrial flutter I48.3 Atrial flutter type: typical BPH (benign prostatic hyperplasia) N40.0 Obstructive sleep apnea, adult G47.33 Hypophosphatemia E83.39 Hypomagnesemia E83.42 (2) Diabetes type 2, controlled Diabetes mellitus complication detail: with unspecified neuropathy Diabetes mellitus complication status: with neurologic complications Diabetes mellitus correction insulin use: with correction use Qualified Code(s): E11.40 - Type 2 diabetes mellitus with diabetic neuropathy, unspecified; Z79.4 - [facility] (current) use of insulin (3) Atrial flutter Atrial flutter type: typical Qualified Code(s): I48.3 - Typical atrial flutter
[2023-12-14] MEDS: POTASSIUM PHOSPHATE 21 MMOL in SODIUM CHLORIDE 0.9% 500 ML IV ONE (11:51)
[2023-12-14] MEDS: MAGNESIUM OXIDE 400 MG TAB PO ONE (11:51)
[2023-12-15] MEDS: MAGNESIUM SULFATE / D5W 1 GM/100 ML BAG IV ONE (00:25)
[2023-12-15 07:21] LABS: Hematocrit (blood only) 32.4 % (42.0-52.0); Hemoglobin 11.1 g/dl (14.0-18.0); Mean Corpuscular Hemoglobin 31.8 pg (25.0-34.0); Mean Corpuscular Hgb Conc 34.3 g/dL (32.0-36.0); Mean Corpuscular Volume 92.8 fL (80.0-100.0); Mean Platelet Volume 10.5 fL (9.4-12.4); Platelet Count 115 K/uL (130-400); RDW Coefficient of Variation 15.9 % (11.5-14.5); RDW Standard Deviation 54.5 fL (36.4-46.3); Red Blood Count 3.49 M/uL (4.70-6.10); White Blood Count 8.48 K/ul (4.8-10.8)
--- NOTE | 2023-12-15 07:37 | Hospitalist Progress Note ---
Date of Service December 15, 2023 Assessment & Plan (1) SIRS (systemic inflammatory response syndrome): (2) Diabetes type 2, controlled: (3) Atrial flutter: (4) BPH (benign prostatic hyperplasia): (5) Obstructive sleep apnea, adult: (6) Hypophosphatemia: (7) Hypomagnesemia: Plan #SIRS (systemic inflammatory response syndrome): #Metabolic encephalopathy #SIRS+ presented from office with chills, possible rigors and nausea - In the setting of recent bacteremia MSSA concern for pneumonia, - CXR: on admission without pneumonia - left foot ulcer infected,wound culture group G strep, first blood culture group G strep, subsequent blood cx negative - abx was changed to cefazolin and since then his cellulitis spread up the thigh. case discussed with ID, abx broadened back to CTX / Dapto - wound care following - leg without DVT , no osteo on CT Left heal ulcer 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 - XRAY foot without osteo on plain films - Wound culture growing Grp G beta strep - CT foot neg for osteo - doppler leg for dvt Diabetes type 2, controlled: HA1c: 7.9 (08/15/23) - Home 2 mg glimepiride daily hold - cont lantus 40 sq - ordered correctional scale #Atrial flutter: CHADS2 Vasc: 4 - on Eliquis - Does not required rate control medication as per Cardiology note - elevated troponin likley demand ischemia from illness - typically takes lasix, lisinopril/ hctz , on hold with lower blood pressure on admission , but cont furosemide at this time #Electrolytes - hypokalemia: replete and monitor - hypomagnesemia: replete and monitor - hypophosphatemia: replete and monitor #BPH (benign prostatic hyperplasia): - continue tamsulosin no LUTS #Obstructive sleep apnea, adult: #GERD - cont PPI #Morbid Obesity BMI 40 #EVON - BMI: 35 - cont CPAP #DVT prophylaxis: Continue Eliquis Admission and Anticipated Discharge Date Admission Date: December 10, 2023 Subjective No acute events overnight Currently no new complaints Review of Systems Review of Systems: Comprehensive ROS completed Physical Exam Physical Exam: Gen: no acute distress HEENT: NC/AT, MMM CVS: s1s2 nl, RRR Lungs: CTAB Abd: nl BS, soft, nontender Ext: left leg wound dressing in place, impressive cellulitis that has extended up the left thigh (the intensity of the redness has improved), wound is weeping Psych: pleasant, cooperative Results & Data Results & Data Vital Signs (Past 12 Hours) Vital Signs Temp Pulse Pulse Resp BP Pulse Ox O2 Del Method 12/15/23 02:45 36.7 C 83 22 121/75 94 Room Air 12/14/23 23:50 79 12/14/23 22:40 36.6 C 72 18 121/61 95 Room Air 12/14/23 21:58 Room Air, CPAP PG Care Time/CCT Total # of Minutes Spent Total Time Spent with Patient: Total time spent is greater than 50% in coordination of care (as documented) at patient's floor/unit and/or counseling patient: Coding Level of Care Code 85873 SUB INP/OBS CARE 2/35MIN Diagnoses SIRS (systemic inflammatory response syndrome) R65.10 Controlled type 2 diabetes mellitus with diabetic neuropathy, with long-term current use of insulin E11.40; Z79.4 Diabetes mellitus complication detail: with unspecified neuropathy Diabetes mellitus complication status: with neurologic complications Diabetes mellitus termite treater helper insulin use: with termite treater helper use Typical atrial flutter I48.3 Atrial flutter type: typical BPH (benign prostatic hyperplasia) N40.0 Obstructive sleep apnea, adult G47.33 Hypophosphatemia E83.39 Hypomagnesemia E83.42 (2) Diabetes type 2, controlled Diabetes mellitus complication detail: with unspecified neuropathy Diabetes mellitus complication status: with neurologic complications Diabetes mellitus intermediate insulin use: with intermediate use Qualified Code(s): E11.40 - Type 2 diabetes mellitus with diabetic neuropathy, unspecified; Z79.4 - [facility] (current) use of insulin (3) Atrial flutter Atrial flutter type: typical Qualified Code(s): I48.3 - Typical atrial flutter
[2023-12-15 07:41] LABS: BUN Creatinine Ratio 24.8 (10-20); Calcium 7.8 mg/dl (8.6-10.3); Creatinine Clr Calc Pharmacy 99.4 ml/min; Est GFR (African American) 83.4 ml/min; Est GFR (Non-African American) 71.9 ml/min
--- NOTE | 2023-12-16 14:40 | Hospitalist Progress Note ---
Date of Service December 16, 2023 Assessment & Plan (1) SIRS (systemic inflammatory response syndrome): (2) Diabetes type 2, controlled: (3) Atrial flutter: (4) BPH (benign prostatic hyperplasia): (5) Obstructive sleep apnea, adult: (6) Hypophosphatemia: (7) Hypomagnesemia: Plan #SIRS (systemic inflammatory response syndrome): #Metabolic encephalopathy #SIRS+ presented from office with chills, possible rigors and nausea - In the setting of recent bacteremia MSSA concern for pneumonia, - CXR: on admission without pneumonia - left foot ulcer infected,wound culture group G strep, first blood culture group G strep, subsequent blood cx negative - abx was changed to cefazolin and since then his cellulitis spread up the thigh. case discussed with ID, abx broadened back to CTX / Dapto - wound care following - leg without DVT , no osteo on CT -Appreciate input from ID: If pt improves on this regimen, could consider discharging on linezolid 600 mg PO BID plus amox/clav 875 mg PO BID through 12/23 to complete a total 14 day course of antibiotics (for bacteremia plus cellulitis) from cleared blood cultures on 12/11/23. Left heal ulcer 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 - XRAY foot without osteo on plain films - Wound culture growing Grp G beta strep - CT foot neg for osteo - doppler leg for dvt Diabetes type 2, controlled: HA1c: 7.9 (08/15/23) - Home 2 mg glimepiride daily hold - cont lantus 40 sq - ordered correctional scale #Atrial flutter: CHADS2 Vasc: 4 - on Eliquis - Does not required rate control medication as per Cardiology note - elevated troponin likley demand ischemia from illness - typically takes lasix, lisinopril/ hctz , on hold with lower blood pressure on admission , but cont furosemide at this time #Electrolytes - hypokalemia: replete and monitor - hypomagnesemia: replete and monitor - hypophosphatemia: replete and monitor #BPH (benign prostatic hyperplasia): - continue tamsulosin no LUTS #Obstructive sleep apnea, adult: #GERD - cont PPI #Morbid Obesity BMI 40 #EVON - BMI: 35 - cont CPAP #DVT prophylaxis: Continue Eliquis Awaiting rehab placement Admission and Anticipated Discharge Date Admission Date: December 10, 2023 Subjective Patient reports feeling better. She states his left leg is no longer weeping. Review of Systems Review of Systems: All systems reviewed & are unremarkable except as noted in HPI & below Physical Exam Physical Exam: Gen: no acute distress HEENT: NC/AT, MMM CVS: s1s2 nl, RRR Lungs: CTAB Abd: nl BS, soft, nontender Ext: left leg wound dressing in place, impressive cellulitis that has extended up the left thigh (the intensity of the redness has improved) Psych: pleasant, cooperative Results & Data Results & Data Vital Signs (Past 12 Hours) Vital Signs Temp Pulse Pulse Resp BP BP Pulse Ox 12/16/23 14:35 37.1 C 71 20 126/59 L 96 12/16/23 11:12 36.9 C 63 19 127/60 96 12/16/23 09:00 12/16/23 07:44 69 12/16/23 07:17 36.5 C 78 19 117/62 96 12/16/23 03:41 36.5 C 80 18 120/70 96 O2 Del Method 12/16/23 14:35 Room Air 12/16/23 11:12 Room Air 12/16/23 09:00 Room Air 12/16/23 07:44 12/16/23 07:17 Room Air 12/16/23 03:41 Room Air PG Care Time/CCT Total # of Minutes Spent Total Time Spent with Patient: Total time spent is greater than 50% in coordination of care (as documented) at patient's floor/unit and/or counseling patient: Coding Level of Care Code 91092 SUB INP/OBS CARE 2/35MIN Diagnoses SIRS (systemic inflammatory response syndrome) R65.10 Controlled type 2 diabetes mellitus with diabetic neuropathy, with long-term current use of insulin E11.40; Z79.4 Diabetes mellitus adjunct faculty for medical terminology insulin use: with senior living use Diabetes mellitus complication status: with neurologic complications Diabetes mellitus complication detail: with unspecified neuropathy Typical atrial flutter I48.3 Atrial flutter type: typical BPH (benign prostatic hyperplasia) N40.0 Obstructive sleep apnea, adult G47.33 Hypophosphatemia E83.39 Hypomagnesemia E83.42 (2) Diabetes type 2, controlled Diabetes mellitus adjunct faculty for medical terminology insulin use: with senior living use Diabetes mellitus complication status: with neurologic complications Diabetes mellitus complication detail: with unspecified neuropathy Qualified Code(s): E11.40 - Type 2 diabetes mellitus with diabetic neuropathy, unspecified; Z79.4 - longterm (current) use of insulin (3) Atrial flutter Atrial flutter type: typical Qualified Code(s): I48.3 - Typical atrial flutter
[2023-12-17 08:31] LABS: Hemoglobin 11.5 g/dl (14.0-18.0); Mean Corpuscular Hemoglobin 31.3 pg (25.0-34.0); Mean Corpuscular Hgb Conc 32.9 g/dL (32.0-36.0); Mean Corpuscular Volume 95.4 fL (80.0-100.0); Mean Platelet Volume 10.4 fL (9.4-12.4); Platelet Count 194 K/uL (130-400); RDW Coefficient of Variation 16.1 % (11.5-14.5); Red Blood Count 3.67 M/uL (4.70-6.10); White Blood Count 6.88 K/ul (4.8-10.8)
[2023-12-17 08:59] LABS: BUN Creatinine Ratio 24.1 (10-20); C Reactive Protein 23.03 mg/dl (0-0.5); Creatinine Clr Calc Pharmacy 121.5 ml/min; Est GFR (African American) 99.1 ml/min; Est GFR (Non-African American) 85.5 ml/min; Magnesium 1.9 mg/dl (1.7-2.4); Phosphorus 3.1 mg/dl (2.5-4.9); Potassium 4.2 mmol/L (3.5-5.1)
--- NOTE | 2023-12-17 16:06 | Infectious Disease Progress Nt ---
Date of Service December 17, 2023 Assessment & Plan (1) Diabetic infection of left foot: (2) Amputated toe of left foot: (3) Bacteremia: Plan #L foot cellulitis #Group G Strep bacteremia #L third toe osteomyelitis c/b MSSA bacteremia s/p amputation through distal metatarsal (10/21/23) #DM2 Micro: 12/10 BCx x1: NGTD 12/09 L third toe wound cx: GBS 12/12 BCx x1: GBS in 2/2 vials (S penicillin) Abx: Cefazolin 12/11 - 12/12 Dapto 12/09 - 12/10, 12/12- ongoing Zosyn 12/09 - 12/11 Ceftriaxone 12/12- ongoing Impression: 78 yo male with DM2, diabetic neuropathy, a flutter, BPH, bilateral TKA, recent hospitalization in October 2023 for L third toe osteomyelitis c/b MSSA bacteremia s/p amputation through distal metatarsal (10/21/23) treated with IV cefazolin x 2 weeks followed by cefadroxil x 1 week (EOT 11/11/23) who presented on 12/10/23 with fever, AMS, vomiting, found to have GBS bacteremia and LLE cellulitis. During his October admission, orthopedics felt confident that all infected bone was removed. OR culture grew MSSA. Blood cultures cleared quickly. TTE commented on thickening and calcification of L coronary cusp, vegetation cannot be excluded although appearance seems identical to that seen on a TTE from 07/31/2023. Path of the amputated portion of the L 3rd toe showed acute osteomyelitis. Path of the L third metatarsal head showed bone and cartilage with mild reactive changes. He subsequently followed up in orthopedics clinic and he was continued on a wound vac as of last visit on 11/18/23, at which time it was felt that his third ray resection was healing well. On presentation 12/09, pt was febrile to 39.6, HR 102, RR 36, 93% on 2 L NC. Labs showed WBC 5.24, Cr 1.18, ESR 24, CRP 2.57, lactate 1.8 --> 2.3, procalcitonin 2.6. RVP negative. BCx collected. CXR with no consolidation. He was noted to have L foot erythema and warmth, with open wound over third phalanx that was not overtly purulent. L foot XR with no radiographic evidence for acute osteomyelitis in L foot, expected postoperative findings from L third digit transmetatarsal amputation, L foot soft tissue swelling. He was started on dapto, zosyn. Initially, there was lower concern for L foot infection, and primarily concern for aspiration in the setting of vomiting. CTA L ankle/foot showed no definite evidence of osteomyelitis, s/p amputation of third toe and distal one third of third metatarsal. LLE venous duplex US showed no DVT. Blood culture grew Group G Strep. A wound culture of drainage from the L third toe amputation site also grew Group G Strep. His antibiotics were changed to cefazolin. See picture of L third toe amputation site from 12/12/23. TTE on 12/11 showed no vegetation. Pt's last fever was on 12/12. He has remained without leukocytosis. ID was consulted 12/12 because erythema spread from his knee up to his thigh overnight. - Primary team and RN reported the erythema of the LLE had spread extensively up his L thigh on 12/12. Seems unusual as the cefazolin should cover the Group G Strep that grew in his blood and wound cultures. However, given clinical worsening after narrowing from broad spectrum antibiotics to cefazolin, broadened antibiotics to daptomycin and ceftriaxone on 12/12 12/16 PT seen and evaluated. He feels his LE has improved since admission . Cellulitis improving on Dapto/Ctx. He has regression of erythema from pen markings, less edema and erythema fading/less dark. Repeat Bc 12/10 NG. CRp 2.57-->28.69----23.03 Recommendations: - If pt continuous to improve on this regimen ( Dapto/CTX) , could consider discharging on linezolid 600 mg PO BID plus amox/clav 875 mg PO BID through 12/23 to complete a total 14 day course of antibiotics (for bacteremia plus cellulitis) from cleared blood cultures on 12/11/23. ID will sign off. Please call with questions. Leo Bautista MD, MPH Infectious Disease [facility], [facility] Call [phone] with questions. Admission and Anticipated Discharge Date Admission Date: December 10, 2023 Subjective Subsequent visit was provided via telemedicine using two-way real-time interactive telecommunication between the patient and the telemedicine provider. For the duration of the visit, the provider was performing the assessment from a different facility than the patient. This includesuse of bluetooth stethoscope forauscultationperformed by the telepresenter that the telemedicine provider can hear if described in the physical exam. [employer] contact information: Please call [facility] [phone]. (Phone Number For Physician Use Only) After establishing a telemedicine visit, patient was: Patient was verified with two unique identifiers Time Spent with Patient: Subsequent => 25 min Afebrile He feels his LE is less swollen, red and less painful Repeat BC 12/09 NG WBC 6.88, cr 0.83 Physical Exam Physical Exam: NAD, sitting up in chair NCAT, anicteric sclera No increased work of breathing RLE edema. Partially dressed. Erythema from upper thigh and mid thigh regressing from pen markings. minimal warmth. Toes and calf area dressed. AAo*3 Normal mood Results & Data Vital Signs (Past 12 Hours) Vital Signs Temp Pulse Resp BP BP Pulse Ox O2 Del Method 12/17/23 15:33 36.8 C 62 19 120/56 L 96 Room Air 12/17/23 10:19 36.7 C 75 20 135/81 93 Room Air 12/17/23 07:15 Room Air 12/17/23 06:59 36.5 C 64 18 104/58 L 56 L Room Air 12/17/23 04:28 36.5 C 73 18 122/57 L 94 Room Air Laboratory Results Laboratory Results - last 48 hr 12/15/23 12/15/23 12/16/23 16:20 20:37 07:16 WBC RBC Hgb Hct MCV MCH MCHC RDW Std Deviation RDW Coeff of David Plt Count MPV Sodium Potassium Chloride Carbon Dioxide Anion Gap BUN Creatinine Est Cr Clr Drug Dosing Est GFR ( Amer) Est GFR (Non-Af Amer) BUN/Creatinine Ratio Glucose POC Glucose 139 H 165 H 140 H Calcium Phosphorus Magnesium C-Reactive Protein B-Natriuretic Peptide Procalcitonin 12/16/23 12/16/23 12/16/23 11:08 16:00 20:25 WBC RBC Hgb Hct MCV MCH MCHC RDW Std Deviation RDW Coeff of David Plt Count MPV Sodium Potassium Chloride Carbon Dioxide Anion Gap BUN Creatinine Est Cr Clr Drug Dosing Est GFR ( Amer) Est GFR (Non-Af Amer) BUN/Creatinine Ratio Glucose POC Glucose 189 H 171 H 138 H Calcium Phosphorus Magnesium C-Reactive Protein B-Natriuretic Peptide Procalcitonin 12/17/23 12/17/23 12/17/23 06:57 08:09 11:00 WBC 6.88 RBC 3.67 L Hgb 11.5 L Hct 35.0 L MCV 95.4 MCH 31.3 MCHC 32.9 RDW Std Deviation 57.0 H RDW Coeff of David 16.1 H Plt Count 194 MPV 10.4 Sodium 135 L Potassium 4.2 Chloride 101 Carbon Dioxide 28 Anion Gap 6 BUN 20 Creatinine 0.83 Est Cr Clr Drug Dosing 121.5 Est GFR ( Amer) 99.1 Est GFR (Non-Af Amer) 85.5 BUN/Creatinine Ratio 24.1 H Glucose 141 H POC Glucose 143 H 167 H Calcium 8.0 L Phosphorus 3.1 Magnesium 1.9 C-Reactive Protein 23.03 H B-Natriuretic Peptide 284 H Procalcitonin 0.72 H 12/17/23 16:01 WBC RBC Hgb Hct MCV MCH MCHC RDW Std Deviation RDW Coeff of David Plt Count MPV Sodium Potassium Chloride Carbon Dioxide Anion Gap BUN Creatinine Est Cr Clr Drug Dosing Est GFR ( Amer) Est GFR (Non-Af Amer) BUN/Creatinine Ratio Glucose POC Glucose 116 H Calcium Phosphorus Magnesium C-Reactive Protein B-Natriuretic Peptide Procalcitonin Diagnostic Findings Microbiology 12/10/23 21:03 Blood Aerobic Blood Culture - Final Group G Beta Strep 12/10/23 21:03 Blood Anaerobic Blood Culture - Final Group G Beta Strep 12/11/23 09:24 Blood Aerobic Blood Culture - Final No growth in Aerobic bottle after 5 days. 12/11/23 09:24 Blood Anaerobic Blood Culture - Final No growth in Anaerobic bottle after 5 days. 12/10/23 21:08 Foot Gram Stain - Final 12/10/23 21:08 Foot Wound Culture - Final Group G Beta Strep Medications Administered Home Medications Medication Instructions Recorded Confirmed Last Taken Vitamin B-12 5000 Mcg Chewable 10,000 mcg PO AMHS 12/11/23 12/11/23 Unknown acetaminophen 325 mg tablet 650 mg PO Q6 PRN Fever Or Pain 12/11/23 12/11/23 Unknown (Tylenol) albuterol sulfate 90 mcg/actuation 1 inh inhalation Q6 PRN Shortness 12/11/23 12/11/23 Unknown aerosol inhaler Of Breath Or Wheezing apixaban 5 mg tablet (Eliquis) 5 mg PO AMHS 12/11/23 12/11/23 12/09/23 08:30 cholecalciferol (vitamin D3) 25 25 mcg PO DAILY 12/11/23 12/11/23 Unknown mcg (1,000 unit) tablet (Vitamin D3) epinephrine 0.3 mg/0.3 mL 0.3 mg IM DIRECTED PRN 12/11/23 12/11/23 Unknown injection, auto-injector Anaphylaxis furosemide 20 mg tablet 20 mg PO BID 12/11/23 12/11/23 Unknown glimepiride 2 mg tablet 2 mg PO QAM 12/11/23 12/11/23 Unknown hydrochlorothiazide 25 mg tablet 12.5 mg PO AMHS 12/11/23 12/11/23 Unknown insulin glargine 100 unit/mL (3 40 unit subcut HS 12/11/23 12/11/23 12/09/23 20:30 mL) subcutaneous pen (Lantus Solostar U-100 Insulin) insulin lispro 100 unit/mL 0 unit subcut [facility] 12/11/23 12/11/23 Unknown subcutaneous pen (Humalog KwikPen (U-100) Insulin) lisinopril 20 mg tablet 20 mg PO [facility] 12/11/23 12/11/23 Unknown multivitamin 1 tab PO DAILY 12/11/23 12/11/23 Unknown pantoprazole 40 mg tablet,delayed 40 mg PO DAILY 12/11/23 12/11/23 Unknown release promethazine 25 mg/mL injection 12.5 mg IM Q6H PRN Nausea 12/11/23 12/11/23 Unknown solution (Phenergan) simvastatin 20 mg tablet 20 mg PO HS 12/11/23 12/11/23 Unknown tamsulosin 0.4 mg capsule 0.4 mg PO QPM 12/11/23 12/11/23 Unknown tramadol 50 mg tablet 50 mg PO Q8 PRN .Pain 5-10 12/11/23 12/11/23 Unknown metformin 1,000 mg tablet 1,000 mg PO BID #180 tabs 12/17/23 Unknown Active Medications Generic Name Dose Route Start Last Admin Trade Name Freq PRN Reason Stop Dose Admin Acetaminophen 650 mg 12/10/23 23:16 12/16/23 20:55 Acetaminophen 325 Mg Tab PO 01/09/24 23:15 650 mg Q4H PRN Administration Pain or Fever Apixaban 5 mg 12/11/23 10:00 12/17/23 10:20 Apixaban 5 Mg Tablet PO 01/10/24 09:59 5 mg Q12H MIRIAM Administration Furosemide 20 mg 12/11/23 10:00 12/11/23 18:18 Furosemide 20 Mg Tab PO 01/10/24 09:59 20 mg [id number] MIRIAM Administration Hydrochlorothiazide 12.5 mg 12/11/23 10:00 12/11/23 21:03 Hydrochlorothiazide 25 Mg Tab PO 01/10/24 09:59 12.5 mg BID MIRIAM Administration Ceftriaxone Sodium 2,000 mg in 50 mls @ 100 mls/hr 12/13/23 18:00 12/16/23 19:29 Rocephin IV 12/27/23 17:59 Infused Q24H MIRIAM Infusion Insulin Aspart 0 units 12/12/23 19:30 12/17/23 12:00 Insulin Aspart Per Unit Charge SC 01/11/24 19:29 13 units ACHS MIRIAM Administration Insulin Glargine 40 units 12/11/23 21:00 12/16/23 20:56 Lantus Per Unit Charge SQ 01/10/24 20:59 40 units HS MIRIAM Administration Lisinopril 20 mg 12/11/23 10:00 12/11/23 21:02 Lisinopril 20 Mg Tab PO 01/10/24 09:59 20 mg BID MIRIAM Administration Pantoprazole Sodium 40 mg 12/11/23 10:15 12/17/23 08:31 Pantoprazole 40 Mg Tab PO 01/10/24 10:14 40 mg QAM MIRIAM Administration Simvastatin 20 mg 12/11/23 10:15 12/17/23 08:31 Simvastatin 20 Mg Tab PO 01/10/24 10:14 20 mg QAM MIRIAM Administration Tamsulosin HCl 0.4 mg 12/11/23 10:15 12/17/23 08:31 Tamsulosin Hcl 0.4 Mg Cap PO 01/10/24 10:14 0.4 mg DAILY MIRIAM Administration Vitamin D 25 mcg 12/11/23 10:00 12/17/23 08:31 Cholecalciferol 25 Mcg (1000 Units) Tab PO 01/10/24 09:59 25 mcg QAM MIRIAM Administration
--- NOTE | 2023-12-17 17:02 | Hospitalist Progress Note ---
Date of Service December 17, 2023 Assessment & Plan (1) SIRS (systemic inflammatory response syndrome): (2) Diabetes type 2, controlled: (3) Atrial flutter: (4) BPH (benign prostatic hyperplasia): (5) Obstructive sleep apnea, adult: (6) Hypophosphatemia: (7) Hypomagnesemia: Plan #SIRS (systemic inflammatory response syndrome): #Metabolic encephalopathy #SIRS+ presented from office with chills, possible rigors and nausea - In the setting of recent bacteremia MSSA concern for pneumonia, - CXR: on admission without pneumonia - left foot ulcer infected,wound culture group G strep, first blood culture group G strep, subsequent blood cx negative - abx was changed to cefazolin and since then his cellulitis spread up the thigh. case discussed with ID, abx broadened back to CTX / Dapto - wound care following - leg without DVT , no osteo on CT -Appreciate input from ID: If pt improves on this regimen, could consider discharging on linezolid 600 mg PO BID plus amox/clav 875 mg PO BID through 12/23 to complete a total 14 day course of antibiotics (for bacteremia plus cellulitis) from cleared blood cultures on 12/11/23. transitioned dapto to linezolid. 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 - XRAY foot without osteo on plain films - Wound culture growing Grp G beta strep - CT foot neg for osteo - doppler leg for dvt Diabetes type 2, controlled: HA1c: 7.9 (08/15/23) - Home 2 mg glimepiride daily hold - cont lantus 40 sq - ordered correctional scale #Atrial flutter: CHADS2 Vasc: 4 - on Eliquis - Does not required rate control medication as per Cardiology note - elevated troponin likley demand ischemia from illness - typically takes lasix, lisinopril/ hctz , on hold with lower blood pressure on admission , but cont furosemide at this time #Electrolytes - hypokalemia: replete and monitor - hypomagnesemia: replete and monitor - hypophosphatemia: replete and monitor #BPH (benign prostatic hyperplasia): - continue tamsulosin no LUTS #Obstructive sleep apnea, adult: #GERD - cont PPI #Morbid Obesity BMI 40 #EVON - BMI: 35 - cont CPAP #DVT prophylaxis: Continue Eliquis Awaiting rehab placement Admission and Anticipated Discharge Date Admission Date: December 10, 2023 Subjective Patient reports feeling well. Review of Systems Review of Systems: All systems reviewed & are unremarkable except as noted in HPI & below Physical Exam Physical Exam: Gen: no acute distress HEENT: NC/AT, MMM CVS: s1s2 nl, RRR Lungs: CTAB Abd: nl BS, soft, nontender Ext: left leg wound dressing in place,cellulitis appears to have improved. Psych: pleasant, cooperative Results & Data Results & Data Vital Signs (Past 12 Hours) Vital Signs Temp Pulse Resp BP BP Pulse Ox O2 Del Method 12/17/23 15:33 36.8 C 62 19 120/56 L 96 Room Air 12/17/23 10:19 36.7 C 75 20 135/81 93 Room Air 12/17/23 07:15 Room Air 12/17/23 06:59 36.5 C 64 18 104/58 L 56 L Room Air PG Care Time/CCT Total # of Minutes Spent Total Time Spent with Patient: Total time spent is greater than 50% in coordination of care (as documented) at patient's floor/unit and/or counseling patient: Coding Level of Care Code 88599 SUB INP/OBS CARE 235MIN Diagnoses SIRS (systemic inflammatory response syndrome) R65.10 Controlled type 2 diabetes mellitus with diabetic neuropathy, with long-term current use of insulin E11.40; Z79.4 Diabetes mellitus intermediate insulin use: with intermediate use Diabetes mellitus complication status: with neurologic complications Diabetes mellitus complication detail: with unspecified neuropathy Typical atrial flutter I48.3 Atrial flutter type: typical BPH (benign prostatic hyperplasia) N40.0 Obstructive sleep apnea, adult G47.33 Hypophosphatemia E83.39 Hypomagnesemia E83.42 (2) Diabetes type 2, controlled Diabetes mellitus intermediate insulin use: with intermediate use Diabetes mellitus complication status: with neurologic complications Diabetes mellitus complication detail: with unspecified neuropathy Qualified Code(s): E11.40 - Type 2 diabetes mellitus with diabetic neuropathy, unspecified; Z79.4 - retirement (current) use of insulin (3) Atrial flutter Atrial flutter type: typical Qualified Code(s): I48.3 - Typical atrial flutter
[2023-12-17] MEDS: LINEZOLID 600 MG TAB PO SCH (17:25)
--- NOTE | 2023-12-18 21:06 | Hospitalist Progress Note ---
Date of Service December 18, 2023 Assessment & Plan (1) SIRS (systemic inflammatory response syndrome): (2) Diabetes type 2, controlled: (3) Atrial flutter: (4) BPH (benign prostatic hyperplasia): (5) Obstructive sleep apnea, adult: (6) Hypophosphatemia: (7) Hypomagnesemia: Plan #SIRS (systemic inflammatory response syndrome): #Metabolic encephalopathy #SIRS+ presented from office with chills, possible rigors and nausea - In the setting of recent bacteremia MSSA concern for pneumonia, - CXR: on admission without pneumonia - left foot ulcer infected,wound culture group G strep, first blood culture group G strep, subsequent blood cx negative - abx was changed to cefazolin and since then his cellulitis spread up the thigh. case discussed with ID, abx broadened back to CTX / Dapto - wound care following - leg without DVT , no osteo on CT -Appreciate input from ID: If pt improves on this regimen, could consider discharging on linezolid 600 mg PO BID plus amox/clav 875 mg PO BID through 12/23 to complete a total 14 day course of antibiotics (for bacteremia plus cellulitis) from cleared blood cultures on 12/11/23. transitioned dapto to linezolid. -continue iv antibiotics will switch ceftriaxone to augmetin on 12/18 Left heal ulcer 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 - XRAY foot without osteo on plain films - Wound culture growing Grp G beta strep - CT foot neg for osteo - doppler leg for dvt Diabetes type 2, controlled: HA1c: 7.9 (08/15/23) - Home 2 mg glimepiride daily hold - cont lantus 40 sq - ordered correctional scale #Atrial flutter: CHADS2 Vasc: 4 - on Eliquis - Does not required rate control medication as per Cardiology note - elevated troponin likley demand ischemia from illness - typically takes lasix, lisinopril/ hctz , on hold with lower blood pressure on admission , but cont furosemide at this time #Electrolytes - hypokalemia: replete and monitor - hypomagnesemia: replete and monitor - hypophosphatemia: replete and monitor #BPH (benign prostatic hyperplasia): - continue tamsulosin no LUTS #Obstructive sleep apnea, adult: #GERD - cont PPI #Morbid Obesity BMI 40 #EVON - BMI: 35 - cont CPAP #DVT prophylaxis: Continue Eliquis Awaiting rehab placement Admission and Anticipated Discharge Date Admission Date: December 10, 2023 Subjective Patient reportds nop new symptoms. Review of Systems Review of Systems: All systems reviewed & are unremarkable except as noted in HPI & below Physical Exam Physical Exam: Gen: no acute distress HEENT: NC/AT, MMM CVS: s1s2 nl, RRR Lungs: CTAB Abd: nl BS, soft, nontender Ext: left leg wound dressing in place,cellulitis appears to have improved. Psych: pleasant, cooperative Results & Data Results & Data Vital Signs (Past 12 Hours) Vital Signs Temp Pulse Resp BP Pulse Ox O2 Del Method 12/18/23 15:07 36.7 C 73 18 116/69 97 Room Air 12/18/23 10:38 Room Air PG Care Time/CCT Total # of Minutes Spent Total Time Spent with Patient: Total time spent is greater than 50% in coordination of care (as documented) at patient's floor/unit and/or counseling patient: Coding Level of Care Code 30529 SUB INP/OBS CARE 2/35MIN Diagnoses SIRS (systemic inflammatory response syndrome) R65.10 Controlled type 2 diabetes mellitus with diabetic neuropathy, with long-term current use of insulin E11.40; Z79.4 Diabetes mellitus complication detail: with unspecified neuropathy Diabetes mellitus complication status: with neurologic complications Diabetes mellitus longitudinal float operator insulin use: with nursing home use Typical atrial flutter I48.3 Atrial flutter type: typical BPH (benign prostatic hyperplasia) N40.0 Obstructive sleep apnea, adult G47.33 Hypophosphatemia E83.39 Hypomagnesemia E83.42 (2) Diabetes type 2, controlled Diabetes mellitus complication detail: with unspecified neuropathy Diabetes mellitus complication status: with neurologic complications Diabetes mellitus longitudinal float operator insulin use: with nursing home use Qualified Code(s): E11.40 - Type 2 diabetes mellitus with diabetic neuropathy, unspecified; Z79.4 - care home (current) use of insulin (3) Atrial flutter Atrial flutter type: typical Qualified Code(s): I48.3 - Typical atrial flutter
[2023-12-19 06:53] LABS: Hematocrit (blood only) 31.5 % (42.0-52.0); Hemoglobin 10.7 g/dl (14.0-18.0); Mean Corpuscular Hemoglobin 31.9 pg (25.0-34.0); Platelet Count 295 K/uL (130-400); RDW Coefficient of Variation 16.1 % (11.5-14.5); RDW Standard Deviation 55.8 fL (36.4-46.3); Red Blood Count 3.35 M/uL (4.70-6.10); White Blood Count 7.38 K/ul (4.8-10.8)
[2023-12-19 07:21] LABS: BUN Creatinine Ratio 22.1 (10-20); C Reactive Protein 12.37 mg/dl (0-0.5); Calcium 7.7 mg/dl (8.6-10.3); Est GFR (African American) 102.2 ml/min; Est GFR (Non-African American) 88.1 ml/min; Potassium 4.6 mmol/L (3.5-5.1)
[2023-12-19 07:43] VITALS: PULSE 69; RESP 16; TEMP 97.3; O2SAT 92
[2023-12-19 14:35] VITALS: BP 135/81
--- NOTE | 2023-12-20 08:21 | Discharge Summary ---
Discharge Summary Date of Service December 19, 2023 Principal Dx & Hospital Course #1 = Principal Diagnosis (1) SIRS (systemic inflammatory response syndrome): (2) Diabetes type 2, controlled: (3) Atrial flutter: (4) BPH (benign prostatic hyperplasia): (5) Obstructive sleep apnea, adult: (6) Hypophosphatemia: (7) Hypomagnesemia: Plan #SIRS (systemic inflammatory response syndrome): #Metabolic encephalopathy #SIRS+ presented from office with chills, possible rigors and nausea - In the setting of recent bacteremia MSSA concern for pneumonia, - CXR: on admission without pneumonia - left foot ulcer infected,wound culture group G strep, first blood culture group G strep, subsequent blood cx negative - abx was changed to cefazolin and since then his cellulitis spread up the thigh. case discussed with ID, abx broadened back to CTX / Dapto - wound care following - leg without DVT , no osteo on CT -Appreciate input from ID: If pt improves on this regimen, could consider discharging on linezolid 600 mg PO BID plus amox/clav 875 mg PO BID through 12/23 to complete a total 14 day course of antibiotics (for bacteremia plus cellulitis) from cleared blood cultures 12/11/23. transitioned dapto to linezolid. will switch ceftriaxone to augmetin on 12/18 Left heal ulcer 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 - XRAY foot without osteo on plain films - Wound culture growing Grp G beta strep - CT foot neg for osteo - doppler leg for dvt Diabetes type 2, controlled: HA1c: 7.9 (08/15/23) - Home 2 mg glimepiride daily hold - cont lantus 40 sq #Atrial flutter: CHADS2 Vasc: 4 - on Eliquis - Does not required rate control medication as per Cardiology note - elevated troponin likley demand ischemia from illness - typically takes lasix, lisinopril/ hctz , on hold with lower blood pressure on admission , but cont furosemide at this time #Electrolytes - hypokalemia: replete and monitor - hypomagnesemia: replete and monitor - hypophosphatemia: replete and monitor #BPH (benign prostatic hyperplasia): - continue tamsulosin no LUTS #Obstructive sleep apnea, adult: #GERD - cont PPI #Morbid Obesity BMI 40 #EVON - BMI: 35 - cont CPAP Admission HPI Per Admitting Provider Greg is a 78 old male with PMH of PMHx of DM II c/b diabetic neuropathy, HTN, AFlutter, HLD, EVON, GERD, BPH, presents to the hospital for the evaluation of left foot infection. He was recently admitted due to infected left foot ulcer requiring amputation found with bacteremia ASHVIN. He was discharge to rehab with IV Ancef (end date: 11/03) and subsequently 7 days of cefadroxil, (end date ). Last day of rehab was tomorrow. As per family in the room, patient had been receiving wound care and he did finish his abx course. Today in the afternoon patient was found very confused, feeling weak. He did had an episode of vomit and small choke event. On evaluation patient was found in NAD, awake, alert, oriented only to placed and person not time. Family at bedside. He denied any chest pain, SOB, palpitation, cough, abdominal pain, nausea or diarrhea. No sick contacts. ED Course: Patient found with tachycardia, fever and increase RR. Lab r emarkable for WBC of 6.6, Hgb 11.9, lactate 2.4, Procal 2.60, Mag 1.1. IV Daptomycin, IV Zosyn started on ED. IV Bolus NSS. Troponin 27.8 Discharge Exam Gen: no acute distress HEENT: NC/AT, MMM CVS: s1s2 nl, RRR Lungs: CTAB Abd: nl BS, soft, nontender Ext: left leg wound dressing in place,cellulitis appears to have improved. Psych: pleasant, cooperative Discharge Plan Discharge Items Patient Disposition: Home - Home Health Services Reason For Visit: SEPSIS, LEFT FOOT ULCER Discharge Diagnosis: sepsis Activity: Resume your previous activity Non-emergency contact: Primary Care Provider Call non-emergency contact if: you have any medication questions Follow-up/Referrals: Tank Munoz MD [Primary Care Provider] - 12/31/23 1:00 pm Diet: Carb Consistent or DM2 and Heart Healthy Addtl Attending Provider Instructions: DIschargeinstructions for wound: To left 4th amputation site: clean with saline. Fill with quacel AG extending place between toes. Cover with 4x4s and secure with kerlix. change every day as needed. Followup with PCP in 1-2 week Addtl Suggestion Clerk Provider Instructions: DIABETES RECOMMENDATIONS: 1.) Lantus is long-acting/24 hour insulin that helps cover the sugar that your body makes. - Do not hold Lantus dose if blood sugar level is below 120. Dose may need reduced but not held. Lantus dose should be adjusted overtime based on fasting blood sugar levels (or lowest blood sugar levels thru the day). If blood sugar level is below 120 before bed, recommend eating a small bedtime snack to help increase/stabalize blood sugar levels overnight. 2.) Humalog is a rapid-acting insulin that helps cover the food/carbhydrates you eat and blood sugar levels. Try to take ~10 minutes before eating. - Take 6 units to cover normal meal - Take 8 units to cover large/heavy meal - Plus extra for blood sugar levels above target - Hold Humalog dose when you skip a meal. 3.) Continue to hold Metformin. 4.) Discontinue Glimepiride. 5.) Per Endocrinology recommendation, check into cost/coverage of GLP-1 medications: Trulicity, Ozempic, Mounjaro, Victoza. 6.) Aim to maintain blood sugar levels below 180 (ideally blood sugar levels below 150 before meals) to support healing. 6.) Notify provider of blood sugar levels frequently above/below target. 7.) Aim for regular/balanced meals thru the day. Increase protein intake to support healing. Continue oral protein supplement 1-2x/day. Pending Studies at Discharge: No Stand-Alone Forms: My [facility], Smoking Cessation Medications and DC Order Prescriptions: New linezolid 600 mg Tablet 600 mg PO Q12H Qty: 11 0RF Rx Instructions: First dose tonight amoxicillin-pot clavulanate 875-125 mg tablet 1 tab PO BID Qty: 11 0RF Rx Instructions: First dose tonight Continued multivitamin Tablet 1 tab PO DAILY acetaminophen [Tylenol] 325 mg Tablet 650 mg PO Q6 PRN (Reason: Fever Or Pain) tamsulosin 0.4 mg capsule 0.4 mg PO QPM pantoprazole 40 mg tablet,delayed release (DR/EC) 40 mg PO DAILY simvastatin 20 mg tablet 20 mg PO HS promethazine [Phenergan] 25 mg/mL Solution 12.5 mg IM Q6H PRN (Reason: Nausea) Rx Instructions: FOR 3 DAYS, START 12/10/23 epinephrine 0.3 mg/0.3 mL Auto-Injector 0.3 mg IM DIRECTED PRN (Reason: Anaphylaxis) albuterol sulfate 90 mcg/actuation Hfa Aerosol Inhaler 1 inh INHALATION Q6 PRN (Reason: Shortness Of Breath Or Wheezing) insulin lispro [Humalog KwikPen Insulin] 100 unit/mL insulin pen 6 unit SUBCUT TIDWMEAL Rx Instructions: Was receiving sliding scale only at [facility]. 350-400=8, 401-450=12, 451-500=16, 501-550=18, recheck in 2 hr as directed, call cholecalciferol (vitamin D3) [Vitamin D3] 25 mcg (1,000 unit) Tablet 25 mcg PO DAILY insulin glargine [Lantus Solostar U-100 Insulin] 100 unit/mL (3 mL) insulin pen 40 unit SUBCUT HS Eliquis 5 mg tablet 5 mg PO AMHS Vitamin B-12 5000 Mcg Chewable 10,000 mcg PO AMHS Changed furosemide 20 mg tablet 40 mg PO Q OTHER DAY Qty: 0 0RF Held tramadol 50 mg tablet 50 mg PO Q8 PRN (Reason: .Pain 5-10) Hold Instructions: Resume on 12/26/23. until done with linezolid Discontinued metformin 1,000 mg tablet 1,000 mg PO BID Qty: 180 3RF Rx Instructions: Metformin was discontinued due to GI side effects. lisinopril 20 mg tablet 20 mg PO AMHS glimepiride 2 mg Tablet 2 mg PO QAM Rx Instructions: administer with breakfast- added at [facility]. Was not taking at home. hydrochlorothiazide 25 mg tablet 12.5 mg PO AMHS Discharge Orders: Discharge Order (Routine); Ordered 12/19/23 Ordered By: Burton Tran Admission Data Admit Date/Time: 12/10/23 23:16 Attending Provider: Burton Tran Admit Provider: Epifanio Agarwal Primary Care Provider: Tank Munoz Other Providers: [facility]; Elvia Marie; Anuradha Casillas; [facility] Other Interventions: Discharge Summary Assessment (RN) Last Done: 12/19/23 14:35 Hospital Stay Data Consultations 12/10/23 22:22 ED Decision to Admit Stat 12/13/23 16:37 Consult Infectious Diseases Routine Diagnostic Imagining Performed 12/11/23 18:48 CT angio foot LT wo/w con Routine 12/11/23 18:54 US venous doppler LE LT Routine Pending Results Patient Have Any Pending Studies at Discharge: No Discharge Instructions Given to Patient (Per Discharging Provider) DIschargeinstructions for wound: To left 4th amputation site: clean with saline. Fill with quacel AG extending place between toes. Cover with 4x4s and secure with kerlix. change every day as needed. Followup with PCP in 1-2 week Total Time Total Time Spent Total Time Spent (In Minutes): 32 Coding Level of Care Code 31413 INP/OBS DISCH >30 MIN Diagnoses SIRS (systemic inflammatory response syndrome) R65.10 Controlled type 2 diabetes mellitus with diabetic neuropathy, with long-term current use of insulin E11.40; Z79.4 Diabetes mellitus complication detail: with unspecified neuropathy Diabetes mellitus complication status: with neurologic complications Diabetes mellitus snf insulin use: with snf use Typical atrial flutter I48.3 Atrial flutter type: typical BPH (benign prostatic hyperplasia) N40.0 Obstructive sleep apnea, adult G47.33 Hypophosphatemia E83.39 Hypomagnesemia E83.42
== END 2023-12-19 14:35 | disposition home health service (06) | DRG 637 ==
LOC: ED 20:44 → SUATTDRO 23:16 → EDINP 23:16 → 2S 12-11 07:00 → 3N 12-17 18:00
DX: E66.01 Morbid (severe) obesity due to excess calories; E83.39 Other disorders of phosphorus metabolism; E87.6 Hypokalemia; N40.0 Benign prostatic hyperplasia without lower urinary tract symptoms; E83.42 Hypomagnesemia; E11.628 Type 2 diabetes mellitus with other skin complications; Z88.2 Allergy status to sulfonamides; Z89.422 Acquired absence of other left toe(s); I24.89 Other forms of acute ischemic heart disease; G47.33 Obstructive sleep apnea (adult) (pediatric); K21.9 Gastro-esophageal reflux disease without esophagitis; Z11.52 Encounter for screening for COVID-19; Z79.01 Long term (current) use of anticoagulants; E11.621 Type 2 diabetes mellitus with foot ulcer; Z79.84 Long term (current) use of oral hypoglycemic drugs; E11.40 Type 2 diabetes mellitus with diabetic neuropathy, unspecified; I48.3 Typical atrial flutter; L03.116 Cellulitis of left lower limb; L97.421 Non-pressure chronic ulcer of left heel and midfoot limited to breakdown of skin; Z86.16 Personal history of COVID-19; Z68.42 Body mass index [BMI] 45.0-49.9, adult; Z88.8 Allergy status to other drugs, medicaments and biological substances; G93.41 Metabolic encephalopathy; Z79.899 Other long term (current) drug therapy; Z79.4 Long term (current) use of insulin